=== PATIENT | female | born 1950 | race Two or more races ===

== ENCOUNTER 2019-02-05 18:09 | Inpatient (IN) | payer OTHER ==
--- NOTE | 2019-02-05 19:19 | PDOC ---
History of Present Illness - General Chief Complaint: Nausea/Vomiting Stated Complaint: ABDOMINAL PAIN Time Seen by Provider: 02/05/19 18:50 - History of Present Illness Initial Comments: 02/05/19 20:11 The patient is a 68 year old female with a history of HTN, DM, ESRD on dialysis , , Tue who presents for evaluation of abdominal pain, nausea, and vomiting. The patient reports a 1 day history of nausea with 4-5 episodes of non-bilious, non-bloody vomiting with associated sharp epigastric abdominal pain prompting her presentation to the ED for further evaluation. She notes that she has not been able to tolerate anything PO in the past day as well. She reports that she did get her schedule dialysis 2 days ago on Tue and denies any sick contacts. She otherwise denies fevers, chills, SOB, chest pain, or changes with urination or bowel movements. Past History - Past Medical History Allergies/Adverse Reactions: Allergies Allergy/AdvReac Type Severity Reaction Status Date / Time No Known Allergies Allergy Verified 02/05/19 18:27 Home Medications: Ambulatory Orders Aspirin 81 mg PO DAILY 02/05/19 Carvedilol [Coreg -] 25 mg PO BID 02/05/19 Clonidine HCl [Catapres] 0.2 mg PO BID 02/05/19 Folic Acid/Vit B Complex and C [Yue-Roberta Tablet] 0.8 mg PO DAILY 02/05/19 Gabapentin [Neurontin] 100 mg PO HS 02/05/19 Lactulose (Oral Use) [Cephulac -] 30 gm PO BID 02/05/19 Linaclotide [Linzess] 145 mcg PO DAILY 02/05/19 Nifedipine [Procardia Xl] 90 mg PO DAILY 02/05/19 Omeprazole 20 mg PO DAILY 02/05/19 Oxycodone HCl 5 mg PO DAILY PRN 02/05/19 Polyethylene Glycol 3350 [Miralax (For Daily Use) -] 17 gm PO DAILY 02/05/19 Sennosides [Senna] 8.6 mg PO BID 02/05/19 Sevelamer Carbonate [Renvela] 1,600 mg PO TID 02/05/19 Simvastatin [Zocor -] 20 mg PO HS 02/05/19 Sitagliptin Phosphate [Januvia] 25 mg PO DAILY 02/05/19 Sucralfate [Carafate -] 1 gm PO TID 02/05/19 - Suicide/Smoking/Psychosocial Hx Smoking History: Unknown if ever smoked Hx Alcohol Use: No Drug/Substance Use Hx: No Review of Systems - Review of Systems Comments:: 02/05/19 20:16 Constitutional: No fevers, chills, fatigue, malaise HEENT: No Rhinorrhea, nasal congestion, visual changes, or ear pain Cardiovascular: No chest pain, syncope, palpitations, lightheadedness Respiratory: No Cough, SOB, Hemoptysis, Gastrointestinal: Abdominal pain, Nausea, Vomiting, No Constipation, Diarrhea, Melena Genitourinary: No Dysuria, Frequency, Urgency, Hesitancy, Hematuria, Flank pain Musculoskeletal: No Myalgia, arthralgia Skin: No rashes, itching, bruising, pallor Neurologic: No Headache, Dizziness, Numbness, Weakness, or Tingling Psychiatric: Behaving normally for age. No Hallucinations. No SI or HI *Physical Exam - Vital Signs Last Vital Signs Temp Pulse Resp BP Pulse Ox 99.0 F 80 18 161/82 98 02/05/19 18:27 02/05/19 18:27 02/05/19 18:27 02/05/19 18:27 02/05/19 18:27 - Physical Exam Comments: 02/05/19 20:17 General Appearance: Nourished. No Apparent Distress HEENT: No Pharyngeal Erythema, Tonsillar Exudate, Tonsillar Erythema Neck: No Cervical Lymphadenopathy Respiratory/Chest: Lungs Clear, Normal Breath Sounds. No Crackles, Rales, Rhonchi, Wheezing Cardiovascular: Regular Rhythm, Regular Rate. No Murmur, Gallops, Rubs Gastrointestinal/Abdominal: Normal Bowel Sounds, Soft. Mild Epigastric and bilateral lower quadrant tenderness to palpation on exam. No Guarding, Rebound , Musculoskeletal: No CVA Tenderness Extremity: Normal Capillary Refill Integumentary: Normal Color, Dry, Warm Neurologic: Fully Oriented, Alert, Normal Mood/Affect, Normal Response, ED Treatment Course - LABORATORY CBC & Chemistry Diagram: 02/05/19 19:24 02/05/19 19:24 Medical Decision Making - Critical Care Time Total Critical Care Time (minutes): 45 Critical Care Statement: The care of this patient involved high complexity decision making to prevent further life threatening deterioration of the patient 's condition and/or to evaluate & treat vital organ system(s) failure or risk of failure. - Medical Decision Making 02/05/19 20:18 The patient is a 68 year old female with a history of HTN, DM, ESRD on dialysis bryson john, Jamal who presents for evaluation of abdominal pain, nausea, and vomiting. Differential includes but is not limited to: Gastroenteritis, Gastritis, Intra-abdominal pathology, Infectious, Metabolic Derangement. Given the patient's history and physical exam, we will obtain a cbc, cmp, troponin, ekg, lactate, lipase, chest plain film, ct abdomen/pelvis to evaluate further. We will treat with pepcid and zofran and continue to monitor and reassess while here in the ED. 02/05/19 22:48 CBC demonstrates an elevated wbc to 12. CMP demonstrates a potassium of 7.1 and creatinine of 11. Troponin is elevated to 0.07. Lactate is unremarkable. Chest plain film demonstrates no acute findings. CT abdomen/pelvis demonstrates Mild focal soft tissue thickening within the right mid to upper pelvis laterally adjacent to the appendix as well as noting that the proximal third of the appendix appears slightly thickening possibly representing an acute appendicitis as read by our radiologist. The patient has noted peaked T- waves on EKG. We discussed the case with Nephrology who will come to dialysis the patient urgently. We will treat in the meantime with insulin, calcium, dextrose, kayexalate, albuterol. Dr. Talamantes is recommending holding off on bicarb. We will consult with surgery for possible appendicitis and treat with unasyn. We discussed the case with ICU given her elevated potassium and ekg changes who accepted the patient to ICU. *DC/Admit/Observation/Transfer Diagnosis at time of Disposition: Hyperkalemia Acute appendicitis Qualifiers: Acute appendicitis type: unspecified acute appendicitis type Qualified Code(s) : K35.80 - Unspecified acute appendicitis - Discharge Dispostion Condition at time of disposition: Guarded Decision to Admit order: Yes - Referrals Referrals: ON STAFF,NOT [Primary Care Provider] - - Patient Instructions - Post Discharge Activity
[2019-02-05] MEDS ORDERED: FAMOTIDINE 20 MG/50 ML IVPB 20 MG/50 ML MG IVPB ONE ×2 (19:21→19:29)
[2019-02-05 19:43] LABS: EOS % 1.6 % (0-4.5); HEMATOCRIT 38.7 % (32.4-45.2); HEMOGLOBIN 12.2 GM/dL (10.7-15.3); LYMPH % 15.9 % (8-40); MCH 26.3 pg (25.7-33.7); MCHC 31.4 g/dl (32.0-36.0); MEAN CELL VOLUME 83.7 fl (80-96); MEAN PLT VOLUME 8.8 fl (7.5-11.1); MONO % 8.4 % (3.8-10.2); NEUT % 73.1 % (42.8-82.8); PLATELET COUNT 251 K/MM3 (134-434); RBC 4.62 M/mm3 (3.60-5.2); RDW 16.7 % (11.6-15.6)
[2019-02-05 20:18] LABS: ALBUMIN 3.9 g/dl (3.4-5.0); ALK PHOS 161 U/L (45-117); ANION GAP 10 MMOL/L (8-16); BILIRUBIN,TOTAL 0.4 mg/dL (0.2-1); BLOOD UREA NITROGEN 74 mg/dL (7-18); CALCIUM 9.7 mg/dL (8.5-10.1); CHLORIDE 100 mmol/L (98-107); CO2 24 mmol/L (21-32); GLUCOSE,RANDOM 93 mg/dL (74-106); LIPASE 87 U/L (73-393); SGOT/AST 12 U/L (15-37); SGPT/ALT 11 U/L (13-61); SODIUM 134 mmol/L (136-145); TOT PROT 8.7 g/dl (6.4-8.2)
[2019-02-05 20:23] LABS: POTASSIUM 7.1 mmol/L (3.5-5.1)
[2019-02-05] MEDS ORDERED: CALCIUM GLUCONATE 10% - 1,000 MG/10 ML VIAL IVPB ONE (20:30)
[2019-02-05] MEDS ORDERED: SODIUM POLYSTYRENE SULFONATE 15 GM/60 ML BOTTLE PO ONE (20:30)
[2019-02-05] MEDS ORDERED: ALBUTEROL SO4 0.042% IH SOL 1.25 MG/3 ML VIAL.NEB NEB ONE (20:30)
[2019-02-05] MEDS ORDERED: DEXTROSE 50%-WATER - 25 GM/50 ML VIAL IVPUSH ONE (20:30)
[2019-02-05] MEDS ORDERED: INSULIN REGULAR HUMAN 100 UNITS/ML *VIAL IVPUSH ONE (20:30)
[2019-02-05] MEDS ORDERED: ALBUTEROL SO4 0.083% IH SOL 2.5 MG/3 ML VIAL.NEB. NEB ONE (20:44)
[2019-02-05] MEDS ORDERED: INSULIN REGULAR HUMAN 100 UNITS/ML *VIAL ONE (21:00)
[2019-02-05] MEDS ORDERED: DEXTROSE 50%-WATER 25 GM/50 ML DISP.SYRIN ONE (21:00)
[2019-02-05] MEDS ORDERED: CALCIUM GLUCONATE 10% - 1,000 MG/10 ML VIAL ONE (21:00)
--- NOTE | 2019-02-05 21:15 | PDOC ---
Documentation entered by Joseph Mullen SCRIBE, acting as scribe for Ricarda Cheung DO. Ricarda Cheung DO: This documentation has been prepared by the Sebas vasquez Matthew, SCRIBE, under my direction and personally reviewed by me in its entirety. I confirm that the documentation accurately reflects all work, treatment, procedures, and medical decision making performed by me. Attending Attestation - Resident Resident Name: Leon Gallagher - HPI HPI: 02/05/19 20:17 Patient is a 68 year old male with a significant past medical history of HTN, DM , ESRD on dialysis , , Tue, who presents to the ED with complaints of nausea and vomiting that began yesterday evening. Patient reports experiencing chronic nausea and 5 episodes of non bloody vomiting, with associated abdominal pain that he states is a sharp non radiating pain, located primarily in the epigastric. He reports coming into the ED for further evaluation after symptoms did not subside over time. Denies chest pain, Sob. Denies nausea, vomiting. Denies fevers, chills. Denies constipation, diarrhea. Denies contact with sick individuals, out of state travellings. Denies any other symptoms. Allergies: NKDA. Social history: No smoking. No alcohol. No illicit drugs. Surgical history: None PMD: not on staff - Physicial Exam PE: 02/05/19 20:17 Agree with residents Physical Exam. - Critical Care Time Total Critical Care Time: 45 Critical Care Statement: The care of this patient involved high complexity decision making to prevent further life threatening deterioration of the patient 's condition and/or to evaluate & treat vital organ system(s) failure or risk of failure. - Medical Decision Making 02/05/19 21:13 68-year-old female with history of end-stage renal disease now complaining of diffuse abdominal pain Patient due for dialysis tomorrow Labs reveal a markedly elevated potassium level with EKG significant for peaked t waves consistent with lab values Call placed to patient's brim stiffener by emergency department resident Plan for transfer to room as soon as possible for dialysis this evening CT scan of the abdomen and pelvis to be performed prior to transferred Medical treatment for hyperkalemia and cardiac monitoring initiated in the emergency department
[2019-02-05] MEDS ORDERED: SODIUM POLYSTYRENE SULFONATE 15 GM/60 ML BOTTLE ONE (21:38)
--- NOTE | 2019-02-05 22:53 | CONSULT ---
Consultation: REQUESTING PROVIDER: Dr. Gallagher CONSULT REQUEST: We have been asked to medically evaluate this patient for emergent dialysis. HISTORY OF PRESENT ILLNESS: This is a 68 year old female with ESRD on HD )TTS), HTN , DM, who presents with nausea and NBNB vomiting x1 day, found to have hyperkalemia 7.1 with peaked t waves on ECG. Patient received insulin, albuterol, and kayexelate. Patient transferred to ICU for emergent dialysis. Of note abdominal CT revealed thickened appendix, r/o acute appendicitis. Denies fevers,chills, diarrhea, melena, sick contacts. Could not hold down any water today. Last meal was rice last night. REVIEW OF SYSTEMS: CONSTITUTIONAL: Absent: fever, chills, diaphoresis, generalized weakness, malaise, loss of appetite, weight change HEENT: Absent: rhinorrhea, nasal congestion, throat pain, throat swelling, difficulty swallowing, mouth swelling, ear pain, eye pain, visual changes CARDIOVASCULAR: Absent: chest pain, syncope, palpitations, irregular heart rate, lightheadedness , peripheral edema RESPIRATORY: Absent: cough, shortness of breath, dyspnea with exertion, orthopnea, wheezing, stridor, hemoptysis GASTROINTESTINAL: Positive: n/v Absent: abdominal pain, abdominal distension, diarrhea, constipation, melena, hematochezia GENITOURINARY: Absent: dysuria, frequency, urgency, hesitancy, hematuria, flank pain, genital pain MUSCULOSKELETAL: Absent: myalgia, arthralgia, joint swelling, back pain, neck pain SKIN: Absent: rash, itching, pallor HEMATOLOGIC/IMMUNOLOGIC: Absent: easy bleeding, easy bruising, lymphadenopathy, frequent infections ENDOCRINE: Absent: unexplained weight gain, unexplained weight loss, heat intolerance, cold intolerance NEUROLOGIC: Absent: headache, focal weakness or paresthesias, dizziness, unsteady gait, seizure, mental status changes, bladder or bowel incontinence PSYCHIATRIC: Absent: anxiety, depression, suicidal or homicidal ideation, hallucinations. PHYSICAL EXAMINATION Vital Signs - 24 hr 02/05/19 02/05/19 18:27 22:34 Temperature 99.0 F Pulse Rate 80 Pulse Rate [ 84 Apical] Respiratory 18 18 Rate Blood Pressure 161/82 Blood Pressure 162/84 [Left Arm] O2 Sat by Pulse 98 99 Oximetry (%) GENERAL: Awake, alert, and fully oriented, in no acute distress. THROAT: oropharynx clear without exudates. Moist mucous membranes. NECK: Normal range of motion, supple without lymphadenopathy, JVD, or masses. LUNGS: Breath sounds equal, clear to auscultation bilaterally. No wheezes, and no crackles. No accessory muscle use. HEART: Regular rate and rhythm, normal S1 and S2 +murmur 2/6 systolic murmur radiating to right clavicle, rub or gallop. ABDOMEN: Soft, +tenderness to deep palpation RLQ , not distended, normoactive bowel sounds MUSCULOSKELETAL: Normal range of motion at all joints. No bony deformities or tenderness. No CVA tenderness. UPPER EXTREMITIES: 2+ pulses, warm, well-perfused. No cyanosis. No clubbing. Cap refill <2 seconds. No peripheral edema. Right arm fistula LOWER EXTREMITIES: 2+ pulses, warm, well-perfused. No calf tenderness. No peripheral edema. NEUROLOGICAL: Cranial nerves II-XII intact. Normal speech. PSYCHIATRIC: Cooperative. Good eye contact. Appropriate mood and affect. SKIN: Warm, dry, normal turgor, no rashes or lesions noted. Laboratory Results - last 24 hr 02/05/19 02/05/19 02/05/19 19:24 19:24 19:24 WBC 12.0 H RBC 4.62 Hgb 12.2 Hct 38.7 MCV 83.7 MCH 26.3 MCHC 31.4 L RDW 16.7 H Plt Count 251 MPV 8.8 Absolute Neuts (auto) 8.8 H Neutrophils % 73.1 Lymphocytes % 15.9 Monocytes % 8.4 Eosinophils % 1.6 Basophils % 1.0 Nucleated RBC % 0 Sodium 134 L Potassium 7.1 H* Chloride 100 Carbon Dioxide 24 Anion Gap 10 BUN 74 H Creatinine 11.0 H* Creat Clearance w eGFR 3.45 Random Glucose 93 Lactic Acid 0.7 Calcium 9.7 Total Bilirubin 0.4 AST 12 L ALT 11 L Alkaline Phosphatase 161 H Creatine Kinase 59 Troponin I 0.07 H Total Protein 8.7 H Albumin 3.9 Lipase 87 Active Medications Generic Name Dose Route Start Last Admin Trade Name Freq PRN Reason Stop Dose Admin Chlorhexidine Gluconate 1 applic 02/06/19 22:00 Hibiclens For Decolonization - TP HS TERRA Mupirocin 1 applic 02/06/19 10:00 Bactroban Ointment (For Decolonization) - NS 02/11/19 09:59 BID [facility] ASSESSMENT/PLAN: This is a 68 year old female with ESRD on HD, who presents with one day history of nausea and vomiting, found to be hyperkalemic with peaked t waves, and CT abdomen with possible acute appendicitis. ICU overnight for emergent dialysis. Hyperkalemia with peaked t waves r/o acute appendicitis r/o multiple myeloma ESRD DM HTN -s/p cocktail for hyperkalemia -emergent dialysis -repeat labs post HD -blood cultures, Empiric antibiotics -surgery consulted -a/g ratio >1 with vertebral irregularities on CT ; w/u for mutiple myeloma; spep; K/L light chains Dispo: We will continue to follow the patient. Thank you for this consultative opportunity. Visit type - Emergency Visit Emergency Visit: Yes Care time: The patient presented to the Emergency Department on the above date and was hospitalized for further evaluation of their emergent condition. - New Patient This patient is new to me today: Yes Date on this admission: 02/05/19 - Critical Care Critical Care patient: Yes Total Critical Care Time (in minutes): 40 Critical Care Statement: The care of this patient involved high complexity decision making to prevent further life threatening deterioration of the patient 's condition and/or to evaluate & treat vital organ system(s) failure or risk of failure.
--- NOTE | 2019-02-05 23:00 | CONSULT ---
Consult Consult Specialty:: Nephrology Reason for Consultation:: ESRD and hyperkalemia - History of Present Illness Chief Complaint: abdominal pain and vomiting History of Present Illness: Pt is a 68 year old female with pmhx of ESRD, HTN, and DM who presented to the ER wtih nausea and vomiting. She also complained of epigastric pain. The symptoms began yesterday. She had about 5 episodes of vomiting. She denies fevers or chills. She denies diarrhea. She says that she feels that the nausea is improved and is hungry now. She is on HD on a TTS schedule. Her last dialysis was on Tuesday. She does not know the address of the HD center nor does she know the name of her racing car driver. She was found to be hyperkalemic as well with ecg changes. I was called as a stat consult. Pt went for ct scan of the abdomen which showed possible acute apendicitis. - History Source History Provided By: Patient, Medical Record Limitations to Obtaining History: Poor Historian - Past Medical History Cardio/Vascular: Yes: HTN Gastrointestinal: Yes: GERD Renal/: Yes: Renal Failure, Hemodialysis Endocrine: Yes: Diabetes Mellitus - Past Surgical History Past Surgical History: Yes: AV Fistula/Graft - Alcohol/Substance Use Hx Alcohol Use: No - Smoking History Smoking history: Unknown if ever smoked Home Medications - Allergies Allergies/Adverse Reactions: Allergies Allergy/AdvReac Type Severity Reaction Status Date / Time No Known Allergies Allergy Verified 02/05/19 18:27 - Home Medications Home Medications: Ambulatory Orders Aspirin 81 mg PO DAILY 02/05/19 Carvedilol [Coreg -] 25 mg PO BID 02/05/19 Clonidine HCl [Catapres] 0.2 mg PO BID 02/05/19 Folic Acid/Vit B Complex and C [Yue-Roberta Tablet] 0.8 mg PO DAILY 02/05/19 Gabapentin [Neurontin] 100 mg PO HS 02/05/19 Lactulose (Oral Use) [Cephulac -] 30 gm PO BID 02/05/19 Linaclotide [Linzess] 145 mcg PO DAILY 02/05/19 Nifedipine [Procardia Xl] 90 mg PO DAILY 02/05/19 Omeprazole 20 mg PO DAILY 02/05/19 Oxycodone HCl 5 mg PO DAILY PRN 02/05/19 Polyethylene Glycol 3350 [Miralax (For Daily Use) -] 17 gm PO DAILY 02/05/19 Sennosides [Senna] 8.6 mg PO BID 02/05/19 Sevelamer Carbonate [Renvela] 1,600 mg PO TID 02/05/19 Simvastatin [Zocor -] 20 mg PO HS 02/05/19 Sitagliptin Phosphate [Januvia] 25 mg PO DAILY 02/05/19 Sucralfate [Carafate -] 1 gm PO TID 02/05/19 Family Disease History - Family Disease History Family History: Denies Review of Systems - Review of Systems Constitutional: reports: Malaise. denies: Chills, Fever Eyes: reports: No Symptoms HENT: reports: No Symptoms Neck: reports: No Symptoms Cardiovascular: reports: No Symptoms Respiratory: reports: No Symptoms Gastrointestinal: reports: Abdominal Pain, Nausea, Vomiting. denies: Bloating, Constipation, Diarrhea Genitourinary: reports: No Symptoms Musculoskeletal: reports: No Symptoms Integumentary: reports: No Symptoms Neurological: reports: No Symptoms Endocrine: reports: No Symptoms Hematology/Lymphatic: reports: No Symptoms Psychiatric: reports: No Symptoms Physical Exam Vital Signs: Vital Signs Temperature 99.0 F 02/05/19 18:27 Pulse Rate 84 02/05/19 22:34 Respiratory Rate 18 02/05/19 22:34 Blood Pressure 162/84 02/05/19 22:34 O2 Sat by Pulse Oximetry (%) 99 02/05/19 22:34 Constitutional: Yes: Calm Eyes: Yes: Conjunctiva Clear HENT: Yes: Atraumatic Cardiovascular: Yes: S1, S2 Respiratory: Yes: CTA Bilaterally Gastrointestinal: Yes: Normal Bowel Sounds, Soft, Tenderness Renal/: Yes: WNL Musculoskeletal: Yes: WNL Edema: No Neurological: Yes: Oriented Psychiatric: Yes: Oriented Labs: CBC, BMP 02/05/19 19:24 02/05/19 19:24 Laboratory Tests 02/05/19 02/05/19 19:24 19:24 WBC 12.0 H Hgb 12.2 Sodium 134 L Potassium 7.1 H* Chloride 100 Carbon Dioxide 24 BUN 74 H Total Bilirubin 0.4 AST 12 L ALT 11 L Alkaline Phosphatase 161 H Imaging - Results Cat Scan: Report Reviewed Assessment/Plan Current Medications Generic Name Dose Route Start Last Admin Trade Name Freq PRN Reason Stop Dose Admin Chlorhexidine Gluconate 1 applic 02/06/19 22:00 Hibiclens For Decolonization - TP HS TERRA Mupirocin 1 applic 02/06/19 10:00 Bactroban Ointment (For Decolonization) - NS 02/11/19 09:59 BID TERRA Impression 1. ESRD 2. hyperkalemia 3. abd pain 4. possible acute appendicitis 5. HTN 6. DM Plan - will arrange for urgent HD at bedside - called in HD nurse - pt going to ICU on tele monitor - potassium treated medically in ER earlier tonight - surgical evaluation for ct finding is pending - will not take fluid off on HD - monitor blood sugar - discussed with ER team - discussed with ICU team
[2019-02-05] MEDS ORDERED: SODIUM CHLORIDE 250 ML IV PRN (23:05)
--- NOTE | 2019-02-05 23:10 | PN ---
Teaching Attending Note Name of Resident: Sarah Jones ATTENDING PHYSICIAN STATEMENT I saw and evaluated the patient. I reviewed the resident's note and discussed the case with the resident. I agree with the resident's findings and plan as documented. SUBJECTIVE: Seen and examined; please refer to resident note for further historical information. Briefly, this is a 68 y/o female presenting with HTN, NIDDM, ESRD on TTS HD (last HD tuesday; RUE AVF), HLD, GERD. 4-5 times NBNB vomit this AM with sharp epigastric pain radiating through the abdomen with a generalized body pain. Nothing makes it better or worse; nobody who ate the food she ate yesterday got sick. Dr. Atkinson called by ER and will assess. She was brought to the ICU for emergency HD by nephrology and will be admitted to medicine service with ICU, renal sgy consultation. She is noted to have elevated protein and vertebral endplate abnormality in L-spine and denies any acute back pain, etc. She is noted to be markedly hypertensive with a positive troponin but denies chest pain, SOB, etc. 10 sys ROS done and negative aside from HPI PMH, PSH, FH, SH reviewed Home Medications Medication Instructions Recorded Aspirin 81 mg PO DAILY 02/05/19 Carvedilol [Coreg -] 25 mg PO BID 02/05/19 Clonidine HCl [Catapres] 0.2 mg PO BID 02/05/19 Folic Acid/Vit B Complex and C 0.8 mg PO DAILY 02/05/19 [Yue-Roberta Tablet] Gabapentin [Neurontin] 100 mg PO HS 02/05/19 Lactulose (Oral Use) [Cephulac -] 30 gm PO BID 02/05/19 Linaclotide [Linzess] 145 mcg PO DAILY 02/05/19 Nifedipine [Procardia Xl] 90 mg PO DAILY 02/05/19 Omeprazole 20 mg PO DAILY 02/05/19 Oxycodone HCl 5 mg PO DAILY PRN 02/05/19 Polyethylene Glycol 3350 [Miralax 17 gm PO DAILY 02/05/19 (For Daily Use) -] Sennosides [Senna] 8.6 mg PO BID 02/05/19 Sevelamer Carbonate [Renvela] 1,600 mg PO TID 02/05/19 Simvastatin [Zocor -] 20 mg PO HS 02/05/19 Sitagliptin Phosphate [Januvia] 25 mg PO DAILY 02/05/19 Sucralfate [Carafate -] 1 gm PO TID 02/05/19 OBJECTIVE: VS, labs, imaging reviewed NAD, AAO, resting comfortably in bed NC AT EOMI PERRLA Tender abdomen, ND +BS RRR s1/2 no mgr Lungs CTAB, w/ sym exp Palpable thrill CN2-12 wnl, no fnd CT reviewed; shows mild focal soft tissue thickening in the R-mid to upper pelvis laterally adjacent to the appendix. The proximal third of the appendix appears slightly thickened. Suspicious for possible early appendicitis. Also mentions possible cardiomegaly, probable cholelithiasis without cholecystitis, and multilevel vertebral ednplate abnormality noted in the mid and lower lumbar spine that is noninflam vs. inflammatory and recommedned MRI for further evaluation. EKG reviewed ASSESSMENT AND PLAN: Patient presents for abdominal pain found to have severe hyperkalemia with possible appendicitis; Dr. Atkinson and Dr. Watkins are following 1) Severe Hyperkalemia -Emergency HD being initiated as this note is written; noted renal input. She denies missing HD, etc. -Followup repeat BMP, monitor telemetry. EKG noted. 2) Possible early appendicitis -Empiric abx with zosyn, followup surgical consult. Check ESR/CRP. Ultimate management per surgical services; appreciate expert opiniom. Check type and cross and coags. Monitor Is and Os. Not septic. -NPO, PRN dilaudid. No fluid removal with HD and given not septic with clinical risk of fluid overload will hold off on IVF overnight. 3) Elevated Alkaline Phosphatase -Checking GGT and RUQ US 4) HTN Emergency/Troponemia -HD now; recheck BP post dialysis. No plan for fluid removal per nephrology. No sx. Monitor telemetry, repeat EKG. Likely due to subendocardial ischemia 2/ 2 demand. Obtain old records. Can check echo to r/o any wmas. -Continue home BP meds; should she appear septic of course will hold. If BP elevated post HD will give home meds PM dose and consider additional PRN dosing. Of course will control pain. 5) NIDDM -Hold PO antihyperglycemics; SSI while inpatient. 6) ESRD on HD -Nephrology following; renal diet, strict is and os, monitor weights. On TTS HD via avf. 7) Hyperprotenemia with lumbar vertebrae endplate abnormality -Checking MRI, SPEP, UPEP. Consider heme/onc consult in AM. Full Code
[2019-02-05] MEDS ORDERED: AMPICILLIN NA/SULBACTAM NA 1.5 GM in SODIUM CHLORIDE 100 ML IVPB ONE (23:23)
[2019-02-05] MEDS: INSULIN SLIDING SCALE (NOVOLOG) 1 VIAL SQ SCH (23:30)
--- NOTE | 2019-02-06 | HP ---
CHIEF COMPLAINT: Abdominal pain, nausea, vomiting PCP: Not on staff HISTORY OF PRESENT ILLNESS: Patient is a 68 year old female who was BIBEMS from [facility] assisted living with a PMHx of HTN, NIDMMII w/ neuropathy, ESRD (,,S), HLD, GERD for complaints of nausea, vomiting, and abdominal pain. According to the patient, she started experiencing diffuse, constant, sharp abdominal pain that started last night associated with several episodes of nonbloody vomitous, which prompted this hospital visit. Patient reports she ate rice and meat given to her yesterday by her sister. However, she states she was the only one who had these symptoms. Patient denies missing any dialysis days this week. Patient also denies being around sick contacts but does live in a facility. Patient otherwise, denies any fever, chills, chest pain, palpitations, shortness of breath, headaches, dizziness, loss of consciousness. Patient has never been to this hospital before and will need more information from care home on who the casing blower is, reason for ESRD, and dry weight. ER course was notable for: (1)HyperKalemia (2)Insulin, dextrose, kayexalate, calcium given (3)Abdominal CT revealed possible appendicitis Recent Travel: Denies PAST MEDICAL HISTORY: HTN NIDMMII w/ neuropathy ESRD (,,S) HLD GERD PAST SURGICAL HISTORY: Breast Reduction Social History: Smoking:Denies Alcohol: Denies Drugs: Denies Lives at a care home Born in [facility] [place] Family History: Father- Alcoholism Mother- Denies Allergies: No Known Allergies Allergy (Verified 02/05/19 18:27) HOME MEDICATIONS: Home Medications Medication Instructions Recorded Aspirin 81 mg PO DAILY 02/05/19 Carvedilol [Coreg -] 25 mg PO BID 02/05/19 Clonidine HCl [Catapres] 0.2 mg PO BID 02/05/19 Folic Acid/Vit B Complex and C 0.8 mg PO DAILY 02/05/19 [Yue-Roberta Tablet] Gabapentin [Neurontin] 100 mg PO HS 02/05/19 Lactulose (Oral Use) [Cephulac -] 30 gm PO BID 02/05/19 Linaclotide [Linzess] 145 mcg PO DAILY 02/05/19 Nifedipine [Procardia Xl] 90 mg PO DAILY 02/05/19 Omeprazole 20 mg PO DAILY 02/05/19 Oxycodone HCl 5 mg PO DAILY PRN 02/05/19 Polyethylene Glycol 3350 [Miralax 17 gm PO DAILY 02/05/19 (For Daily Use) -] Sennosides [Senna] 8.6 mg PO BID 02/05/19 Sevelamer Carbonate [Renvela] 1,600 mg PO TID 02/05/19 Simvastatin [Zocor -] 20 mg PO HS 02/05/19 Sitagliptin Phosphate [Januvia] 25 mg PO DAILY 02/05/19 Sucralfate [Carafate -] 1 gm PO TID 02/05/19 REVIEW OF SYSTEMS CONSTITUTIONAL: Absent: fever, chills, diaphoresis, generalized weakness, malaise, loss of appetite, weight change HEENT: Absent: rhinorrhea, nasal congestion, throat pain, throat swelling, difficulty swallowing, mouth swelling, ear pain, eye pain, visual changes CARDIOVASCULAR: Absent: chest pain, syncope, palpitations, irregular heart rate, lightheadedness , peripheral edema RESPIRATORY: Absent: cough, shortness of breath, dyspnea with exertion, orthopnea, wheezing, stridor, hemoptysis GASTROINTESTINAL: abdominal pain, nausea, vomiting Absent: diarrhea, constipation, melena, hematochezia GENITOURINARY: Absent: dysuria, frequency, urgency, hesitancy, hematuria, flank pain, genital pain MUSCULOSKELETAL: Absent: myalgia, arthralgia, joint swelling, back pain, neck pain SKIN: Absent: rash, itching, pallor HEMATOLOGIC/IMMUNOLOGIC: Absent: easy bleeding, easy bruising, lymphadenopathy, frequent infections ENDOCRINE: Absent: unexplained weight gain, unexplained weight loss, heat intolerance, cold intolerance NEUROLOGIC: Absent: headache, focal weakness or paresthesias, dizziness, unsteady gait, seizure, mental status changes, bladder or bowel incontinence PSYCHIATRIC: Absent: anxiety, depression, suicidal or homicidal ideation, hallucinations. PHYSICAL EXAMINATION Vital Signs 02/05/19 02/05/19 18:27 22:34 Temperature 99.0 F Pulse Rate 80 Pulse Rate [ 84 Apical] Respiratory 18 18 Rate Blood Pressure 161/82 Blood Pressure 162/84 [Left Arm] O2 Sat by Pulse 98 99 Oximetry (%) GENERAL: Awake, alert, and fully oriented, in no acute distress. HEAD: Normal with no signs of trauma. EYES: Pupils equal, round and reactive to light, extraocular movements intact, sclera anicteric, conjunctiva clear. No lid lag. EARS, NOSE, THROAT: Oropharynx clear without exudates. Dry mucous membranes. NECK: (-) lymphadenopathy, JVD, or masses. LUNGS: Breath sounds equal, clear to auscultation bilaterally. No wheezes, and no crackles. No accessory muscle use. HEART: Regular rate and rhythm, normal S1 and S2 without murmur, rub or gallop. BREAST: Bilateral scar below the breast from previous breast reduction. No nippple discharge. No masses, lesions, skin changes. ABDOMEN: Soft,obese, nontender, not distended, normoactive bowel sounds, no guarding, no rebound, no masses. No hepatomegaly or splenomegaly. MUSCULOSKELETAL: No CVA tenderness. EXTREMITIES: (+) Right arm av fistula with good palpable thrill. No calf tenderness. No peripheral edema. NEUROLOGICAL: Cranial nerves II-XII intact. Normal speech. Motor strength 5/5 bilaterally with sensory intact PSYCHIATRIC: Cooperative. Good eye contact. Appropriate mood and affect. SKIN: Warm, dry, normal turgor, no rashes or lesions noted, normal capillary refill. Laboratory Results 02/05/19 19:24 02/05/19 19:24 02/05/19 02/05/19 19:24 19:24 Lactic Acid 0.7 Total Bilirubin 0.4 AST 12 L ALT 11 L Alkaline Phosphatase 161 H Troponin I 0.07 H Lipase 87 IMAGES: Abdomen CT (02/05/19): Mild focal soft tissue thickening is seen within the right mid to upper pelvis laterally adjacent to the appendix. The proximal third of the appendix appears slightly thickened. Correlate clinically in regards to possible acute appendicitis. Possible cardiomegaly. Bilateral renal atrophy which is probably moderate. Probable cholelithiasis without CT evidence of acute cholecystitis. If clinically indicated correlate with sonography. Multilevel vertebral endplate irregularity is noted within the mid and lower lumbar spine - ? due to noninflammatory versus inflammatory disease. Clinical/ laboratory correlation is suggested. MRI evaluation may be considered. ASSESSMENT/PLAN: Patient is a 68 year old female who presented here for nausea, vomiting, abdominal pain and was found to have severe hyperkalemia with EKG changes. Patient admitted to ICU for further monitoring and management. Severe HyperKalemia -With EKG showing teaked P waves -Emergent dialysis initiated by Nephrology -Kayexalate, Dextrose, Insulin and calcium given -Will need post dialysis labs and EKG -Continue to monitor labs daily -Nephrology consult appreciated Possible Acute Appendicitis -CT abdomen revealed possible appendicitis -ESR/CRP ordered -Started Flagyl 500mg IVPB Q8H and Levaquin 500mg IVPB daily -Blood cultures -NPO -Pain control with Morphine 2mg IVPB Q6H PRN -Will hold on fluids as patient is getting dialysis -Type and screen ordered -Surgery consult placed and will evaluate HTN Emergency w/ Troponemia -Patient currently getting hemodialysis and will check BP post dialysis -Repeat Labs including BMP and troponin -Likely demand ischemia -Will repeat ekg post dialysis -Home medications resumed for the morning but if patient shows any signs of sepsis, will hold -Continue to monitor BP -Trend Troponin until peaks Elevated Proteins with Lumbar Vertebrae Irregularities -SPEP, UPEP Ordered -MRI ordered -Would consider Hematology/oncology consult Elevated Alkaline Phosphatase -GGT ordered -RUQ U/S ordered NIDDMII -ISS -BGM ESRD on HD -HD days on ,,S -Will need dry weight from care home -Daily weights -Strict I&O's HLD -Continue home medication Simvastatin 20mg HS GERD -Continue home medication Carafate 1mg TID F/E/N -On no fluids -Hyperkalemia -NPO Prophylaxis -Moderate risk. Heparin 5000 units sq tid for DVT -Carafate for GI Disposition -Full code -Emergent dialysis tonight and will need to repeat labs post dialysis -PT for deconditioning Sarah Jones [id number] Visit type - Emergency Visit Emergency Visit: Yes ED Registration Date: 02/05/19 Care time: The patient presented to the Emergency Department on the above date and was hospitalized for further evaluation of their emergent condition. - New Patient This patient is new to me today: Yes Date on this admission: 02/05/19 - Critical Care Critical Care patient: Yes Total Critical Care Time (in minutes): 45 Critical Care Statement: The care of this patient involved high complexity decision making to prevent further life threatening deterioration of the patient 's condition and/or to evaluate & treat vital organ system(s) failure or risk of failure.
[2019-02-06] MEDS ORDERED: MORPHINE SULFATE 2 MG/ML VIAL IVPUSH PRN (00:20)
--- NOTE | 2019-02-06 01:04 | CONSULT ---
Consult Consult Specialty:: General Surgery Referred by:: Leon Gallagher Reason for Consultation:: appendicitis - History of Present Illness Chief Complaint: n/v, abd pain History of Present Illness: 68yo F with HTN, DM, ESRD on HD via RUE fistula, s/p hysterectomy and breast reduction, presented to ER with N/V associated with epigastric abdominal pain. Per ER record, pt had missed Tuesday HD. Per patient, she was at dialysis on Tuesday and felt ok. She indicates she had N/V and some pain about 2 weeks ago and longer ago than that, but that it got better on its own. The current symptoms she describes started only Tuesday morning. She had a headache yesterday as well. Denies dizziness, f/c, dysuria, diarrhea, constipation, last normal BM was yesterday, last made urine earlier today (she does urinate some). She has had back and knee pain, which are chronic, and takes up to one percocet a day for that. Not sure of all her meds, but med list includes asa daily. She reports having taken her am meds yesterday and this morning, though today she threw them up. She has been in a wheelchair for about a year, and can walk some with a walker and sometimes without the walker. She is in assisted living, but states she is independent with ADLs. In the ER, she was afebrile, with wbc 12, K 7 with peaked T waves, and CT showed mild inflammation/enlargement of middle third of appendix with appendicolith and some inflammatory changes around it suggestive of acute appendicitis. She was admitted to medicine, given IVF and started on Unasyn and brought to the ICU for emergent hemodialysis. Surgery was asked to assess. She is seen and examined in ICU, just starting HD. She feels cold, and describes her pain from before, but does not seem particularly uncomfortable. No further vomiting. She seems a little unclear on some of her history, and as noted above, her story varies from the ER record. - History Source History Provided By: Patient, Medical Record Limitations to Obtaining History: Poor Historian - Past Medical History Cardio/Vascular: Yes: HTN Gastrointestinal: Yes: GERD Renal/: Yes: Renal Failure, Hemodialysis Reproductive: Yes: Postmenopausal Musculoskeletal: Yes: Osteoarthritis Endocrine: Yes: Diabetes Mellitus - Past Surgical History Past Surgical History: Yes: AV Fistula/Graft (RUE), Hysterectomy Additional Surgical History: breast reduction - Alcohol/Substance Use Hx Alcohol Use: No History of Substance Use: reports: None - Smoking History Smoking history: Never smoked Have you smoked in the past 12 months: No - Social History Usual Living Arrangement: Assisted Living ADL: Independent Home Medications - Allergies Allergies/Adverse Reactions: Allergies Allergy/AdvReac Type Severity Reaction Status Date / Time No Known Allergies Allergy Verified 02/05/19 18:27 - Home Medications Home Medications: Ambulatory Orders Aspirin 81 mg PO DAILY 02/05/19 Carvedilol [Coreg -] 25 mg PO BID 02/05/19 Clonidine HCl [Catapres] 0.2 mg PO BID 02/05/19 Folic Acid/Vit B Complex and C [Yue-Roberta Tablet] 0.8 mg PO DAILY 02/05/19 Gabapentin [Neurontin] 100 mg PO HS 02/05/19 Lactulose (Oral Use) [Cephulac -] 30 gm PO BID 02/05/19 Linaclotide [Linzess] 145 mcg PO DAILY 02/05/19 Nifedipine [Procardia Xl] 90 mg PO DAILY 02/05/19 Omeprazole 20 mg PO DAILY 02/05/19 Oxycodone HCl 5 mg PO DAILY PRN 02/05/19 Polyethylene Glycol 3350 [Miralax (For Daily Use) -] 17 gm PO DAILY 02/05/19 Sennosides [Senna] 8.6 mg PO BID 02/05/19 Sevelamer Carbonate [Renvela] 1,600 mg PO TID 02/05/19 Simvastatin [Zocor -] 20 mg PO HS 02/05/19 Sitagliptin Phosphate [Januvia] 25 mg PO DAILY 02/05/19 Sucralfate [Carafate -] 1 gm PO TID 02/05/19 Ammonium Lactate Cream [Lac-Hydrin 12% Cream -] 1 unit TP BID 02/06/19 Folic Acid/Vit B Complex and C [Yue-Roberta Tablet] 1 tab PO DAILY 02/06/19 Lidocaine/Prilocaine [Lidocaine-Prilocaine Cream] 1 unit TP BID PRN 02/06/19 Saliva Substitute Combo No.9 [Biotene] 10 ml PO TID 02/06/19 Family Disease History - Family Disease History Family History: Unremarkable (noncontributory) Review of Systems - Review of Systems Constitutional: reports: Loss of Appetite. denies: Chills, Fever Eyes: reports: Blurred Vision (difficulty seeing, but does not use glasses). denies: Recent Change in Vision HENT: denies: Difficult Swallowing, Nasal Congestion, Throat Pain Neck: denies: Swollen Glands, Tenderness Cardiovascular: denies: Chest Pain, Palpitations Respiratory: denies: Cough, SOB Gastrointestinal: reports: Abdominal Pain (with hpi), Nausea (with hpi), Vomiting (with hpi). denies: Constipation, Diarrhea Genitourinary: denies: Burning, Dysuria Musculoskeletal: reports: Back Pain, Joint Pain (knees). denies: Muscle Pain Integumentary: denies: Change in Color, Rash Neurological: reports: Headache. denies: Dizziness Psychiatric: denies: Anxiety, Depression ("I am sad sometimes") Physical Exam Vital Signs: Vital Signs Temperature 99.0 F 02/05/19 18:27 Pulse Rate 84 02/05/19 22:34 Respiratory Rate 18 02/05/19 22:34 Blood Pressure 162/84 02/05/19 22:34 O2 Sat by Pulse Oximetry (%) 99 02/05/19 22:34 low grade temp, 99.2 Constitutional: Yes: Well Nourished, No Distress, Calm Eyes: Yes: Conjunctiva Clear, EOM Intact HENT: Yes: Atraumatic, Normocephalic Neck: Yes: Supple, Trachea Midline Cardiovascular: Yes: Regular Rate and Rhythm, Tachycardia (slight) Respiratory: Yes: Regular, CTA Bilaterally Gastrointestinal: Yes: Soft, Abdomen, Obese, Hypoactive Bowel Sounds, Tenderness (RLQ mostly to deep palpation, initial tenderness LLQ, but not on repeat exam of the area), Other (well-healed lower midline scar). No: Tenderness, Rebound (no geovanna/guarding) ...Rectal Exam: Yes: Deferred Renal/: No: CVA Tenderness - Left, CVA Tenderness - Right Musculoskeletal: No: Joint Stiffness, Joint Swelling Extremities: Yes: Other (fistula right upper arm with good thrill - accessed for HD). No: Cool, Cyanosis Edema: No Peripheral Pulses WNL: Yes Integumentary: No: Jaundice, Rash Neurological: Yes: Alert, Oriented Psychiatric: Yes: Alert, Oriented Labs: CBC, BMP 02/05/19 19:24 02/05/19 19:24 CMP Sodium 134 mmol/L (136-145) L 02/05/19 19:24 Potassium 7.1 mmol/L (3.5-5.1) H* 02/05/19 19:24 Chloride 100 mmol/L (98-107) 02/05/19 19:24 Carbon Dioxide 24 mmol/L (21-32) 02/05/19 19:24 Anion Gap 10 MMOL/L (8-16) 02/05/19 19:24 BUN 74 mg/dL (7-18) H 02/05/19 19:24 Creatinine 11.0 mg/dL (0.55-1.3) H* 02/05/19 19:24 Creat Clearance w eGFR 3.45 (>60) 02/05/19 19:24 Random Glucose 93 mg/dL (74-106) 02/05/19 19:24 Lactic Acid 0.7 mmol/L (0.4-2.0) 02/05/19 19:24 Calcium 9.7 mg/dL (8.5-10.1) 02/05/19 19:24 Total Bilirubin 0.4 mg/dL (0.2-1) 02/05/19 19:24 AST 12 U/L (15-37) L 02/05/19 19:24 ALT 11 U/L (13-61) L 02/05/19 19:24 Alkaline Phosphatase 161 U/L (45-117) H 02/05/19 19:24 Creatine Kinase 59 U/L (26-192) 02/05/19 19:24 Troponin I 0.07 ng/ml (0.00-0.05) H 02/05/19 19:24 Total Protein 8.7 g/dl (6.4-8.2) H 02/05/19 19:24 Albumin 3.9 g/dl (3.4-5.0) 02/05/19 19:24 Lipase 87 U/L (73-393) 02/05/19 19:24 coags pending in am Imaging - Results Cat Scan: Report Reviewed, Image Reviewed (images reviewed - appendix curled in RLQ with appendicolith noted, mild inflammatory changes present) Problem List - Problems (1) Acute appendicitis Assessment/Plan: admitted to medicine/ICU HD in process now NPO/IVF antibiotics - Unasyn started, would consider Zosyn/ID consult trend labs T&S ordered, coags in am pain meds prn - would use tylenol first line but pt may need oxycodone as well, given baseline use GI/DVT prophylaxis Discussed with patient risks, benefits and alternatives of laparoscopic possible open appendectomy, including but not limited to bleeding, infection, injury to adjacent structures, intestinal leak or injury, intraabdominal abscess , incisional hernia, need for further procedures, ; alternatives include antibiotics, delayed or no surgery - risks of this include failure of nonoperative therapy, perforation, sepsis, recurrence, . Patient desires to proceed with operation - will take to OR for above in am. Informed consent signed for same. Code(s): K35.80 - UNSPECIFIED ACUTE APPENDICITIS Qualifiers: Acute appendicitis type: other Qualified Code(s): K35.890 - Other acute appendicitis without perforation or gangrene; K35.89 - Other acute appendicitis (2) ESRD on hemodialysis Assessment/Plan: getting HD now nephrology on board trend labs Code(s): N18.6 - END STAGE RENAL DISEASE; Z99.2 - DEPENDENCE ON RENAL DIALYSIS (3) Hypertension Assessment/Plan: continue home meds Code(s): I10 - ESSENTIAL (PRIMARY) HYPERTENSION Qualifiers: Hypertension type: essential hypertension Qualified Code(s): I10 - Essential (primary) hypertension (4) Diabetes mellitus type 2, noninsulin dependent Assessment/Plan: hold meds while NPO FS with SSI coverage Code(s): E11.9 - TYPE 2 DIABETES MELLITUS WITHOUT COMPLICATIONS
[2019-02-06] MEDS ORDERED: ACETAMINOPHEN 325 MG TABLET (FP) PO PRN ×2 (01:20→14:33)
[2019-02-06] MEDS ORDERED: morphine SULFATE 4 MG/ML VIAL IVPUSH PRN (01:21)
--- NOTE | 2019-02-06 02:10 | PN ---
Progress Note (short form) - Note Progress Note: as per Dr. Atkinson suggestion: -abx have been switched to zosyn. with renal dosing -for lumbar MRI: primary team needs to be contacted on day done. not to be done on day of surgery Stacy Bansal MD PGY-2 Night team
[2019-02-06] MEDS: INSULIN SLIDING SCALE (NOVOLOG) 1 VIAL SQ SCH ×4 (03:30→22:00)
[2019-02-06 03:51] LABS: ANION GAP 9 MMOL/L (8-16); BLOOD UREA NITROGEN 24 mg/dL (7-18); CALCIUM 8.7 mg/dL (8.5-10.1); CHLORIDE 98 mmol/L (98-107); CO2 30 mmol/L (21-32); CREATININE 4.1 mg/dL (0.55-1.3); GLUCOSE,RANDOM 140 mg/dL (74-106); POTASSIUM 3.3 mmol/L (3.5-5.1); SODIUM 137 mmol/L (136-145)
[2019-02-06] MEDS ORDERED: DEXTROSE 5%-WATER - 50 ML IVPB ONE ×3 (04:13→18:07)
[2019-02-06] MEDS ORDERED: PIPERACILLIN/TAZOBACTAM 2.25 GM VIAL IVPB ONE ×3 (04:13→18:07)
[2019-02-06] MEDS: PIPERACILLIN/TAZOB 2.25 GM 2.25 GM in DEXTROSE 5%-WATER - 50 ML IVPB SCH ×2 (04:16→09:07)
[2019-02-06] MEDS ORDERED: HEPARIN NA (PORCINE) 5,000 UNITS/ML 1ML VIAL SQ SCH (06:00)
[2019-02-06 06:54] LABS: BASO % 0.8 % (0-2.0); EOS % 2.2 % (0-4.5); HEMATOCRIT 35.8 % (32.4-45.2); HEMOGLOBIN 11.4 GM/dL (10.7-15.3); LYMPH % 20.1 % (8-40); MCH 26.4 pg (25.7-33.7); MEAN CELL VOLUME 82.6 fl (80-96); MEAN PLT VOLUME 8.6 fl (7.5-11.1); MONO % 9.1 % (3.8-10.2); NEUT % 67.8 % (42.8-82.8); PLATELET COUNT 223 K/MM3 (134-434); RBC 4.33 M/mm3 (3.60-5.2); RDW 16.8 % (11.6-15.6); WHITE BLOOD COUNT 10.2 K/mm3 (4.0-10.0)
[2019-02-06] MEDS ORDERED: SUCRALFATE 1 GM TABLET (FP) PO SCH (07:00)
[2019-02-06 07:01] LABS: INR 1.06 (0.83-1.09); PROTHROMBIN TIME (PATIENT) 12.5 SEC (9.7-13.0)
[2019-02-06 07:02] LABS: ALBUMIN 3.5 g/dl (3.4-5.0); ALK PHOS 142 U/L (45-117); ANION GAP 8 MMOL/L (8-16); BILIRUBIN,TOTAL 0.4 mg/dL (0.2-1); BLOOD UREA NITROGEN 32 mg/dL (7-18); CALCIUM 9.1 mg/dL (8.5-10.1); CHLORIDE 97 mmol/L (98-107); CO2 32 mmol/L (21-32); CREATININE 6.3 mg/dL (0.55-1.3); GLUCOSE,RANDOM 107 mg/dL (74-106); MAGNESIUM 1.6 mg/dL (1.8-2.4); PHOSPHOROUS 2.6 mg/dL (2.5-4.9); POTASSIUM 3.9 mmol/L (3.5-5.1); SGOT/AST 13 U/L (15-37); SGPT/ALT 12 U/L (13-61); SODIUM 136 mmol/L (136-145); TOT PROT 8.2 g/dl (6.4-8.2)
[2019-02-06 07:04] LABS: ACTIVATED PTT 32.3 SECONDS (25.2-36.5)
[2019-02-06] MEDS ORDERED: SEVELAMER CARBONATE 800 MG TAB (FP) PO SCH (08:00)
[2019-02-06] MEDS ORDERED: LIDOCAINE 2.5%/PRILOCAINE 2.5% (5 Gram/TUBE) TP PRN ×2 (08:26→14:33)
--- NOTE | 2019-02-06 08:34 | EKG ---
Test Reason : Blood Pressure : / mmHG Vent. Rate : 093 BPM Atrial Rate : 093 BPM P-R Int : 216 ms QRS Dur : 096 ms QT Int : 358 ms P-R-T Axes : 068 045 031 degrees QTc Int : 445 ms SINUS RHYTHM WITH 1ST DEGREE A-V BLOCK ANTERIOR INFARCT (CITED ON OR BEFORE 06-FEB-2019) ABNORMAL ECG WHEN COMPARED WITH ECG OF 06-FEB-2019 03:59, NO SIGNIFICANT CHANGE WAS FOUND Confirmed by MD SHELBY, KETURAH ([id number]) on 02/06/2019 8:34:14 AM Referred By: Confirmed By:KETURAH RYAN MD
[2019-02-06] MEDS: cloNIDine HCL 0.1 MG TABLET PO SCH ×3 (08:47→22:48)
[2019-02-06] MEDS: CARVEDILOL 25 MG TABLET (FP) PO SCH ×3 (08:47→22:48)
[2019-02-06] MEDS: NIFEdipine E.R. 90 MG TABLET (FP) PO SCH ×2 (08:55→10:41)
[2019-02-06] MEDS: PANTOPRAZOLE 20 MG TABLET (FP) PO SCH ×2 (08:56→10:40)
[2019-02-06] MEDS ORDERED: MAGNESIUM SULF 50% (8.12 MEQ/2 ML-1 GM VIAL) IVPB ONE (09:00)
[2019-02-06 09:20] LABS: GAMMA GLUTAMYL TRANSPEPTIDASE 27 U/L (5-85)
[2019-02-06] MEDS ORDERED: SENNOSIDES 8.6MG TABLET (FP) PO SCH (10:00)
[2019-02-06] MEDS ORDERED: sitaGLIPtin PHOSPHATE 25 MG TABLET (FP) PO SCH (10:00)
[2019-02-06] MEDS ORDERED: MUPIROCIN 2% TOPICAL OINTMENT FOR DECOLONIZATION NS SCH (10:00)
[2019-02-06] MEDS ORDERED: ASPIRIN 81 MG CHEWABLE TABLETS PO SCH (10:00)
[2019-02-06] MEDS ORDERED: LACTULOSE 20 GM/30 ML UDC (FOR ORAL USE ONLY) PO SCH (10:00)
[2019-02-06] MEDS ORDERED: PATIENT'S OWN MEDICATION (NON-FORMULARY) (Linaclotide [Linzess] 145 MCG) PO SCH (10:00)
[2019-02-06] MEDS ORDERED: VITAMIN B COMP W-C 1 EA TABLET PO SCH ×2 (10:00)
[2019-02-06] MEDS ORDERED: POLYETHYLENE GLYCOL 3350 119 GM BTL PO SCH (10:00)
[2019-02-06] MEDS ORDERED: AMMONIUM LACTATE 12% LOTION 225 GM BOTTLE TP SCH (10:00)
--- NOTE | 2019-02-06 11:24 | ECHO ---
Version: 1 Name: ZAID MARTE Exam: Adult Echocardiogram Study Date: 02/06/2019, 7:59 AM Age: 68 Years MMode/2D Measurements & Calculations IVSd: 1.16 cm LVIDs: 2.7 cm LVIDd: 4.3 cm LVPWd: 0.96 cm LAV (MOD-bp): 62.8 ml LVOT diam: 1.97 cm Ao root diam: 2.6 cm LA dimension: 3.1 cm Doppler Measurements & Calculations MV E max rick: 143.0 cm/sec Med E/e': 21.9 MV A max rick: 148.4 cm/sec Med Peak E' Rick: 6.5 cm/sec MV E/A: 0.96 Lat E/e': 15.5 Lat Peak E' Rick: 9.2 cm/sec MR max P.4 mmHg Ao max P.0 mmHg Ao V2 max: 200.2 cm/sec TR max rick: 317.4 cm/sec TR max P.4 mmHg Left Ventricle The left ventricular size, thickness and function are normal. Right Ventricle The right ventricle is normal size. The right ventricular systolic function is normal. Atria Normal left and right atrial size and function. Mitral Valve The mitral valve is normal. There is mild mitral regurgitation. Tricuspid Valve The tricuspid valve is normal. There is mild tricuspid regurgitation. Aortic Valve Fibrocalcification of the aortic valve without aortic stenosis. Pulmonic Valve The pulmonic valve is normal in structure and function. Great Vessels The aortic root is normal size. Pericardium/Pleura There is no pericardial effusion. Summary Statements The left ventricular size, thickness and function are normal The right ventricular systolic function is normal. Normal left and right atrial size and function. The mitral valve is normal. There is mild mitral regurgitation. There is mild tricuspid regurgitation. Fibrocalcification of the aortic valve without aortic stenosis. The Ejection Fraction i 67%. MD Leon Hernandez 02/06/2019, 10:23 AM Ordering Physician: Stacy Bansal Performed By: Lucrecia Hernández
--- NOTE | 2019-02-06 11:40 | PN ---
Teaching Attending Note Name of Resident: Segundo Obando ATTENDING PHYSICIAN STATEMENT I saw and evaluated the patient. I reviewed the resident's note and discussed the case with the resident. I agree with the resident's findings and plan as documented. pt is a poor historian. SUBJECTIVE:continues to have abdominal pain and points to LLQ. states she tolerated HD on tuesday with no problem. not having any chest pain and does not recall having any. denies Cp, SOB, fever, chills, N/V/C/D OBJECTIVE: Last Vital Signs Temp Pulse Resp BP Pulse Ox 98 F 88 16 192/123 H 99 02/06/19 02:00 02/06/19 08:00 02/06/19 08:00 02/06/19 08:00 02/05/19 22:34 General NAD CV S1 S2 +murmur Lungs CTA B/L no wheezing/rales/rhonchi Abdomen +LLQ tenderness, no rebound or guarding. no RLQ pain, neg mcburney point , neg obtrutor and psoas sign Extremities RUE fistula with palpable thrill ASSESSMENT AND PLAN: 68yo F wtih HTN, DM, ESRD on TTS, dyslipidemia presented to the ER with epigastric pain assoc with nausea and found in the ER to have severe hyperkalemia requiring emergent HD, course complicated with questionable appendicitis 1. Severe hyperkalemia- emergent HD done. now resolved. nephro on board 2. HTN emergency- oral medications not given yesterday as went to HD. now elevated. will re-start home medications. titrate as needed to optimize. echo pending 3. Tropinemia- likely demand from HTN emergency. flat trend 0.07-0.08. does not report any CP to me but as per notes has stated she had yesterday. echo pending. should consult cardio in light of this if going for surgery. 4. questionable appendicitis- CT showing appendicitis however physical exam does not support at this time. will d/w with surgery. on empiric zosyn, IVF and NPO 5. DM- monitor sugars while NPO. hold oral agents. iss and BGM 6. ESRD on HD (TTS)- received HD yesterday. will resume schedule. nephro on board 7. DVT ppx- hep sq The care of this patient involved high complexity decision making to prevent further life threatening deterioration of the patient's condition and/or to evaluate & treat vital organ system(s) failure or risk of failure. 45 mins
[2019-02-06] MEDS ORDERED: PT OWN MED DRAWER 7, Y5N ONE ×3 (12:04→22:40)
--- NOTE | 2019-02-06 12:24 | PN ---
Teaching Attending Note Name of Resident: Gibran Dalton ATTENDING PHYSICIAN STATEMENT I saw and evaluated the patient. I reviewed the resident's note and discussed the case with the resident. I agree with the resident's findings and plan as documented. SUBJECTIVE: Pt seen and examined in the ICU. Still with abdominal pain and nausea. No fevers recorded. OBJECTIVE: Vital Signs Period Temp Pulse Resp BP Sys/Dietz Pulse Ox Last 24 Hr 98 F-99.2 F 80-93 14-21 137-192/71-123 98-99 Intake & Output 02/03/19 02/04/19 02/05/19 02/06/19 23:59 23:59 23:59 23:59 Intake Total 250 Balance 250 Weight 76.204 kg 78.245 kg Gen: NAD at rest Heart: RRR Lung: decreased breath sounds at the bases Abd: soft, epigastric tenderness but no rebound, guarding Ext: no edema CBC, BMP 02/06/19 05:30 02/06/19 05:30 Active Medications Acetaminophen (Tylenol -) 650 mg PO Q6H PRN PRN Reason: Pain Level 4 - 10 Atorvastatin Calcium (Lipitor -) 10 mg PO HS [facility] Carvedilol (Coreg -) 25 mg PO BID [facility] Last Admin: 02/06/19 10:40 Dose: Not Given Chlorhexidine Gluconate (Hibiclens For Decolonization -) 1 applic TP HS [facility] Clonidine (Catapres -) 0.2 mg PO BID [facility] Last Admin: 02/06/19 10:39 Dose: Not Given Gabapentin (Neurontin -) 100 mg PO HS [facility] Heparin Sodium (Porcine) (Heparin -) 5,000 unit SQ TID [facility] Last Admin: 02/06/19 06:23 Dose: 5,000 unit Sodium Chloride (Normal Saline -) 250 mls @ 3,000 mls/hr IV PRN PRN PRN Reason: Hypotension during Dialysis Stop: 02/06/19 23:05 Piperacillin Sod/Tazobactam (Sod 2.25 gm/ Dextrose) 50 mls @ 100 mls/hr IVPB Q8H-IV [facility]; Protocol Insulin Aspart (Novolog Vial Sliding Scale -) 1 vial SQ Q4H [facility]; Protocol Last Admin: 02/06/19 07:23 Dose: Not Given Lactic Acid (Lac-Hydrin 12) 1 applic TP BID [facility] Lidocaine/Prilocaine (Emla -) 1 applic TP BID PRN PRN Reason: PAIN Morphine Sulfate (Morphine Sulfate) 2 mg IVPUSH Q6H PRN PRN Reason: Pain Level 7 - 10 BREAKTHROUGH Multivit/Ca Carb/B Cmplx/FA/Prenat (Nephro-Roberta -) 1 tablet PO DAILY [facility] Last Admin: 02/06/19 10:41 Dose: Not Given Mupirocin (Bactroban Ointment (For Decolonization) -) 1 applic NS BID [facility] Stop: 02/11/19 09:59 Nifedipine (Procardia Xl -) 90 mg PO DAILY [facility] Last Admin: 02/06/19 10:41 Dose: Not Given Pantoprazole Sodium (Protonix -) 20 mg PO DAILY [facility] Last Admin: 02/06/19 10:40 Dose: Not Given Saliva Substitute (Mouthkote Solution) 2 applic MM TID [facility] Senna (Senna -) 8.6 tab PO BID [facility] Sevelamer Carbonate (Renvela -) 1,600 mg PO TIDCM [facility] Sitagliptin Phosphate (Januvia -) 25 mg PO ACBK [facility] Sucralfate (Carafate -) 1 gm PO TIDAC [facility] ASSESSMENT AND PLAN: Hyperkalemia improved ESRD on HD r/o Acute Appendicitis Hypertensive Urgency +Troponins likely Demand Ischemia DM - for OR today - continue antibiotics - f/u cultures - pain control - HD per renal - monitor lytes - BP control - DVT prophylaxis - can monitor on floor post op
[2019-02-06] MEDS ORDERED: NEOSTIGMINE METHYLSULFATE 0.5 MG/ML - 10 ML MDV ONE (12:58)
[2019-02-06] MEDS ORDERED: ONDANSETRON 4 MG/2 ML VIAL IVPUSH PRN (12:59)
[2019-02-06] MEDS ORDERED: PROMETHAZINE HCL 25 MG/1 ML VIAL IVPUSH PRN (12:59)
[2019-02-06] MEDS ORDERED: oxyCODONE HCL 5 MG TABLET PO PRN ×3 (12:59→14:33)
[2019-02-06] MEDS ORDERED: LABETALOL HCL 5 MG/1 ML (100MG/20 ML VIAL) ONE (13:04)
--- NOTE | 2019-02-06 13:20 | PN ---
Physical Exam: SUBJECTIVE: Patient seen and examined. Pt. endorses chest pain, however points to supersternal notch, that began yesterday. Pt. states that the pain doesn't move but that it feels "like a stab." Pt. endorses non-radiating, dull, and constant epigastric pain that happens all the time." Pt. endorses nausea and states she has a headache. Denies vomiting, shortness of breath, fever or chills. OBJECTIVE: Vital Signs Period Temp Pulse Resp BP Sys/Dietz Pulse Ox Last 24 Hr 98 F-99.2 F 80-93 14-21 137-192/71-123 98-99 GENERAL: The patient is awake, alert, and fully oriented, in mild distress. HEAD: Normal with no signs of trauma. EYES: Left pupil constricts faster than right, sclera anicteric, conjunctiva clear. Proptosis?. ENT: Ears normal, nares patent, oropharynx clear without exudates, moist mucous membranes. NECK: Trachea midline, full range of motion, supple. LUNGS: Breath sounds equal, clear to auscultation bilaterally, no wheezes, no crackles, no accessory muscle use. HEART: Regular rate and rhythm, S1, S2 without murmur, tender to palpation along sternum and manubrium ABDOMEN: Soft, epigastric, LLQ>RLQ tenderness, nondistended, normoactive bowel sounds, guarding, no rebound, Psoas sign Neg. Obturator sign Neg. EXTREMITIES: 2+ radial pulses, warm, no calf tenderness, well-perfused, no edema. NEUROLOGICAL: Normal speech, gait not observed. PSYCH: Normal mood, normal affect. SKIN: Warm, dry, normal turgor, no rashes or lesions noted Laboratory Results - last 24 hr 02/05/19 02/05/19 02/05/19 19:24 19:24 19:24 WBC 12.0 H RBC 4.62 Hgb 12.2 Hct 38.7 MCV 83.7 MCH 26.3 MCHC 31.4 L RDW 16.7 H Plt Count 251 MPV 8.8 Absolute Neuts (auto) 8.8 H Neutrophils % 73.1 Lymphocytes % 15.9 Monocytes % 8.4 Eosinophils % 1.6 Basophils % 1.0 Nucleated RBC % 0 PT with INR INR PTT (Actin FS) Sodium 134 L Potassium 7.1 H* Chloride 100 Carbon Dioxide 24 Anion Gap 10 BUN 74 H Creatinine 11.0 H* Creat Clearance w eGFR 3.45 POC Glucometer Random Glucose 93 Lactic Acid 0.7 Calcium 9.7 Phosphorus Magnesium Total Bilirubin 0.4 GGT AST 12 L ALT 11 L Alkaline Phosphatase 161 H Creatine Kinase 59 Troponin I 0.07 H Total Protein 8.7 H Albumin 3.9 Lipase 87 Blood Type Antibody Screen 02/06/19 02/06/19 02/06/19 02:21 02:21 02:40 WBC RBC Hgb Hct MCV MCH MCHC RDW Plt Count MPV Absolute Neuts (auto) Neutrophils % Lymphocytes % Monocytes % Eosinophils % Basophils % Nucleated RBC % PT with INR INR PTT (Actin FS) Sodium 137 Potassium 3.3 L Chloride 98 Carbon Dioxide 30 Anion Gap 9 BUN 24 H Creatinine 4.1 H Creat Clearance w eGFR 10.79 POC Glucometer Random Glucose 140 H Lactic Acid Calcium 8.7 Phosphorus Magnesium Total Bilirubin GGT AST ALT Alkaline Phosphatase Creatine Kinase Troponin I 0.08 H Total Protein Albumin Lipase Blood Type O POSITIVE Antibody Screen Negative 02/06/19 02/06/19 02/06/19 03:05 05:30 05:30 WBC 10.2 H RBC 4.33 Hgb 11.4 Hct 35.8 MCV 82.6 MCH 26.4 MCHC 32.0 RDW 16.8 H Plt Count 223 MPV 8.6 Absolute Neuts (auto) 6.9 Neutrophils % 67.8 Lymphocytes % 20.1 D Monocytes % 9.1 Eosinophils % 2.2 Basophils % 0.8 Nucleated RBC % 0 PT with INR 12.50 INR 1.06 PTT (Actin FS) 32.3 Sodium Potassium Chloride Carbon Dioxide Anion Gap BUN Creatinine Creat Clearance w eGFR POC Glucometer 130 Random Glucose Lactic Acid Calcium Phosphorus Magnesium Total Bilirubin GGT AST ALT Alkaline Phosphatase Creatine Kinase Troponin I Total Protein Albumin Lipase Blood Type Antibody Screen 02/06/19 02/06/19 02/06/19 05:30 07:21 07:35 WBC RBC Hgb Hct MCV MCH MCHC RDW Plt Count MPV Absolute Neuts (auto) Neutrophils % Lymphocytes % Monocytes % Eosinophils % Basophils % Nucleated RBC % PT with INR INR PTT (Actin FS) Sodium 136 Potassium 3.9 Chloride 97 L Carbon Dioxide 32 Anion Gap 8 BUN 32 H Creatinine 6.3 H Creat Clearance w eGFR 6.57 POC Glucometer 107 Random Glucose 107 H Lactic Acid Calcium 9.1 Phosphorus 2.6 Magnesium 1.6 L Total Bilirubin 0.4 GGT 27 AST 13 L ALT 12 L Alkaline Phosphatase 142 H Creatine Kinase Troponin I Total Protein 8.2 Albumin 3.5 Lipase Blood Type O POSITIVE Antibody Screen 02/06/19 08:44 WBC RBC Hgb Hct MCV MCH MCHC RDW Plt Count MPV Absolute Neuts (auto) Neutrophils % Lymphocytes % Monocytes % Eosinophils % Basophils % Nucleated RBC % PT with INR INR PTT (Actin FS) Sodium Potassium Chloride Carbon Dioxide Anion Gap BUN Creatinine Creat Clearance w eGFR POC Glucometer Random Glucose Lactic Acid Calcium Phosphorus Magnesium Total Bilirubin GGT AST ALT Alkaline Phosphatase Creatine Kinase Troponin I 0.08 H Total Protein Albumin Lipase Blood Type Antibody Screen Active Medications Home Medications Medication Instructions Recorded Aspirin 81 mg PO DAILY 02/05/19 Carvedilol [Coreg -] 25 mg PO BID 02/05/19 Clonidine HCl [Catapres] 0.2 mg PO BID 02/05/19 Folic Acid/Vit B Complex and C 0.8 mg PO DAILY 02/05/19 [Yue-Roberta Tablet] Gabapentin [Neurontin] 100 mg PO HS 02/05/19 Lactulose (Oral Use) [Cephulac -] 30 gm PO BID 02/05/19 Linaclotide [Linzess] 145 mcg PO DAILY 02/05/19 Nifedipine [Procardia Xl] 90 mg PO DAILY 02/05/19 Omeprazole 20 mg PO DAILY 02/05/19 Oxycodone HCl 5 mg PO DAILY PRN 02/05/19 Polyethylene Glycol 3350 [Miralax 17 gm PO DAILY 02/05/19 (For Daily Use) -] Sennosides [Senna] 8.6 mg PO BID 02/05/19 Sevelamer Carbonate [Renvela] 1,600 mg PO TID 02/05/19 Simvastatin [Zocor -] 20 mg PO HS 02/05/19 Sitagliptin Phosphate [Januvia] 25 mg PO DAILY 02/05/19 Sucralfate [Carafate -] 1 gm PO TID 02/05/19 Ammonium Lactate Cream [Lac-Hydrin 1 unit TP BID 02/06/19 12% Cream -] Folic Acid/Vit B Complex and C 1 tab PO DAILY 02/06/19 [Yue-Roberta Tablet] Lidocaine/Prilocaine 1 unit TP BID PRN 02/06/19 [Lidocaine-Prilocaine Cream] Saliva Substitute Combo No.9 10 ml PO TID 02/06/19 [Biotene] Current Medications Acetaminophen (Tylenol -) 650 mg PO Q6H PRN PRN Reason: Pain Level 4 - 10 Atorvastatin Calcium (Lipitor -) 10 mg PO [facility] Carvedilol (Coreg -) 25 mg PO BID [facility] Last Admin: 02/06/19 10:40 Dose: Not Given Chlorhexidine Gluconate (Hibiclens For Decolonization -) 1 applic TP [facility] Clonidine (Catapres -) 0.2 mg PO BID [facility] Last Admin: 02/06/19 10:39 Dose: Not Given Fentanyl (Sublimaze Injection -) 50 mcg IVPUSH [id number] PRN PRN Reason: PAIN-PACU ORDER X 4 DOSES ONLY Gabapentin (Neurontin -) 100 mg PO [facility] Heparin Sodium (Porcine) (Heparin -) 5,000 unit SQ TID [facility] Last Admin: 02/06/19 06:23 Dose: 5,000 unit Sodium Chloride (Normal Saline -) 250 mls @ 3,000 mls/hr IV PRN PRN PRN Reason: Hypotension during Dialysis Stop: 02/06/19 23:05 Piperacillin Sod/Tazobactam (Sod 2.25 gm/ Dextrose) 50 mls @ 100 mls/hr IVPB Q8H-IV [facility]; Protocol Insulin Aspart (Novolog Vial Sliding Scale -) 1 vial SQ Q4H [facility]; Protocol Last Admin: 02/06/19 07:23 Dose: Not Given Lactic Acid (Lac-Hydrin 12) 1 applic TP BID [facility] Lidocaine/Prilocaine (Emla -) 1 applic TP BID PRN PRN Reason: PAIN Morphine Sulfate (Morphine Sulfate) 2 mg IVPUSH Q6H PRN PRN Reason: Pain Level 7 - 10 BREAKTHROUGH Multivit/Ca Carb/B Cmplx/FA/Prenat (Nephro-Roberta -) 1 tablet PO DAILY [facility] Last Admin: 02/06/19 10:41 Dose: Not Given Mupirocin (Bactroban Ointment (For Decolonization) -) 1 applic NS BID [facility] Stop: 02/11/19 09:59 Nifedipine (Procardia Xl -) 90 mg PO DAILY [facility] Last Admin: 02/06/19 10:41 Dose: Not Given Ondansetron HCl (Zofran Injection) 4 mg IVPUSH Q6H PRN PRN Reason: NAUSEA AND/OR VOMITING Oxycodone HCl (Roxicodone -) 10 mg PO Q4H PRN PRN Reason: PAIN LEVEL 6-10 Stop: 02/07/19 12:58 Pantoprazole Sodium (Protonix -) 20 mg PO DAILY [facility] Last Admin: 02/06/19 10:40 Dose: Not Given Promethazine HCl (Phenergan Injection -) 12.5 mg IVPUSH Q6H PRN PRN Reason: NAUSEA-FOR RESCUE AFTER 15 MIN Saliva Substitute (Mouthkote Solution) 2 applic MM TID [facility] Senna (Senna -) 8.6 tab PO BID [facility] Sevelamer Carbonate (Renvela -) 1,600 mg PO TIDCM [facility] Sitagliptin Phosphate (Januvia -) 25 mg PO ACBK [facility] Sucralfate (Carafate -) 1 gm PO TIDAC [facility] ASSESSMENT/PLAN: Patient is a 68 year old female who presented here for nausea, vomiting, abdominal pain and was found to have severe hyperkalemia with EKG changes. Patient admitted to ICU for further monitoring and management. #Possible Acute Appendicitis CT abdomen revealed possible appendicitis Given Flagyl 500mg IVPB Q8H and Levaquin 500mg IVPB on admission c/w Zosyn perioperatively pending Surgery recomendatinos f/u Bcx. NPO Pain control with Morphine 2mg IVPB Q6H PRN Type and screen ordered Surgery consult (Dr. Atkinson) appreciated, f/u Post-op recs #HTN Emergency w/ Troponemia HD on (T,Th, Sat.) Likely demand ischemia 2/2 HTN Resume home medications (Clonidine, Coreg and Nifedipine) monitor BP Trend Troponin until peaks (currently plateaued at 0.07-->0.08-->0.08) Echo: EF: 67%, mild TR and MR, some aortic valve sclerosis w/o stenosis CHADVASC: 5 (moderate risk) #Severe Hyperkalemia- resolved With EKG showing teaked P waves Emergent dialysis initiated by Nephrology Kayexalate, Dextrose, Insulin and calcium given Continue to monitor labs daily Nephrology consult appreciated #Elevated Proteins with Lumbar Vertebrae Irregularities SPEP, UPEP Ordered MRI ordered Would consider Hematology/oncology consult #Elevated Alkaline Phosphatase GGT ordered RUQ U/S ordered #NIDDMII ISS BGM #ESRD on HD HD days on ,, Current weight 78.245 kg, f/u dry weight from [facility] Daily weights Strict I&O's #HLD c/w Simvastatin 20mg HS #GERD c/w Carafate 1mg TID #F/E/N no IVF, encourage PO intake monitor electrolytes, replete or Dialyze as needed, Pt. admitted with Hyperkalemia to 7.1 NPO #Prophylaxis Heparin 5000 units sq tid for DVT Carafate for GI Disposition Full code Med/Surg after appendectomy PT for deconditioning, f/u Visit type - Emergency Visit Emergency Visit: Yes ED Registration Date: 02/05/19 Care time: The patient presented to the Emergency Department on the above date and was hospitalized for further evaluation of their emergent condition. - New Patient This patient is new to me today: No - Critical Care Critical Care patient: No - Discharge Referral Referred to [facility] Med P.C.: No
[2019-02-06] MEDS ORDERED: GLYCOPYRROLATE 0.2 MG/1 ML VIAL ONE (13:25)
[2019-02-06] MEDS ORDERED: BUPIVACAINE HCL/PF (5 MG/ML) 30 ML VIAL IJ ONE (13:35)
[2019-02-06] MEDS ORDERED: BENZOIN TINCTURE SWABSTICK TP ONE (13:37)
--- NOTE | 2019-02-06 13:50 | OP ---
Operative Note - Note: Operative Date: 02/06/19 Pre-Operative Diagnosis: acute appendicitis Operation: laparoscopic appendectomy Findings: enlarged, inflamed, bulbous-ended appendix Post-Operative Diagnosis: Same as Pre-op Surgeon: Yousif Atkinson Anesthesiologist/GROUP SALES MANAGER: Julius Bauer (rachna/RUBÉN Larkin) Anesthesia: General, Local (15ml 0.5% marcaine) Specimens Removed: appendix to pathology Estimated Blood Loss (mls): 10 Drains & Tubes with Location: [place] out at case end Drains, Volume Out (mls): 20 (UOP) Fluid Volume Replaced (mls): 400 (NS) Operative Report Dictated: Yes
[2019-02-06] MEDS ORDERED: LYTES/YERBA SANTA 60 ML SPRAY MM SCH (14:00)
[2019-02-06] MEDS ORDERED: fentaNYL CITRATE 250 MCG/5 ML VIAL ONE (14:03)
--- NOTE | 2019-02-06 14:16 | EKG ---
Test Reason : Blood Pressure : / mmHG Vent. Rate : 098 BPM Atrial Rate : 078 BPM P-R Int : 232 ms QRS Dur : 100 ms QT Int : 376 ms P-R-T Axes : 068 005 074 degrees QTc Int : 480 ms POOR DATA QUALITY, INTERPRETATION MAY BE ADVERSELY AFFECTED SINUS RHYTHM WITH 1ST DEGREE A-V BLOCK LEFT ATRIAL ENLARGEMENT ANTERIOR INFARCT , AGE UNDETERMINED ABNORMAL ECG NO PREVIOUS ECGS AVAILABLE Confirmed by MD KAREN, ANDRES ([id number]) on 02/06/2019 2:16:37 PM Referred By: Confirmed By:ANDRES JONES MD
[2019-02-06] MEDS ORDERED: hydrALAZINE HCL 20 MG/ML VIAL IVPUSH ONE (14:19)
[2019-02-06] MEDS ORDERED: hydrALAZINE HCL 20 MG/ML VIAL ONE (14:24)
[2019-02-06] MEDS ORDERED: INSULIN SLIDING SCALE (NOVOLOG) 1 VIAL SQ ONE (14:25)
[2019-02-06] MEDS ORDERED: SODIUM CHLORIDE 250 ML IV PRN (14:33)
--- NOTE | 2019-02-06 15:03 | PN ---
Physical Exam: SUBJECTIVE: Patient seen and examined HD# 2 ICU Day 2 Overnight Events: Pt admitted to the unit overnight for emergent dialysis for hyperkalemia. This morning the pt is complaining of generalized headache, chest pain, and abdominal pain. Denies trouble breathing or further vomiting. OBJECTIVE: Vital Signs Period Temp Pulse Resp BP Sys/Dietz Pulse Ox Last 24 Hr 98 F-99.2 F 69-93 14-21 137-192/71-123 95-99 Lines: - PIV Drains: - None Supplemental Oxygen: None Physical Exams: GENERAL: The patient is awake, alert, and fully oriented, in no acute distress. LUNGS: Breath sounds equal, clear to auscultation bilaterally, no wheezes, no crackles, no accessory muscle use. HEART: Regular rate and rhythm, S1, S2 without murmur, rub or gallop. No anterior chest wall tenderness to palpation. ABDOMEN: Soft, nontender, nondistended. No RLQ rebound or guarding. EXTREMITIES: 2+ pulses, warm, well-perfused. PSYCH: Normal mood, normal affect. SKIN: Warm and dry. Anti Infectives: - Metronidazole - Levaquin - Unasyn - Zosyn Laboratory Results - last 24 hr 02/05/19 02/05/19 02/05/19 19:24 19:24 19:24 WBC 12.0 H RBC 4.62 Hgb 12.2 Hct 38.7 MCV 83.7 MCH 26.3 MCHC 31.4 L RDW 16.7 H Plt Count 251 MPV 8.8 Absolute Neuts (auto) 8.8 H Neutrophils % 73.1 Lymphocytes % 15.9 Monocytes % 8.4 Eosinophils % 1.6 Basophils % 1.0 Nucleated RBC % 0 PT with INR INR PTT (Actin FS) Sodium 134 L Potassium 7.1 H* Chloride 100 Carbon Dioxide 24 Anion Gap 10 BUN 74 H Creatinine 11.0 H* Creat Clearance w eGFR 3.45 POC Glucometer Random Glucose 93 Lactic Acid 0.7 Calcium 9.7 Phosphorus Magnesium Total Bilirubin 0.4 GGT AST 12 L ALT 11 L Alkaline Phosphatase 161 H Creatine Kinase 59 Troponin I 0.07 H Total Protein 8.7 H Albumin 3.9 Lipase 87 Blood Type Antibody Screen 02/06/19 02/06/19 02/06/19 02:21 02:21 02:40 WBC RBC Hgb Hct MCV MCH MCHC RDW Plt Count MPV Absolute Neuts (auto) Neutrophils % Lymphocytes % Monocytes % Eosinophils % Basophils % Nucleated RBC % PT with INR INR PTT (Actin FS) Sodium 137 Potassium 3.3 L Chloride 98 Carbon Dioxide 30 Anion Gap 9 BUN 24 H Creatinine 4.1 H Creat Clearance w eGFR 10.79 POC Glucometer Random Glucose 140 H Lactic Acid Calcium 8.7 Phosphorus Magnesium Total Bilirubin GGT AST ALT Alkaline Phosphatase Creatine Kinase Troponin I 0.08 H Total Protein Albumin Lipase Blood Type O POSITIVE Antibody Screen Negative 02/06/19 02/06/19 02/06/19 03:05 05:30 05:30 WBC 10.2 H RBC 4.33 Hgb 11.4 Hct 35.8 MCV 82.6 MCH 26.4 MCHC 32.0 RDW 16.8 H Plt Count 223 MPV 8.6 Absolute Neuts (auto) 6.9 Neutrophils % 67.8 Lymphocytes % 20.1 D Monocytes % 9.1 Eosinophils % 2.2 Basophils % 0.8 Nucleated RBC % 0 PT with INR 12.50 INR 1.06 PTT (Actin FS) 32.3 Sodium Potassium Chloride Carbon Dioxide Anion Gap BUN Creatinine Creat Clearance w eGFR POC Glucometer 130 Random Glucose Lactic Acid Calcium Phosphorus Magnesium Total Bilirubin GGT AST ALT Alkaline Phosphatase Creatine Kinase Troponin I Total Protein Albumin Lipase Blood Type Antibody Screen 02/06/19 02/06/19 02/06/19 05:30 07:21 07:35 WBC RBC Hgb Hct MCV MCH MCHC RDW Plt Count MPV Absolute Neuts (auto) Neutrophils % Lymphocytes % Monocytes % Eosinophils % Basophils % Nucleated RBC % PT with INR INR PTT (Actin FS) Sodium 136 Potassium 3.9 Chloride 97 L Carbon Dioxide 32 Anion Gap 8 BUN 32 H Creatinine 6.3 H Creat Clearance w eGFR 6.57 POC Glucometer 107 Random Glucose 107 H Lactic Acid Calcium 9.1 Phosphorus 2.6 Magnesium 1.6 L Total Bilirubin 0.4 GGT 27 AST 13 L ALT 12 L Alkaline Phosphatase 142 H Creatine Kinase Troponin I Total Protein 8.2 Albumin 3.5 Lipase Blood Type O POSITIVE Antibody Screen 02/06/19 02/06/19 08:44 14:25 WBC RBC Hgb Hct MCV MCH MCHC RDW Plt Count MPV Absolute Neuts (auto) Neutrophils % Lymphocytes % Monocytes % Eosinophils % Basophils % Nucleated RBC % PT with INR INR PTT (Actin FS) Sodium Potassium Chloride Carbon Dioxide Anion Gap BUN Creatinine Creat Clearance w eGFR POC Glucometer 173 Random Glucose Lactic Acid Calcium Phosphorus Magnesium Total Bilirubin GGT AST ALT Alkaline Phosphatase Creatine Kinase Troponin I 0.08 H Total Protein Albumin Lipase Blood Type Antibody Screen Active Medications Generic Name Dose Route Start Last Admin Trade Name Freq PRN Reason Stop Dose Admin Acetaminophen 650 mg 02/06/19 14:33 Tylenol - PO Q6H PRN Pain Level 4 - 10 Atorvastatin Calcium 10 mg 02/06/19 22:00 Lipitor - PO HS [facility] Carvedilol 25 mg 02/06/19 22:00 Coreg - PO BID [facility] Chlorhexidine Gluconate 1 applic 02/06/19 22:00 Hibiclens For Decolonization - TP HS [facility] Clonidine 0.2 mg 02/06/19 22:00 Catapres - PO BID [facility] Gabapentin 100 mg 02/06/19 22:00 Neurontin - PO HS [facility] Heparin Sodium (Porcine) 5,000 unit 02/06/19 22:00 Heparin - SQ TID [facility] Sodium Chloride 250 mls @ 3,000 mls/hr 02/06/19 14:33 Normal Saline - IV 02/06/19 23:05 PRN PRN Hypotension during Dialysis Piperacillin Sod/Tazobactam 50 mls @ 100 mls/hr 02/06/19 18:00 Sod 2.25 gm/ Dextrose IVPB 02/06/19 18:29 ONCE ONE Protocol Insulin Aspart 1 vial 02/06/19 18:00 Novolog Vial Sliding Scale - SQ Q4HPO [facility] Protocol Lactic Acid 1 applic 02/06/19 22:00 Lac-Hydrin 12 TP BID [facility] Lidocaine/Prilocaine 1 applic 02/06/19 14:33 Emla - TP BID PRN PAIN Multivit/Ca Carb/B Cmplx/FA/Prenat 1 tablet 02/07/19 10:00 Nephro-Roberta - PO DAILY [facility] Mupirocin 1 applic 02/06/19 22:00 Bactroban Ointment (For Decolonization) - NS 02/11/19 21:59 BID [facility] Nifedipine 90 mg 02/07/19 10:00 Procardia Xl - PO DAILY [facility] Oxycodone HCl 5 mg 02/06/19 14:33 Roxicodone - PO 02/07/19 12:58 Q4H PRN Pain Level 7-10 BREAKTHROUGH Pantoprazole Sodium 20 mg 02/07/19 10:00 Protonix - PO DAILY [facility] Polyethylene Glycol 17 gm 02/07/19 10:00 Miralax (For Daily Use) - PO DAILY [facility] Saliva Substitute 2 applic 02/06/19 22:00 Mouthkote Solution MM TID [facility] Senna 8.6 tab 02/06/19 22:00 Senna - PO BID [facility] Sevelamer Carbonate 1,600 mg 02/06/19 17:30 Renvela - PO TIDCM [facility] Sitagliptin Phosphate 25 mg 02/07/19 07:00 Januvia - PO ACBK [facility] Sucralfate 1 gm 02/06/19 16:30 Carafate - PO TIDAC [facility] ASSESSMENT/PLAN: 68 year old female with ESRD on HD, who presents with one day history of nausea and vomiting, found to be hyperkalemic with peaked t waves, and CT abdomen with possible acute appendicitis. Admitted to ICU overnight for emergent dialysis. Neuro (& Psych): - A/O x4. Not on sedating drips. Endocrine: - Consult Dr. Watkins - T2DM. Continue insulin SS. - CKD on HD. Dialysed last night. Continue to dialysis per nephrology recommendations. Cardiovascular: - HTN. C/w Carvedilol, Clonidine, and Nifedipine per home regimen. - HLD. C/w Atorvastatin. Pulm / Resp: - Stable on room air. - Encourage post-op IS. Gastrointestinal: - GERD. C/w home Pantoprazole. Infectious Disease: - Acute appendicitis. Post-op antibiotics per ID and surgery recommendations. FEN: - Renal diet. Prophylaxis: - DVT: SCDs and Heparin - GI: Pantoprazole Dispo: Pt stabe for care to be de-escalated to med/surg post-op. Gibran Dalton MD, PGY1 ICU Consult Service Visit type - Emergency Visit Emergency Visit: No - New Patient This patient is new to me today: Yes Date on this admission: 02/06/19 - Critical Care Critical Care patient: Yes Total Critical Care Time (in minutes): 40 Critical Care Statement: The care of this patient involved high complexity decision making to prevent further life threatening deterioration of the patient 's condition and/or to evaluate & treat vital organ system(s) failure or risk of failure.
--- NOTE | 2019-02-06 15:09 | PN ---
Progress Note, Physician History of Present Illness: Pt seen and examined at bedside. She had an appendectomy. She is awake but still recovering. - Current Medication List Current Medications: Active Medications Acetaminophen (Tylenol -) 650 mg PO Q6H PRN PRN Reason: Pain Level 4 - 10 Atorvastatin Calcium (Lipitor -) 10 mg PO HS [facility] Carvedilol (Coreg -) 25 mg PO BID [facility] Chlorhexidine Gluconate (Hibiclens For Decolonization -) 1 applic TP HS [facility] Clonidine (Catapres -) 0.2 mg PO BID [facility] Gabapentin (Neurontin -) 100 mg PO HS [facility] Heparin Sodium (Porcine) (Heparin -) 5,000 unit SQ TID [facility] Sodium Chloride (Normal Saline -) 250 mls @ 3,000 mls/hr IV PRN PRN PRN Reason: Hypotension during Dialysis Stop: 02/06/19 23:05 Piperacillin Sod/Tazobactam (Sod 2.25 gm/ Dextrose) 50 mls @ 100 mls/hr IVPB ONCE ONE; Protocol Stop: 02/06/19 18:29 Insulin Aspart (Novolog Vial Sliding Scale -) 1 vial SQ Q4HPO [facility]; Protocol Lactic Acid (Lac-Hydrin 12) 1 applic TP BID [facility] Lidocaine/Prilocaine (Emla -) 1 applic TP BID PRN PRN Reason: PAIN Multivit/Ca Carb/B Cmplx/FA/Prenat (Nephro-Roberta -) 1 tablet PO DAILY [facility] Mupirocin (Bactroban Ointment (For Decolonization) -) 1 applic NS BID [facility] Stop: 02/11/19 21:59 Nifedipine (Procardia Xl -) 90 mg PO DAILY [facility] Oxycodone HCl (Roxicodone -) 5 mg PO Q4H PRN PRN Reason: Pain Level 7-10 BREAKTHROUGH Stop: 02/07/19 12:58 Pantoprazole Sodium (Protonix -) 20 mg PO DAILY [facility] Polyethylene Glycol (Miralax (For Daily Use) -) 17 gm PO DAILY [facility] Saliva Substitute (Mouthkote Solution) 2 applic MM TID [facility] Senna (Senna -) 8.6 tab PO BID [facility] Sevelamer Carbonate (Renvela -) 1,600 mg PO TIDCM [facility] Sitagliptin Phosphate (Januvia -) 25 mg PO ACBK [facility] Sucralfate (Carafate -) 1 gm PO TIDAC [facility] - Objective Vital Signs: Vital Signs Temperature 99 F 02/06/19 13:55 Pulse Rate 76 02/06/19 14:40 Respiratory Rate 18 02/06/19 14:40 Blood Pressure 155/62 02/06/19 14:40 O2 Sat by Pulse Oximetry (%) 98 02/06/19 14:40 Constitutional: Yes: Calm Eyes: Yes: Conjunctiva Clear HENT: Yes: Atraumatic Neck: Yes: Supple Cardiovascular: Yes: S1, S2 Respiratory: Yes: On Venti-Mask Gastrointestinal: Yes: Normal Bowel Sounds, Soft Genitourinary: Yes: WNL Musculoskeletal: Yes: WNL Edema: No Neurological: Yes: Lethargy Labs: CBC, BMP 02/06/19 05:30 02/06/19 05:30 INR, PTT INR 1.06 (0.83-1.09) 02/06/19 05:30 Assessment/Plan Current Medications Generic Name Dose Route Start Last Admin Trade Name Freq PRN Reason Stop Dose Admin Acetaminophen 650 mg 02/06/19 14:33 Tylenol - PO Q6H PRN Pain Level 4 - 10 Atorvastatin Calcium 10 mg 02/06/19 22:00 Lipitor - PO HS [facility] Carvedilol 25 mg 02/06/19 22:00 Coreg - PO BID [facility] Chlorhexidine Gluconate 1 applic 02/06/19 22:00 Hibiclens For Decolonization - TP HS [facility] Clonidine 0.2 mg 02/06/19 22:00 Catapres - PO BID [facility] Gabapentin 100 mg 02/06/19 22:00 Neurontin - PO HS [facility] Heparin Sodium (Porcine) 5,000 unit 02/06/19 22:00 Heparin - SQ TID [facility] Sodium Chloride 250 mls @ 3,000 mls/hr 02/06/19 14:33 Normal Saline - IV 02/06/19 23:05 PRN PRN Hypotension during Dialysis Piperacillin Sod/Tazobactam 50 mls @ 100 mls/hr 02/06/19 18:00 Sod 2.25 gm/ Dextrose IVPB 02/06/19 18:29 ONCE ONE Protocol Insulin Aspart 1 vial 02/06/19 18:00 Novolog Vial Sliding Scale - SQ Q4HPO [facility] Protocol Lactic Acid 1 applic 02/06/19 22:00 Lac-Hydrin 12 TP BID [facility] Lidocaine/Prilocaine 1 applic 02/06/19 14:33 Emla - TP BID PRN PAIN Multivit/Ca Carb/B Cmplx/FA/Prenat 1 tablet 02/07/19 10:00 Nephro-Roberta - PO DAILY [facility] Mupirocin 1 applic 02/06/19 22:00 Bactroban Ointment (For Decolonization) - NS 02/11/19 21:59 BID [facility] Nifedipine 90 mg 02/07/19 10:00 Procardia Xl - PO DAILY [facility] Oxycodone HCl 5 mg 02/06/19 14:33 Roxicodone - PO 02/07/19 12:58 Q4H PRN Pain Level 7-10 BREAKTHROUGH Pantoprazole Sodium 20 mg 02/07/19 10:00 Protonix - PO DAILY [facility] Polyethylene Glycol 17 gm 02/07/19 10:00 Miralax (For Daily Use) - PO DAILY [facility] Saliva Substitute 2 applic 02/06/19 22:00 Mouthkote Solution MM TID [facility] Senna 8.6 tab 02/06/19 22:00 Senna - PO BID [facility] Sevelamer Carbonate 1,600 mg 02/06/19 17:30 Renvela - PO TIDCM [facility] Sitagliptin Phosphate 25 mg 02/07/19 07:00 Januvia - PO ACBK [facility] Sucralfate 1 gm 02/06/19 16:30 Carafate - PO TIDAC [facility] Impression 1. ESRD 2. hyperkalemia 3. abd pain 4. possible acute appendicitis 5. HTN 6. DM Plan - resume bp meds - HD tomorrow - pt off of HD schedule - potassium improved - discussed with ICU team - resume bp meds
[2019-02-06] MEDS ORDERED: PIPERACILLIN/TAZOB 2.25 GM 2.25 GM in DEXTROSE 5%-WATER - 50 ML IVPB ONE (18:00)
[2019-02-06] MEDS ORDERED: PIPERACILLIN/TAZOB 2.25 GM 2.25 GM in DEXTROSE 5%-WATER - 50 ML IVPB SCH (18:00)
[2019-02-06] MEDS: SEVELAMER CARBONATE 800 MG TAB (FP) PO SCH (18:13)
[2019-02-06] MEDS: SUCRALFATE 1 GM TABLET (FP) PO SCH (18:24)
[2019-02-06] MEDS ORDERED: ATORVASTATIN CA 10 MG TABLET (FP) PO SCH ×2 (22:00)
[2019-02-06] MEDS ORDERED: GABAPENTIN 100 MG CAPSULE (FP) PO SCH ×2 (22:00)
[2019-02-06] MEDS ORDERED: CHLORHEXIDINE GLUCONATE 4% CLEANSER FOR DECOLONIZATION TP SCH ×2 (22:00)
[2019-02-06] MEDS: MUPIROCIN 2% TOPICAL OINTMENT FOR DECOLONIZATION NS SCH (22:47)
[2019-02-06] MEDS: HEPARIN NA (PORCINE) 5,000 UNITS/ML 1ML VIAL SQ SCH (22:48)
[2019-02-06] MEDS: LYTES/YERBA SANTA 60 ML SPRAY MM SCH (22:49)
[2019-02-06] MEDS: AMMONIUM LACTATE 12% LOTION 225 GM BOTTLE TP SCH (22:49)
[2019-02-06] MEDS: SENNOSIDES 8.6MG TABLET (FP) PO SCH (22:50)
[2019-02-07] MEDS: INSULIN SLIDING SCALE (NOVOLOG) 1 VIAL SQ SCH ×5 (04:18→18:09)
[2019-02-07] MEDS: HEPARIN NA (PORCINE) 5,000 UNITS/ML 1ML VIAL SQ SCH ×3 (05:38→22:37)
[2019-02-07] MEDS: LYTES/YERBA SANTA 60 ML SPRAY MM SCH ×2 (05:39→13:56)
[2019-02-07] MEDS ORDERED: PT OWN MED DRAWER 7, Y5N ONE ×4 (06:46→11:06)
[2019-02-07] MEDS: SUCRALFATE 1 GM TABLET (FP) PO SCH ×2 (06:48→12:40)
[2019-02-07 06:50] LABS: BASO % 0.6 % (0-2.0); EOS % 0.1 % (0-4.5); HEMATOCRIT 35.1 % (32.4-45.2); HEMOGLOBIN 11.1 GM/dL (10.7-15.3); LYMPH % 14.3 % (8-40); MCH 26.2 pg (25.7-33.7); MCHC 31.5 g/dl (32.0-36.0); MEAN CELL VOLUME 83.2 fl (80-96); MEAN PLT VOLUME 8.6 fl (7.5-11.1); MONO % 9.2 % (3.8-10.2); NEUT % 75.8 % (42.8-82.8); PLATELET COUNT 216 K/MM3 (134-434); RBC 4.22 M/mm3 (3.60-5.2); RDW 16.9 % (11.6-15.6); WHITE BLOOD COUNT 11.6 K/mm3 (4.0-10.0)
[2019-02-07] MEDS ORDERED: sitaGLIPtin PHOSPHATE 25 MG TABLET (FP) PO SCH (07:00)
[2019-02-07 07:15] LABS: ANION GAP 10 MMOL/L (8-16); BLOOD UREA NITROGEN 47 mg/dL (7-18); CALCIUM 8.9 mg/dL (8.5-10.1); CHLORIDE 97 mmol/L (98-107); CO2 27 mmol/L (21-32); GLUCOSE,RANDOM 137 mg/dL (74-106); MAGNESIUM 2.4 mg/dL (1.8-2.4); PHOSPHOROUS 5.2 mg/dL (2.5-4.9); POTASSIUM 5.4 mmol/L (3.5-5.1); SODIUM 134 mmol/L (136-145)
[2019-02-07 07:20] LABS: CREATININE 8.8 mg/dL (0.55-1.3)
[2019-02-07] MEDS ORDERED: SODIUM CHLORIDE 250 ML IV PRN (08:21)
[2019-02-07] MEDS ORDERED: VITAMIN B COMP W-C 1 EA TABLET PO SCH (10:00)
[2019-02-07] MEDS ORDERED: NIFEdipine E.R. 90 MG TABLET (FP) PO SCH (10:00)
[2019-02-07] MEDS ORDERED: POLYETHYLENE GLYCOL 3350 119 GM BTL PO SCH (10:00)
[2019-02-07] MEDS ORDERED: PANTOPRAZOLE 20 MG TABLET (FP) PO SCH (10:00)
[2019-02-07] MEDS: SEVELAMER CARBONATE 800 MG TAB (FP) PO SCH ×3 (10:06→18:09)
[2019-02-07] MEDS: CARVEDILOL 25 MG TABLET (FP) PO SCH ×2 (10:06→22:35)
[2019-02-07] MEDS: cloNIDine HCL 0.1 MG TABLET PO SCH ×2 (10:07→22:35)
[2019-02-07] MEDS: MUPIROCIN 2% TOPICAL OINTMENT FOR DECOLONIZATION NS SCH (10:08)
[2019-02-07] MEDS: AMMONIUM LACTATE 12% LOTION 225 GM BOTTLE TP SCH (10:10)
--- NOTE | 2019-02-07 11:11 | PN ---
Progress Note, Physician History of Present Illness: Pt s/p lap appy for acute appendicitis. Seen and examined in ICU currently getting HD. She ate some breakfast. States she feels better, denies much pain, just "a little" down on right side. No BM yet, no nausea. - Current Medication List Current Medications: Active Medications Acetaminophen (Tylenol -) 650 mg PO Q6H PRN PRN Reason: Pain Level 4 - 10 Atorvastatin Calcium (Lipitor -) 10 mg PO [facility] Last Admin: 02/06/19 22:49 Dose: 10 mg Carvedilol (Coreg -) 25 mg PO BID [facility] Last Admin: 02/07/19 10:06 Dose: 25 mg Chlorhexidine Gluconate (Hibiclens For Decolonization -) 1 applic TP [facility] Last Admin: 02/06/19 22:48 Dose: 1 applic Clonidine (Catapres -) 0.2 mg PO BID [facility] Last Admin: 02/07/19 10:07 Dose: 0.2 mg Gabapentin (Neurontin -) 100 mg PO [facility] Last Admin: 02/06/19 22:50 Dose: 100 mg Heparin Sodium (Porcine) (Heparin -) 5,000 unit SQ TID [facility] Last Admin: 02/07/19 05:38 Dose: 5,000 unit Sodium Chloride (Normal Saline -) 250 mls @ 3,000 mls/hr IV PRN PRN PRN Reason: Hypotension during Dialysis Stop: 02/06/19 23:05 Sodium Chloride (Normal Saline -) 250 mls @ 3,000 mls/hr IV PRN PRN PRN Reason: Hypotension during Dialysis Stop: 02/08/19 08:21 Insulin Aspart (Novolog Vial Sliding Scale -) 1 vial SQ Q4HPO [facility]; Protocol Last Admin: 02/07/19 10:22 Dose: 2 units Lactic Acid (Lac-Hydrin 12) 1 applic TP BID [facility] Last Admin: 02/07/19 10:10 Dose: 1 applic Lidocaine/Prilocaine (Emla -) 1 applic TP BID PRN PRN Reason: PAIN Multivit/Ca Carb/B Cmplx/FA/Prenat (Nephro-Roberta -) 1 tablet PO DAILY [facility] Last Admin: 02/07/19 10:05 Dose: 1 tablet Mupirocin (Bactroban Ointment (For Decolonization) -) 1 applic NS BID [facility] Stop: 02/11/19 21:59 Last Admin: 02/07/19 10:08 Dose: 1 applic Nifedipine (Procardia Xl -) 90 mg PO DAILY [facility] Last Admin: 02/07/19 10:08 Dose: 90 mg Oxycodone HCl (Roxicodone -) 5 mg PO Q4H PRN PRN Reason: Pain Level 7-10 BREAKTHROUGH Stop: 02/07/19 12:58 Last Admin: 02/06/19 16:57 Dose: 5 mg Pantoprazole Sodium (Protonix -) 20 mg PO DAILY [facility] Last Admin: 02/07/19 10:08 Dose: 20 mg Polyethylene Glycol (Miralax (For Daily Use) -) 17 gm PO DAILY [facility] Last Admin: 02/07/19 10:12 Dose: 17 grams Saliva Substitute (Mouthkote Solution) 2 applic MM TID [facility] Last Admin: 02/07/19 05:39 Dose: 2 applic Senna (Senna -) 8.6 tab PO BID [facility] Last Admin: 02/06/19 22:50 Dose: 8.6 tab Sevelamer Carbonate (Renvela -) 1,600 mg PO TIDCM [facility] Last Admin: 02/07/19 10:06 Dose: 1,600 mg Sitagliptin Phosphate (Januvia -) 25 mg PO ACBK [facility] Last Admin: 02/07/19 10:05 Dose: 25 mg Sucralfate (Carafate -) 1 gm PO TIDAC [facility] Last Admin: 02/07/19 06:48 Dose: 1 gm - Objective Vital Signs: Vital Signs Temperature 98.4 F 02/07/19 10:10 Pulse Rate 88 02/07/19 10:15 Respiratory Rate 18 02/07/19 10:15 Blood Pressure 139/66 02/07/19 10:15 O2 Sat by Pulse Oximetry (%) 100 02/06/19 21:00 Constitutional: Yes: No Distress, Calm, Obese Eyes: Yes: Conjunctiva Clear, EOM Intact HENT: Yes: Atraumatic, Normocephalic Gastrointestinal: Yes: Soft, Abdomen, Obese, Tenderness (minimal RLQ, no real incisional tenderness). No: Distention Extremities: Yes: Other (RUE AVF accessed for HD). No: Cool, Cyanosis Integumentary: Yes: Incision (x3 dressed). No: Jaundice, Rash Wound/Incision: Yes: Steri Strips (under dressings), Dressing Dry and Intact (x3 ). No: Dressing Removed Neurological: Yes: Alert, Oriented Labs: CBC, BMP 02/07/19 05:30 02/07/19 05:30 Problem List - Problems (1) Acute appendicitis Assessment/Plan: POD1 s/p laparoscopic appendectomy doing well overall minimal pain/tenderness incisions dressed, c/d/i In ICU, getting HD now tolerating renal diet periop antibiotics completed yesterday pain meds prn - tylenol first line; oxycodone/percocet for breakthrough - encouraged to use at home ONLY if needed for pain home meds resumed EXCEPT ASPIRIN GI/DVT prophylaxis ok for d/c from surgical standpoint outer dressings off TOMORROW do not resume ASPIRIN until Tuesday instructions in d/c plan to f/u with surgery in 2 wks, needs to call for appt discussed with ICU team Code(s): K35.80 - UNSPECIFIED ACUTE APPENDICITIS Qualifiers: Acute appendicitis type: other Qualified Code(s): K35.890 - Other acute appendicitis without perforation or gangrene; K35.89 - Other acute appendicitis (2) ESRD on hemodialysis Assessment/Plan: getting HD now nephrology on board Code(s): N18.6 - END STAGE RENAL DISEASE; Z99.2 - DEPENDENCE ON RENAL DIALYSIS (3) Hypertension Assessment/Plan: continue home meds Code(s): I10 - ESSENTIAL (PRIMARY) HYPERTENSION Qualifiers: Hypertension type: essential hypertension Qualified Code(s): I10 - Essential (primary) hypertension (4) Diabetes mellitus type 2, noninsulin dependent Assessment/Plan: home meds ok Code(s): E11.9 - TYPE 2 DIABETES MELLITUS WITHOUT COMPLICATIONS
--- NOTE | 2019-02-07 12:23 | PN ---
Progress Note, Physician History of Present Illness: Seen and examined at bedside. pt in good spirit, no complaint and no acute event overnight. no flatus or bowel movement yet. eating breakfast. - Current Medication List Current Medications: Active Medications Acetaminophen (Tylenol -) 650 mg PO Q6H PRN PRN Reason: Pain Level 4 - 10 Atorvastatin Calcium (Lipitor -) 10 mg PO [facility] Last Admin: 02/06/19 22:49 Dose: 10 mg Carvedilol (Coreg -) 25 mg PO BID [facility] Last Admin: 02/07/19 10:06 Dose: 25 mg Chlorhexidine Gluconate (Hibiclens For Decolonization -) 1 applic TP [facility] Last Admin: 02/06/19 22:48 Dose: 1 applic Clonidine (Catapres -) 0.2 mg PO BID [facility] Last Admin: 02/07/19 10:07 Dose: 0.2 mg Gabapentin (Neurontin -) 100 mg PO [facility] Last Admin: 02/06/19 22:50 Dose: 100 mg Heparin Sodium (Porcine) (Heparin -) 5,000 unit SQ TID [facility] Last Admin: 02/07/19 05:38 Dose: 5,000 unit Sodium Chloride (Normal Saline -) 250 mls @ 3,000 mls/hr IV PRN PRN PRN Reason: Hypotension during Dialysis Stop: 02/06/19 23:05 Sodium Chloride (Normal Saline -) 250 mls @ 3,000 mls/hr IV PRN PRN PRN Reason: Hypotension during Dialysis Stop: 02/08/19 08:21 Insulin Aspart (Novolog Vial Sliding Scale -) 1 vial SQ Q4HPO [facility]; Protocol Last Admin: 02/07/19 10:22 Dose: 2 units Lactic Acid (Lac-Hydrin 12) 1 applic TP BID [facility] Last Admin: 02/07/19 10:10 Dose: 1 applic Lidocaine/Prilocaine (Emla -) 1 applic TP BID PRN PRN Reason: PAIN Multivit/Ca Carb/B Cmplx/FA/Prenat (Nephro-Roberta -) 1 tablet PO DAILY [facility] Last Admin: 02/07/19 10:05 Dose: 1 tablet Mupirocin (Bactroban Ointment (For Decolonization) -) 1 applic NS BID [facility] Stop: 02/11/19 21:59 Last Admin: 02/07/19 10:08 Dose: 1 applic Nifedipine (Procardia Xl -) 90 mg PO DAILY [facility] Last Admin: 02/07/19 10:08 Dose: 90 mg Oxycodone HCl (Roxicodone -) 5 mg PO Q4H PRN PRN Reason: Pain Level 7-10 BREAKTHROUGH Stop: 02/07/19 12:58 Last Admin: 02/06/19 16:57 Dose: 5 mg Pantoprazole Sodium (Protonix -) 20 mg PO DAILY [facility] Last Admin: 02/07/19 10:08 Dose: 20 mg Polyethylene Glycol (Miralax (For Daily Use) -) 17 gm PO DAILY [facility] Last Admin: 02/07/19 10:12 Dose: 17 grams Saliva Substitute (Mouthkote Solution) 2 applic MM TID [facility] Last Admin: 02/07/19 05:39 Dose: 2 applic Senna (Senna -) 8.6 tab PO BID [facility] Last Admin: 02/06/19 22:50 Dose: 8.6 tab Sevelamer Carbonate (Renvela -) 1,600 mg PO TIDCM [facility] Last Admin: 02/07/19 10:06 Dose: 1,600 mg Sitagliptin Phosphate (Januvia -) 25 mg PO ACBK [facility] Last Admin: 02/07/19 10:05 Dose: 25 mg Sucralfate (Carafate -) 1 gm PO TIDAC [facility] Last Admin: 02/07/19 06:48 Dose: 1 gm - Objective Vital Signs: Vital Signs Temperature 98.4 F 02/07/19 10:10 Pulse Rate 88 02/07/19 10:15 Respiratory Rate 18 02/07/19 10:15 Blood Pressure 139/66 02/07/19 10:15 O2 Sat by Pulse Oximetry (%) 100 02/06/19 21:00 Constitutional: Yes: Calm. No: Mild Distress Cardiovascular: Yes: Regular Rate and Rhythm, S1, S2. No: Murmur Respiratory: Yes: CTA Bilaterally Gastrointestinal: Yes: Normal Bowel Sounds, Soft. No: Tenderness Wound/Incision: Yes: Clean/Dry, Dressing Dry and Intact Neurological: Yes: Alert, Oriented Labs: CBC, BMP 02/07/19 05:30 02/07/19 05:30 INR, PTT INR 1.06 (0.83-1.09) 02/06/19 05:30 Impression/Plan Impression/Plan: 68 yo F ESRD on HD admitted to ICU for hyperkalemia requiring urgent dialysis and acute appendicitis. Neuro - A/O x3 Renal: hyperkalemia - s/p HD yesterday and today - regular labs daily Cardiovascular: - HTN. C/w Carvedilol, Clonidine, and Nifedipine per home regimen. - HLD. C/w Atorvastatin. Pulm / Resp: - Stable on room air. Gastrointestinal: - s/p appendectomy POD 1 Infectious Disease: - monitor off abx post-op FEN: - Renal diet. Prophylaxis: - DVT: Heparin - GI: Pantoprazole Dispo: transfer to med-surg Esa Anaya PGY3 Visit type - Emergency Visit Emergency Visit: No - New Patient This patient is new to me today: No - Critical Care Critical Care patient: Yes Total Critical Care Time (in minutes): 35 Critical Care Statement: The care of this patient involved high complexity decision making to prevent further life threatening deterioration of the patient 's condition and/or to evaluate & treat vital organ system(s) failure or risk of failure.
--- NOTE | 2019-02-07 12:54 | PN ---
Teaching Attending Note Name of Resident: Esa Anaya ATTENDING PHYSICIAN STATEMENT I saw and evaluated the patient. I reviewed the resident's note and discussed the case with the resident. I agree with the resident's findings and plan as documented. SUBJECTIVE: Pt seen and examined in the ICU. Abdominal pain improved post op. No nausea or vomiting. No fevers. Dialzyed this AM. OBJECTIVE: Vital Signs Period Temp Pulse Resp BP Sys/Dietz Pulse Ox Last 24 Hr 97.9 F-99 F 69-88 10-18 120-185/56-89 95-100 Intake & Output 02/04/19 02/05/19 02/06/19 02/07/19 23:59 23:59 23:59 23:59 Intake Total 990 Output Total 30 Balance 960 Weight 76.204 kg 78.245 kg 78.018 kg Gen: NAD at rest Heart: RRR Lung: decreased breath sounds at the bases Abd: soft, dressings dry Ext: no edema CBC, BMP 02/07/19 05:30 02/07/19 05:30 Active Medications Acetaminophen (Tylenol -) 650 mg PO Q6H PRN PRN Reason: Pain Level 4 - 10 Atorvastatin Calcium (Lipitor -) 10 mg PO HS [facility] Last Admin: 02/06/19 22:49 Dose: 10 mg Carvedilol (Coreg -) 25 mg PO BID [facility] Last Admin: 02/07/19 10:06 Dose: 25 mg Chlorhexidine Gluconate (Hibiclens For Decolonization -) 1 applic TP [facility] Last Admin: 02/06/19 22:48 Dose: 1 applic Clonidine (Catapres -) 0.2 mg PO BID [facility] Last Admin: 02/07/19 10:07 Dose: 0.2 mg Gabapentin (Neurontin -) 100 mg PO HS [facility] Last Admin: 02/06/19 22:50 Dose: 100 mg Heparin Sodium (Porcine) (Heparin -) 5,000 unit SQ TID [facility] Last Admin: 02/07/19 05:38 Dose: 5,000 unit Sodium Chloride (Normal Saline -) 250 mls @ 3,000 mls/hr IV PRN PRN PRN Reason: Hypotension during Dialysis Stop: 02/06/19 23:05 Sodium Chloride (Normal Saline -) 250 mls @ 3,000 mls/hr IV PRN PRN PRN Reason: Hypotension during Dialysis Stop: 02/08/19 08:21 Insulin Aspart (Novolog Vial Sliding Scale -) 1 vial SQ Q4HPO [facility]; Protocol Last Admin: 02/07/19 10:22 Dose: 2 units Lactic Acid (Lac-Hydrin 12) 1 applic TP BID [facility] Last Admin: 02/07/19 10:10 Dose: 1 applic Lidocaine/Prilocaine (Emla -) 1 applic TP BID PRN PRN Reason: PAIN Multivit/Ca Carb/B Cmplx/FA/Prenat (Nephro-Roberta -) 1 tablet PO DAILY [facility] Last Admin: 02/07/19 10:05 Dose: 1 tablet Mupirocin (Bactroban Ointment (For Decolonization) -) 1 applic NS BID [facility] Stop: 02/11/19 21:59 Last Admin: 02/07/19 10:08 Dose: 1 applic Nifedipine (Procardia Xl -) 90 mg PO DAILY [facility] Last Admin: 02/07/19 10:08 Dose: 90 mg Oxycodone HCl (Roxicodone -) 5 mg PO Q4H PRN PRN Reason: Pain Level 7-10 BREAKTHROUGH Stop: 02/07/19 12:58 Last Admin: 02/06/19 16:57 Dose: 5 mg Pantoprazole Sodium (Protonix -) 20 mg PO DAILY [facility] Last Admin: 02/07/19 10:08 Dose: 20 mg Polyethylene Glycol (Miralax (For Daily Use) -) 17 gm PO DAILY [facility] Last Admin: 02/07/19 10:12 Dose: 17 grams Saliva Substitute (Mouthkote Solution) 2 applic MM TID [facility] Last Admin: 02/07/19 05:39 Dose: 2 applic Senna (Senna -) 8.6 tab PO BID [facility] Last Admin: 02/06/19 22:50 Dose: 8.6 tab Sevelamer Carbonate (Renvela -) 1,600 mg PO TIDCM [facility] Last Admin: 02/07/19 12:39 Dose: 1,600 mg Sitagliptin Phosphate (Januvia -) 25 mg PO ACBK [facility] Last Admin: 02/07/19 10:05 Dose: 25 mg Sucralfate (Carafate -) 1 gm PO TIDAC [facility] Last Admin: 02/07/19 12:40 Dose: 1 gm ASSESSMENT AND PLAN: Hyperkalemia improved ESRD on HD Acute Appendicitis Hypertensive Urgency +Troponins likely Demand Ischemia DM - pain control - incentive spirometry - HD per renal - monitor lytes - BP control - DVT prophylaxis - can monitor on floor or d/c home
--- NOTE | 2019-02-07 12:56 | PN ---
Progress Note, Physician History of Present Illness: Pt seen and examined at bedside. She is awake and alert. She is tolerating HD. - Current Medication List Current Medications: Active Medications Acetaminophen (Tylenol -) 650 mg PO Q6H PRN PRN Reason: Pain Level 4 - 10 Atorvastatin Calcium (Lipitor -) 10 mg PO HS [facility] Last Admin: 02/06/19 22:49 Dose: 10 mg Carvedilol (Coreg -) 25 mg PO BID [facility] Last Admin: 02/07/19 10:06 Dose: 25 mg Chlorhexidine Gluconate (Hibiclens For Decolonization -) 1 applic TP [facility] Last Admin: 02/06/19 22:48 Dose: 1 applic Clonidine (Catapres -) 0.2 mg PO BID [facility] Last Admin: 02/07/19 10:07 Dose: 0.2 mg Gabapentin (Neurontin -) 100 mg PO [facility] Last Admin: 02/06/19 22:50 Dose: 100 mg Heparin Sodium (Porcine) (Heparin -) 5,000 unit SQ TID [facility] Last Admin: 02/07/19 05:38 Dose: 5,000 unit Sodium Chloride (Normal Saline -) 250 mls @ 3,000 mls/hr IV PRN PRN PRN Reason: Hypotension during Dialysis Stop: 02/06/19 23:05 Sodium Chloride (Normal Saline -) 250 mls @ 3,000 mls/hr IV PRN PRN PRN Reason: Hypotension during Dialysis Stop: 02/08/19 08:21 Insulin Aspart (Novolog Vial Sliding Scale -) 1 vial SQ Q4HPO [facility]; Protocol Last Admin: 02/07/19 10:22 Dose: 2 units Lactic Acid (Lac-Hydrin 12) 1 applic TP BID [facility] Last Admin: 02/07/19 10:10 Dose: 1 applic Lidocaine/Prilocaine (Emla -) 1 applic TP BID PRN PRN Reason: PAIN Multivit/Ca Carb/B Cmplx/FA/Prenat (Nephro-Roberta -) 1 tablet PO DAILY [facility] Last Admin: 02/07/19 10:05 Dose: 1 tablet Mupirocin (Bactroban Ointment (For Decolonization) -) 1 applic NS BID [facility] Stop: 02/11/19 21:59 Last Admin: 02/07/19 10:08 Dose: 1 applic Nifedipine (Procardia Xl -) 90 mg PO DAILY [facility] Last Admin: 02/07/19 10:08 Dose: 90 mg Oxycodone HCl (Roxicodone -) 5 mg PO Q4H PRN PRN Reason: Pain Level 7-10 BREAKTHROUGH Stop: 02/07/19 12:58 Last Admin: 02/06/19 16:57 Dose: 5 mg Pantoprazole Sodium (Protonix -) 20 mg PO DAILY [facility] Last Admin: 02/07/19 10:08 Dose: 20 mg Polyethylene Glycol (Miralax (For Daily Use) -) 17 gm PO DAILY [facility] Last Admin: 02/07/19 10:12 Dose: 17 grams Saliva Substitute (Mouthkote Solution) 2 applic MM TID [facility] Last Admin: 02/07/19 05:39 Dose: 2 applic Senna (Senna -) 8.6 tab PO BID [facility] Last Admin: 02/06/19 22:50 Dose: 8.6 tab Sevelamer Carbonate (Renvela -) 1,600 mg PO TIDCM [facility] Last Admin: 02/07/19 12:39 Dose: 1,600 mg Sitagliptin Phosphate (Januvia -) 25 mg PO ACBK [facility] Last Admin: 02/07/19 10:05 Dose: 25 mg Sucralfate (Carafate -) 1 gm PO TIDAC [facility] Last Admin: 02/07/19 12:40 Dose: 1 gm - Objective Vital Signs: Vital Signs Temperature 98 F 02/07/19 12:00 Pulse Rate 69 02/07/19 12:15 Respiratory Rate 18 02/07/19 12:15 Blood Pressure 120/60 02/07/19 12:15 O2 Sat by Pulse Oximetry (%) 100 02/07/19 09:00 Constitutional: Yes: Calm Eyes: Yes: Conjunctiva Clear HENT: Yes: Atraumatic Cardiovascular: Yes: S1, S2 Respiratory: Yes: CTA Bilaterally Gastrointestinal: Yes: Normal Bowel Sounds, Soft Genitourinary: Yes: WNL Musculoskeletal: Yes: WNL Edema: No Neurological: Yes: Oriented Psychiatric: Yes: Oriented Labs: CBC, BMP 02/07/19 05:30 02/07/19 05:30 INR, PTT INR 1.06 (0.83-1.09) 02/06/19 05:30 Assessment/Plan Current Medications Generic Name Dose Route Start Last Admin Trade Name Freq PRN Reason Stop Dose Admin Acetaminophen 650 mg 02/06/19 14:33 Tylenol - PO Q6H PRN Pain Level 4 - 10 Atorvastatin Calcium 10 mg 02/06/19 22:00 02/06/19 22:49 Lipitor - PO 10 mg HS [facility] Administration Carvedilol 25 mg 02/06/19 22:00 02/07/19 10:06 Coreg - PO 25 mg BID [facility] Administration Chlorhexidine Gluconate 1 applic 02/06/19 22:00 02/06/19 22:48 Hibiclens For Decolonization - TP 1 applic HS [facility] Administration Clonidine 0.2 mg 02/06/19 22:00 02/07/19 10:07 Catapres - PO 0.2 mg BID [facility] Administration Gabapentin 100 mg 02/06/19 22:00 02/06/19 22:50 Neurontin - PO 100 mg HS [facility] Administration Heparin Sodium (Porcine) 5,000 unit 02/06/19 22:00 02/07/19 05:38 Heparin - SQ 5,000 unit TID [facility] Administration Sodium Chloride 250 mls @ 3,000 mls/hr 02/06/19 14:33 Normal Saline - IV 02/06/19 23:05 PRN PRN Hypotension during Dialysis Sodium Chloride 250 mls @ 3,000 mls/hr 02/07/19 08:21 Normal Saline - IV 02/08/19 08:21 PRN PRN Hypotension during Dialysis Insulin Aspart 1 vial 02/06/19 18:00 02/07/19 10:22 Novolog Vial Sliding Scale - SQ 2 units Q4HPO [facility] Administration Protocol Lactic Acid 1 applic 02/06/19 22:00 02/07/19 10:10 Lac-Hydrin 12 TP 1 applic BID [facility] Administration Lidocaine/Prilocaine 1 applic 02/06/19 14:33 Emla - TP BID PRN PAIN Multivit/Ca Carb/B Cmplx/FA/Prenat 1 tablet 02/07/19 10:00 02/07/19 10:05 Nephro-Roberta - PO 1 tablet DAILY [facility] Administration Mupirocin 1 applic 02/06/19 22:00 02/07/19 10:08 Bactroban Ointment (For Decolonization) - NS 02/11/19 21:59 1 applic BID [facility] Administration Nifedipine 90 mg 02/07/19 10:00 02/07/19 10:08 Procardia Xl - PO 90 mg DAILY [facility] Administration Oxycodone HCl 5 mg 02/06/19 14:33 02/06/19 16:57 Roxicodone - PO 02/07/19 12:58 5 mg Q4H PRN Administration Pain Level 7-10 BREAKTHROUGH Pantoprazole Sodium 20 mg 02/07/19 10:00 02/07/19 10:08 Protonix - PO 20 mg DAILY [facility] Administration Polyethylene Glycol 17 gm 02/07/19 10:00 02/07/19 10:12 Miralax (For Daily Use) - PO 17 grams DAILY [facility] Administration Saliva Substitute 2 applic 02/06/19 22:00 02/07/19 05:39 Mouthkote Solution MM 2 applic TID [facility] Administration Senna 8.6 tab 02/06/19 22:00 02/06/19 22:50 Senna - PO 8.6 tab BID [facility] Administration Sevelamer Carbonate 1,600 mg 02/06/19 17:30 02/07/19 12:39 Renvela - PO 1,600 mg TIDCM [facility] Administration Sitagliptin Phosphate 25 mg 02/07/19 07:00 02/07/19 10:05 Januvia - PO 25 mg ACBK [facility] Administration Sucralfate 1 gm 02/06/19 16:30 02/07/19 12:40 Carafate - PO 1 gm TIDAC [facility] Administration Impression 1. ESRD 2. hyperkalemia 3. abd pain 4. possible acute appendicitis 5. HTN 6. DM Plan - HD today - bp is improved - pt follows with Dr Gutierrez - avoid carafate - renal diet - discussed with ICU team
--- NOTE | 2019-02-07 13:00 | EKG ---
Test Reason : Blood Pressure : / mmHG Vent. Rate : 075 BPM Atrial Rate : 075 BPM P-R Int : 206 ms QRS Dur : 090 ms QT Int : 396 ms P-R-T Axes : 047 009 051 degrees QTc Int : 442 ms NORMAL SINUS RHYTHM CANNOT RULE OUT ANTERIOR INFARCT (CITED ON OR BEFORE 05-FEB-2019) ABNORMAL ECG WHEN COMPARED WITH ECG OF 06-FEB-2019 04:00, NO SIGNIFICANT CHANGE WAS FOUND Confirmed by AFSANEH SALMON, LEONEL ([id number]) on 02/07/2019 1:00:42 PM Referred By: DONATO SHANNON DR Confirmed By:LEONEL SHELBY MD
[2019-02-07] MEDS: SENNOSIDES 8.6MG TABLET (FP) PO SCH ×3 (14:06→22:36)
--- NOTE | 2019-02-07 14:47 | PN ---
Teaching Attending Note Name of Resident: Segundo Obando ATTENDING PHYSICIAN STATEMENT I saw and evaluated the patient. I reviewed the resident's note and discussed the case with the resident. I agree with the resident's findings and plan as documented. SUBJECTIVE: asymptomatic. denies Cp, SOB, fever, chills, N/V/C/D OBJECTIVE: Last Vital Signs Temp Pulse Resp BP Pulse Ox 98 F 68 189 H 144/60 100 02/07/19 12:00 02/07/19 14:00 02/07/19 14:00 02/07/19 14:00 02/07/19 09:00 General NAD CV S1 S2 +murmur Lungs CTA B/L no wheezing/rales/rhonchi Abdomen tenderness surrounding surgical bandages which are c/d/i Extremities RUE fistula with palpable thrill ASSESSMENT AND PLAN: 68yo F wtih HTN, DM, ESRD on TTS, dyslipidemia presented to the ER with epigastric pain assoc with nausea and found in the ER to have severe hyperkalemia requiring emergent HD, course complicated with questionable appendicitis 1. Severe hyperkalemia- emergent HD done. now trending back up. will get HD today. nephro on board. not on medications that can cause hyperkalemia 2. HTN emergency- now controlled. cont home medications. echo reviewed 3. Tropinemia- likely demand from HTN emergency. flat trend 0.07-0.08. no WMA on echo. 4. Acute appendicitis-s/p laprascopic appendectomy 02/06. tolerated surgery. further recommendations per surgery. no asa till tuesday. off abx 5. DM- controlled. iss and BGM 6. ESRD on HD (TTS)- HD today and then to resume normal schedule. nephro on board 7. DVT ppx- hep sq 8. can d/c to med-surg. anticipate discharge in next 24 H The care of this patient involved high complexity decision making to prevent further life threatening deterioration of the patient's condition and/or to evaluate & treat vital organ system(s) failure or risk of failure. 35 mins
[2019-02-07 15:13] LABS: HBSAG SCREEN Negative (Negative); HEP A AB, IGM Negative (Negative); HEP B CORE AB, TOT Negative (Negative)
--- NOTE | 2019-02-07 15:28 | PN ---
Physical Exam: SUBJECTIVE: Patient seen and examined. No acute events overnight, Pt. states she has had a headache since yesterday (temporal b/l, sharp, 8/10 in severity). Pt. states she is hungry. Pt. denies shortness of breath changes in vision, passing gas or stool, or difficulty passing urine. OBJECTIVE: Vital Signs Period Temp Pulse Resp BP Sys/Dietz Pulse Ox Last 24 Hr 97.9 F-98.5 F 62-88 10-189 120-155/42-89 100-100 GENERAL: The patient is awake, alert, and fully oriented, in mild distress. HEAD: Normal with no signs of trauma. EYES: Left pupil constricts faster than right, sclera anicteric, conjunctiva clear. Proptosis?. ENT: Ears normal, nares patent, oropharynx clear without exudates, moist mucous membranes. NECK: Trachea midline, full range of motion, supple. LUNGS: Bibasilar crackles, no accessory muscle use. HEART: Regular rate and rhythm, S1, S2 without murmur ABDOMEN: Soft, RUQ and mild incisional tenderness, dressing c/d/i, nondistended , normoactive bowel sounds EXTREMITIES: 2+ radial pulses, warm, no calf tenderness, well-perfused, no edema. NEUROLOGICAL: Normal speech, gait not observed. PSYCH: Normal mood, normal affect. SKIN: Warm, dry, normal turgor Laboratory Results - last 24 hr 02/06/19 02/06/19 02/06/19 02:40 02:40 18:03 WBC RBC Hgb Hct MCV MCH MCHC RDW Plt Count MPV Absolute Neuts (auto) Neutrophils % Lymphocytes % Monocytes % Eosinophils % Basophils % Nucleated RBC % Sodium Potassium Chloride Carbon Dioxide Anion Gap BUN Creatinine Creat Clearance w eGFR POC Glucometer 154 Random Glucose Calcium Phosphorus Magnesium Hep A IgM Ab Confirm Negative Hepatitis A Ab Total Positive H Hep Bs Antigen Negative Hep Bs Antibody Reactive Hep B Core Total Ab Negative Hep C Ab Diagnostic 0.1 02/06/19 02/07/19 02/07/19 22:58 04:16 05:30 WBC 11.6 H RBC 4.22 Hgb 11.1 Hct 35.1 MCV 83.2 MCH 26.2 MCHC 31.5 L RDW 16.9 H Plt Count 216 MPV 8.6 Absolute Neuts (auto) 8.8 H Neutrophils % 75.8 Lymphocytes % 14.3 D Monocytes % 9.2 Eosinophils % 0.1 D Basophils % 0.6 Nucleated RBC % 0 Sodium Potassium Chloride Carbon Dioxide Anion Gap BUN Creatinine Creat Clearance w eGFR POC Glucometer 145 140 Random Glucose Calcium Phosphorus Magnesium Hep A IgM Ab Confirm Hepatitis A Ab Total Hep Bs Antigen Hep Bs Antibody Hep B Core Total Ab Hep C Ab Diagnostic 02/07/19 02/07/19 02/07/19 05:30 06:51 10:16 WBC RBC Hgb Hct MCV MCH MCHC RDW Plt Count MPV Absolute Neuts (auto) Neutrophils % Lymphocytes % Monocytes % Eosinophils % Basophils % Nucleated RBC % Sodium 134 L Potassium 5.4 H Chloride 97 L Carbon Dioxide 27 Anion Gap 10 BUN 47 H Creatinine 8.8 H* Creat Clearance w eGFR 4.47 POC Glucometer 128 160 Random Glucose 137 H Calcium 8.9 Phosphorus 5.2 H Magnesium 2.4 Hep A IgM Ab Confirm Hepatitis A Ab Total Hep Bs Antigen Hep Bs Antibody Hep B Core Total Ab Hep C Ab Diagnostic 02/07/19 14:08 WBC RBC Hgb Hct MCV MCH MCHC RDW Plt Count MPV Absolute Neuts (auto) Neutrophils % Lymphocytes % Monocytes % Eosinophils % Basophils % Nucleated RBC % Sodium Potassium Chloride Carbon Dioxide Anion Gap BUN Creatinine Creat Clearance w eGFR POC Glucometer 112 Random Glucose Calcium Phosphorus Magnesium Hep A IgM Ab Confirm Hepatitis A Ab Total Hep Bs Antigen Hep Bs Antibody Hep B Core Total Ab Hep C Ab Diagnostic Active Medications Home Medications Medication Instructions Recorded Aspirin 81 mg PO DAILY 02/05/19 Carvedilol [Coreg -] 25 mg PO BID 02/05/19 Clonidine HCl [Catapres] 0.2 mg PO BID 02/05/19 Folic Acid/Vit B Complex and C 0.8 mg PO DAILY 02/05/19 [Yue-Roberta Tablet] Gabapentin [Neurontin] 100 mg PO HS 02/05/19 Lactulose (Oral Use) [Cephulac -] 30 gm PO BID 02/05/19 Linaclotide [Linzess] 145 mcg PO DAILY 02/05/19 Nifedipine [Procardia Xl] 90 mg PO DAILY 02/05/19 Omeprazole 20 mg PO DAILY 02/05/19 Oxycodone HCl 5 mg PO DAILY PRN 02/05/19 Polyethylene Glycol 3350 [Miralax 17 gm PO DAILY 02/05/19 (For Daily Use) -] Sennosides [Senna] 8.6 mg PO BID 02/05/19 Sevelamer Carbonate [Renvela] 1,600 mg PO TID 02/05/19 Simvastatin [Zocor -] 20 mg PO HS 02/05/19 Sitagliptin Phosphate [Januvia] 25 mg PO DAILY 02/05/19 Sucralfate [Carafate -] 1 gm PO TID 02/05/19 Ammonium Lactate Cream [Lac-Hydrin 1 unit TP BID 02/06/19 12% Cream -] Folic Acid/Vit B Complex and C 1 tab PO DAILY 02/06/19 [Yue-Roberta Tablet] Lidocaine/Prilocaine 1 unit TP BID PRN 02/06/19 [Lidocaine-Prilocaine Cream] Saliva Substitute Combo No.9 10 ml PO TID 02/06/19 [Biotene] Current Medications Acetaminophen (Tylenol -) 650 mg PO Q6H PRN PRN Reason: Pain Level 4 - 10 Atorvastatin Calcium (Lipitor -) 10 mg PO [facility] Last Admin: 02/06/19 22:49 Dose: 10 mg Carvedilol (Coreg -) 25 mg PO BID [facility] Last Admin: 02/07/19 10:06 Dose: 25 mg Chlorhexidine Gluconate (Hibiclens For Decolonization -) 1 applic TP [facility] Last Admin: 02/06/19 22:48 Dose: 1 applic Clonidine (Catapres -) 0.2 mg PO BID [facility] Last Admin: 02/07/19 10:07 Dose: 0.2 mg Gabapentin (Neurontin -) 100 mg PO [facility] Last Admin: 02/06/19 22:50 Dose: 100 mg Heparin Sodium (Porcine) (Heparin -) 5,000 unit SQ TID [facility] Last Admin: 02/07/19 13:56 Dose: 5,000 unit Sodium Chloride (Normal Saline -) 250 mls @ 3,000 mls/hr IV PRN PRN PRN Reason: Hypotension during Dialysis Stop: 02/06/19 23:05 Sodium Chloride (Normal Saline -) 250 mls @ 3,000 mls/hr IV PRN PRN PRN Reason: Hypotension during Dialysis Stop: 02/08/19 08:21 Insulin Aspart (Novolog Vial Sliding Scale -) 1 vial SQ Q4HPO [facility]; Protocol Last Admin: 02/07/19 14:09 Dose: Not Given Lactic Acid (Lac-Hydrin 12) 1 applic TP BID [facility] Last Admin: 02/07/19 10:10 Dose: 1 applic Lidocaine/Prilocaine (Emla -) 1 applic TP BID PRN PRN Reason: PAIN Multivit/Ca Carb/B Cmplx/FA/Prenat (Nephro-Roberta -) 1 tablet PO DAILY [facility] Last Admin: 02/07/19 10:05 Dose: 1 tablet Mupirocin (Bactroban Ointment (For Decolonization) -) 1 applic NS BID [facility] Stop: 02/11/19 21:59 Last Admin: 02/07/19 10:08 Dose: 1 applic Nifedipine (Procardia Xl -) 90 mg PO DAILY [facility] Last Admin: 02/07/19 10:08 Dose: 90 mg Pantoprazole Sodium (Protonix -) 20 mg PO DAILY [facility] Last Admin: 02/07/19 10:08 Dose: 20 mg Polyethylene Glycol (Miralax (For Daily Use) -) 17 gm PO DAILY [facility] Last Admin: 02/07/19 10:12 Dose: 17 grams Saliva Substitute (Mouthkote Solution) 2 applic MM TID [facility] Last Admin: 02/07/19 13:56 Dose: 2 applic Senna (Senna -) 1 tab PO BID [facility] Last Admin: 02/07/19 14:16 Dose: 1 tab Sevelamer Carbonate (Renvela -) 1,600 mg PO TIDCM [facility] Last Admin: 02/07/19 12:39 Dose: 1,600 mg Sitagliptin Phosphate (Januvia -) 25 mg PO ACBK [facility] Last Admin: 02/07/19 10:05 Dose: 25 mg ASSESSMENT/PLAN: Patient is a 68 year old female who presented here for nausea, vomiting, abdominal pain and was found to have severe hyperkalemia with EKG changes. Patient admitted to ICU for further monitoring and management. #Acute Appendicitis-resolved POD#1 CT abdomen revealed possible appendicitis Given Flagyl 500mg IVPB Q8H and Levaquin 500mg IVPB on admission D/c Zosyn Bcx. NPO Pain control with Morphine 2mg IVPB Q6H PRN Type and screen ordered Surgery consult (Dr. Atkinson) appreciated, f/u Post-op recs--> stable for d/c, will resume ASA on February 12, 2019 #HTN Emergency w/ Troponemia- resolved HD on (T,, Sat.) Likely demand ischemia 2/2 HTN Resume home medications (Clonidine, Coreg and Nifedipine) monitor BP Trend Troponin until peaks (currently plateaued at 0.07-->0.08-->0.08) Echo: EF: 67%, mild TR and MR, some aortic valve sclerosis w/o stenosis CHADVASC: 5 (moderate risk) #Severe Hyperkalemia- resolved With EKG showing teaked P waves Emergent dialysis initiated by Nephrology Kayexalate, Dextrose, Insulin and calcium given Continue to monitor labs daily Nephrology consult appreciated #Elevated Alkaline Phosphatase GGT wnl likely 2/2 appendicitis, documented in literature ([facility]) as an acute phase reactant #NIDDMII c/w ISS c/w BGM #ESRD on HD HD days on ,,S f/u Daily weights, lost 2 kg after HD today Strict I&O's #HLD c/w Simvastatin 20mg HS #GERD c/w Carafate 1mg TID #F/E/N no IVF, encourage PO intake monitor electrolytes, replete or Dialyze as needed, Pt. admitted with Hyperkalemia to 7.1 NPO #Prophylaxis Heparin 5000 units sq tid for DVT Carafate for GI Disposition Full code Med/Surg, likely d/c home Visit type - Emergency Visit Emergency Visit: Yes ED Registration Date: 02/05/19 Care time: The patient presented to the Emergency Department on the above date and was hospitalized for further evaluation of their emergent condition. - New Patient This patient is new to me today: No - Critical Care Critical Care patient: No - Discharge Referral Referred to [facility] No
--- NOTE | 2019-02-07 15:54 | PN ---
Progress Note (short form) - Note Progress Note: Anesthesia post op note POD#1, S/p Lap appendectomy under GA. Pat seen and examined. VSS. No apparent post anesthesia complications. Continued care as per primary team.
[2019-02-07] MEDS ORDERED: ACETAMINOPHEN 325 MG TABLET (FP) PO PRN (17:23)
[2019-02-07] MEDS ORDERED: LIDOCAINE 2.5%/PRILOCAINE 2.5% (5 Gram/TUBE) TP PRN (17:23)
[2019-02-07] MEDS ORDERED: GABAPENTIN 100 MG CAPSULE (FP) PO SCH (22:00)
[2019-02-07] MEDS ORDERED: LYTES/YERBA SANTA 60 ML SPRAY MM SCH (22:00)
[2019-02-07] MEDS ORDERED: ATORVASTATIN CA 10 MG TABLET (FP) PO SCH (22:00)
[2019-02-07 22:45] VITALS: BMI 27.7
[2019-02-08] MEDS: AMMONIUM LACTATE 12% LOTION 225 GM BOTTLE TP SCH ×2 (00:32→12:27)
[2019-02-08] MEDS: INSULIN SLIDING SCALE (NOVOLOG) 1 VIAL SQ SCH ×4 (00:38→11:51)
[2019-02-08] MEDS: HEPARIN NA (PORCINE) 5,000 UNITS/ML 1ML VIAL SQ SCH (06:29)
[2019-02-08] MEDS ORDERED: sitaGLIPtin PHOSPHATE 25 MG TABLET (FP) PO SCH (07:00)
[2019-02-08 07:19] LABS: HEMATOCRIT 36.2 % (32.4-45.2); HEMOGLOBIN 11.2 GM/dL (10.7-15.3); MCHC 31.1 g/dl (32.0-36.0); MEAN CELL VOLUME 83.6 fl (80-96); MEAN PLT VOLUME 8.8 fl (7.5-11.1); PLATELET COUNT 229 K/MM3 (134-434); RBC 4.33 M/mm3 (3.60-5.2); WHITE BLOOD COUNT 7.1 K/mm3 (4.0-10.0)
[2019-02-08 07:47] LABS: ANION GAP 7 MMOL/L (8-16); BLOOD UREA NITROGEN 28 mg/dL (7-18); CALCIUM 8.8 mg/dL (8.5-10.1); CHLORIDE 98 mmol/L (98-107); CO2 30 mmol/L (21-32); CREATININE 6.6 mg/dL (0.55-1.3); GLUCOSE,RANDOM 150 mg/dL (74-106); MAGNESIUM 2.1 mg/dL (1.8-2.4); PHOSPHOROUS 4.1 mg/dL (2.5-4.9); POTASSIUM 4.1 mmol/L (3.5-5.1); SODIUM 136 mmol/L (136-145)
[2019-02-08] MEDS: SEVELAMER CARBONATE 800 MG TAB (FP) PO SCH ×2 (08:11→11:51)
[2019-02-08] MEDS ORDERED: PT OWN MED DRAWER 7, Y5N ONE (09:42)
[2019-02-08] MEDS: CARVEDILOL 25 MG TABLET (FP) PO SCH (09:51)
[2019-02-08] MEDS: cloNIDine HCL 0.1 MG TABLET PO SCH (09:52)
[2019-02-08] MEDS: SENNOSIDES 8.6MG TABLET (FP) PO SCH (09:52)
[2019-02-08] MEDS ORDERED: NIFEdipine E.R. 90 MG TABLET (FP) PO SCH (10:00)
[2019-02-08] MEDS ORDERED: POLYETHYLENE GLYCOL 3350 119 GM BTL PO SCH (10:00)
[2019-02-08] MEDS ORDERED: VITAMIN B COMP W-C 1 EA TABLET PO SCH (10:00)
[2019-02-08] MEDS ORDERED: PANTOPRAZOLE 20 MG TABLET (FP) PO SCH (10:00)
--- NOTE | 2019-02-08 10:43 | DS ---
Physical Exam: SUBJECTIVE: Patient seen and examined OBJECTIVE: Vital Signs Period Temp Pulse Resp BP Sys/Dietz Pulse Ox Last 24 Hr 97.9 F-98.0 F 62-85 15-189 120-161/42-73 99 PHYSICAL EXAM GENERAL: The patient is awake, alert, and fully oriented, in no acute distress. HEAD: Normal with no signs of trauma. EYES: PERRL, extraocular movements intact, sclera anicteric, conjunctiva clear. ENT: Ears normal, nares patent, oropharynx clear without exudates, moist mucous membranes. NECK: Trachea midline, full range of motion, supple. LUNGS: Breath sounds equal, clear to auscultation bilaterally, no wheezes, no crackles, no accessory muscle use. HEART: Regular rate and rhythm, S1, S2 without murmur, rub or gallop. ABDOMEN: Soft, nontender, nondistended, normoactive bowel sounds, no guarding, no rebound, no hepatosplenomegaly, no masses. EXTREMITIES: 2+ pulses, warm, well-perfused, no edema. NEUROLOGICAL: Cranial nerves II through XII grossly intact. Normal speech, gait not observed. PSYCH: Normal mood, normal affect. SKIN: Warm, dry, normal turgor, no rashes or lesions noted. LABS Laboratory Results - last 24 hr 02/06/19 02/06/19 02/07/19 02:40 02:40 14:08 WBC RBC Hgb Hct MCV MCH MCHC RDW Plt Count MPV Sodium Potassium Chloride Carbon Dioxide Anion Gap BUN Creatinine Creat Clearance w eGFR POC Glucometer 112 Random Glucose Calcium Phosphorus Magnesium Total Protein (PEP) 7.3 Albumin (PEP) 3.6 Globulin 3.7 Albumin/Globulin Ratio 1.0 Beta Globulins 0.8 CHANTE M-José Miguel Not observed Hep A IgM Ab Confirm Negative Hepatitis A Ab Total Positive H Hep Bs Antigen Negative Hep Bs Antibody Reactive Hep B Core Total Ab Negative 02/08/19 02/08/19 02/08/19 06:34 06:35 06:35 WBC 7.1 RBC 4.33 Hgb 11.2 Hct 36.2 MCV 83.6 MCH 26.0 MCHC 31.1 L RDW 17.0 H Plt Count 229 MPV 8.8 Sodium 136 Potassium 4.1 Chloride 98 Carbon Dioxide 30 Anion Gap 7 L BUN 28 H Creatinine 6.6 H Creat Clearance w eGFR 6.23 POC Glucometer 141 Random Glucose 150 H Calcium 8.8 Phosphorus 4.1 Magnesium 2.1 Total Protein (PEP) Albumin (PEP) Globulin Albumin/Globulin Ratio Beta Globulins CHANTE M-José Miguel Hep A IgM Ab Confirm Hepatitis A Ab Total Hep Bs Antigen Hep Bs Antibody Hep B Core Total Ab HOSPITAL COURSE: Date of Admission:02/05/19 Date of Discharge: 02/08/19 Discharge Summary Reason For Visit: ACUTE ELECTROCARDIOGRAPHY CHANGES,ACUTE Current Active Problems Acute appendicitis (Acute) Diabetes mellitus type 2, noninsulin dependent (Acute) ESRD on hemodialysis (Acute) Hyperkalemia (Acute) Hypertension (Acute) Condition: Improved - Instructions Diet, Activity, Other Instructions: You came in for abdominal pain associated with nausea, vomiting, high blood pressure, and high potassium. Postoperative instructions: You had a laparoscopic appendectomy on 02/06/[address] Yousif Atkinson of [facility]. Activity: Resume your usual activities gradually, but no heavy exertion or lifting more than 10-15 pounds for 1 month. Remove dressings 48 hours after surgery; sticky tapes underneath will fall off by themselves. You may shower daily starting then, just pat the incision areas dry. No bath or swimming until skin incisions have healed. Eat lightly at first, but advance to your usual renal diet as tolerated. Pain: For pain, you may use Tylenol (acetaminophen) 1-2 pills every 6 hours as needed. If you are prescribed a Tylenol/narcotic combination for severe pain, use it instead of plain Tylenol as needed and switch back when your pain starts decreasing. Do not take more than 4000mg of acetaminophen in a day. Take medications as prescribed or indicated on the labeling. Do NOT resume taking your daily aspirin until TuesdayFebruary 12. Follow-up: Call Dr. Atkinson's office at [phone] to make your postop appointment (Tuesday in approximately 2 weeks after surgery). Clinic is held in the [facility] on the first floor of [facility]. Call the office if you have: * increasing pain not responsive to pain medication * fever of 101F or higher * vomiting * unusual or increasing bleeding or drainage from wounds * increasing redness or swelling at wound sites Also, see your primary medical doctor within 1-2 weeks. Referrals: Yousif Atkinson MD [Staff Physician] - 2 Weeks (CALL the office for an appointment) Disposition: HOME - Home Medications Comprehensive Discharge Medication List: Ambulatory Orders Aspirin 81 mg PO DAILY 02/05/19 Carvedilol [Coreg -] 25 mg PO BID 02/05/19 Clonidine HCl [Catapres] 0.2 mg PO BID 02/05/19 Folic Acid/Vit B Complex and C [Yue-Roberta Tablet] 0.8 mg PO DAILY 02/05/19 Gabapentin [Neurontin] 100 mg PO HS 02/05/19 Lactulose (Oral Use) [Cephulac -] 30 gm PO BID 02/05/19 Linaclotide [Linzess] 145 mcg PO DAILY 02/05/19 Nifedipine [Procardia Xl] 90 mg PO DAILY 02/05/19 Omeprazole 20 mg PO DAILY 02/05/19 Oxycodone HCl 5 mg PO DAILY PRN 02/05/19 Polyethylene Glycol 3350 [Miralax (For Daily Use) -] 17 gm PO DAILY 02/05/19 Sennosides [Senna] 8.6 mg PO BID 02/05/19 Sevelamer Carbonate [Renvela] 1,600 mg PO TID 02/05/19 Simvastatin [Zocor -] 20 mg PO HS 02/05/19 Sitagliptin Phosphate [Januvia] 25 mg PO DAILY 02/05/19 Sucralfate [Carafate -] 1 gm PO TID 02/05/19 Ammonium Lactate Cream [Lac-Hydrin 12% Cream -] 1 unit TP BID 02/06/19 Folic Acid/Vit B Complex and C [Yue-Roberta Tablet] 1 tab PO DAILY 02/06/19 Lidocaine/Prilocaine [Lidocaine-Prilocaine Cream] 1 unit TP BID PRN 02/06/19 Saliva Substitute Combo No.9 [Biotene] 10 ml PO TID 02/06/19
[2019-02-08] MEDS ORDERED: FLUCONAZOLE 150 MG TABLET PO ONE (11:00)
[2019-02-08 13:50] VITALS: BP 131/67; PULSE 70; TEMP 97.5
--- NOTE | 2019-02-08 14:01 | PN ---
Progress Note, Physician History of Present Illness: Pt seen and examined at bedside. She is awake and alert. She denies shortness of breath. She is eager to go home. - Current Medication List Current Medications: Active Medications Acetaminophen (Tylenol -) 650 mg PO Q6H PRN PRN Reason: Pain Level 4 - 10 Last Admin: 02/08/19 06:26 Dose: 650 mg Atorvastatin Calcium (Lipitor -) 10 mg PO [facility] Last Admin: 02/07/19 22:36 Dose: 10 mg Carvedilol (Coreg -) 25 mg PO BID [facility] Last Admin: 02/08/19 09:51 Dose: 25 mg Clonidine (Catapres -) 0.2 mg PO BID [facility] Last Admin: 02/08/19 09:52 Dose: 0.2 mg Gabapentin (Neurontin -) 100 mg PO [facility] Last Admin: 02/07/19 22:35 Dose: 100 mg Heparin Sodium (Porcine) (Heparin -) 5,000 unit SQ TID [facility] Last Admin: 02/08/19 06:29 Dose: 5,000 unit Sodium Chloride (Normal Saline -) 250 mls @ 3,000 mls/hr IV PRN PRN PRN Reason: Hypotension during Dialysis Stop: 02/08/19 08:21 Insulin Aspart (Novolog Vial Sliding Scale -) 1 vial SQ Q4HPO [facility]; Protocol Last Admin: 02/08/19 11:51 Dose: Not Given Lactic Acid (Lac-Hydrin 12) 1 applic TP BID [facility] Last Admin: 02/08/19 12:27 Dose: 1 applic Lidocaine/Prilocaine (Emla -) 1 applic TP BID PRN PRN Reason: PAIN Multivit/Ca Carb/B Cmplx/FA/Prenat (Nephro-Roberta -) 1 tablet PO DAILY [facility] Last Admin: 02/08/19 09:53 Dose: 1 tablet Nifedipine (Procardia Xl -) 90 mg PO DAILY [facility] Last Admin: 02/08/19 09:51 Dose: 90 mg Pantoprazole Sodium (Protonix -) 20 mg PO DAILY [facility] Last Admin: 02/08/19 09:52 Dose: 20 mg Polyethylene Glycol (Miralax (For Daily Use) -) 17 gm PO DAILY [facility] Last Admin: 02/08/19 09:54 Dose: 17 grams Saliva Substitute (Mouthkote Solution) 2 applic MM TID [facility] Last Admin: 02/08/19 00:36 Dose: 2 applic Senna (Senna -) 1 tab PO BID [facility] Last Admin: 02/08/19 09:52 Dose: 1 tab Sevelamer Carbonate (Renvela -) 1,600 mg PO TIDCM [facility] Last Admin: 02/08/19 11:51 Dose: 1,600 mg Sitagliptin Phosphate (Januvia -) 25 mg PO ACBK [facility] Last Admin: 02/08/19 06:29 Dose: 25 mg - Objective Vital Signs: Vital Signs Temperature 97.5 F L 02/08/19 13:49 Pulse Rate 70 02/08/19 13:49 Respiratory Rate 18 02/08/19 13:49 Blood Pressure 131/67 02/08/19 13:49 O2 Sat by Pulse Oximetry (%) 99 02/07/19 18:00 Constitutional: Yes: Calm Eyes: Yes: Conjunctiva Clear HENT: Yes: Atraumatic Neck: Yes: Supple Cardiovascular: Yes: S1, S2 Respiratory: Yes: CTA Bilaterally Gastrointestinal: Yes: Soft Genitourinary: Yes: WNL Musculoskeletal: Yes: WNL Edema: No Neurological: Yes: Oriented Psychiatric: Yes: Oriented Labs: CBC, BMP 02/08/19 06:35 02/08/19 06:35 INR, PTT INR 1.06 (0.83-1.09) 02/06/19 05:30 Assessment/Plan Current Medications Generic Name Dose Route Start Last Admin Trade Name Freq PRN Reason Stop Dose Admin Acetaminophen 650 mg 02/07/19 17:23 02/08/19 06:26 Tylenol - PO 650 mg Q6H PRN Administration Pain Level 4 - 10 Atorvastatin Calcium 10 mg 02/07/19 22:00 02/07/19 22:36 Lipitor - PO 10 mg HS [facility] Administration Carvedilol 25 mg 02/07/19 22:00 02/08/19 09:51 Coreg - PO 25 mg BID [facility] Administration Clonidine 0.2 mg 02/07/19 22:00 02/08/19 09:52 Catapres - PO 0.2 mg BID [facility] Administration Gabapentin 100 mg 02/07/19 22:00 02/07/19 22:35 Neurontin - PO 100 mg HS [facility] Administration Heparin Sodium (Porcine) 5,000 unit 02/07/19 22:00 02/08/19 06:29 Heparin - SQ 5,000 unit TID [facility] Administration Sodium Chloride 250 mls @ 3,000 mls/hr 02/07/19 08:21 Normal Saline - IV 02/08/19 08:21 PRN PRN Hypotension during Dialysis Insulin Aspart 1 vial 02/07/19 18:00 02/08/19 11:51 Novolog Vial Sliding Scale - SQ Not Given Q4HPO [facility] Protocol Lactic Acid 1 applic 02/07/19 22:00 02/08/19 12:27 Lac-Hydrin 12 TP 1 applic BID [facility] Administration Lidocaine/Prilocaine 1 applic 02/07/19 17:23 Emla - TP BID PRN PAIN Multivit/Ca Carb/B Cmplx/FA/Prenat 1 tablet 02/08/19 10:00 02/08/19 09:53 Nephro-Roberta - PO 1 tablet DAILY [facility] Administration Nifedipine 90 mg 02/08/19 10:00 02/08/19 09:51 Procardia Xl - PO 90 mg DAILY [facility] Administration Pantoprazole Sodium 20 mg 02/08/19 10:00 02/08/19 09:52 Protonix - PO 20 mg DAILY [facility] Administration Polyethylene Glycol 17 gm 02/08/19 10:00 02/08/19 09:54 Miralax (For Daily Use) - PO 17 grams DAILY [facility] Administration Saliva Substitute 2 applic 02/07/19 22:00 02/08/19 00:36 Mouthkote Solution MM 2 applic TID [facility] Administration Senna 1 tab 02/07/19 22:00 02/08/19 09:52 Senna - PO 1 tab BID [facility] Administration Sevelamer Carbonate 1,600 mg 02/07/19 17:30 02/08/19 11:51 Renvela - PO 1,600 mg TIDCM [facility] Administration Sitagliptin Phosphate 25 mg 02/08/19 07:00 02/08/19 06:29 Januvia - PO 25 mg ACBK [facility] Administration Impression 1. ESRD 2. hyperkalemia 3. abd pain 4. possible acute appendicitis 5. HTN 6. DM Plan - pt has HD set up as outpt - next HD on Tuesday - pt follows with Dr Gutierrez - renal diet - bp stable
--- NOTE | 2019-02-08 14:33 | PN ---
Teaching Attending Note Name of Resident: Segundo Obando ATTENDING PHYSICIAN STATEMENT I saw and evaluated the patient. I reviewed the resident's note and discussed the case with the resident. I agree with the resident's findings and plan as documented. SUBJECTIVE:c/o vaginal pruritis. started this AM. denies CP, SOB, fever, chills , N/V/C/D + BM OBJECTIVE: Last Vital Signs Temp Pulse Resp BP Pulse Ox 97.5 F L 70 18 131/67 99 02/08/19 13:49 02/08/19 13:49 02/08/19 13:49 02/08/19 13:49 02/07/19 18:00 General NAD CV S1 S2 +murmur Lungs CTA B/L no wheezing/rales/rhonchi Abdomen tenderness surrounding surgical bandages which are c/d/i genital +white cottage discharge from vagina. no rashes or excoriations noted on the labia majora or inner thighs ASSESSMENT AND PLAN: 68yo F wtih HTN, DM, ESRD on TTS, dyslipidemia presented to the ER with epigastric pain assoc with nausea and found in the ER to have severe hyperkalemia requiring emergent HD, course complicated with questionable appendicitis 1. Severe hyperkalemia-now resolved. 2. Vaginal discharge- looks like yeast infection. will give difulcan x1 dose 3. HTN emergency- now controlled. cont home medications. echo reviewed 4. Tropinemia- likely demand from HTN emergency. flat trend 0.07-0.08. no WMA on echo. 5. Acute appendicitis-s/p laprascopic appendectomy 02/06. tolerated surgery. further recommendations per surgery. no asa till tuesday. off abx 6. DM- controlled. iss and BGM 7. ESRD on HD (TTS)- HD today and then to resume normal schedule. nephro on board 8. DVT ppx- hep sq 9. d/c home
--- NOTE | 2019-02-08 15:58 | PATH ---
Surgical Pathology Report Patient Name: ZAID GUIDRY [facility]. Rec. #: [id number] /Age/Gender: 1950 (Age: 68) / F Account: [id number] Location: ICU [facility] REPAIRER Taken: 02/06/2019 Received: 02/07/2019 Reported: 02/08/2019 Physicians: Reyes Ellis M.D. Specimen(s) Received APPENDIX Clinical History Acute appendicitis Final Diagnosis APPENDIX , APPENDECTOMY: ACUTE APPENDICITIS AND PERIAPPENDICITIS. Electronically Signed Malena Alfonso M.D. Gross Description Received in formalin, labeled "appendix," is a 6 cm. in length vermiform appendix with a stapled margin of resection and abundant attached fat. The serosa is marti-floyd with adhesions. Sectioning reveals fecal material within the lumen. The wall of the appendix averages 0.1 cm. in thickness. Typesetter Perforator Operator sections are submitted in one cassette. /02/07/2019 saudi02/07/2019
[2019-02-08 19:14] LABS: FREE KAPPA,SERUM 341.8 mg/L (3.3-19.4)
== END 2019-02-08 15:15 | disposition home or self-care (01) | DRG 341 ==
LOC: JER 18:09 → JICU 22:26 → J5S 02-07 17:42
PROVIDERS: ADMIT Internal Medicine; ATTEND Internal Medicine
PROC: 5A1D70Z Performance of Urinary Filtration, Intermittent, Less than 6 Hours Per Day (ICD-10-PCS; 2019-02-06)
PROC: 0DTJ4ZZ Resection of Appendix, Percutaneous Endoscopic Approach (ICD-10-PCS; principal; 2019-02-06 11:30)
PROC: 5A1D70Z Performance of Urinary Filtration, Intermittent, Less than 6 Hours Per Day (ICD-10-PCS; 2019-02-07)
DX: K35.80 Unspecified acute appendicitis (principal); N18.6 End stage renal disease; I12.0 Hypertensive chronic kidney disease with stage 5 chronic kidney disease or end stage renal disease; I16.1 Hypertensive emergency; I24.8 Other forms of acute ischemic heart disease; B37.89 Other sites of candidiasis; E11.22 Type 2 diabetes mellitus with diabetic chronic kidney disease; Z99.2 Dependence on renal dialysis; E87.5 Hyperkalemia; K21.9 Gastro-esophageal reflux disease without esophagitis; E88.09 Other disorders of plasma-protein metabolism, not elsewhere classified; E78.5 Hyperlipidemia, unspecified
CPT/HCPCS: 36415; 71045-TC-FY; 74176-TC; 80048; 80053; 82550; 82962; 82977; 83605; 83690; 83735; 83883; 84100; 84155; 84165; 84484; 85025; 85027; 85610; 85730; 86704; 86706; 86708; 86803; 86850; 86900; 86901; 87040; 87340; 88304-TC; 93005; 93010; 93306-TC; 94760; 97116-GP; 97161-GP; 99283-25; J0735; J1644

== ENCOUNTER 2019-04-17 08:25 | Inpatient (IN) | payer OTHER ==
--- NOTE | 2019-04-17 09:16 | PDOC ---
History of Present Illness - General Chief Complaint: Back Pain Stated Complaint: LBP - History of Present Illness Initial Comments: The pt is a 68F wtih HTN, DM, ESRD on iHD (TTS), HLD who presents for evaluation of acute on chronic lower back pain. The pain started Tuesday (3 days), paraspinous (R>L), constant, radiates down posterior RLE, exacerbated by movement and touch, and minimally alleviated by Percocet pt has at home. She denies trauma, fevers/chills, chest pain, trouble breathing, urinary changes , dysuria, hematuria, N/V/C/D, blood in stool. 04/17/19 09:15 Past History - Past Medical History Allergies/Adverse Reactions: Allergies Allergy/AdvReac Type Severity Reaction Status Date / Time No Known Allergies Allergy Verified 02/05/19 18:27 Home Medications: Ambulatory Orders Aspirin 81 mg PO DAILY 02/05/19 Carvedilol [Coreg -] 25 mg PO BID 02/05/19 Clonidine HCl [Catapres] 0.2 mg PO Q12H 02/05/19 Folic Acid/Vit B Complex and C [Yue-Roberta Tablet] 0.8 mg PO DAILY 02/05/19 Gabapentin [Neurontin] 100 mg PO HS 02/05/19 Lactulose (Oral Use) [Cephulac -] 30 ml PO BID 02/05/19 Linaclotide [Linzess] 145 mcg PO DAILY 02/05/19 Nifedipine [Procardia Xl] 90 mg PO DAILY 02/05/19 Omeprazole 20 mg PO DAILY 02/05/19 Oxycodone HCl 5 mg PO DAILY PRN 02/05/19 Polyethylene Glycol 3350 [Miralax (For Daily Use) -] 17 gm PO DAILY 02/05/19 Sennosides [Senna] 8.6 mg PO BID 02/05/19 Sevelamer Carbonate [Renvela] 1,600 mg PO TID 02/05/19 Simvastatin [Zocor -] 20 mg PO HS 02/05/19 Sitagliptin Phosphate [Januvia] 25 mg PO DAILY 02/05/19 Sucralfate [Carafate -] 1 gm PO TID 02/05/19 Lidocaine/Prilocaine [Lidocaine-Prilocaine Cream] 1 unit TP BID PRN 02/06/19 Saliva Substitute Combo No.9 [Biotene] 10 ml PO TID 02/06/19 Gabapentin [Neurontin -] 200 mg PO BID 04/17/19 Petrolatum,White/Lanolin [Vitamin A & D Ointment] 0 gm TP BID 04/17/19 COPD: No Diabetes: Yes Dialysis: Yes (//) HTN: Yes - Immunization History Immunization Up to Date: Yes - Suicide/Smoking/Psychosocial Hx Smoking History: Unknown if ever smoked Have you smoked in the past 12 months: No Hx Alcohol Use: No Drug/Substance Use Hx: No Review of Systems - Review of Systems Able to Perform ROS?: Yes Comments:: GENERAL/CONSTITUTIONAL: No fever or chills. No weakness._ HEAD, EYES, EARS, NOSE AND THROAT: No change in vision. No ear pain or discharge. No sore throat._ CARDIOVASCULAR: No chest pain or shortness of breath_ RESPIRATORY: Denies cough, hemoptysis_ GASTROINTESTINAL: No nausea, vomiting, diarrhea or constipation._ GENITOURINARY: No dysuria, frequency, or change in urination._ MUSCULOSKELETAL: No joint or muscle swelling or pain. No neck or back pain._ SKIN: No rash_ NEUROLOGIC: No headache, vertigo, loss of consciousness, or change in strength/ sensation._ ENDOCRINE: No increased thirst. No abnormal weight change_ HEMATOLOGIC/LYMPHATIC: No anemia, easy bleeding, or history of blood clots._ ALLERGIC/IMMUNOLOGIC: No hives or skin allergy._ 04/17/19 09:16 Is the patient limited Kinyarwanda proficient: No *Physical Exam - Vital Signs Last Vital Signs Temp Pulse Resp BP Pulse Ox 97.9 F 74 18 172/64 H 95 04/17/19 08:40 04/17/19 08:40 04/17/19 08:40 04/17/19 08:40 04/17/19 08:40 - Physical Exam Comments: GENERAL: Awake, alert, and oriented to person/place/time, in no acute distress_ HEAD: No signs of trauma, normocephalic, atraumatic _ EYES: PERRLA, EOMI, sclera anicteric, conjunctiva clear_ ENT: Hearing grossly normal, nares patent, oropharynx clear without exudates. No uvular deviation. Moist mucosa_ NECK: Normal ROM, supple, no lymphadenopathy, JVD, or masses_ LUNGS: No distress, speaks in full sentences, clear to auscultation bilaterally _ HEART: Regular rate and rhythm, normal S1 and S2, no murmurs appreciated, peripheral pulses normal and equal bilaterally._ ABDOMEN: Soft, nontender, normoactive bowel sounds. No guarding, no rebound. No masses_ EXTREMITIES: Normal inspection, Normal range of motion, no edema. No clubbing or cyanosis_ NEUROLOGICAL: Cranial nerves II through XII grossly intact. Normal speech, normal gait, no focal sensorimotor deficits _ SKIN: Warm, Dry, normal turgor, no rashes or lesions noted_ 04/17/19 09:16 ED Treatment Course - LABORATORY CBC & Chemistry Diagram: 04/17/19 11:00 04/17/19 11:00 Medical Decision Making - Medical Decision Making The pt is a 68F w/ a history of ESRD on iHD (TTS), HTN, chronic back pain who presents for 3 days of acute on chronic back pain (R>L). The pain is achy/tight , radiates down the back of her right leg, is exacerbated by movement, and not alleviated by anything she can identify. She denies recent trauma, dysuria, hematuria, diarrhea, or blood in her stool. She has tried taking Percocet x1 yesterday with minimal relief. 04/17/19 11:47 Dr Gutierrez 04/17/19 12:48 *DC/Admit/Observation/Transfer - Referrals Referrals: Dannie Rossi MD [Primary Care Provider] - - Patient Instructions - Post Discharge Activity
[2019-04-17] MEDS ORDERED: LIDOCAINE 5% TOPICAL PATCH TP ONE (09:38)
[2019-04-17] MEDS ORDERED: ACETAMINOPHEN 325 MG TABLET (FP) PO ONE (09:38)
[2019-04-17] MEDS ORDERED: METHOCARBAMOL 500 MG TABLET PO ONE (09:40)
[2019-04-17] MEDS ORDERED: ACETAMINOPHEN 325 MG TABLET (FP) ONE (09:51)
[2019-04-17] MEDS ORDERED: METHOCARBAMOL 500 MG TABLET ONE (09:51)
[2019-04-17] MEDS ORDERED: LIDOCAINE 5% TOPICAL PATCH ONE (09:51)
[2019-04-17] MEDS ORDERED: ONDANSETRON *ODT* 4 MG TABLET SL ONE (10:47)
[2019-04-17] MEDS ORDERED: ONDANSETRON *ODT* 4 MG TABLET ONE (10:48)
--- NOTE | 2019-04-17 11:04 | PDOC ---
Attending Attestation - Resident Resident Name: Bryan Root - ED Attending Attestation I have performed the following: I have examined & evaluated the patient, The case was reviewed & discussed with the resident, I agree w/resident's findings & plan - HPI HPI: 04/17/19 10:58 68-year-old female with history of multiple medical problems including end- stage renal disease on dialysis Tuesday//Tuesday status post dialysis 3 days ago and scheduled for routine dialysis today presents now complaining of acute on chronic low back pain. No new injury, reports sharp pain in her coccyx to her Right leg without motor or sensory deficit. Tried home Percocet without relief, presents for evaluation. Had no other complaints, but on my history of nausea with subsequent nonbloody nonbilious emesis. No abdominal pain, no chest pain. Make small amounts of urine without complaints of dysuria. - Physicial Exam PE: 04/17/19 10:59 Blood pressure slightly elevated, vitals are otherwise normal. afebrile no jaundice/pallor. dry mucosa heart regular, lungs clear abd soft/nt/nd bs nl RUE fistula no midline spine ttp, 5/5 flex/extend b/l hips/knees/ankles/toes - Medical Decision Making 04/17/19 11:03 68-year-old female end-stage renal disease on dialysis acute on chronic atraumatic low back pain, neurovascularly intact. ? atraumatic exacerbation of sciatica. In ED, developed nausea and vomiting without abdominal pain or peritoneal findings. r/o metabolic disarray. check labs, ekg pain control reassess 04/17/19 12:31 symptomatically improved but chem shows uremia and hyperkalemia. will treat and admit for urgent dialysis. Heart Score/ECG Review #1 ECG reviewed & interpreted by me at: 09:53 General ECG Interpretation: Sinus Rhythm, Normal Rate (73), Normal Intervals ( qtc 456, slight peaked T waves V3-V6, QRS 106), No acute ischemic changes Compared to previous ECG there are: No significant change
[2019-04-17 11:35] LABS: BASO % 0.8 % (0-2.0); HEMATOCRIT 35.4 % (32.4-45.2); HEMOGLOBIN 11.2 GM/dL (10.7-15.3); LYMPH % 18.4 % (8-40); MCH 27.4 pg (25.7-33.7); MCHC 31.6 g/dl (32.0-36.0); MEAN CELL VOLUME 86.7 fl (80-96); MEAN PLT VOLUME 8.5 fl (7.5-11.1); MONO % 5.8 % (3.8-10.2); PLATELET COUNT 234 K/MM3 (134-434); RBC 4.08 M/mm3 (3.60-5.2); RDW 17.6 % (11.6-15.6); WHITE BLOOD COUNT 10.3 K/mm3 (4.0-10.0)
[2019-04-17 11:42] LABS: INR 1.02 (0.83-1.09)
[2019-04-17 11:45] LABS: ACTIVATED PTT 35.1 SECONDS (25.2-36.5)
[2019-04-17 12:20] LABS: ALBUMIN 4.1 g/dl (3.4-5.0); BILIRUBIN,TOTAL 0.4 mg/dL (0.2-1); BLOOD UREA NITROGEN 81.4 mg/dL (7-18); CALCIUM 9.1 mg/dL (8.5-10.1); TOT PROT 8.8 g/dl (6.4-8.2)
[2019-04-17 12:29] LABS: CREATININE 11.1 mg/dL (0.55-1.3); POTASSIUM 6.6 mmol/L (3.5-5.1)
[2019-04-17] MEDS ORDERED: CALCIUM GLUCONATE 10% - 1,000 MG/10 ML VIAL IVPB ONE (12:35)
[2019-04-17] MEDS ORDERED: FUROSEMIDE 40 MG/4 ML INJECTABLE VIAL IVPUSH ONE (12:36)
--- NOTE | 2019-04-17 13:36 | HP ---
Admitting History and Physical - Admission Chief Complaint: came in for back pain and found to have elevated creatinine and K 6.6 with EKG changes. History of Present Illness: Patient is a 68 year old female with a significant past medical history of HTN, DM, ESRD on HD via RUE fistula (on TTHSat schedule) s/p hysterectomy and breast reduction. She presented to the ED with lower back pain that has been going on for the last 3 days. She states the pain is around her kidneys and she also feels short of breath with physical exertion. She denies any fever or chills. She reports compliance with her dialysis and received full dialysis on Tuesday without any issues. She follows with Dr. Gutierrez. She denies dizziness, f/c, dysuria, diarrhea, constipation and she is still able to urinate small amounts. She has some back and knee pain which are chronic and takes percocet for that. She was given Percocet at the [facility], where she resides, but they did not help her back pain as they usually do. She has been in a wheelchair for about a year, and can walk some with a walker and sometimes without the walker. She is in assisted living, but states she is independent with ADLs. On last admission 02/05/2019, patient was found to have an acute appendicitis and is s/p lap appendectomy (with Dr. Atkinson) on 02/06/2019 for enlarged, inflamed , bulbous-ended appendix. In the ER she was afebrile with a stable WBC, K of 6.6 and creatinine 11.1 with peaked T waves on leads V3-V6. She denies any chest pain, only has some shortness of breath with any physical exertion. She describes her back pain around her coccyx region, but does not appears uncomfortable. She is speaking on the cell phone without conversational dyspnea. She denies any vomiting. She denies trauma, fevers/chills, chest pain, urinary changes, dysuria, hematuria, N/V/C/D or blood in her stool. She reports pain improved with lidocaine patch placement in the ED. Abdomen pelvis CT 02/05/19 showed acute appendicitis and multilevel vertebral endplate irregularity noted on mid and lower spine due to inflammatory vs. non inflammatory cause. History Source: Patient, Medical Record Limitations to Obtaining History: Poor Historian - Past Medical History Cardiovascular: Yes: HTN Gastrointestinal: Yes: GERD, Other (s/p appendectomy on 02/06/2019 - laparoscopic appendectomy for enlarged, inflamed, bulbous-ended appendix) Renal/: Yes: Renal Failure, Hemodialysis Musculoskeletal: Yes: Osteoarthritis Endocrine: Yes: Diabetes Mellitus - Past Surgical History Past Surgical History: Yes: AV Fistula/Graft (RUE), Hysterectomy - Smoking History Smoking history: Unknown if ever smoked Have you smoked in the past 12 months: No - Alcohol/Substance Use Hx Alcohol Use: No History of Substance Use: reports: None - Social History ADL: Independent Home Medications - Allergies Allergies/Adverse Reactions: Allergies Allergy/AdvReac Type Severity Reaction Status Date / Time No Known Allergies Allergy Verified 02/05/19 18:27 - Home Medications Home Medications: Ambulatory Orders Aspirin 81 mg PO DAILY 02/05/19 Carvedilol [Coreg -] 25 mg PO BID 02/05/19 Clonidine HCl [Catapres] 0.2 mg PO Q12H 02/05/19 Folic Acid/Vit B Complex and C [Yue-Roberta Tablet] 0.8 mg PO DAILY 02/05/19 Gabapentin [Neurontin] 100 mg PO HS 02/05/19 Lactulose (Oral Use) [Cephulac -] 30 ml PO BID 02/05/19 Linaclotide [Linzess] 145 mcg PO DAILY 02/05/19 Nifedipine [Procardia Xl] 90 mg PO DAILY 02/05/19 Omeprazole 20 mg PO DAILY 02/05/19 Oxycodone HCl 5 mg PO DAILY PRN 02/05/19 Polyethylene Glycol 3350 [Miralax (For Daily Use) -] 17 gm PO DAILY 02/05/19 Sennosides [Senna] 8.6 mg PO BID 02/05/19 Sevelamer Carbonate [Renvela] 1,600 mg PO TID 02/05/19 Simvastatin [Zocor -] 20 mg PO HS 02/05/19 Sitagliptin Phosphate [Januvia] 25 mg PO DAILY 02/05/19 Sucralfate [Carafate -] 1 gm PO TID 02/05/19 Lidocaine/Prilocaine [Lidocaine-Prilocaine Cream] 1 unit TP BID PRN 02/06/19 Saliva Substitute Combo No.9 [Biotene] 10 ml PO TID 02/06/19 Gabapentin [Neurontin -] 200 mg PO BID 04/17/19 Petrolatum,White/Lanolin [Vitamin A & D Ointment] 0 gm TP BID 04/17/19 Review of Systems - Review of Systems Constitutional: reports: No Symptoms Eyes: reports: No Symptoms HENT: reports: No Symptoms Neck: reports: No Symptoms Cardiovascular: reports: Shortness of Breath Respiratory: reports: SOB Gastrointestinal: reports: No Symptoms Genitourinary: reports: No Symptoms Breasts: reports: No Symptoms Reported Musculoskeletal: reports: Back Pain Integumentary: reports: Other Neurological: reports: No Symptoms Endocrine: reports: No Symptoms Hematology/Lymphatic: reports: No Symptoms Psychiatric: reports: No Symptoms Physical Examination Vital Signs: Vital Signs Temperature 97.9 F 04/17/19 08:40 Pulse Rate 74 04/17/19 08:40 Respiratory Rate 18 04/17/19 08:40 Blood Pressure 172/64 H 04/17/19 08:40 O2 Sat by Pulse Oximetry (%) 95 04/17/19 08:40 Constitutional: Yes: No Distress, Calm Eyes: Yes: WNL HENT: Yes: WNL Neck: Yes: WNL Cardiovascular: Yes: Regular Rate and Rhythm Respiratory: Yes: Diminished Gastrointestinal: Yes: Normal Bowel Sounds, Soft ...Rectal Exam: Yes: Deferred Renal/: Yes: WNL Musculoskeletal: Yes: Back Pain Edema: Yes Edema: LLE: 2+ (+2 of foot), RLE: 2+ (+2 of foot) Integumentary: Yes: WNL Wound/Incision: Yes: Clean/Dry Neurological: Yes: WNL, Alert, Oriented ...Motor Strength: WNL Psychiatric: Yes: WNL, Alert, Oriented Labs: CBC, BMP 04/17/19 11:00 04/17/19 11:00 Imaging - Results Chest X-ray: Image Reviewed Problem List - Problems (1) Hyperkalemia Assessment/Plan: K of 6.6 and creatinine 11.1 with peaked T waves on leads V3-V6. She denies any chest pain, only has some shortness of breath with any physical exertion. repeat EKG daily. monitor on tele. Code(s): E87.5 - HYPERKALEMIA (2) ESRD on hemodialysis Assessment/Plan: for emergent dialysis today for elevated K and creatinine repeat labs in a.m. Code(s): N18.6 - END STAGE RENAL DISEASE; Z99.2 - DEPENDENCE ON RENAL DIALYSIS (3) Diabetes mellitus type 2, noninsulin dependent Assessment/Plan: start on novolog SS, januvia monitor BGMs Code(s): E11.9 - TYPE 2 DIABETES MELLITUS WITHOUT COMPLICATIONS (4) Hypertension Assessment/Plan: continue home medications and monitor BP Code(s): I10 - ESSENTIAL (PRIMARY) HYPERTENSION Qualifiers: Hypertension type: essential hypertension Qualified Code(s): I10 - Essential (primary) hypertension (5) Acute appendicitis Assessment/Plan: s/p appendectomy on 02/06/2019. Code(s): K35.80 - UNSPECIFIED ACUTE APPENDICITIS Qualifiers: Acute appendicitis type: other Qualified Code(s): K35.890 - Other acute appendicitis without perforation or gangrene; K35.89 - Other acute appendicitis (6) Prophylactic measure Assessment/Plan: fen renal diet monitor electrolytes no ivf prophy: initiate heparin if LOS > 48 hrs Code(s): Z29.9 - ENCOUNTER FOR PROPHYLACTIC MEASURES, UNSPECIFIED (7) Back pain Assessment/Plan: multilevel degenerative vertebral endplate irregularity noted on mid to lower spine on imaging done 02.05.19. initiate lidocaine patches and pain management may need neuro/pain mgmt evaluation if pain persists (inpatient vs. outpatient) Code(s): M54.9 - DORSALGIA, UNSPECIFIED Qualifiers: Back pain location: low back pain Visit type - Emergency Visit Emergency Visit: Yes ED Registration Date: 04/17/19 Care time: The patient presented to the Emergency Department on the above date and was hospitalized for further evaluation of their emergent condition. - New Patient This patient is new to me today: Yes Date on this admission: 04/17/19 - Critical Care Critical Care patient: No
[2019-04-17] MEDS ORDERED: PATIENT'S OWN MEDICATION (NON-FORMULARY) (Clonidine Hcl [Catapres] 0.2 MG) PO SCH (14:30)
--- NOTE | 2019-04-17 14:33 | EKG ---
Test Reason : Blood Pressure : / mmHG Vent. Rate : 073 BPM Atrial Rate : 073 BPM P-R Int : 248 ms QRS Dur : 106 ms QT Int : 414 ms P-R-T Axes : 057 039 065 degrees QTc Int : 456 ms SINUS RHYTHM WITH 1ST DEGREE A-V BLOCK ANTERIOR INFARCT (CITED ON OR BEFORE 05-FEB-2019) ABNORMAL ECG WHEN COMPARED WITH ECG OF 07-FEB-2019 09:04, DC INTERVAL HAS INCREASED Confirmed by Tariq Scott ([id number]) on 04/17/2019 2:32:47 PM Referred By: Confirmed By:Tariq Scott
[2019-04-17] MEDS ORDERED: cloNIDine HCL 0.1 MG TABLET PO SCH (15:18)
[2019-04-17] MEDS ORDERED: oxyCODONE HCL 5 MG TABLET PO PRN (16:06)
--- NOTE | 2019-04-17 16:44 | CON.NEP ---
Consult Consult Specialty:: Nephrology Referred by:: Medicine Reason for Consultation:: End stage renal disease with hyperkalemia - History of Present Illness Chief Complaint: Low back pain and shortness of breath - History Source History Provided By: Patient Limitations to Obtaining History: No Limitations - Past Medical History Cardio/Vascular: Yes: HTN Gastrointestinal: Yes: GERD, Other (s/p appendectomy on 02/06/2019 - laparoscopic appendectomy for enlarged, inflamed, bulbous-ended appendix) Renal/: Yes: Renal Failure, Hemodialysis Musculoskeletal: Yes: Osteoarthritis Endocrine: Yes: Diabetes Mellitus - Past Surgical History Past Surgical History: Yes: Appendectomy, AV Fistula/Graft (RUE), Hysterectomy - Alcohol/Substance Use History of Substance Use: reports: None - Smoking History Smoking history: Unknown if ever smoked Have you smoked in the past 12 months: No - Social History Usual Living Arrangement: Assisted Living ADL: Independent Home Medications - Allergies Allergies/Adverse Reactions: Allergies Allergy/AdvReac Type Severity Reaction Status Date / Time No Known Allergies Allergy Verified 02/05/19 18:27 - Home Medications Home Medications: Ambulatory Orders Aspirin 81 mg PO DAILY 02/05/19 Carvedilol [Coreg -] 25 mg PO BID 02/05/19 Clonidine HCl [Catapres] 0.2 mg PO Q12H 02/05/19 Folic Acid/Vit B Complex and C [Yue-Roberta Tablet] 0.8 mg PO DAILY 02/05/19 Gabapentin [Neurontin] 100 mg PO HS 02/05/19 Lactulose (Oral Use) [Cephulac -] 30 ml PO BID 02/05/19 Linaclotide [Linzess] 145 mcg PO DAILY 02/05/19 Nifedipine [Procardia Xl] 90 mg PO DAILY 02/05/19 Omeprazole 20 mg PO DAILY 02/05/19 Oxycodone HCl 5 mg PO DAILY PRN 02/05/19 Polyethylene Glycol 3350 [Miralax (For Daily Use) -] 17 gm PO DAILY 02/05/19 Sennosides [Senna] 8.6 mg PO BID 02/05/19 Sevelamer Carbonate [Renvela] 1,600 mg PO TID 02/05/19 Simvastatin [Zocor -] 20 mg PO HS 02/05/19 Sitagliptin Phosphate [Januvia] 25 mg PO DAILY 02/05/19 Sucralfate [Carafate -] 1 gm PO TID 02/05/19 Lidocaine/Prilocaine [Lidocaine-Prilocaine Cream] 1 unit TP BID PRN 02/06/19 Saliva Substitute Combo No.9 [Biotene] 10 ml PO TID 02/06/19 Gabapentin [Neurontin -] 200 mg PO BID 04/17/19 Petrolatum,White/Lanolin [Vitamin A & D Ointment] 0 gm TP BID 04/17/19 Review of Systems - Review of Systems Constitutional: reports: No Symptoms Musculoskeletal: reports: Back Pain Nephrology Consult - Height Height: 5 ft 5 in - Weight Weight: 166 lb - BMI Body Mass Index (BMI): 27.6 - Lab Results CBC,BMP: CBC, BMP 04/17/19 11:00 04/17/19 11:00 Anion Gap: Anion Gap Anion Gap 11 MMOL/L (8-16) 04/17/19 11:00 - Physical Examination Vital Signs: Vital Signs Temperature 97.8 F 04/17/19 15:40 Pulse Rate 79 04/17/19 16:15 Respiratory Rate 18 04/17/19 16:15 Blood Pressure 174/81 H 04/17/19 16:15 O2 Sat by Pulse Oximetry (%) 95 04/17/19 08:40 Constitutional: Yes: Well Nourished, No Distress, Calm Eyes: Yes: Conjunctiva Clear HENT: Yes: WNL Neck: Yes: WNL Cardiovascular: Yes: Regular Rate and Rhythm Respiratory: Yes: CTA Bilaterally Gastrointestinal: Yes: Normal Bowel Sounds Musculoskeletal: Yes: Back Pain Extremities: Yes: Other (positive right arm AVF) Edema: LUE: Trace, RUE: Trace Problem List - Problems (1) Back pain Assessment/Plan: This is [id number] due to multi level degenerative joint disease involving the lumbo-sacral region. Consider discontinuing omeprazole unless absolutely needed. Pain management as per the admitting team. Code(s): M54.9 - DORSALGIA, UNSPECIFIED Qualifiers: Back pain location: low back pain (2) ESRD on hemodialysis Assessment/Plan: The patient is on maintenance hemodialysis three times a week at [facility] and she is quite compliant with her regimen. Seen today on the prescribed hemodialysis . Will follow. Code(s): N18.6 - END STAGE RENAL DISEASE; Z99.2 - DEPENDENCE ON RENAL DIALYSIS (3) Hyperkalemia Assessment/Plan: urgent hemodialysis as above. Will follow. Code(s): E87.5 - HYPERKALEMIA Assessment/Plan 68 year old female with end stage renal disease secondary to diabetic renal disease. Patient is for urgent hemodialysis today for the associated hyperkalemia. Will follow.
[2019-04-17 21:11] VITALS: BMI 29.1
[2019-04-17] MEDS: SEVELAMER CARBONATE 800 MG TAB (FP) PO SCH (21:28)
[2019-04-17] MEDS: SENNOSIDES 8.6MG TABLET (FP) PO SCH (21:28)
[2019-04-17] MEDS: CARVEDILOL 25 MG TABLET (FP) PO SCH (21:28)
[2019-04-17] MEDS: LACTULOSE 20 GM/30 ML UDC (FOR ORAL USE ONLY) PO SCH (21:28)
[2019-04-17] MEDS: INSULIN SLIDING SCALE (NOVOLOG) 1 VIAL SQ SCH (21:34)
[2019-04-17] MEDS ORDERED: LIDOCAINE PATCH REMOVAL MC SCH (22:00)
[2019-04-17] MEDS ORDERED: GABAPENTIN 100 MG CAPSULE (FP) PO SCH ×2 (22:00)
[2019-04-17] MEDS ORDERED: ATORVASTATIN CA 10 MG TABLET (FP) PO SCH (22:00)
[2019-04-17] MEDS: cloNIDine HCL 0.1 MG TABLET PO SCH (22:19)
[2019-04-17] MEDS: SUCRALFATE 1 GM TABLET (FP) PO SCH (22:55)
[2019-04-18] MEDS: SUCRALFATE 1 GM TABLET (FP) PO SCH ×2 (06:34→14:02)
[2019-04-18] MEDS ORDERED: sitaGLIPtin PHOSPHATE 25 MG TABLET (FP) PO SCH (07:00)
--- NOTE | 2019-04-18 08:33 | EKG ---
Test Reason : Blood Pressure : / mmHG Vent. Rate : 071 BPM Atrial Rate : 071 BPM P-R Int : 248 ms QRS Dur : 108 ms QT Int : 420 ms P-R-T Axes : 055 035 058 degrees QTc Int : 456 ms SINUS RHYTHM WITH 1ST DEGREE A-V BLOCK INCOMPLETE LEFT BUNDLE BRANCH BLOCK BORDERLINE ECG WHEN COMPARED WITH ECG OF 17-APR-2019 09:53, NO SIGNIFICANT CHANGE WAS FOUND Confirmed by AFSANEH SALMON, LEONEL ([id number]) on 04/18/2019 8:33:20 AM Referred By: Confirmed By:LEONEL SHELBY MD
[2019-04-18] MEDS: SEVELAMER CARBONATE 800 MG TAB (FP) PO SCH ×2 (08:35→11:43)
--- NOTE | 2019-04-18 09:17 | PN ---
Progress Note (short form) - Note Progress Note: RENAL 68 WITH ESRD DM IN WITH BACK PAIN K 6.6 DIALYZED CHRONIC BACK PAIN WANTS TO GO HOME TODAY HAVE PT SEE HER IF AT BASELINE AND NO ACUTE ISSUES CAN GO HOME
[2019-04-18] MEDS: LACTULOSE 20 GM/30 ML UDC (FOR ORAL USE ONLY) PO SCH (09:37)
[2019-04-18] MEDS: SENNOSIDES 8.6MG TABLET (FP) PO SCH (09:37)
[2019-04-18] MEDS: CARVEDILOL 25 MG TABLET (FP) PO SCH (09:37)
[2019-04-18] MEDS: cloNIDine HCL 0.1 MG TABLET PO SCH (09:37)
[2019-04-18 09:55] VITALS: TEMP 98.3
[2019-04-18] MEDS ORDERED: LIDOCAINE 5% TOPICAL PATCH TP SCH (10:00)
[2019-04-18] MEDS ORDERED: VITAMIN B COMP W-C 1 EA TABLET PO SCH (10:00)
[2019-04-18] MEDS ORDERED: POLYETHYLENE GLYCOL 3350 119 GM BTL PO SCH (10:00)
[2019-04-18] MEDS ORDERED: NIFEdipine E.R. 90 MG TABLET (FP) PO SCH (10:00)
[2019-04-18] MEDS ORDERED: ASPIRIN 81 MG CHEWABLE TABLETS PO SCH (10:00)
[2019-04-18 10:12] LABS: HEMATOCRIT 34.5 % (32.4-45.2); HEMOGLOBIN 11.1 GM/dL (10.7-15.3); MCH 27.7 pg (25.7-33.7); MCHC 32.1 g/dl (32.0-36.0); MEAN CELL VOLUME 86.3 fl (80-96); RDW 17.1 % (11.6-15.6)
[2019-04-18 10:23] LABS: INR 1.1 (0.83-1.09)
[2019-04-18 10:41] LABS: ALBUMIN 3.6 g/dl (3.4-5.0); BILIRUBIN,TOTAL 0.4 mg/dL (0.2-1); BLOOD UREA NITROGEN 43.4 mg/dL (7-18); CALCIUM 8.8 mg/dL (8.5-10.1); MAGNESIUM 2.2 mg/dL (1.8-2.4); POTASSIUM 4.9 mmol/L (3.5-5.1)
[2019-04-18] MEDS: INSULIN SLIDING SCALE (NOVOLOG) 1 VIAL SQ SCH (12:13)
--- NOTE | 2019-04-18 13:37 | DS ---
Physical Exam: SUBJECTIVE: Patient seen and examined at the bedside. feels better. wants to go home. back pain has improved and was able to participate with physical therapy. Lidocaine patches applied with good effect. Patient received emergent dialysis on 04/17/2019. OBJECTIVE: Patient to be discharged back to [facility] Vital Signs Period Temp Pulse Resp BP Sys/Dietz Pulse Ox Last 24 Hr 97.3 F-99 F 71-88 17-20 150-185/69-88 PHYSICAL EXAM GENERAL: The patient is awake, alert, and fully oriented, in no acute distress. HEAD: Normal with no signs of trauma. EYES: PERRL, extraocular movements intact, sclera anicteric, conjunctiva clear. ENT: Ears normal, nares patent, oropharynx clear without exudates, moist mucous membranes. NECK: Trachea midline, full range of motion, supple. LUNGS: Breath sounds equal, clear to auscultation bilaterally, no wheezes, no crackles, no accessory muscle use. HEART: Regular rate and rhythm ABDOMEN: Soft, nontender, nondistended, normoactive bowel sounds EXTREMITIES: 2+ pulses, warm, well-perfused, no edema. NEUROLOGICAL: Normal speech, gait not observed. PSYCH: Normal mood, normal affect. SKIN: Warm, dry, normal turgor, no rashes or lesions noted. LABS Laboratory Results - last 24 hr 04/17/19 04/17/19 04/18/19 21:32 Unknown 05:59 WBC RBC Hgb Hct MCV MCH MCHC RDW Neutrophils % Lymphocytes % Nucleated RBC % PT with INR INR Sodium Potassium Chloride Carbon Dioxide Anion Gap BUN Creatinine Est GFR (CKD-EPI)AfAm Est GFR (CKD-EPI)NonAf POC Glucometer 160 121 Random Glucose Hemoglobin A1c % Calcium Magnesium Total Bilirubin AST ALT Alkaline Phosphatase Total Protein Albumin Triglycerides Cholesterol Total LDL Cholesterol HDL Cholesterol Hep C Ab Diagnostic Cancelled Hepatitis C RNA Cancelled HCV RNA PCR log helicopter specialist/ml Cancelled HCV RNA (PCR) IUs/ml Cancelled HCV RNA PCR w/Genot Rflx Cancelled Liver Fibrosis Interp Cancelled 04/18/19 04/18/19 04/18/19 09:20 09:20 09:20 WBC 7.4 RBC 4.00 Hgb 11.1 Hct 34.5 MCV 86.3 MCH 27.7 MCHC 32.1 RDW 17.1 H Neutrophils % No Result Required. Lymphocytes % No Result Required. Nucleated RBC % 0 PT with INR 13.00 INR 1.10 H Sodium 137 Potassium 4.9 Chloride 98 Carbon Dioxide 32 Anion Gap 6 L BUN 43.4 H Creatinine 8.0 H* Est GFR (CKD-EPI)AfAm 5.39 Est GFR (CKD-EPI)NonAf 4.65 POC Glucometer Random Glucose 164 H Hemoglobin A1c % Calcium 8.8 Magnesium 2.2 Total Bilirubin 0.4 AST 15 ALT 13 Alkaline Phosphatase 176 H Total Protein 8.0 Albumin 3.6 Triglycerides 65 Cholesterol 134 Total LDL Cholesterol 43 HDL Cholesterol 79 H Hep C Ab Diagnostic Hepatitis C RNA HCV RNA PCR log helicopter specialist/ml HCV RNA (PCR) IUs/ml HCV RNA PCR w/Genot Rflx Liver Fibrosis Interp 04/18/19 04/18/19 09:20 11:45 WBC RBC Hgb Hct MCV MCH MCHC RDW Neutrophils % Lymphocytes % Nucleated RBC % PT with INR INR Sodium Potassium Chloride Carbon Dioxide Anion Gap BUN Creatinine Est GFR (CKD-EPI)AfAm Est GFR (CKD-EPI)NonAf POC Glucometer 163 Random Glucose Hemoglobin A1c % 6.1 Calcium Magnesium Total Bilirubin AST ALT Alkaline Phosphatase Total Protein Albumin Triglycerides Cholesterol Total LDL Cholesterol HDL Cholesterol Hep C Ab Diagnostic Hepatitis C RNA HCV RNA PCR log helicopter specialist/ml HCV RNA (PCR) IUs/ml HCV RNA PCR w/Genot Rflx Liver Fibrosis Inter HOSPITAL COURSE: Date of Admission:04/17/19 Date of Discharge: 04/18/19 ADMISSION: Patient is a 68 year old female with a significant past medical history of HTN, DM, ESRD on HD via RUE fistula (on TTHSat schedule) s/p hysterectomy and breast reduction. She presented to the ED with lower back pain that has been going on for the last 3 days. She states the pain is around her kidneys and she also feels short of breath with physical exertion. She denies any fever or chills. She reports compliance with her dialysis and received full dialysis on Tuesday without any issues. She follows with Dr. Gutierrez. She denies dizziness, f/c, dysuria, diarrhea, constipation and she is still able to urinate small amounts. She has some back and knee pain which are chronic and takes percocet for that. She was given Percocet at the [facility], where she resides, but they did not help her back pain as they usually do. She has been in a wheelchair for about a year, and can walk some with a walker and sometimes without the walker. She is in assisted living, but states she is independent with ADLs. On last admission 02/05/2019, patient was found to have an acute appendicitis and is s/p lap appendectomy (with Dr. Atkinson) on 02/06/2019 for enlarged, inflamed , bulbous-ended appendix. In the ER she was afebrile with a stable WBC, K of 6.6 and creatinine 11.1 with peaked T waves on leads V3-V6. She denies any chest pain, only has some shortness of breath with any physical exertion. She describes her back pain around her coccyx region, but does not appears uncomfortable. She is speaking on the cell phone without conversational dyspnea. She denies any vomiting. She denies trauma, fevers/chills, chest pain, urinary changes, dysuria, hematuria, N/V/C/D or blood in her stool. She reports pain improved with lidocaine patch placement in the ED. Abdomen pelvis CT 02/05/19 showed acute appendicitis and multilevel vertebral endplate irregularity noted on mid and lower spine due to inflammatory vs. non inflammatory cause. HOSPITAL COURSE BY PROBLEM LIST: Hyperkalemia/ESRD on hemodialysis K of 6.6 and creatinine 11.1 with peaked T waves on leads V3-V6. She denies any chest pain, only has some shortness of breath with any physical exertion. Potassium improved post dialysis. She had 3 kg removed. She is to resume her dialysis at her center. Diabetes mellitus type 2, noninsulin dependent Assessment/Plan: continue her home medications. Hypertension, elevated On coreq, catapres, Procardia xl, added hydralazine 10mg for elevated BP. continue home medications and monitor BP Acute appendicitis s/p appendectomy on 02/06/2019. Back pain multilevel degenerative vertebral endplate irregularity noted on mid to lower spine on imaging done 02.05.19. initiate lidocaine patches and pain management may need neuro/pain mgmt evaluation if pain persists; referral given to neurologist. Patient reports pain has improved and was able to ambulate with PT. discharge back to [facility]. Minutes to complete discharge: 60 Discharge Summary Reason For Visit: END STAGE RENAL DISEASE Current Active Problems Back pain (Acute) Prophylactic measure (Acute) Condition: Improved - Instructions Diet, Activity, Other Instructions: Mrs Chelo Ferreira: You were admitted for worsening of your back pain and you were found to need emergent dialysis. We will be sending you home with the following recommendations: Hemodialysis: You had dialysis yesterday and had 3 kg removed. Please resume your regular scheduled dialysis at your facility. Back pain: Your back pain improved with pain management and Lidocaine patches. We will be sending you home with a RW for better ambulatory support. You had imaging done on January 2019 which showed that you have multilevel vertebral disease. We will be sending you home with a prescription for Lidocaine Patches. Also, you will be sent home with a referral to a neurologist if your pain worsens or does not improve. His name is attached to the discharge packet. Please call him with an appointment. Thank you for allowing us to care for you. Referrals: Alonzo Márquez MD [Staff Physician] - (for chronic spine pain, please call and make an appointment) Disposition: [facility] FACILITY - Home Medications Comprehensive Discharge Medication List: Ambulatory Orders Aspirin 81 mg PO DAILY 02/05/19 Carvedilol [Coreg -] 25 mg PO BID 02/05/19 Clonidine HCl [Catapres] 0.2 mg PO Q12H 02/05/19 Folic Acid/Vit B Complex and C [Yue-Roberta Tablet] 0.8 mg PO DAILY 02/05/19 Gabapentin [Neurontin] 100 mg PO HS 02/05/19 Lactulose (Oral Use) [Cephulac -] 30 ml PO BID 02/05/19 Linaclotide [Linzess] 145 mcg PO DAILY 02/05/19 Nifedipine [Procardia Xl] 90 mg PO DAILY 02/05/19 Omeprazole 20 mg PO DAILY 02/05/19 Oxycodone HCl 5 mg PO DAILY PRN 02/05/19 Polyethylene Glycol 3350 [Miralax 119 gm Btl -] 17 gm PO DAILY 02/05/19 Sennosides [Senna] 8.6 mg PO BID 02/05/19 Sevelamer Carbonate [Renvela -] 1,600 mg PO TID 02/05/19 Simvastatin [Zocor -] 20 mg PO HS 02/05/19 Sitagliptin Phosphate [Januvia] 25 mg PO DAILY 02/05/19 Sucralfate [Carafate -] 1 gm PO TID 02/05/19 Lidocaine/Prilocaine [Lidocaine-Prilocaine Cream] 1 unit TP BID PRN 02/06/19 Saliva Substitute Combo No.9 [Biotene] 10 ml PO TID 02/06/19 Gabapentin [Neurontin -] 200 mg PO BID 04/17/19 Petrolatum,White/Lanolin [Vitamin A and D Ointment] 0 gm TP BID 04/17/19 Lidocaine 5% Patch [Lidoderm -] 1 patch TP DAILY #20 patch 04/18/19 Lidocaine 5% Patch [Lidoderm -] 1 patch TP DAILY #30 patch 04/18/19 Problem List - Problems (1) Hyperkalemia Code(s): E87.5 - HYPERKALEMIA (2) ESRD on hemodialysis Code(s): N18.6 - END STAGE RENAL DISEASE; Z99.2 - DEPENDENCE ON RENAL DIALYSIS (3) Diabetes mellitus type 2, noninsulin dependent Code(s): E11.9 - TYPE 2 DIABETES MELLITUS WITHOUT COMPLICATIONS (4) Hypertension Code(s): I10 - ESSENTIAL (PRIMARY) HYPERTENSION Qualifiers: Hypertension type: essential hypertension Qualified Code(s): I10 - Essential (primary) hypertension (5) Acute appendicitis Code(s): K35.80 - UNSPECIFIED ACUTE APPENDICITIS Qualifiers: Acute appendicitis type: other Qualified Code(s): K35.890 - Other acute appendicitis without perforation or gangrene; K35.89 - Other acute appendicitis (6) Prophylactic measure Code(s): Z29.9 - ENCOUNTER FOR PROPHYLACTIC MEASURES, UNSPECIFIED (7) Back pain Code(s): M54.9 - DORSALGIA, UNSPECIFIED Qualifiers: Back pain location: low back pain This patient is new to me today: No Emergency Visit: Yes ED Registration Date: 04/17/19 Care time: The patient presented to the Emergency Department on the above date and was hospitalized for further evaluation of their emergent condition. Critical Care patient: No - Discharge Referral Referred to [facility] No
[2019-04-18] MEDS ORDERED: hydrALAZINE HCL 10 MG TABLET PO ONE (13:43)
[2019-04-18] MEDS ORDERED: PT OWN MED DRAWER 7, Y5N ONE (13:47)
[2019-04-18 14:23] LABS: ANISOCYTOSIS 2+; MACROCYTOSIS 0; OVALOCYTE 1+; PLATELET ESTIMATE NORMAL
--- NOTE | 2019-04-18 14:50 | EKG ---
Test Reason : Blood Pressure : / mmHG Vent. Rate : 078 BPM Atrial Rate : 078 BPM P-R Int : 244 ms QRS Dur : 090 ms QT Int : 398 ms P-R-T Axes : 056 021 047 degrees QTc Int : 453 ms SINUS RHYTHM WITH 1ST DEGREE A-V BLOCK POSSIBLE LEFT ATRIAL ENLARGEMENT BORDERLINE ECG WHEN COMPARED WITH ECG OF 17-APR-2019 14:53, NO SIGNIFICANT CHANGE WAS FOUND Confirmed by AFSANEH SALMON, LEONEL ([id number]) on 04/18/2019 2:50:28 PM Referred By: Everton GONZALES Confirmed By:LEONEL SHELBY MD
[2019-04-18 15:22] LABS: PLATELET COUNT 177 K/MM3 (134-434)
[2019-04-18 15:23] LABS: MEAN PLT VOLUME 8.2 fl (7.5-11.1)
[2019-04-18 15:50] VITALS: BP 134/64; PULSE 70
[2019-04-18] MEDS ORDERED: LIDOCAINE PATCH REMOVAL MC SCH (22:00)
== END 2019-04-18 15:31 | disposition home or self-care (01) | DRG 640 ==
LOC: JER 08:25 → JERBED 12:30 → J4W 18:31
PROVIDERS: ADMIT Internal Medicine; ATTEND Nurse Practitioner Family
PROC: 5A1D70Z Performance of Urinary Filtration, Intermittent, Less than 6 Hours Per Day (ICD-10-PCS; principal; 2019-04-17)
DX: E87.5 Hyperkalemia (principal); N18.6 End stage renal disease; I12.0 Hypertensive chronic kidney disease with stage 5 chronic kidney disease or end stage renal disease; E11.22 Type 2 diabetes mellitus with diabetic chronic kidney disease; Z99.2 Dependence on renal dialysis; M54.9 Dorsalgia, unspecified; M47.9 Spondylosis, unspecified
CPT/HCPCS: 36415; 71045-TC-FY; 80053; 80061; 82962; 83036; 83721; 83735; 84484; 85025; 85610; 85730; 86803; 87340; 93005; 93010; 97116-GP; 97161-GP; 99285-25; J0735; Q0162

== ENCOUNTER 2019-07-14 10:18 | Emergency (ER) | payer OTHER ==
[2019-07-14 11:22] VITALS: TEMP 97.9; BMI 27.9
[2019-07-14] MEDS ORDERED: morphine CARPU-JECT 4 MG/1 ML DISP.SYRIN IVPUSH ONE (11:45)
--- NOTE | 2019-07-14 12:08 | PDOC ---
Attending Attestation - Resident Resident Name: Ruben Wasserman - ED Attending Attestation I have performed the following: I have examined & evaluated the patient, The case was reviewed & discussed with the resident, I agree w/resident's findings & plan, Exceptions are as noted - HPI HPI: 07/14/19 12:08 ESRD on TRS Acute on chronic low back pain Low sacral radiating to the left gluteus Ms Whitney is a 69 y/o F hx of HTN, DM, ESRD on T,R,S, chronic pain managed by pain management, who presents to the ED with 3 days of lower back pain. She describes pain as 9/10 sharp pain in her lower back and left buttock, no radiation to the legs. Pt takes percocet daily for pain in her knees as well as her back. She denies traumatic injury She denies incontinence Pt did not go to dialysis today No fevers or chills - Physicial Exam PE: 07/14/19 13:31 GENERAL: The patient is in no acute distress, pt talking on her phone with ease. ENT: Ears normal, nares patent, oropharynx clear without exudates. Moist mucous membranes. NECK: Normal range of motion, supple LUNGS: Breath sounds equal, clear to auscultation bilaterally. No wheezes, and no crackles. HEART:Regular rate and rhythm, normal S1 and S2 ABDOMEN: Soft, nontender, normoactive bowel sounds. EXTREMITIES: Normal range of motion, no edema. Straight leg raise negative, Right upper extremity fistula (+) thrill and bruit. lower lumbar tenderness to palpation NEUROLOGICAL: Cranial nerves II through XII grossly intact. Normal speech. No focal neurological deficits. Lifts legs with no difficulty Straight leg raise negative flexes at knees with no difficulty Dorsi and plantar flexes with no difficulty Sensation in tact SKIN: Warm, Dry, normal turgor, no rashes or lesions noted. - Medical Decision Making 07/14/19 13:32 69 yo F presenting with an exacerbation of her chronic back pain Pt has not taken her pain medications today No fevers or chills No radicular pain Pt had CT in january which revealed no aortic aneurysm, no compression fractures, Will do: Basic labs (pt in the past has has elevated potassium when she missed dialysis session) Po pain medication EKG NSR rate of 86 bpm, axis nml, intervals abnormal (pr:210ms, prolonged; QRS:92ms , QTc:447ms), no st elevation or depression, prominent anterior t waves 07/14/19 14:32 Laboratory Tests 07/14/19 07/14/19 12:51 12:51 WBC 11.8 H Hgb 12.2 Hct 38.3 Plt Count 190 Sodium 134 L Potassium 5.4 H Chloride 97 L BUN 71.3 H Creatinine 10.0 H* Pt given pain medications with improvement in her pain She will be able to get to dialysis Pt encouraged to follow up with her pain commodity management specialist for better analgesia AND to only miss dialysis in the case of an emergency Return to the ER for any other concern or complaints CLinical impression: chronic back pain, initial presentation
--- NOTE | 2019-07-14 12:14 | PDOC ---
History of Present Illness <Tabby Han - Last Filed: 07/14/19 14:32> - History of Present Illness Initial Comments: 07/14/19 12:11 69 y/o F hx of HTN, DM, ESRD on dialysis 3x a week, chronic pain on pain management, presents to the ED with 3 days of lower back pain.She describes as 9 /10 sharp pain in her lower back and left buttock. The pain does not radiate down her legs. At baseline she takes percocet daily for pain in her knees as well as her back. However, this partcular episode has not been relieved by taking percocet. Was last seen in the ED for similiar presentation on 2018 and she was admitted for hyperkalemia of 6.6. She denies any fever,chills, nausea, vomiting, bowel /bladder symptoms (still produces some urine). Last received dialysis on . 07/14/19 12:16 <Ruben Wasserman - Last Filed: 07/14/19 14:47> - General Chief Complaint: Back Pain Stated Complaint: PAIN IN BUTT Time Seen by Provider: 07/14/19 11:01 Past History <Tabby Han - Last Filed: 07/14/19 14:32> - Past Medical History COPD: No Diabetes: Yes Dialysis: Yes (/) HTN: Yes - Immunization History Immunization Up to Date: Yes - Psycho Social/Smoking Cessation Hx Smoking History: Unknown if ever smoked Have you smoked in the past 12 months: No Information on smoking cessation initiated: No Hx Alcohol Use: No Drug/Substance Use Hx: No Substance Use Type: None Hx Substance Use Treatment: No <Ruben Wasserman - Last Filed: 07/14/19 14:47> - Past Medical History Allergies/Adverse Reactions: Allergies Allergy/AdvReac Type Severity Reaction Status Date / Time No Known Allergies Allergy Verified 07/14/19 11:14 Home Medications: Ambulatory Orders Aspirin 81 mg PO DAILY 02/05/19 Carvedilol [Coreg -] 25 mg PO BID 02/05/19 Clonidine HCl [Catapres] 0.2 mg PO Q12H 02/05/19 Folic Acid/Vit B Complex and C [Yue-Roberta Tablet] 0.8 mg PO DAILY 02/05/19 Gabapentin [Neurontin] 100 mg PO HS 02/05/19 Lactulose (Oral Use) [Cephulac -] 30 ml PO BID 02/05/19 Linaclotide [Linzess] 145 mcg PO DAILY 02/05/19 Nifedipine [Procardia Xl] 90 mg PO DAILY 02/05/19 Omeprazole 20 mg PO DAILY 02/05/19 Oxycodone HCl 5 mg PO DAILY PRN 02/05/19 Polyethylene Glycol 3350 [Miralax 119 gm Btl -] 17 gm PO DAILY 02/05/19 Sennosides [Senna] 8.6 mg PO BID 02/05/19 Sevelamer Carbonate [Renvela -] 1,600 mg PO TID 02/05/19 Simvastatin [Zocor -] 20 mg PO HS 02/05/19 Sitagliptin Phosphate [Januvia] 25 mg PO DAILY 02/05/19 Sucralfate [Carafate -] 1 gm PO TID 02/05/19 Lidocaine/Prilocaine [Lidocaine-Prilocaine Cream] 1 unit TP BID PRN 02/06/19 Saliva Substitute Combo No.9 [Biotene] 10 ml PO TID 02/06/19 Gabapentin [Neurontin -] 200 mg PO BID 04/17/19 Petrolatum,White/Lanolin [Vitamin A and D Ointment] 0 gm TP BID 04/17/19 Hydralazine HCl 10 mg PO DAILY #30 tablet 04/18/19 Lidocaine 5% Patch [Lidoderm -] 1 patch TP DAILY #20 patch 04/18/19 Lidocaine 5% Patch [Lidoderm -] 1 patch TP DAILY #30 patch 04/18/19 Review of Systems - Review of Systems Constitutional: No: Chills, Fever HEENTM: No: Eye Pain, Blurred Vision Respiratory: No: Cough, Shortness of Breath Cardiac (ROS): No: Chest Pain ABD/GI: Yes: Constipated. No: Abdominal Distended : No: Burning, Dysuria Musculoskeletal: Yes: Symptoms Reported Integumentary: No: Bruising, Change in Color Neurological: Yes: Headache <Ruben Wasserman - Last Filed: 07/14/19 14:47> *Physical Exam - Vital Signs Last Vital Signs Temp Pulse Resp BP Pulse Ox 97.9 F 82 16 178/108 H 100 07/14/19 10:20 07/14/19 10:20 07/14/19 10:20 07/14/19 10:20 07/14/19 10:20 <Tabby Han - Last Filed: 07/14/19 14:32> - Vital Signs Last Vital Signs Temp Pulse Resp BP Pulse Ox 97.9 F 82 16 178/108 H 100 07/14/19 10:20 07/14/19 10:20 07/14/19 10:20 07/14/19 10:20 07/14/19 10:20 - Physical Exam Comments: 07/14/19 12:19 GENERAL: Awake, alert, and fully oriented, in no acute distress HEAD: No signs of trauma, normocephalic, atraumatic EYES: EOMI, sclera anicteric, conjunctiva clear ENT: Auricles normal inspection, hearing grossly normal, nares patent, oropharynx clear without exudates. Moist mucosa NECK: Normal ROM, supple, no lymphadenopathy, JVD, or masses LUNGS: No distress, speaks full sentences, clear to auscultation bilaterally HEART: Regular rate and rhythm, normal S1 and S2, no murmurs, rubs or gallops, peripheral pulses normal and equal bilaterally. ABDOMEN: Soft, nontender, normoactive bowel sounds. No guarding, no rebound. No masses BACK: midline tenderness in lumbar and sacral spine. tenderness to palpation at ASIS bilaterally and down the left buttock. EXTREMITIES : Normal inspection, Normal range of motion, no edema. No clubbing or cyanosis. 5/5 strength bilaterally NEUROLOGICAL: Cranial nerves II through XII grossly intact. Normal speech no focal sensorimotor deficits SKIN: Warm, Dry, normal turgor, no rashes or lesions noted <Ruben Wasserman - Last Filed: 07/14/19 14:47> ED Treatment Course - LABORATORY CBC & Chemistry Diagram: 07/14/19 12:51 07/14/19 12:51 - ADDITIONAL ORDERS Additional order review: Laboratory Results 07/14/19 12:51 Sodium 134 L Potassium 5.4 H Chloride 97 L Carbon Dioxide 25 Anion Gap 12 BUN 71.3 H Creatinine 10.0 H* Est GFR (CKD-EPI)AfAm 4.08 Est GFR (CKD-EPI)NonAf 3.52 Random Glucose 97 Calcium 9.6 Total Bilirubin 0.5 AST 8 L ALT 12 L Alkaline Phosphatase 153 H Total Protein 9.0 H Albumin 4.3 07/14/19 12:51 RBC 4.55 MCV 84.2 MCHC 31.9 L RDW 15.9 H MPV 8.8 Neutrophils % 66.1 Lymphocytes % 24.3 D Monocytes % 7.8 Eosinophils % 1.1 Basophils % 0.7 - Medications Given in the ED: ED Medications Discontinued Medications Generic Name Dose Route Start Last Admin Trade Name Jairo PRN Reason Stop Dose Admin Morphine Sulfate 4 mg 07/14/19 11:45 07/14/19 12:56 Morphine Injection - IVPUSH 07/14/19 11:46 4 mg ONCE ONE Administration <Tabby Han - Last Filed: 07/14/19 14:32> - LABORATORY CBC & Chemistry Diagram: 07/14/19 12:51 07/14/19 12:51 <Ruben Wasserman - Last Filed: 07/14/19 14:47> Medical Decision Making - Medical Decision Making 07/14/19 12:22 69 y/o F hx of HTN, DM, ESRD on dialysis 3x a week, chronic pain on pain management, presents to the ED with 3 days of lower back pain. cbc,cmp, ekg, Meds: 4mg morphine for pain. 07/14/19 14:27 EKG: sinus rhythm with first degree AV block anterior infarct, age undetermined Labs remarkable for Creatinine of 10, K+ of 5.4 Pt. doing much better pain jordan. counselled on importance of maintaining dialysis appointments and having her pain management done by her pain doctor and not in the ER. Transport arranged for her to be able to make her dialysis appointment this afternoon at [facility]. 07/14/19 14:45 07/14/19 14:47 <Ruben Wasserman - Last Filed: 07/14/19 14:47> Discharge - Discharge Information Problems reviewed: Yes - Admission No <Tabby Han - Last Filed: 07/14/19 14:32> <Ruben Wasserman - Last Filed: 07/14/19 14:47> - Discharge Information Clinical Impression/Diagnosis: Acute exacerbation of chronic low back pain - Patient Discharge Instructions Patient Printed Discharge Instructions: DI for Low Back Pain Additional Instructions: You were seen in the ER for an acute flare-up of your chronic back pain. We gave you medication and a lidocaine patch which helped with your pain. Please follow up with your primary care provider in 1-3 days so that you can get on top of your chronic back pain before getting to the point where you need to come to the ER. Call their clinic as soon as possible, tell them you were seen in the ER for back pain, and tell them you need an appointment. If you have any new or worsening symptoms please come back to the ER at any time (24 hours a day ), especially for fever, new numbness, new tingling new weakness, new urinary or bowel incontinence or retention, or other new symptoms. If you are having severe or life threatening symptoms, or symptoms that make it unsafe to drive or have someone drive you, please call 911. You need to be sure and make it to dialysis every time. Please take your pain medication every day as scheduled or immediately when you notice that you have pain. We think this will help you avoid extra trips to the ER.
[2019-07-14] MEDS ORDERED: morphine SULFATE 4 MG/ML VIAL ONE (12:37)
[2019-07-14 13:47] LABS: ALBUMIN 4.3 g/dl (3.4-5.0); BILIRUBIN,TOTAL 0.5 mg/dL (0.2-1); BLOOD UREA NITROGEN 71.3 mg/dL (7-18); CALCIUM 9.6 mg/dL (8.5-10.1); POTASSIUM 5.4 mmol/L (3.5-5.1)
[2019-07-14 13:48] LABS: BASO % 0.7 % (0-2.0); EOS % 1.1 % (0-4.5); HEMATOCRIT 38.3 % (32.4-45.2); HEMOGLOBIN 12.2 GM/dL (10.7-15.3); LYMPH % 24.3 % (8-40); MCH 26.8 pg (25.7-33.7); MCHC 31.9 g/dl (32.0-36.0); MEAN CELL VOLUME 84.2 fl (80-96); MEAN PLT VOLUME 8.8 fl (7.5-11.1); MONO % 7.8 % (3.8-10.2); NEUT % 66.1 % (42.8-82.8); PLATELET COUNT 190 K/MM3 (134-434); RBC 4.55 M/mm3 (3.60-5.2); RDW 15.9 % (11.6-15.6); WHITE BLOOD COUNT 11.8 K/mm3 (4.0-10.0)
[2019-07-14 15:07] VITALS: BP 179/75; PULSE 88
--- NOTE | 2019-07-15 11:41 | EKG ---
Test Reason : Blood Pressure : / mmHG Vent. Rate : 086 BPM Atrial Rate : 086 BPM P-R Int : 210 ms QRS Dur : 092 ms QT Int : 374 ms P-R-T Axes : 056 032 055 degrees QTc Int : 447 ms SINUS RHYTHM WITH 1ST DEGREE A-V BLOCK ANTERIOR INFARCT , AGE UNDETERMINED ABNORMAL ECG WHEN COMPARED WITH ECG OF 18-APR-2019 09:27, NO SIGNIFICANT CHANGE WAS FOUND Confirmed by PRASHANT BRYSON MD ([id number]) on 07/15/2019 11:41:07 AM Referred By: Confirmed By:PRASHANT BRYSON MD
== END 2019-07-14 15:07 | disposition home or self-care (01) ==
LOC: JER 10:18
PROC: 3E033NZ Introduction of Analgesics, Hypnotics, Sedatives into Peripheral Vein, Percutaneous Approach (ICD-10-PCS; principal; 2019-07-14)
DX: M54.5 Low back pain (principal); I12.0 Hypertensive chronic kidney disease with stage 5 chronic kidney disease or end stage renal disease; E11.22 Type 2 diabetes mellitus with diabetic chronic kidney disease; N18.6 End stage renal disease; N17.8 Other acute kidney failure; Z99.2 Dependence on renal dialysis; Z79.84 Long term (current) use of oral hypoglycemic drugs
CPT/HCPCS: 36415; 80053; 85025; 93005; 93010; 96372; 99282-25

== ENCOUNTER 2020-03-29 17:29 | Inpatient (IN) | payer OTHER ==
--- NOTE | 2020-03-29 17:47 | PDOC ---
History of Present Illness - General Chief Complaint: Shortness of Breath Stated Complaint: SHORTNESS OF BREATH - History of Present Illness Initial Comments: 03/29/20 17:47 HPI: 69 y/o F with hx of ESRD (HD //), CAD, HTN, HLD, DM BIBEMS following her dialysis tx for SOB. Her SOB has been present for 10days but today she feels it is worse. It does not follow a pattern and is always present. However, her most distressing symptom today is her JUNIOR. It is BL frontal without radiation and 8/10 pain. She reports headaches in the past. She also reports nausea and generalized weakness. She denies fever, chills, LH, dizziness, sycnope, chest pain, palp itations, abd pain, emesis, dysuria, heamturia, diarrhea. Reports chronic constipation which is unchanged. Of note, she ambulates with a walker for short distances but uses a wheelchair for long distance since being DCd from her last admission PMHx: as noted above ROS: as noted SHx: Denies tobacco use; no alcohol use; no rec drugs Allergies: NKDA ROS: GENERAL/CONSTITUTIONAL: No fever or chills. +gen weakness. HEAD, EYES, EARS, NOSE AND THROAT: No change in vision. No ear pain or discharge. No sore throat. CARDIOVASCULAR: No chest pain; +shortness of breath RESPIRATORY: No cough, wheezing, or hemoptysis. GASTROINTESTINAL: +nausea, constipattion; no vomiting, diarrhea GENITOURINARY: No dysuria, frequency, or change in urination. MUSCULOSKELETAL: No joint or muscle swelling or pain. No neck or back pain. SKIN: No rash NEUROLOGIC: +headache; no vertigo, loss of consciousness, or change in strength/sensation. ENDOCRINE: No increased thirst. No abnormal weight change HEMATOLOGIC/LYMPHATIC: No anemia, easy bleeding, or history of blood clots. ALLERGIC/IMMUNOLOGIC: No hives or skin allergy. PE: GENERAL: Awake, alert, and fully oriented, no acute distress HEAD: No signs of trauma, normocephalic, atraumatic EYES: EOMI, sclera anicteric, conjunctiva clear ENT: Auricles normal inspection, hearing grossly normal, nares patent, oropharynx clear without exudates. Moist mucosa NECK: Normal ROM, no lymphadenopathy LUNGS: No increased work of breathing, symmetrical chest rise, clear to auscultation bilaterally, no wheezes, crackles or rhonchi HEART: Regular rate, regular rhythm, normal S1 and S2, no murmur, peripheral pulses 2+ and equal bilaterally. No LE edema ABDOMEN: Soft, nondistended, nontender. No guarding, no rebound. No masses. No CVAT MUSCULOSKELETAL: FROM NEUROLOGICAL: Cranial nerves II through XII grossly intact. Normal speech, no focal sensorimotor deficits SKIN: Warm, Dry, normal turgor, no rashes or lesions noted Past History - Medical History Allergies/Adverse Reactions: Allergies Allergy/AdvReac Type Severity Reaction Status Date / Time No Known Allergies Allergy Verified 03/01/20 12:15 Home Medications: Ambulatory Orders Carvedilol [Coreg -] 25 mg PO BID 02/05/19 Clonidine HCl [Catapres] 0.2 mg PO Q12H 02/05/19 Folic Acid/Vit B Complex and C [Yue-Roberta Tablet] 0.8 mg PO DAILY 02/05/19 Gabapentin [Neurontin] 100 mg PO HS 02/05/19 Linaclotide [Linzess] 145 mcg PO DAILY 02/05/19 Nifedipine [Procardia Xl] 90 mg PO DAILY 02/05/19 Omeprazole 20 mg PO DAILY 02/05/19 Oxycodone HCl 5 mg PO DAILY PRN 02/05/19 Sevelamer Carbonate [Renvela -] 1,600 mg PO TID 02/05/19 Simvastatin [Zocor -] 20 mg PO HS 02/05/19 Sitagliptin Phosphate [Januvia] 25 mg PO DAILY 02/05/19 Gabapentin [Neurontin -] 200 mg PO BID 04/17/19 Hydralazine HCl 10 mg PO DAILY #30 tablet 04/18/19 hydrALAZINE HCL [Apresoline -] 10 mg PO DAILY #0 tablet 03/10/20 COPD: No Diabetes: Yes Dialysis: Yes (//) HTN: Yes - Immunization History Immunization Up to Date: Yes - Psycho-Social/Smoking History Smoking History: Unknown if ever smoked Have you smoked in the past 12 months: No ED Treatment Course - LABORATORY CBC & Chemistry Diagram: 03/29/20 18:20 03/29/20 18:20 Medical Decision Making - Medical Decision Making 03/29/20 18:37 69 y/o F with hx of ESRD (HD T//), CAD, HTN, HLD, DM BIBEMS following her dialysis tx for SOB. However, her most distressing symptom today is her JUNIOR; also associated with nausea and gen weakness. VSS, AF. PE unremarkable. DDx includes occult infection, viral syndrome, anemiea, lyte abdnormality, acs, fluid overload -cbc, cmp, card prof, bnp, coags, t&s, ekg, cxr, ua -ofyazan padillalan 03/29/20 19:22 JUNIOR improved but not resolved BNP >35,000 trop 0.10 will admit to tele obs 03/29/20 21:00 SBP 200s-210s; gave evening coreg and hydralazine pending admit Discharge - Discharge Information Problems reviewed: Yes Clinical Impression/Diagnosis: Headache, SOB (shortness of breath), Elevated troponin, Elevated brain natriuretic peptide (BNP) level Condition: Stable - Admission Yes - Follow up/Referral - Patient Discharge Instructions - Post Discharge Activity Vital Signs - Vital Signs Blood Pressure: 192/71 BP Location: Left Arm Blood Pressure position: Sitting
[2020-03-29 17:53] VITALS: BMI 28.3
[2020-03-29] MEDS ORDERED: ACETAMINOPHEN 1000 MG/100 ML VIAL (NON FORMULARY) IVPB ONE ×2 (18:03→18:30)
[2020-03-29] MEDS ORDERED: ACETAMINOPHEN INJECTION 100 ML IVPB ONE (18:21)
[2020-03-29] MEDS ORDERED: METOCLOPRAMIDE HCL INJECTION 10 MG/2 ML VIAL IVPUSH ONE (18:23)
[2020-03-29] MEDS ORDERED: ACETAMINOPHEN 500 MG TABLET (FP) PO ONE (18:23)
[2020-03-29 18:29] LABS: BASO % 1.1 % (0-2.0); EOS % 4.7 % (0-4.5); HEMATOCRIT 29.8 % (32.4-45.2); HEMOGLOBIN 9.7 GM/dL (10.7-15.3); LYMPH % 35.6 % (8-40); MCH 29.4 pg (25.7-33.7); MCHC 32.4 g/dl (32.0-36.0); MEAN CELL VOLUME 90.7 fl (80-96); MEAN PLT VOLUME 9.1 fl (7.5-11.1); MONO % 9.3 % (3.8-10.2); NEUT % 49.3 % (42.8-82.8); PLATELET COUNT 194 K/MM3 (134-434); RBC 3.28 M/mm3 (3.60-5.2); RDW 15.6 % (11.6-15.6); WHITE BLOOD COUNT 6.8 K/mm3 (4.0-10.0)
[2020-03-29] MEDS ORDERED: METOCLOPRAMIDE HCL INJECTION 10 MG/2 ML VIAL ONE (18:33)
[2020-03-29 18:37] LABS: INR 1.03 (0.83-1.09); PROTHROMBIN TIME (PATIENT) 12.1 SEC (9.7-13.0)
--- NOTE | 2020-03-29 18:38 | PDOC ---
Attending Attestation - Resident Resident Name: Adi Cooley - ED Attending Attestation I have performed the following: I have examined & evaluated the patient, The case was reviewed & discussed with the resident, I agree w/resident's findings & plan, Exceptions are as noted - HPI HPI: 03/29/20 18:31 69 yo F h/o ESRD on HD TThSa, last dialysis today, full session p/w frontal headache x1 week and SOB x10 days. SOB unchanged with exertion. Denies cough. States headache was gradual in onset and has had headaches in rubens past. Took tylenol at home with partial relief. Denies any preceding trauma or changes in vision. Denies CP. Denies sick contacts. Endorses mild nausea but denies vomiting. Denies abd pain and chest pain. - Physicial Exam PE: 03/29/20 18:33 General: well appearing HEENT: EOMI, NCAT, MMM Chest: CTAB, good air entry, no wheezes rales or rhonchi CVS: + s1 s2, RRR Neuro: Aox3, speech fluent, face symmetric, moving all extremities, no focal deficits - Medical Decision Making 03/29/20 18:34 69 yo F here with SOB and headache, no resp distress on exam, neurologically intact, good O2 sat and not tachycardic, possible viral syndrome vs. PNA vs. migraine headache. Unlikely fluid overload as patient has been dialyzed and no crackles on exam and no LE edema. Also doubt PE as patient nesbitt snot appear to be in resp distress, no signs concerning for DVT, not tachycardic and patient with good O2 sat. Possible ACS although low suspicion as patient without CP and EKG sinus without any ischemic changes. Low suspicion for ICH as patient neurologically intact, headache gradual on onset, not worst headache of life and has been ongoing for 1 week. Plan: -labs -cxr -tylenol -reglan -reassess This clinical encounter is taking place during a federal and state health care emergency attributable to the novel [place] Virus pandemic. The [place] of the Department of Health and Human Services has declared, pursuant to the Public Health Service Act 319F-3 (42 U.S.C. 247d-6d), that a covered persons activities related to medical countermeasures against COVID-19 will be immune from liability under Federal and State law. Patient signed out to incoming night team. Discharge - Discharge Information Problems reviewed: Yes Clinical Impression/Diagnosis: Headache, SOB (shortness of breath), Elevated troponin, Elevated brain natriuretic peptide (BNP) level Condition: Stable - Follow up/Referral - Patient Discharge Instructions - Post Discharge Activity
[2020-03-29 18:40] LABS: ACTIVATED PTT 31.1 SECONDS (25.2-36.5)
[2020-03-29 19:09] LABS: ALBUMIN 3.8 g/dl (3.4-5.0); ALK PHOS 124 U/L (45-117); ANION GAP 8 MMOL/L (8-16); BILIRUBIN,TOTAL 0.5 mg/dL (0.2-1); BLOOD UREA NITROGEN 17.1 mg/dL (7-18); CHLORIDE 97 mmol/L (98-107); CO2 30 mmol/L (21-32); CREATININE 4.9 mg/dL (0.55-1.3); GLUCOSE,RANDOM 128 mg/dL (74-106); SGOT/AST 18 U/L (15-37); SGPT/ALT 11 U/L (13-61); SODIUM 136 mmol/L (136-145); TOT PROT 8.2 g/dl (6.4-8.2)
[2020-03-29 19:11] LABS: N-TERMINAL BNP > 35000.0 pg/ml (5-125)
[2020-03-29] MEDS ORDERED: CARVEDILOL 25 MG TABLET (FP) PO ONE (20:03)
[2020-03-29] MEDS ORDERED: hydrALAZINE HCL 10 MG TABLET PO ONE (20:03)
[2020-03-29] MEDS ORDERED: CARVEDILOL 12.5 MG TABLET (FP) ONE (20:10)
--- NOTE | 2020-03-29 20:59 | PN ---
Teaching Attending Note Name of Resident: Segundo Obando ATTENDING PHYSICIAN STATEMENT I saw and evaluated the patient. I reviewed the resident's note and discussed the case with the resident. I agree with the resident's findings and plan as documented. SUBJECTIVE: Patient is a 69 year woman with a PMH of ESRD on hemodialysis (//), CAD, HT N, HLD and NIDDM brought by EMS for SOB following her dialysis treatment. Her SOB has been present for 10 days but today she feels it is worse. It does not follow a pattern and is always present. However, her most distressing symptom today is her headache. It is bilateral, frontal without radiation and is 8/10 in severity. She reports headaches in the past. She also reports nausea and generalized weakness. Denies fever, chills, light headedness, dizziness, syncope, chest pain, palpitations, abdominal pain, vomiting, dysuria, hematuria or diarrhea. Reports chronic constipation which is unchanged. Of note, she ambulates with a walker for short distances but uses a wheelchair for long distance since being discharged from her last admission. Denies alcohol, tobacco or illicit drug use. No sick contacts or recent travels. Family history is unremarkable. OBJECTIVE: Alert Vital Signs Period Temp Pulse Resp BP Sys/Dietz Pulse Ox Last 24 Hr 98.4 F 66-70 19-22 154-218/35-80 97-100 HEENT: No Jaundice, eye redness or discharge, PERRLA, EOMI. Normocephalic, atraumatic. External ears are normal and hearing is grossly intact. No nasal discharge. Neck: Supple, nontender. No palpable adenopathy or thyromegaly. No JVD Chest: Good effort. Clear to auscultation and percussion. Heart: Regular. No S3 or rub; 2/6 KADY Abdomen: Not distended, soft, nontender and no HSM. No rebound or guarding. Normal bowel sounds. Ext: Peripheral pulses intact. No leg edema. RUE AV graft with good thrill and bruit. Skin: Warm and dry. No petechiae, rash or ecchymosis. Neuro: Alert. Oriented x3. CN 2-12 grossly intact. Sensation grossly intact in all four extremities and DTR are symmetric. Psych: Appropriate mood and affect. Good insight. Home Medications Medication Instructions Recorded Carvedilol [Coreg -] 25 mg PO BID 04/29/19 Clonidine HCl [Catapres] 0.2 mg PO Q12H 02/05/19 Folic Acid/Vit B Complex and C 0.8 mg PO DAILY 02/05/19 [Yue-Roberta Tablet] Gabapentin [Neurontin] 100 mg PO HS 02/05/19 Linaclotide [Linzess] 145 mcg PO DAILY 02/05/19 Nifedipine [Procardia Xl] 90 mg PO DAILY 02/05/19 Omeprazole 20 mg PO DAILY 02/05/19 Oxycodone HCl 5 mg PO DAILY PRN 02/05/19 Sevelamer Carbonate [Renvela -] 1,600 mg PO TID 02/05/19 Simvastatin [Zocor -] 20 mg PO HS 02/05/19 Sitagliptin Phosphate [Januvia] 25 mg PO DAILY 02/05/19 Gabapentin [Neurontin -] 200 mg PO BID 04/17/19 Hydralazine HCl 10 mg PO DAILY #30 tablet 04/18/19 hydrALAZINE HCL [Apresoline -] 10 mg PO DAILY #0 tablet 03/10/20 Abnormal Lab Results 03/29/20 03/29/20 03/29/20 18:20 18:20 18:20 RBC 3.28 L Hgb 9.7 L Hct 29.8 L Eosinophils % 4.7 H D-Dimer 1100 H Chloride 97 L Creatinine 4.9 H Random Glucose 128 H ALT 11 L Alkaline Phosphatase 124 H Troponin I 0.10 H B-Natriuretic Peptide > 44702.0 H ASSESSMENT AND PLAN: 1. Hypertensive urgency/headache - Her SOB may signal suboptimal dialytic fluid removal or acute effect of very high BP on LV function. She has chronic troponin elevation and D-Dimer was 1934 on 03/03/2020. CXR shows cardiomegaly without sarah dence of acute lung disease. ECHO from 03/05/2020 showed mild concentric LV hypertrophy and LV ejection fraction of 70%. If SOB persists, then a VQ scan will be done to rule out pulmonary embolism. Hypertensive encephalopathy may explain her headaches. She has had two recent head CT scans (03/01/2020; 03/05/2020) with no acute intracranial abnormality to explain headache. Consult Neurology. ER staff prescribed Tylenol, Carvedilol, Hydralazine and Reglan. Will benefit from gradually increasing dialytic fluid removal to improve BP. May benefit from outpatient workup for secondary hypertension. Tested negative for COVID-19 on 03/01/2020. Viral testing for COVID-19 ordered and patient placed on airborne, droplet and contact isolation. EKG shows NSR at 69/minute, 1o AV block and QTc [address]-T wave changes. Initial troponin is negative. Will admit to telemetry, trend troponin, get ECHO, and consult Cardiology. Will restart outpatient antihypertensive drugs. Subsequently, will revise regimen to ensure [id number] excellent BP control. Patient counseled on the injurious effects of uncontrolled hypertension. Nonpharmacologic measures to control hypertension like weight loss, salt restriction and exercise stressed. Importance of adherence to treatment regimen and attainment of normotension emphasized. Will continue comprehensive care for all of patients comorbid conditions. Consult Nephrology for ESRD care. 2. DM For now, we will hold the home diabetes drugs and implement sliding scale insulin regimen. Provide comprehensive diabetes care with patient teaching and counseling about the importance of adherence to prescribed diabetes regimen, euglycemia, eye care and foot care. 3. DVT prophylaxis - Heparin 5000u sq tid. 4. Advance directives - Full code
--- NOTE | 2020-03-29 22:22 | HP ---
CHIEF COMPLAINT: Headache, shortness of breath, chest pressure PCP: Dr. Rossi Business Teacher: Dr. Bassam Rebollar HISTORY OF PRESENT ILLNESS: Pt. is a 69 y.o. Setswana-speaking F w/ PMHx. of HTn, HLD, ESRD (T,TH, Sat.), DM2 and constipation presents after hemodialysis today for hypertension associated with headache, shortness of breath, blurry vision, and chest pressure. Pt. states that at her dialysis center her systolic BP was in the 200s. Pt. states that her headache has been going on for 4 days now. She also states that her shortness of breath has been going on for 1 day and that it is not associated with activity, nor does activity make her shortness of breath worse. Pt. endorses chest pressure not pain that started after dialysis. Pt. endorses that her blurry vision started today as well. Pt. states jerome she takes all her medications as prescribed and took all her medications at the correct times today. Pt. does not have a BP cuff at home and is unable to monitor her BP at home. Pt. states that her BGMs usually range from 180-190 but that today it was 205. Pt. endorses chronic constipation but states that she last had a BM yesterday that was non-bloody. Pt. endorses burning sensation with urination. Pt. denies taking any iron supplemntation but states she has received IV iron during dialysis in the past. She is unsure when she last had it. Pt. is unsure of receiving any RBC stimulating medications including epogen. Pt. endorses cough with white sputum production but denies any fever, chills or sick contacts. [employer] #[id number] assisted in translation ER course was notable for: (1)CBC, CMP, CXR, (2)Hydralazine, Coreg, Metoproclamide, Tylenol (3) Recent Travel: No PAST MEDICAL HISTORY: As above, (DM2 and HTN diagnosed ~10 years ago) PAST SURGICAL HISTORY: RUE Fistula, hysterectomy, appendectomy, breast reduction Social History: Smoking: Denies Alcohol: Denies Drugs: Denies Pt. 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 Allergies No Known Allergies Allergy (Verified 03/01/20 12:15) HOME MEDICATIONS: Home Medications Medication Instructions Recorded Carvedilol [Coreg -] 25 mg PO BID 02/05/19 Clonidine HCl [Catapres] 0.2 mg PO Q12H 02/05/19 Folic Acid/Vit B Complex and C 0.8 mg PO DAILY 02/05/19 [Yue-Roberta Tablet] Gabapentin [Neurontin] 100 mg PO HS 02/05/19 Linaclotide [Linzess] 145 mcg PO DAILY 02/05/19 Nifedipine [Procardia Xl] 90 mg PO DAILY 02/05/19 Omeprazole 20 mg PO DAILY 02/05/19 Oxycodone HCl 5 mg PO DAILY PRN 02/05/19 Sevelamer Carbonate [Renvela -] 1,600 mg PO TID 02/05/19 Simvastatin [Zocor -] 20 mg PO HS 02/05/19 Sitagliptin Phosphate [Januvia] 25 mg PO DAILY 02/05/19 Gabapentin [Neurontin -] 200 mg PO BID 04/17/19 Hydralazine HCl 10 mg PO DAILY #30 tablet 04/18/19 hydrALAZINE HCL [Apresoline -] 10 mg PO DAILY #0 tablet 03/10/20 REVIEW OF SYSTEMS As above PHYSICAL EXAMINATION Vital Signs - 24 hr 03/29/20 03/29/20 03/29/20 17:50 18:45 19:51 Temperature 98.4 F 97.8 F Pulse Rate 70 66 Pulse Rate [ 67 66 Left Radial] Respiratory 22 H 22 H 19 Rate Blood Pressure 154/35 L Blood Pressure 180/51 H 218/80 H [Left Arm] O2 Sat by Pulse 98 100 97 Oximetry (%) 03/29/20 03/29/20 03/29/20 21:00 21:01 21:30 Temperature Pulse Rate Pulse Rate [ 71 71 Left Radial] Respiratory 23 H 20 Rate Blood Pressure 192/71 H Blood Pressure 197/71 H 172/67 H [Left Arm] O2 Sat by Pulse 100 100 Oximetry (%) GENERAL: Awake, alert, and fully oriented, in no acute distress. HEAD: Normal with no signs of trauma. EYES: extraocular movements intact, sclera anicteric EARS, NOSE, THROAT: Ears normal, nares patent, oropharynx clear without exudates. Moist mucous membranes. NECK: Normal range of motion, supple without lymphadenopathy, JVD, or masses. LUNGS: Breath sounds equal, clear to auscultation bilaterally. No wheezes, and no crackles. No accessory muscle use. HEART: Regular rate and rhythm, S1 and S2 with 3/6 systolic murmur ABDOMEN: Soft, obese, nontender, not distended, normoactive bowel sounds, no guarding MUSCULOSKELETAL: No CVA tenderness. UPPER EXTREMITIES: 2+ radial pulses, warm, well-perfused. RUE fistula, No peripheral edema. LOWER EXTREMITIES: 2+ dorsal pedal pulses, warm, well-perfused. No calf tenderness. No peripheral edema. NEUROLOGICAL: Normal speech. Gait not assessed. PSYCHIATRIC: Cooperative. Good eye contact. Appropriate mood and affect. SKIN: Warm, dry, normal turgor, no rashes or lesions noted Laboratory Results - last 24 hr 03/29/20 03/29/20 03/29/20 18:20 18:20 18:20 WBC 6.8 RBC 3.28 L Hgb 9.7 L Hct 29.8 L MCV 90.7 MCH 29.4 MCHC 32.4 RDW 15.6 Plt Count 194 MPV 9.1 Absolute Neuts (auto) 3.4 Neutrophils % 49.3 Lymphocytes % 35.6 Monocytes % 9.3 Eosinophils % 4.7 H Basophils % 1.1 Nucleated RBC % 0 PT with INR 12.10 INR 1.03 PTT (Actin FS) 31.1 D-Dimer Sodium 136 Potassium 4.0 Chloride 97 L Carbon Dioxide 30 Anion Gap 8 BUN 17.1 Creatinine 4.9 H Est GFR (CKD-EPI)AfAm 9.68 Est GFR (CKD-EPI)NonAf 8.35 Random Glucose 128 H Calcium 9.0 Magnesium 2.0 Total Bilirubin 0.5 AST 18 ALT 11 L Alkaline Phosphatase 124 H Creatine Kinase 72 Troponin I 0.10 H B-Natriuretic Peptide > 00610.0 H Total Protein 8.2 Albumin 3.8 Blood Type Antibody Screen Direct Antiglob Test 03/29/20 03/29/20 18:20 18:20 WBC RBC Hgb Hct MCV MCH MCHC RDW Plt Count MPV Absolute Neuts (auto) Neutrophils % Lymphocytes % Monocytes % Eosinophils % Basophils % Nucleated RBC % PT with INR INR PTT (Actin FS) D-Dimer 1100 H Sodium Potassium Chloride Carbon Dioxide Anion Gap BUN Creatinine Est GFR (CKD-EPI)AfAm Est GFR (CKD-EPI)NonAf Random Glucose Calcium Magnesium Total Bilirubin AST ALT Alkaline Phosphatase Creatine Kinase Troponin I B-Natriuretic Peptide Total Protein Albumin Blood Type O POSITIVE Antibody Screen Positive Direct Antiglob Test Positive ASSESSMENT/PLAN: Pt. is a 69 y.o. Setswana-speaking F w/ PMHx. of HTN, HLD, ESRD (T,TH, Sat.), DM2, HFpEF and constipation presents after hemodialysis today for hypertension associated with headache, shortness of breath, blurry vision, and chest pressure. Pt. admitted for Hypertensive emergency/urgency #Shortness of breath, Chest pain, Headache, Troponinemia All likely secondary to Hypertensive emergency Trop 0.10, f/u Rpt. 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 Watkins appreciated- may need slower HD vs. low sodium diasylate for paradoxical hypertension during HD #HLD #DM2 #Constipation #HFpEF c/w home medications except PO anti-hyperglycemics; BGM and ISS ACHS BNP: 35,000; CXR as above Echo 03/05/20: EF 70%, mild concentric LVH, LA mod. dilated, RA mildly dilated Pt. would benefit from CATHIE/ARB for prevent further cardiac remodeling #FEN no IVF monitor electrolytes and replete as needed Renal Diet #DVT Ppx. Hep SQ TID Visit type - Emergency Visit Emergency Visit: Yes ED Registration Date: 03/29/20 Care time: The patient presented to the Emergency Department on the above date and was hospitalized for further evaluation of their emergent condition. - New Patient This patient is new to me today: Yes Date on this admission: 03/29/20 - Critical Care Critical Care patient: No ATTENDING PHYSICIAN STATEMENT I saw and evaluated the patient. I reviewed the resident's note and discussed the case with the resident. I agree with the resident's findings and plan as documented. SUBJECTIVE: OBJECTIVE: ASSESSMENT AND PLAN:
[2020-03-29] MEDS ORDERED: cloNIDine HCL 0.1 MG TABLET ONE (23:34)
[2020-03-29] MEDS: cloNIDine HCL 0.1 MG TABLET PO SCH (23:37)
[2020-03-30] MEDS ORDERED: hydrALAZINE HCL 20 MG/ML VIAL IVPUSH ONE (02:35)
[2020-03-30] MEDS: HEPARIN NA (PORCINE) 5,000 UNITS/ML 1ML VIAL SQ SCH ×3 (06:05→22:11)
[2020-03-30] MEDS: INSULIN SLIDING SCALE (NOVOLOG) 1 VIAL SQ SCH ×4 (06:09→22:11)
[2020-03-30] MEDS ORDERED: INSULIN SLIDING SCALE (NOVOLOG) 1 VIAL SQ SCH (07:00)
--- NOTE | 2020-03-30 07:43 | PN ---
Teaching Attending Note Name of Resident: Yolanda Joe ATTENDING PHYSICIAN STATEMENT I saw and evaluated the patient. I reviewed the resident's note and discussed the case with the resident. I agree with the resident's findings and plan as documented. SUBJECTIVE: This patient is a 69yo Portuguese-speaking Female with PMHx. of HTn, HLD, ESRD (T ThSa),T2DM and constipation presents after hemodialysis for having elevated SBP to 200's associated with headache, shortness of breath, blurry vision, and chest pressure. OBJECTIVE: Vital Signs Temperature 97.9 F 03/30/20 07:00 Pulse Rate 67 03/30/20 07:00 Respiratory Rate 20 03/30/20 07:00 Blood Pressure 168/68 03/30/20 07:00 O2 Sat by Pulse Oximetry (%) 100 03/30/20 06:19 PE: per resident's note CBCD WBC 6.8 K/mm3 (4.0-10.0) 03/29/20 18:20 RBC 3.28 M/mm3 (3.60-5.2) L 03/29/20 18:20 Hgb 9.7 GM/dL (10.7-15.3) L 03/29/20 18:20 Hct 29.8 % (32.4-45.2) L 03/29/20 18:20 MCV 90.7 fl (80-96) 03/29/20 18:20 MCHC 32.4 g/dl (32.0-36.0) 03/29/20 18:20 RDW 15.6 % (11.6-15.6) 03/29/20 18:20 Plt Count 194 K/MM3 (134-434) 03/29/20 18:20 MPV 9.1 fl (7.5-11.1) 03/29/20 18:20 CMP Sodium 136 mmol/L (136-145) 03/29/20 18:20 Potassium 4.0 mmol/L (3.5-5.1) 03/29/20 18:20 Chloride 97 mmol/L (98-107) L 03/29/20 18:20 Carbon Dioxide 30 mmol/L (21-32) 03/29/20 18:20 Anion Gap 8 MMOL/L (8-16) 03/29/20 18:20 BUN 17.1 mg/dL (7-18) 03/29/20 18:20 Creatinine 4.9 mg/dL (0.55-1.3) H 03/29/20 18:20 Random Glucose 128 mg/dL (74-106) H 03/29/20 18:20 Calcium 9.0 mg/dL (8.5-10.1) 03/29/20 18:20 Total Bilirubin 0.5 mg/dL (0.2-1) 03/29/20 18:20 AST 18 U/L (15-37) 03/29/20 18:20 ALT 11 U/L (13-61) L 03/29/20 18:20 Alkaline Phosphatase 124 U/L (45-117) H 03/29/20 18:20 Total Protein 8.2 g/dl (6.4-8.2) 03/29/20 18:20 Albumin 3.8 g/dl (3.4-5.0) 03/29/20 18:20 CARDIAC ENZYMES Creatine Kinase 72 U/L (26-192) 03/29/20 18:20 Troponin I 0.10 ng/ml (0.00-0.05) H 03/29/20 18:20 Current Medications Generic Name Dose Route Start Last Admin Trade Name Freq PRN Reason Stop Dose Admin Acetaminophen 650 mg 03/29/20 23:27 Tylenol - PO Q6H PRN PAIN LEVEL 4 - 6 Atorvastatin Calcium 10 mg 03/30/20 22:00 Lipitor - PO HS [facility] Carvedilol 25 mg 03/30/20 10:00 Coreg - PO BID [facility] Clonidine 0.2 mg 03/29/20 23:30 03/29/20 23:37 Catapres - PO 0.2 mg BID [facility] Administration Gabapentin 200 mg 03/30/20 10:00 Neurontin - PO BID TERRA Gabapentin 100 mg 03/30/20 22:00 Neurontin - PO HS [facility] Heparin Sodium (Porcine) 5,000 unit 03/30/20 06:00 03/30/20 06:05 Heparin - SQ 5,000 unit TID [facility] Administration Hydralazine HCl 10 mg 03/30/20 10:00 Apresoline - PO BID [facility] Insulin Aspart 1 vial 03/30/20 07:00 03/30/20 06:09 Novolog Vial Sliding Scale - SQ Not Given ACHS [facility] Protocol Multivit/Ca Carb/B Cmplx/FA/Prenat 1 tablet 03/30/20 10:00 Nephro-Roberta - PO DAILY TER[facility] Nifedipine 90 mg 03/30/20 10:00 Procardia Xl - PO DAILY TER[facility] Non-Formulary Medication 145 mcg 03/30/20 10:00 Linaclotide [Linzess] PO DAILY [facility] Pantoprazole Sodium 20 mg 03/30/20 10:00 Protonix - PO DAILY TER[facility] Sevelamer Carbonate 1,600 mg 03/30/20 08:00 Renvela - PO TIDCM [facility] Home Medications Medication Instructions Recorded Carvedilol [Coreg -] 25 mg PO BID 02/05/19 Clonidine HCl [Catapres] 0.2 mg PO Q12H 02/05/19 Folic Acid/Vit B Complex and C 0.8 mg PO DAILY 02/05/19 [Yue-Roberta Tablet] Gabapentin [Neurontin] 100 mg PO HS 02/05/19 Linaclotide [Linzess] 145 mcg PO DAILY 02/05/19 Nifedipine [Procardia Xl] 90 mg PO DAILY 02/05/19 Omeprazole 20 mg PO DAILY 02/05/19 Oxycodone HCl 5 mg PO DAILY PRN 02/05/19 Sevelamer Carbonate [Renvela -] 1,600 mg PO TID 02/05/19 Simvastatin [Zocor -] 20 mg PO HS 02/05/19 Sitagliptin Phosphate [Januvia] 25 mg PO DAILY 02/05/19 Gabapentin [Neurontin -] 200 mg PO BID 04/17/19 hydrALAZINE HCL [Apresoline -] 10 mg PO DAILY #0 tablet 03/10/20 Laboratory Tests 03/29/20 03/29/20 03/30/20 18:20 18:20 11:00 D-Dimer 1100 H Hemoglobin A1c % Troponin I 0.10 H 0.10 H 03/30/20 11:00 D-Dimer Hemoglobin A1c % 5.3 Troponin I CXR: mild Cardiomegaly without any evidence of acute lung dz. Prior Head CT 03/05/20: R. thalamic and L. internal capsule chronic infarcts Echo 03/05/20: EF 70%, mild concentric LVH, LA mod. dilated, RA mildly dilated EKG: sinus rhythm with 1st degree block, rate 69, no ST elevation or depression. ASSESSMENT AND PLAN: This patient is a 69yof Portuguese-speaking with PMHx. of HTN, HLD, ESRD (T,TH, Sat), T2DM, HFpEF and constipation presents after HD for having elevated SBP over 200's associated with headache, shortness of breath, blurry vision, and chest pressure. Patient is admitted for Hypertensive emergency. #Hypertensive emergency: Increased Hydralazine 10mg daily to BID, continue to monitor , will check with care nurse rn regarding her BP meds. #Acute SOB with chest pain and sob, Headache: improved today post having better bp control #Troponinemia:slight elevation of Trops. most likely due to demand ischemia #Prolonged Qtc:488 monitor #ESRD on HD (TThSa): BNP: 35K, continue HD #HLD:continue statin #T2DM: BGM and ISS ACHS #Constipation: will give colace hs #HFpEF: echo, mild concentric left concentric left ventricular hypertrophy, left atrium is moderately dilated. DVT Ppx.: Hep SQ TID
--- NOTE | 2020-03-30 07:57 | PN ---
Physical Exam: SUBJECTIVE: Patient seen and examined at the bedside, there were no acute events overnight. Pt still complaining of cough, shortness of breath and chest tightness this morning. OBJECTIVE: Vital Signs Period Temp Pulse Resp BP Sys/Dietz Pulse Ox Last 24 Hr 97.3 F-98.4 F 66-128 19-23 154-218/35-91 97-100 GENERAL: Awake, alert, and fully oriented, in no acute distress. HEAD: Normal with no signs of trauma. EYES: extraocular movements intact, sclera anicteric EARS, NOSE, THROAT: Ears normal, nares patent, oropharynx clear without exudates. Moist mucous membranes. NECK: Normal range of motion, supple without lymphadenopathy, JVD, or masses. LUNGS: Breath sounds equal, clear to auscultation bilaterally. No wheezes, and no crackles. No accessory muscle use. HEART: Regular rate and rhythm, S1 and S2 with 3/6 systolic murmur ABDOMEN: Soft, obese, nontender, not distended, normoactive bowel sounds, no guarding MUSCULOSKELETAL: No CVA tenderness. UPPER EXTREMITIES: 2+ radial pulses, warm, well-perfused. RUE fistula, No peripheral edema. LOWER EXTREMITIES: 2+ dorsal pedal pulses, warm, well-perfused. No calf tenderness. No peripheral edema. NEUROLOGICAL: Normal speech. Gait not assessed. PSYCHIATRIC: Cooperative. Good eye contact. Appropriate mood and affect. SKIN: Warm, dry, normal turgor, no rashes or lesions noted Laboratory Results - last 24 hr 03/29/20 03/29/20 03/29/20 18:20 18:20 18:20 WBC 6.8 RBC 3.28 L Hgb 9.7 L Hct 29.8 L MCV 90.7 MCH 29.4 MCHC 32.4 RDW 15.6 Plt Count 194 MPV 9.1 Absolute Neuts (auto) 3.4 Neutrophils % 49.3 Lymphocytes % 35.6 Monocytes % 9.3 Eosinophils % 4.7 H Basophils % 1.1 Nucleated RBC % 0 PT with INR 12.10 INR 1.03 PTT (Actin FS) 31.1 D-Dimer Sodium 136 Potassium 4.0 Chloride 97 L Carbon Dioxide 30 Anion Gap 8 BUN 17.1 Creatinine 4.9 H Est GFR (CKD-EPI)AfAm 9.68 Est GFR (CKD-EPI)NonAf 8.35 POC Glucometer Random Glucose 128 H Calcium 9.0 Magnesium 2.0 Total Bilirubin 0.5 AST 18 ALT 11 L Alkaline Phosphatase 124 H Creatine Kinase 72 Troponin I 0.10 H B-Natriuretic Peptide > 35381.0 H Total Protein 8.2 Albumin 3.8 Blood Type Antibody Screen Direct Antiglob Test 03/29/20 03/29/20 03/29/20 18:20 18:20 22:50 WBC RBC Hgb Hct MCV MCH MCHC RDW Plt Count MPV Absolute Neuts (auto) Neutrophils % Lymphocytes % Monocytes % Eosinophils % Basophils % Nucleated RBC % PT with INR INR PTT (Actin FS) D-Dimer 1100 H Sodium Potassium Chloride Carbon Dioxide Anion Gap BUN Creatinine Est GFR (CKD-EPI)AfAm Est GFR (CKD-EPI)NonAf POC Glucometer Random Glucose Calcium Magnesium Total Bilirubin AST ALT Alkaline Phosphatase Creatine Kinase Troponin I B-Natriuretic Peptide Total Protein Albumin Blood Type O POSITIVE Cancelled Antibody Screen Positive Cancelled Direct Antiglob Test Positive 03/30/20 05:54 WBC RBC Hgb Hct MCV MCH MCHC RDW Plt Count MPV Absolute Neuts (auto) Neutrophils % Lymphocytes % Monocytes % Eosinophils % Basophils % Nucleated RBC % PT with INR INR PTT (Actin FS) D-Dimer Sodium Potassium Chloride Carbon Dioxide Anion Gap BUN Creatinine Est GFR (CKD-EPI)AfAm Est GFR (CKD-EPI)NonAf POC Glucometer 135 Random Glucose Calcium Magnesium Total Bilirubin AST ALT Alkaline Phosphatase Creatine Kinase Troponin I B-Natriuretic Peptide Total Protein Albumin Blood Type Antibody Screen Direct Antiglob Test Active Medications Generic Name Dose Route Start Last Admin Trade Name Freq PRN Reason Stop Dose Admin Acetaminophen 650 mg 03/29/20 23:27 Tylenol - PO Q6H PRN PAIN LEVEL 4 - 6 Atorvastatin Calcium 10 mg 03/30/20 22:00 Lipitor - PO HS [facility] Carvedilol 25 mg 03/30/20 10:00 Coreg - PO BID [facility] Clonidine 0.2 mg 03/29/20 23:30 03/29/20 23:37 Catapres - PO 0.2 mg BID [facility] Administration Gabapentin 200 mg 03/30/20 10:00 Neurontin - PO BID [facility] Gabapentin 100 mg 03/30/20 22:00 Neurontin - PO HS [facility] Heparin Sodium (Porcine) 5,000 unit 03/30/20 06:00 03/30/20 06:05 Heparin - SQ 5,000 unit TID [facility] Administration Hydralazine HCl 10 mg 03/30/20 10:00 Apresoline - PO BID [facility] OF [facility] Insulin Aspart 1 vial 03/30/20 07:00 03/30/20 06:09 Novolog Vial Sliding Scale - SQ Not Given ACHS [facility] OF [facility] Protocol Multivit/Ca Carb/B Cmplx/FA/Prenat 1 tablet 03/30/20 10:00 Nephro-Roberta - PO DAILY [facility] Nifedipine 90 mg 03/30/20 10:00 Procardia Xl - PO DAILY [facility] OF [facility] Non-Formulary Medication 145 mcg 03/30/20 10:00 Linaclotide [Linzess] PO DAILY [facility] Pantoprazole Sodium 20 mg 03/30/20 10:00 Protonix - PO DAILY [facility] OF [facility] Sevelamer Carbonate 1,600 mg 03/30/20 08:00 Renvela - PO TIDCM ON LICENSE OF [facility] ASSESSMENT/PLAN: Pt. is a 69 y.o. Japanese-speaking F w/ PMHx. of HTN, HLD, ESRD (T,TH, Sat.), DM2, HFpEF and constipation presents after hemodialysis today for hypertension associated with headache, shortness of breath, blurry vision, and chest pressure. Pt. admitted for Hypertensive emergency/urgency #Shortness of breath, Chest pain, Headache, Troponinemia - All likely secondary to Hypertensive emergency, pt still hypertensive this morning - Trop 0.10, repeat also 0.10 - CXR: cardiomegaly, no acute pathology - Prior Head CT 03/05/20: R. thalamic and L. internal capsule chronic infarcts; low threshold for repeat - resume home medications, this is the second hospital admission for uncontrolled BP, consider starting CATHIE/ARB if there are no contraindications; will need to be prescribed BP cuff on discharge - Continue Hydralazine to 10mg BID - Neurochecks - Vital Signs Q4H - cardio following appreciate reccs #ESRD T,TH, Sat.- had HD yesterday Nephrology consult to Dr. Watkins appreciated- may need slower HD vs. low sodium diasylate for paradoxical hypertension during HD #HLD #DM2 #Constipation #HFpEF - c/w home medications except PO anti-hyperglycemics; BGM and ISS ACHS - BNP: 35,000; CXR as above - Echo 03/05/20: EF 70%, mild concentric LVH, LA mod. dilated, RA mildly dilated - Pt. would benefit from CATHIE/ARB for prevent further cardiac remodeling #FEN no IVF monitor electrolytes and replete as needed Renal Diet #DVT Ppx. Hep SQ TID Pt takes Linzess at home, non-formulary, please reach out to family to see if they can bring it to hospital. Otherwise hold while inpatient. Visit type - Emergency Visit Emergency Visit: Yes ED Registration Date: 03/29/20 Care time: The patient presented to the Emergency Department on the above date and was hospitalized for further evaluation of their emergent condition. - New Patient This patient is new to me today: Yes Date on this admission: 03/30/20 - Critical Care Critical Care patient: No - Discharge Referral Referred to [facility] No ATTENDING PHYSICIAN STATEMENT I saw and evaluated the patient. I reviewed the resident's note and discussed the case with the resident. I agree with the resident's findings and plan as documented. SUBJECTIVE: OBJECTIVE: ASSESSMENT AND PLAN:
[2020-03-30] MEDS: SEVELAMER CARBONATE 800 MG TAB (FP) PO SCH ×3 (08:44→16:56)
[2020-03-30] MEDS: PANTOPRAZOLE 20 MG TABLET PO SCH (09:09)
[2020-03-30] MEDS: NIFEdipine E.R. 90 MG TABLET PO SCH (09:10)
[2020-03-30] MEDS: hydrALAZINE HCL 10 MG TABLET PO SCH ×2 (09:10→22:11)
[2020-03-30] MEDS: GABAPENTIN 100 MG CAPSULE PO SCH ×3 (09:10→22:11)
[2020-03-30] MEDS: CARVEDILOL 25 MG TABLET (FP) PO SCH ×2 (09:10→22:11)
[2020-03-30] MEDS: cloNIDine HCL 0.1 MG TABLET PO SCH ×2 (09:10→22:11)
[2020-03-30] MEDS: VITAMIN B COMP W-C 1 EA TABLET (NEPHRO-VITE) PO SCH (09:11)
--- NOTE | 2020-03-30 09:47 | EKG ---
Test Reason : Blood Pressure : / mmHG Vent. Rate : 069 BPM Atrial Rate : 069 BPM P-R Int : 230 ms QRS Dur : 092 ms QT Int : 456 ms P-R-T Axes : 054 059 052 degrees QTc Int : 488 ms SINUS RHYTHM WITH 1ST DEGREE A-V BLOCK OTHERWISE NORMAL ECG WHEN COMPARED WITH ECG OF 01-MAR-2020 12:04, NO SIGNIFICANT CHANGE WAS FOUND Confirmed by MD David, Leon ([id number]) on 03/30/2020 9:46:55 AM Referred By: Confirmed By:Leon Hernandez MD
[2020-03-30] MEDS ORDERED: PATIENT'S OWN MEDICATION (NON-FORMULARY) (Linaclotide [Linzess] 145 MCG) PO SCH (10:00)
[2020-03-30] MEDS ORDERED: hydrALAZINE HCL 10 MG TABLET PO SCH ×2 (10:00)
[2020-03-30] MEDS ORDERED: cloNIDine HCL 0.1 MG TABLET PO SCH (10:00)
[2020-03-30] MEDS: ACETAMINOPHEN 325 MG TABLET (FP) PO PRN (11:43)
[2020-03-30 13:07] LABS: BASO % 0.9 % (0-2.0); EOS % 5.3 % (0-4.5); HEMOGLOBIN 9.8 GM/dL (10.7-15.3); LYMPH % 36.7 % (8-40); MCH 29.7 pg (25.7-33.7); MCHC 32.8 g/dl (32.0-36.0); MEAN CELL VOLUME 90.8 fl (80-96); MEAN PLT VOLUME 9.1 fl (7.5-11.1); MONO % 8.2 % (3.8-10.2); NEUT % 48.9 % (42.8-82.8); PLATELET COUNT 186 K/MM3 (134-434); RBC 3.31 M/mm3 (3.60-5.2); RDW 15.3 % (11.6-15.6); WHITE BLOOD COUNT 6.2 K/mm3 (4.0-10.0)
[2020-03-30 13:42] LABS: ALBUMIN 3.6 g/dl (3.4-5.0); BILIRUBIN,TOTAL 0.5 mg/dL (0.2-1); BLOOD UREA NITROGEN 27.2 mg/dL (7-18); CREATININE 6.5 mg/dL (0.55-1.3); POTASSIUM 4.1 mmol/L (3.5-5.1); TOT PROT 7.8 g/dl (6.4-8.2)
--- NOTE | 2020-03-30 13:49 | CON.NEP ---
Consult Consult Specialty:: Nephrology Referred by:: julian Reason for Consultation:: esrd htn - History of Present Illness Chief Complaint: htn - Past Medical History Cardio/Vascular: Yes: HTN Gastrointestinal: Yes: GERD, Other (s/p appendectomy on 02/06/2019 - laparoscopic appendectomy for enlarged, inflamed, bulbous-ended appendix) Renal/: Yes: Renal Failure, Hemodialysis ...: No Musculoskeletal: Yes: Osteoarthritis Endocrine: Yes: Diabetes Mellitus - Past Surgical History Past Surgical History: Yes: Appendectomy, AV Fistula/Graft (RUE), Hysterectomy - Alcohol/Substance Use Hx Alcohol Use: No History of Substance Use: reports: None - Smoking History Smoking history: Never smoked Have you smoked in the past 12 months: No - Social History Usual Living Arrangement: Assisted Living ADL: Independent Home Medications - Allergies Allergies/Adverse Reactions: Allergies Allergy/AdvReac Type Severity Reaction Status Date / Time No Known Allergies Allergy Verified 03/01/20 12:15 - Home Medications Home Medications: Ambulatory Orders Carvedilol [Coreg -] 25 mg PO BID 02/05/19 Clonidine HCl [Catapres] 0.2 mg PO Q12H 02/05/19 Folic Acid/Vit B Complex and C [Yue-Roberta Tablet] 0.8 mg PO DAILY 02/05/19 Gabapentin [Neurontin] 100 mg PO HS 02/05/19 Linaclotide [Linzess] 145 mcg PO DAILY 02/05/19 Nifedipine [Procardia Xl] 90 mg PO DAILY 02/05/19 Omeprazole 20 mg PO DAILY 02/05/19 Oxycodone HCl 5 mg PO DAILY PRN 02/05/19 Sevelamer Carbonate [Renvela -] 1,600 mg PO TID 02/05/19 Simvastatin [Zocor -] 20 mg PO HS 02/05/19 Sitagliptin Phosphate [Januvia] 25 mg PO DAILY 02/05/19 Gabapentin [Neurontin -] 200 mg PO BID 04/17/19 hydrALAZINE HCL [Apresoline -] 10 mg PO DAILY #0 tablet 03/10/20 Nephrology Consult - Height Height: 5 ft 4 in - Weight Weight: 165 lb - BMI Body Mass Index (BMI): 28.3 - Lab Results CBC,BMP: CBC, BMP 03/30/20 11:00 Anion Gap: Anion Gap Anion Gap 8 MMOL/L (8-16) 03/29/20 18:20 - Physical Examination Vital Signs: Vital Signs Temperature 97.9 F 03/30/20 07:00 Pulse Rate 67 03/30/20 07:00 Respiratory Rate 20 03/30/20 07:00 Blood Pressure 168/68 03/30/20 07:00 O2 Sat by Pulse Oximetry (%) 99 03/30/20 09:00 Assessment/Plan s/p HTN episodes during HD ESRD no complaints of edema or fluid overload IMP- HTN during HD no signs or sx of fluid overload HTN controlled Plan-next HD tuesday
--- NOTE | 2020-03-30 14:14 | CON.CARD ---
Consult Consult Specialty:: Cardiology - History of Present Illness History of Present Illness: This patient is a 69yof Maltese-speaking with PMHx. of HTN, HLD, ESRD (,, Tue), T2DM, HFpEF and constipation presents after HD for having elevated SBP over 200's associated with headache, shortness of breath, blurry vision, and chest pressure. Patient is admitted for Hypertensive emergency. PMH of ESRD on hemodialysis (//), CAD, HTN, HLD and NIDDM brought by EMS for SOB following her dialysis treatment. Her SOB has been present for 10 days but today she feels it is worse. It does not follow a pattern and is always present. However, her most distressing symptom today is her headache. It is bilateral, frontal without radiation and is 8/10 in severity. She reports headaches in the past. She also reports nausea and generalized weakness. Denies fever, chills, light headedness, dizziness, syncope, chest pain, palpitations, abdominal pain, vomiting, dysuria, hematuria or diarrhea. Reports chronic constipation which is unchanged. Of note, she ambulates with a walker for short distances but uses a wheelchair for long distance since being discharged from her last admission. Denies alcohol, tobacco or illicit drug use. No sick contacts or recent travels. Family history is unremarkable. - History Source History Provided By: Medical Record - Past Medical History Cardio/Vascular: Yes: CAD, CHF, HTN Gastrointestinal: Yes: GERD, Other (s/p appendectomy on 02/06/2019 - laparoscopic appendectomy for enlarged, inflamed, bulbous-ended appendix) Renal/: Yes: Renal Failure, Hemodialysis ...: No Musculoskeletal: Yes: Osteoarthritis Endocrine: Yes: Diabetes Mellitus - Past Surgical History Past Surgical History: Yes: Appendectomy, AV Fistula/Graft (RUE), Hysterectomy - Alcohol/Substance Use Hx Alcohol Use: No History of Substance Use: reports: None - Smoking History Smoking history: Never smoked Have you smoked in the past 12 months: No - Social History Usual Living Arrangement: Assisted Living ADL: Independent Home Medications - Allergies Allergies/Adverse Reactions: Allergies Allergy/AdvReac Type Severity Reaction Status Date / Time No Known Allergies Allergy Verified 03/01/20 12:15 - Home Medications Home Medications: Ambulatory Orders Carvedilol [Coreg -] 25 mg PO BID 02/05/19 Clonidine HCl [Catapres] 0.2 mg PO Q12H 02/05/19 Folic Acid/Vit B Complex and C [Yue-Roberta Tablet] 0.8 mg PO DAILY 02/05/19 Gabapentin [Neurontin] 100 mg PO HS 02/05/19 Linaclotide [Linzess] 145 mcg PO DAILY 02/05/19 Nifedipine [Procardia Xl] 90 mg PO DAILY 02/05/19 Omeprazole 20 mg PO DAILY 02/05/19 Oxycodone HCl 5 mg PO DAILY PRN 02/05/19 Sevelamer Carbonate [Renvela -] 1,600 mg PO TID 02/05/19 Simvastatin [Zocor -] 20 mg PO HS 02/05/19 Sitagliptin Phosphate [Januvia] 25 mg PO DAILY 02/05/19 Gabapentin [Neurontin -] 200 mg PO BID 04/17/19 hydrALAZINE HCL [Apresoline -] 10 mg PO DAILY #0 tablet 03/10/20 Review of Systems - Review of Systems Constitutional: reports: No Symptoms Eyes: reports: No Symptoms HENT: reports: No Symptoms Neck: reports: No Symptoms Cardiovascular: reports: Chest Pain, Shortness of Breath Respiratory: reports: SOB Gastrointestinal: reports: No Symptoms Genitourinary: reports: No Symptoms Breasts: reports: No Symptoms Reported Musculoskeletal: reports: No Symptoms Integumentary: reports: No Symptoms Neurological: reports: No Symptoms Endocrine: reports: No Symptoms Hematology/Lymphatic: reports: No Symptoms Psychiatric: reports: No Symptoms Vital Signs: Vital Signs Temperature 97.9 F 03/30/20 13:00 Pulse Rate 65 03/30/20 13:00 Respiratory Rate 20 03/30/20 13:00 Blood Pressure 110/59 L 03/30/20 13:00 O2 Sat by Pulse Oximetry (%) 99 03/30/20 09:00 Constitutional: Yes: Well Nourished, No Distress, Calm Eyes: Yes: WNL, Conjunctiva Clear, EOM Intact HENT: Yes: WNL, Atraumatic, Normocephalic Neck: Yes: WNL, Supple, Trachea Midline Respiratory: Yes: WNL, Regular, CTA Bilaterally Gastrointestinal: Yes: WNL, Normal Bowel Sounds Renal/: Yes: WNL Cardiovascular: Yes: WNL, Regular Rate and Rhythm Musculoskeletal: Yes: WNL Extremities: Yes: WNL Integumentary: Yes: WNL Neurological: Yes: WNL, Alert, Oriented ...Motor Strength: WNL Psychiatric: Yes: WNL, Alert, Oriented - Other Data Labs, Other Data: CBC, BMP 03/30/20 11:00 03/30/20 11:00 INR, PTT INR 1.03 (0.83-1.09) 03/29/20 18:20 Troponin, BNP 03/29/20 03/30/20 18:20 11:00 Troponin I 0.10 H 0.10 H B-Natriuretic Peptide > 63372.0 H Troponin, BNP 03/29/20 03/30/20 18:20 11:00 Troponin I 0.10 H 0.10 H B-Natriuretic Peptide > 22391.0 H Imaging - Results Chest X-ray: Image Reviewed (cm irasema/e) EKG: Image Reviewed (sr 1 st degree avb) Problem List - Problems (1) Elevated brain natriuretic peptide (BNP) level Code(s): R79.89 - OTHER SPECIFIED ABNORMAL FINDINGS OF BLOOD CHEMISTRY (2) Elevated troponin Code(s): R79.89 - OTHER SPECIFIED ABNORMAL FINDINGS OF BLOOD CHEMISTRY (3) Headache Code(s): R51 - HEADACHE (4) SOB (shortness of breath) Code(s): R06.02 - SHORTNESS OF BREATH (5) Abnormal head CT Code(s): R93.0 - ABNORMAL FINDINGS ON DX IMAGING OF SKULL AND HEAD, NEC (6) Acute appendicitis Code(s): K35.80 - UNSPECIFIED ACUTE APPENDICITIS Qualifiers: Acute appendicitis type: other Qualified Code(s): K35.890 - Other acute appendicitis without perforation or gangrene; K35.89 - Other acute appendicitis (7) Acute exacerbation of chronic low back pain Code(s): M54.5 - LOW BACK PAIN; G89.29 - OTHER CHRONIC PAIN (8) Anemia Code(s): D64.9 - ANEMIA, UNSPECIFIED (9) Anemia in chronic kidney disease Code(s): N18.9 - CHRONIC KIDNEY DISEASE, UNSPECIFIED; D63.1 - ANEMIA IN CHRONIC KIDNEY DISEASE (10) Back pain Code(s): M54.9 - DORSALGIA, UNSPECIFIED Qualifiers: Back pain location: low back pain (11) Diabetes mellitus type 2, noninsulin dependent Code(s): E11.9 - TYPE 2 DIABETES MELLITUS WITHOUT COMPLICATIONS (12) ESRD on hemodialysis Code(s): N18.6 - END STAGE RENAL DISEASE; Z99.2 - DEPENDENCE ON RENAL DIALYSIS (13) Fever Code(s): R50.9 - FEVER, UNSPECIFIED (14) Fever Code(s): R50.9 - FEVER, UNSPECIFIED (15) Hyperkalemia Code(s): E87.5 - HYPERKALEMIA (16) Hypertension Code(s): I10 - ESSENTIAL (PRIMARY) HYPERTENSION Qualifiers: Hypertension type: essential hypertension Qualified Code(s): I10 - Essential (primary) hypertension (17) Missed dialysis Code(s): [id number] - (18) Numbness Code(s): R20.0 - ANESTHESIA OF SKIN (19) Prophylactic measure Code(s): Z29.9 - ENCOUNTER FOR PROPHYLACTIC MEASURES, UNSPECIFIED (20) Pulmonary congestion Code(s): R09.89 - OTH SYMPTOMS AND SIGNS INVOLVING THE CIRC AND RESP SYSTEMS (21) Suspected COVID-19 virus infection Code(s): Z20.828 - CONTACT W AND EXPOSURE TO OTH VIRAL COMMUNICABLE DISEASES Assessment/Plan This patient is a 69yof Maltese-speaking with PMHx. of HTN, HLD, ESRD (T,TH, Sat), T2DM, HFpEF and constipation presents after HD for having elevated SBP over 200's associated with headache, shortness of breath, blurry vision, and chest pressure. Patient is admitted for Hypertensive emergency. Decompensated diastolic CHF Elevated D-dimer Plan; HD l BP control keep LDL below 70 DVT PLX r/o PE R/o COVID ECHO to evaluate RV MIBI ST when stable ASA 81 QD
[2020-03-30] MEDS: ASPIRIN COATED 81 MG TABLET.EC PO SCH (14:55)
[2020-03-30 21:04] LABS: EPI CELLS >36 /uL (0-25.1); HYALINE CASTS 1 /uL (0-3.1); PH,URINE >= 9.0 (5.0-8.0); URINE APPEARANCE CLOUDY; URINE BACTERIA 4501 /uL (0-1359); URINE BILIRUBIN NEGATIVE (NEGATIVE); URINE COLOR YELLOW; URINE GLUCOSE (UA) TRACE (NEGATIVE); URINE KETONE NEGATIVE (NEGATIVE); URINE LEUK ESTERASE NEGATIVE (NEGATIVE); URINE NITRITE NEGATIVE (NEGATIVE); URINE PROTEIN 3+ (NEGATIVE); URINE RBC 8 /uL (0-23.9); URINE UROBILINOGEN 0.2 mg/dL (0.2-1.0); URINE WBC 14 /uL (0-25.8)
[2020-03-30] MEDS: ATORVASTATIN CA 10 MG TABLET (FP) PO SCH (22:11)
[2020-03-31] MEDS: INSULIN SLIDING SCALE (NOVOLOG) 1 VIAL SQ SCH ×4 (06:32→22:19)
[2020-03-31] MEDS: HEPARIN NA (PORCINE) 5,000 UNITS/ML 1ML VIAL SQ SCH ×3 (06:32→22:18)
[2020-03-31] MEDS: SEVELAMER CARBONATE 800 MG TAB (FP) PO SCH ×3 (09:05→17:18)
[2020-03-31] MEDS: CARVEDILOL 25 MG TABLET (FP) PO SCH ×2 (09:06→22:18)
[2020-03-31] MEDS: VITAMIN B COMP W-C 1 EA TABLET (NEPHRO-VITE) PO SCH (09:06)
[2020-03-31] MEDS: GABAPENTIN 100 MG CAPSULE PO SCH ×3 (09:06→22:18)
[2020-03-31] MEDS: PANTOPRAZOLE 20 MG TABLET PO SCH (09:06)
[2020-03-31] MEDS: ASPIRIN COATED 81 MG TABLET.EC PO SCH (09:06)
[2020-03-31] MEDS: hydrALAZINE HCL 10 MG TABLET PO SCH ×2 (09:06→22:18)
[2020-03-31] MEDS: NIFEdipine E.R. 90 MG TABLET PO SCH (09:07)
[2020-03-31] MEDS: cloNIDine HCL 0.1 MG TABLET PO SCH ×2 (09:07→22:19)
[2020-03-31 09:11] LABS: HEMATOCRIT 27.6 % (32.4-45.2); HEMOGLOBIN 9.1 GM/dL (10.7-15.3); MCH 29.9 pg (25.7-33.7); MEAN CELL VOLUME 90.7 fl (80-96); MEAN PLT VOLUME 8.9 fl (7.5-11.1); PLATELET COUNT 186 K/MM3 (134-434); RBC 3.04 M/mm3 (3.60-5.2); WHITE BLOOD COUNT 8.6 K/mm3 (4.0-10.0)
[2020-03-31 09:36] LABS: BLOOD UREA NITROGEN 43.2 mg/dL (7-18); POTASSIUM 4.9 mmol/L (3.5-5.1)
[2020-03-31 09:42] LABS: CREATININE 8.7 mg/dL (0.55-1.3)
--- NOTE | 2020-03-31 11:58 | PN ---
Progress Note, Physician History of Present Illness: Pt seen and examined at bedside. SHe is awake and alert. She denies shortness of breath. She says that she does not take all of her bp meds at home. - Current Medication List Current Medications: Active Medications Acetaminophen (Tylenol -) 650 mg PO Q6H PRN PRN Reason: PAIN LEVEL 4 - 6 Last Admin: 03/30/20 11:43 Dose: 650 mg Documented by: Aspirin (Ecotrin -) 81 mg PO DAILY [facility] Last Admin: 03/31/20 09:06 Dose: 81 mg Documented by: Atorvastatin Calcium (Lipitor -) 10 mg PO HS [facility] Last Admin: 03/30/20 22:11 Dose: 10 mg Documented by: Carvedilol (Coreg -) 25 mg PO BID [facility] Last Admin: 03/31/20 09:06 Dose: 25 mg Documented by: Clonidine (Catapres -) 0.2 mg PO BID [facility] Last Admin: 03/31/20 09:07 Dose: 0.2 mg Documented by: Gabapentin (Neurontin -) 200 mg PO BID [facility] Last Admin: 03/31/20 09:06 Dose: 200 mg Documented by: Gabapentin (Neurontin -) 100 mg PO HS [facility] Last Admin: 03/30/20 22:11 Dose: 100 mg Documented by: Heparin Sodium (Porcine) (Heparin -) 5,000 unit SQ TID [facility] Last Admin: 03/31/20 06:32 Dose: 5,000 unit Documented by: Hydralazine HCl (Apresoline -) 10 mg PO BID [facility] Last Admin: 03/31/20 09:06 Dose: 10 mg Documented by: Insulin Aspart (Novolog Vial Sliding Scale -) 1 vial SQ [facility]; Protocol Last Admin: 03/31/20 11:31 Dose: 2 units Documented by: Multivit/Ca Carb/B Cmplx/FA/Prenat (Nephro-Roberta -) 1 tablet PO DAILY [facility] Last Admin: 03/31/20 09:06 Dose: 1 tablet Documented by: Nifedipine (Procardia Xl -) 90 mg PO DAILY [facility] Last Admin: 03/31/20 09:07 Dose: 90 mg Documented by: Non-Formulary Medication (Linaclotide [Linzess]) 145 mcg PO DAILY [facility] Pantoprazole Sodium (Protonix -) 20 mg PO DAILY [facility] Last Admin: 03/31/20 09:06 Dose: 20 mg Documented by: Sevelamer Carbonate (Renvela -) 1,600 mg PO TIDCM [facility] Last Admin: 03/31/20 09:05 Dose: 1,600 mg Documented by: - Objective Vital Signs: Vital Signs Temperature 97.7 F 03/31/20 06:00 Pulse Rate 72 03/31/20 06:00 Respiratory Rate 20 03/31/20 06:00 Blood Pressure 154/73 03/31/20 06:00 O2 Sat by Pulse Oximetry (%) 97 03/30/20 21:00 Constitutional: Yes: Calm Eyes: Yes: Conjunctiva Clear HENT: Yes: Atraumatic Neck: Yes: Supple Cardiovascular: Yes: S1, S2 Respiratory: Yes: CTA Bilaterally Gastrointestinal: Yes: Soft Genitourinary: Yes: WNL Musculoskeletal: Yes: WNL Edema: LLE: Trace, RLE: Trace Neurological: Yes: Oriented Psychiatric: Yes: Oriented Labs: CBC, BMP 03/31/20 08:39 03/31/20 08:39 INR, PTT INR 1.03 (0.83-1.09) 03/29/20 18:20 Assessment/Plan Current Medications Generic Name Dose Route Start Last Admin Trade Name Freq PRN Reason Stop Dose Admin Acetaminophen 650 mg 03/29/20 23:27 03/30/20 11:43 Tylenol - PO 650 mg Q6H PRN Administration PAIN LEVEL 4 - 6 Aspirin 81 mg 03/30/20 14:45 03/31/20 09:06 Ecotrin - PO 81 mg DAILY [facility] Administration Atorvastatin Calcium 10 mg 03/30/20 22:00 03/30/20 22:11 Lipitor - PO 10 mg HS [facility] Administration Carvedilol 25 mg 03/30/20 10:00 03/31/20 09:06 Coreg - PO 25 mg BID [facility] Administration Clonidine 0.2 mg 03/29/20 23:30 03/31/20 09:07 Catapres - PO 0.2 mg BID [facility] Administration Gabapentin 200 mg 03/30/20 10:00 03/31/20 09:06 Neurontin - PO 200 mg BID [facility] Administration Gabapentin 100 mg 03/30/20 22:00 03/30/20 22:11 Neurontin - PO 100 mg HS [facility] Administration Heparin Sodium (Porcine) 5,000 unit 03/30/20 06:00 03/31/20 06:32 Heparin - SQ 5,000 unit TID [facility] Administration Hydralazine HCl 10 mg 03/30/20 10:00 03/31/20 09:06 Apresoline - PO 10 mg BID [facility] Administration Insulin Aspart 1 vial 03/30/20 07:00 03/31/20 11:31 Novolog Vial Sliding Scale - SQ 2 units ACHS [facility] Administration Protocol Multivit/Ca Carb/B Cmplx/FA/Prenat 1 tablet 03/30/20 10:00 03/31/20 09:06 Nephro-Roberta - PO 1 tablet DAILY [facility] Administration Nifedipine 90 mg 03/30/20 10:00 03/31/20 09:07 Procardia Xl - PO 90 mg DAILY [facility] Administration Non-Formulary Medication 145 mcg 03/30/20 10:00 Linaclotide [Linzess] PO DAILY [facility] Pantoprazole Sodium 20 mg 03/30/20 10:00 03/31/20 09:06 Protonix - PO 20 mg DAILY [facility] Administration Sevelamer Carbonate 1,600 mg 03/30/20 08:00 03/31/20 09:05 Renvela - PO 1,600 mg TIDCM [facility] Administration Impression 1. ESRD 2. non compliance with bp meds 3. dyspnea 4. DM 5. HTN Plan - HD tomorrow (pt on TTS schedule) - cont bp meds - discussed importance of compliance with meds - renal diet
--- NOTE | 2020-03-31 12:13 | PN ---
Progress Note, Physician History of Present Illness: This patient is a 69yof Algerian-speaking with PMHx. of HTN, HLD, ESRD (,, Tue), T2DM, HFpEF and constipation presents after HD for having elevated SBP over 200's associated with headache, shortness of breath, blurry vision, and chest pressure. Patient is admitted for Hypertensive emergency. PMH of ESRD on hemodialysis (//), CAD, HTN, HLD and NIDDM brought by EMS for SOB following her dialysis treatment. Her SOB has been present for 10 days but today she feels it is worse. It does not follow a pattern and is always present. However, her most distressing symptom today is her headache. It is bilateral, frontal without radiation and is 8/10 in severity. She reports headaches in the past. She also reports nausea and generalized weakness. Denies fever, chills, light headedness, dizziness, syncope, chest pain, palpitations, abdominal pain, vomiting, dysuria, hematuria or diarrhea. Reports chronic constipation which is unchanged. Of note, she ambulates with a walker for short distances but uses a wheelchair for long distance since being discharged from her last admission. D enies alcohol, tobacco or illicit drug use. No sick contacts or recent travels. Family history is unremarkable. - Current Medication List Current Medications: Active Medications Acetaminophen (Tylenol -) 650 mg PO Q6H PRN PRN Reason: PAIN LEVEL 4 - 6 Last Admin: 03/30/20 11:43 Dose: 650 mg Documented by: Aspirin (Ecotrin -) 81 mg PO DAILY [facility] Last Admin: 03/31/20 09:06 Dose: 81 mg Documented by: Atorvastatin Calcium (Lipitor -) 10 mg PO HS [facility] Last Admin: 03/30/20 22:11 Dose: 10 mg Documented by: Carvedilol (Coreg -) 25 mg PO BID [facility] Last Admin: 03/31/20 09:06 Dose: 25 mg Documented by: Clonidine (Catapres -) 0.2 mg PO BID [facility] Last Admin: 03/31/20 09:07 Dose: 0.2 mg Documented by: Epoetin [place]-epbx (Retacrit) 4,000 unit IVPUSH ONCE ONE Stop: 04/01/20 12:00 Gabapentin (Neurontin -) 200 mg PO BID [facility] Last Admin: 06/22/20 09:06 Dose: 200 mg Documented by: Gabapentin (Neurontin -) 100 mg PO HS [facility] Last Admin: 03/30/20 22:11 Dose: 100 mg Documented by: Heparin Sodium (Porcine) (Heparin -) 5,000 unit SQ TID [facility] Last Admin: 03/31/20 06:32 Dose: 5,000 unit Documented by: Hydralazine HCl (Apresoline -) 10 mg PO BID [facility] Last Admin: 03/31/20 09:06 Dose: 10 mg Documented by: Sodium Chloride (Normal Saline -) 250 mls @ 3,000 mls/hr IV PRN PRN PRN Reason: Hypotension during Dialysis Stop: 04/01/20 11:59 Insulin Aspart (Novolog Vial Sliding Scale -) 1 vial SQ ACHS [facility]; Protocol Last Admin: 03/31/20 11:31 Dose: 2 units Documented by: Multivit/Ca Carb/B Cmplx/FA/Prenat (Nephro-Roberta -) 1 tablet PO DAILY [facility] Last Admin: 03/31/20 09:06 Dose: 1 tablet Documented by: Nifedipine (Procardia Xl -) 90 mg PO DAILY [facility] Last Admin: 03/31/20 09:07 Dose: 90 mg Documented by: Non-Formulary Medication (Linaclotide [Linzess]) 145 mcg PO DAILY [facility] Pantoprazole Sodium (Protonix -) 20 mg PO DAILY [facility] Last Admin: 03/31/20 09:06 Dose: 20 mg Documented by: Sevelamer Carbonate (Renvela -) 1,600 mg PO TIDCM [facility] Last Admin: 03/31/20 12:02 Dose: 1,600 mg Documented by: - Objective Vital Signs: Vital Signs Temperature 97.7 F 03/31/20 06:00 Pulse Rate 72 03/31/20 06:00 Respiratory Rate 20 03/31/20 06:00 Blood Pressure 154/73 03/31/20 06:00 O2 Sat by Pulse Oximetry (%) 97 03/30/20 21:00 Eyes: Yes: WNL, Conjunctiva Clear, EOM Intact HENT: Yes: WNL, Atraumatic, Normocephalic Neck: Yes: WNL, Supple, Trachea Midline Cardiovascular: Yes: WNL, Regular Rate and Rhythm Respiratory: Yes: WNL, Regular, CTA Bilaterally Gastrointestinal: Yes: WNL, Normal Bowel Sounds Genitourinary: Yes: WNL Musculoskeletal: Yes: WNL Extremities: Yes: WNL Edema: No Integumentary: Yes: WNL Neurological: Yes: WNL, Alert, Oriented ...Motor Strength: WNL Psychiatric: Yes: WNL Labs: CBC, BMP 03/31/20 08:39 03/31/20 08:39 INR, PTT INR 1.03 (0.83-1.09) 03/29/20 18:20 Problem List - Problems (1) Elevated brain natriuretic peptide (BNP) level Code(s): R79.89 - OTHER SPECIFIED ABNORMAL FINDINGS OF BLOOD CHEMISTRY (2) Elevated troponin Code(s): R79.89 - OTHER SPECIFIED ABNORMAL FINDINGS OF BLOOD CHEMISTRY (3) Headache Code(s): R51 - HEADACHE (4) SOB (shortness of breath) Code(s): R06.02 - SHORTNESS OF BREATH (5) Abnormal head CT Code(s): R93.0 - ABNORMAL FINDINGS ON DX IMAGING OF SKULL AND HEAD, NEC (6) Acute appendicitis Code(s): K35.80 - UNSPECIFIED ACUTE APPENDICITIS Qualifiers: Acute appendicitis type: other Qualified Code(s): K35.890 - Other acute appendicitis without perforation or gangrene; K35.89 - Other acute appendicitis (7) Acute exacerbation of chronic low back pain Code(s): M54.5 - LOW BACK PAIN; G89.29 - OTHER CHRONIC PAIN (8) Anemia Code(s): D64.9 - ANEMIA, UNSPECIFIED (9) Anemia in chronic kidney disease Code(s): N18.9 - CHRONIC KIDNEY DISEASE, UNSPECIFIED; D63.1 - ANEMIA IN CHRONIC KIDNEY DISEASE (10) Back pain Code(s): M54.9 - DORSALGIA, UNSPECIFIED Qualifiers: Back pain location: low back pain (11) Diabetes mellitus type 2, noninsulin dependent Code(s): E11.9 - TYPE 2 DIABETES MELLITUS WITHOUT COMPLICATIONS (12) ESRD on hemodialysis Code(s): N18.6 - END STAGE RENAL DISEASE; Z99.2 - DEPENDENCE ON RENAL DIALYSIS (13) Fever Code(s): R50.9 - FEVER, UNSPECIFIED (14) Fever Code(s): R50.9 - FEVER, UNSPECIFIED (15) Hyperkalemia Code(s): E87.5 - HYPERKALEMIA (16) Hypertension Code(s): I10 - ESSENTIAL (PRIMARY) HYPERTENSION Qualifiers: Hypertension type: essential hypertension Qualified Code(s): I10 - Essential (primary) hypertension (17) Missed dialysis Code(s): [id number] - (18) Numbness Code(s): R20.0 - ANESTHESIA OF SKIN (19) Prophylactic measure Code(s): Z29.9 - ENCOUNTER FOR PROPHYLACTIC MEASURES, UNSPECIFIED (20) Pulmonary congestion Code(s): R09.89 - OTH SYMPTOMS AND SIGNS INVOLVING THE CIRC AND RESP SYSTEMS (21) Suspected COVID-19 virus infection Code(s): Z20.828 - CONTACT W AND EXPOSURE TO OTH VIRAL COMMUNICABLE DISEASES Assessment/Plan This patient is a 69yof Algerian-speaking with PMHx. of HTN, HLD, ESRD (T,TH, Sat), T2DM, HFpEF and constipation presents after HD for having elevated SBP over 200's associated with headache, shortness of breath, blurry vision, and chest pressure. Patient is admitted for Hypertensive emergency. Decompensated diastolic CHF Elevated D-dimer Plan; HD l BP control keep LDL below 70 DVT PLX r/o PE R/o COVID ECHO to evaluate RV MIBI ST when stable ASA 81 QD
--- NOTE | 2020-03-31 12:58 | PN ---
Physical Exam: SUBJECTIVE: Patient seen and examined. No acute overnight events. Refused CTA chest last night. OBJECTIVE: Vital Signs Period Temp Pulse Resp BP Sys/Dietz Pulse Ox Last 24 Hr 97.4 F-98.2 F 65-72 18-20 110-154/59-73 97 GENERAL: The patient is awake, alert, and fully oriented, in no acute distress. HEENT: NCAT. MMM. Neck supple/ LUNGS: Ctabl, no wheezes, no crackles, no accessory muscle use. HEART: Regular rate and rhythm, S1, S2, 3/6 systolic murmur noted ABDOMEN: Soft, nontender, nondistended, normoactive bowel sounds, no guarding EXTREMITIES: 2+ pulses, warm, well-perfused, no edema. NEUROLOGICAL: Cranial nerves II through XII grossly intact. PSYCH: Normal mood, normal affect. SKIN: Warm, dry, normal turgor, no rashes or lesions noted Laboratory Results - last 24 hr 03/30/20 03/30/20 03/30/20 11:00 11:00 11:00 WBC 6.2 RBC 3.31 L Hgb 9.8 L Hct 30.0 L MCV 90.8 MCH 29.7 MCHC 32.8 RDW 15.3 Plt Count 186 MPV 9.1 Absolute Neuts (auto) 3.0 Neutrophils % 48.9 Lymphocytes % 36.7 Monocytes % 8.2 Eosinophils % 5.3 H Basophils % 0.9 Nucleated RBC % 0 Sodium 135 L Potassium 4.1 Chloride 97 L Carbon Dioxide 28 Anion Gap 10 BUN 27.2 H Creatinine 6.5 H Est GFR (CKD-EPI)AfAm 6.88 Est GFR (CKD-EPI)NonAf 5.93 POC Glucometer Random Glucose 136 H Hemoglobin A1c % Calcium 9.0 Phosphorus 4.0 Magnesium 2.0 Total Bilirubin 0.5 AST 10 L ALT 11 L Alkaline Phosphatase 118 H Troponin I 0.10 H Total Protein 7.8 Albumin 3.6 TSH 1.87 Urine Color Urine Appearance Urine pH Ur Specific Lyndon Urine Protein Urine Glucose (UA) Urine Ketones Urine Blood Urine Nitrite Urine Bilirubin Urine Urobilinogen Ur Leukocyte Esterase Urine WBC (Auto) Urine RBC (Auto) Urine Casts (Auto) U Epithel Cells (Auto) Urine Bacteria (Auto) 03/30/20 03/30/20 03/31/20 11:00 19:40 06:26 WBC RBC Hgb Hct MCV MCH MCHC RDW Plt Count MPV Absolute Neuts (auto) Neutrophils % Lymphocytes % Monocytes % Eosinophils % Basophils % Nucleated RBC % Sodium Potassium Chloride Carbon Dioxide Anion Gap BUN Creatinine Est GFR (CKD-EPI)AfAm Est GFR (CKD-EPI)NonAf POC Glucometer 154 Random Glucose Hemoglobin A1c % 5.3 Calcium Phosphorus Magnesium Total Bilirubin AST ALT Alkaline Phosphatase Troponin I Total Protein Albumin TSH Urine Color Yellow Urine Appearance Cloudy Urine pH >= 9.0 H Ur Specific Lyndon 1.008 L Urine Protein 3+ H Urine Glucose (UA) Trace Urine Ketones Negative Urine Blood Negative Urine Nitrite Negative Urine Bilirubin Negative Urine Urobilinogen 0.2 Ur Leukocyte Esterase Negative Urine WBC (Auto) 14 Urine RBC (Auto) 8 Urine Casts (Auto) 1 U Epithel Cells (Auto) >36 Urine Bacteria (Auto) 4501 03/31/20 03/31/20 08:39 08:39 WBC 8.6 RBC 3.04 L Hgb 9.1 L Hct 27.6 L MCV 90.7 MCH 29.9 MCHC 33.0 RDW 15.0 Plt Count 186 MPV 8.9 Absolute Neuts (auto) Neutrophils % Lymphocytes % Monocytes % Eosinophils % Basophils % Nucleated RBC % Sodium 134 L Potassium 4.9 Chloride 97 L Carbon Dioxide 28 Anion Gap 10 BUN 43.2 H Creatinine 8.7 H* Est GFR (CKD-EPI)AfAm 4.83 Est GFR (CKD-EPI)NonAf 4.17 POC Glucometer Random Glucose 142 H Hemoglobin A1c % Calcium 9.0 Phosphorus Magnesium Total Bilirubin AST ALT Alkaline Phosphatase Troponin I Total Protein Albumin TSH Urine Color Urine Appearance Urine pH Ur Specific Lyndon Urine Protein Urine Glucose (UA) Urine Ketones Urine Blood Urine Nitrite Urine Bilirubin Urine Urobilinogen Ur Leukocyte Esterase Urine WBC (Auto) Urine RBC (Auto) Urine Casts (Auto) U Epithel Cells (Auto) Urine Bacteria (Auto) Active Medications Generic Name Dose Route Start Last Admin Trade Name Freq PRN Reason Stop Dose Admin Acetaminophen 650 mg 03/29/20 23:27 03/30/20 11:43 Tylenol - PO 650 mg Q6H PRN Administration PAIN LEVEL 4 - 6 Aspirin 81 mg 03/30/20 14:45 03/31/20 09:06 Ecotrin - PO 81 mg DAILY TERRA Administration Atorvastatin Calcium 10 mg 03/30/20 22:00 03/30/20 22:11 Lipitor - PO 10 mg HS TERRA Administration Carvedilol 25 mg 03/30/20 10:00 03/31/20 09:06 Coreg - PO 25 mg BID TERRA Administration Clonidine 0.2 mg 03/29/20 23:30 03/31/20 09:07 Catapres - PO 0.2 mg BID TERRA Administration Epoetin [place]on-epbx 4,000 unit 04/01/20 11:59 Retacrit IVPUSH 04/01/20 12:00 ONCE ONE Gabapentin 200 mg 03/30/20 10:00 03/31/20 09:06 Neurontin - PO 200 mg BID TERRA Administration Gabapentin 100 mg 03/30/20 22:00 03/30/20 22:11 Neurontin - PO 100 mg HS TERRA Administration Heparin Sodium (Porcine) 5,000 unit 03/30/20 06:00 03/31/20 06:32 Heparin - SQ 5,000 unit TID TERRA Administration Hydralazine HCl 10 mg 03/30/20 10:00 03/31/20 09:06 Apresoline - PO 10 mg BID TERRA Administration Sodium Chloride 250 mls @ 3,000 mls/hr 03/31/20 11:59 Normal Saline - IV 04/01/20 11:59 PRN PRN Hypotension during Dialysis Insulin Aspart 1 vial 03/30/20 07:00 03/31/20 11:31 Novolog Vial Sliding Scale - SQ 2 units ACHS TERRA Administration Protocol Multivit/Ca Carb/B Cmplx/FA/Prenat 1 tablet 03/30/20 10:00 03/31/20 09:06 Nephro-Roberta - PO 1 tablet DAILY TERRA Administration Nifedipine 90 mg 03/30/20 10:00 03/31/20 09:07 Procardia Xl - PO 90 mg DAILY TERRA Administration Non-Formulary Medication 145 mcg 03/30/20 10:00 Linaclotide [Linzess] PO DAILY TERRA Pantoprazole Sodium 20 mg 03/30/20 10:00 03/31/20 09:06 Protonix - PO 20 mg DAILY TERRA Administration Sevelamer Carbonate 1,600 mg 03/30/20 08:00 03/31/20 12:02 Renvela - PO 1,600 mg TIDCM TERRA Administration ASSESSMENT/PLAN: 69 y.o. Latvian-speaking F PMH HTN, HLD, ESRD (T,, Sat.), DM2, HFpEF and constipation who presented post-hemodialysis session on 03/29 for hypertension associated with headache, shortness of breath, blurry vision, and chest pressure. Admitted for hypertensive emergency. #Hypertensive emergency -BP 24hrs 110-189/59-85 -continue bp meds: hydralazine 10mg BID, clonidine 0.2mg BID, coreg 25mg BID, procardia 20mg daily -daily aspirin 81mg -trop 0.10 x 2 -EKG 03/29: NSR rate 69, 1st deg AV block -echo done 03/05/20: EF 70%. Mild LVH. Mild mitral annular calcification. Mild MR, TR, aortic sclerosis. -consider ACEi/ARB if no contraindications -Cardiology following- Dr. Marroquin: maintain LDL<30. MIBI ST when stable. 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 Watkins following -patient tends to become hypertensive w/ HD- may need slower HD vs. low sodium diasylate for paradoxical hypertension during HD #HLD -continue lipitor 10mg HS #DM2 -ISS, BGMs ACHS -HbA1c 5.3% -continue gabapentin -holding home januvia #HFpEF -BNP: 35,000; CXR shows mild cardiomegaly -echo done 03/05/20: EF 70%. Mild LVH. Mild mitral annular calcification. Mild MR, TR, aortic sclerosis. -consider ACEi/ARB if no contraindications #Constipation -having active BMs, cont to monitor -On home Linzess; non formulary in hospital, pt trying to get from family at home #FEN -no standing IVF -monitor electrolytes and replete as needed -renal Diet #DVT Ppx. -Hep SQ TID #Dispo ctm on telemetry Visit type - Emergency Visit Emergency Visit: No - New Patient This patient is new to me today: Yes Date on this admission: 03/31/20 - Critical Care Critical Care patient: No ATTENDING PHYSICIAN STATEMENT I saw and evaluated the patient. I reviewed the resident's note and discussed the case with the resident. I agree with the resident's findings and plan as documented. SUBJECTIVE: OBJECTIVE: ASSESSMENT AND PLAN:
--- NOTE | 2020-03-31 13:34 | PN ---
Teaching Attending Note Name of Resident: Norma Block ATTENDING PHYSICIAN STATEMENT I saw and evaluated the patient. I reviewed the resident's note and discussed the case with the resident. I agree with the resident's findings and plan as documented. SUBJECTIVE: Patient is comfortable with no acute distress. OBJECTIVE: Vital Signs Temperature 97.7 F 03/31/20 06:00 Pulse Rate 72 03/31/20 06:00 Respiratory Rate 20 03/31/20 06:00 Blood Pressure 154/73 03/31/20 06:00 O2 Sat by Pulse Oximetry (%) 97 03/30/20 21:00 PE; per resident's note CBCD WBC 8.6 K/mm3 (4.0-10.0) 03/31/20 08:39 RBC 3.04 M/mm3 (3.60-5.2) L 03/31/20 08:39 Hgb 9.1 GM/dL (10.7-15.3) L 03/31/20 08:39 Hct 27.6 % (32.4-45.2) L 03/31/20 08:39 MCV 90.7 fl (80-96) 03/31/20 08:39 MCHC 33.0 g/dl (32.0-36.0) 03/31/20 08:39 RDW 15.0 % (11.6-15.6) 03/31/20 08:39 Plt Count 186 K/MM3 (134-434) 03/31/20 08:39 MPV 8.9 fl (7.5-11.1) 03/31/20 08:39 CMP Sodium 134 mmol/L (136-145) L 03/31/20 08:39 Potassium 4.9 mmol/L (3.5-5.1) 03/31/20 08:39 Chloride 97 mmol/L (98-107) L 03/31/20 08:39 Carbon Dioxide 28 mmol/L (21-32) 03/31/20 08:39 Anion Gap 10 MMOL/L (8-16) 03/31/20 08:39 BUN 43.2 mg/dL (7-18) H 03/31/20 08:39 Creatinine 8.7 mg/dL (0.55-1.3) H* 03/31/20 08:39 Random Glucose 142 mg/dL (74-106) H 03/31/20 08:39 Calcium 9.0 mg/dL (8.5-10.1) 03/31/20 08:39 Total Bilirubin 0.5 mg/dL (0.2-1) 03/30/20 11:00 AST 10 U/L (15-37) L 03/30/20 11:00 ALT 11 U/L (13-61) L 03/30/20 11:00 Alkaline Phosphatase 118 U/L (45-117) H 03/30/20 11:00 Total Protein 7.8 g/dl (6.4-8.2) 03/30/20 11:00 Albumin 3.6 g/dl (3.4-5.0) 03/30/20 11:00 CARDIAC ENZYMES Creatine Kinase 72 U/L (26-192) 03/29/20 18:20 Troponin I 0.10 ng/ml (0.00-0.05) H 03/30/20 11:00 Current Medications Generic Name Dose Route Start Last Admin Trade Name Jairo PRN Reason Stop Dose Admin Acetaminophen 650 mg 03/29/20 23:27 03/30/20 11:43 Tylenol - PO 650 mg Q6H PRN Administration PAIN LEVEL 4 - 6 Aspirin 81 mg 03/30/20 14:45 03/31/20 09:06 Ecotrin - PO 81 mg DAILY TERRA Administration Atorvastatin Calcium 10 mg 03/30/20 22:00 03/30/20 22:11 Lipitor - PO 10 mg HS TERRA Administration Carvedilol 25 mg 03/30/20 10:00 03/31/20 09:06 Coreg - PO 25 mg BID TERRA Administration Clonidine 0.2 mg 03/29/20 23:30 03/31/20 09:07 Catapres - PO 0.2 mg BID TERRA Administration Epoetin [place]on-epbx 4,000 unit 04/01/20 11:59 Retacrit IVPUSH 04/01/20 12:00 ONCE ONE Gabapentin 200 mg 03/30/20 10:00 03/31/20 09:06 Neurontin - PO 200 mg BID TERRA Administration Gabapentin 100 mg 03/30/20 22:00 03/30/20 22:11 Neurontin - PO 100 mg HS TERRA Administration Heparin Sodium (Porcine) 5,000 unit 03/30/20 06:00 03/31/20 06:32 Heparin - SQ 5,000 unit TID TERRA Administration Hydralazine HCl 10 mg 03/30/20 10:00 03/31/20 09:06 Apresoline - PO 10 mg BID TERRA Administration Sodium Chloride 250 mls @ 3,000 mls/hr 03/31/20 11:59 Normal Saline - IV 04/01/20 11:59 PRN PRN Hypotension during Dialysis Insulin Aspart 1 vial 03/30/20 07:00 03/31/20 11:31 Novolog Vial Sliding Scale - SQ 2 units ACHS TERRA Administration Protocol Multivit/Ca Carb/B Cmplx/FA/Prenat 1 tablet 03/30/20 10:00 03/31/20 09:06 Nephro-Roberta - PO 1 tablet DAILY TERRA Administration Nifedipine 90 mg 03/30/20 10:00 03/31/20 09:07 Procardia Xl - PO 90 mg DAILY TERRA Administration Non-Formulary Medication 145 mcg 03/30/20 10:00 Linaclotide [Linzess] PO DAILY TERRA Pantoprazole Sodium 20 mg 03/30/20 10:00 03/31/20 09:06 Protonix - PO 20 mg DAILY TERRA Administration Sevelamer Carbonate 1,600 mg 03/30/20 08:00 03/31/20 12:02 Renvela - PO 1,600 mg TIDCM TERRA Administration Home Medications Medication Instructions Recorded Carvedilol [Coreg -] 25 mg PO BID 02/05/19 Clonidine HCl [Catapres] 0.2 mg PO Q12H 02/05/19 Folic Acid/Vit B Complex and C 0.8 mg PO DAILY 02/05/19 [Yue-Roberta Tablet] Gabapentin [Neurontin] 100 mg PO HS 02/05/19 Linaclotide [Linzess] 145 mcg PO DAILY 02/05/19 Nifedipine [Procardia Xl] 90 mg PO DAILY 02/05/19 Omeprazole 20 mg PO DAILY 02/05/19 Oxycodone HCl 5 mg PO DAILY PRN 02/05/19 Sevelamer Carbonate [Renvela -] 1,600 mg PO TID 02/05/19 Simvastatin [Zocor -] 20 mg PO HS 02/05/19 Sitagliptin Phosphate [Januvia] 25 mg PO DAILY 02/05/19 Gabapentin [Neurontin -] 200 mg PO BID 04/17/19 hydrALAZINE HCL [Apresoline -] 10 mg PO DAILY #0 tablet 03/10/20 CXR: mild Cardiomegaly without any evidence of acute lung dz. Prior Head CT 03/05/20: R. thalamic and L. internal capsule chronic infarcts Echo 03/05/20: EF 70%, mild concentric LVH, LA mod. dilated, RA mildly dilated EKG: sinus rhythm with 1st degree block, rate 69, no ST elevation or depression. ASSESSMENT AND PLAN: This patient is a 69yof Bolivian-speaking with PMHx. of HTN, HLD, ESRD (T,TH, Tue), T2DM, HFpEF and constipation presents after HD for having elevated SBP over 200's associated with headache, shortness of breath, blurry vision, and chest pressure. Patient is admitted for Hypertensive emergency. #Hypertensive emergency: Increased Hydralazine 10mg daily to BID, continue to monitor. #Acute SOB with chest pain and sob, Headache: improved today post having better bp control #Troponinemia:slight elevation of Trops. most likely due to demand ischemia, patient is going for stress test once stable, MIBI ST when stable CONTINUE asa #Prolonged Qtc:488 monitor #ESRD on HD (TThSa): BNP: 35K, continue HD #HLD:continue statin keep LDL below 70 #T2DM: BGM and ISS ACHS #Constipation: will give colace hs #HFpEF: echo, mild concentric left concentric left ventricular hypertrophy, left atrium is moderately dilated, most likely due uncontrolled HTN # Elevated Ddimer: cardio wants to do cta DVT Ppx.: Hep SQ TIDDecompensated diastolic CHF Elevated D-dimer
--- NOTE | 2020-03-31 13:39 | ECHO ---
Name: KANE GUIDRY ZAID Exam:Adult Echocardiogram Study Date: 03/31/2020 12:50 PM Age: 69 yrs Reason For Study: LV EF, RV EF Height: 64 in Weight: 165 lb BSA: 1.8 m2 MMode/2D Measurements & Calculations IVSd: 1.5 cm Ao root diam: 2.4 cm LVIDd: 4.0 cm LA dimension: 4.1 cm LVIDs: 2.4 cm LVPWd: 1.5 cm EDV(Teich): 70.5 ml LVOT diam: 2.0 cm ESV(Teich): 19.9 ml LAV (MOD-bp): 97.5 ml Doppler Measurements & Calculations MV E max rick: 167.0 cm/sec Ao V2 max: 177.2 cm/sec MV A max rick: 102.8 cm/sec Ao max P.6 mmHg MV E/A: 1.6 MV dec time: 0.17 sec BRIANNA(V,D): 1.6 cm2 LV V1 max P.2 mmHg MR max rick: 409.6 cm/sec LV V1 max: 89.6 cm/sec MR max P.4 mmHg TR max rick: 347.7 cm/sec PA V2 max: 110.5 cm/sec TR max P.5 mmHg PA max P.9 mmHg Med Peak E' Rick: 5.2 cm/sec PI Vmax: 184.8 cm/sec Med E/e': 32.0 Lat Peak E' Rick: 4.9 cm/sec Lat E/e': 34.1 Procedure Study Quality: Fair. Left Ventricle The left ventricle is normal in size. There is moderate concentric left ventricular hypertrophy. The left ventricular ejection fraction is normal. Ejection Fraction = 55-60%. Diastolic dysfunction, Grade II (pseudonormalization pattern). Right Ventricle The right ventricle is normal size. There is mild right ventricular hypertrophy. The right ventricula r systolic function is normal. Atria The left atrium is severely dilated. Mitral Valve There is mild mitral annular calcification. There is mild mitral regurgitation. Tricuspid Valve The tricuspid valve is normal. There is moderate tricuspid regurgitation. Right ventricular systolic pressure is elevated at 50-60mmHg. There is moderate pulmonary hypertension. Aortic Valve The aortic valve is normal in structure and function. Pulmonic Valve The pulmonic valve is not well seen, but is grossly normal. Trace pulmonic valvular regurgitation. Great Vessels The aortic root is normal size. Pericardium/Pleura Trivial pericardial effusion not hemodynamically significant. Interpretation Summary LV: Normal size, moderate LVH, normal systolic function,EF 55-60%, Grade II disatolic dysfunction RV: Normal size,mild RVH,normal function LA: Severely dilated RA: normal size Mildly calcified maitral valve annulus,mild MR Moderate TR, moderate pulmonary hypertension 50-60 mmHg Pericardial fat pad, likely trace effusion. Cortes Sandoval 03/31/2020 01:39 PM
[2020-03-31] MEDS: ATORVASTATIN CA 10 MG TABLET (FP) PO SCH (22:18)
[2020-03-31] MEDS: ACETAMINOPHEN 325 MG TABLET (FP) PO PRN (22:44)
[2020-04-01] MEDS: HEPARIN NA (PORCINE) 5,000 UNITS/ML 1ML VIAL SQ SCH ×3 (07:00→21:28)
[2020-04-01] MEDS: INSULIN SLIDING SCALE (NOVOLOG) 1 VIAL SQ SCH ×4 (07:01→21:28)
--- NOTE | 2020-04-01 07:17 | PN ---
Progress Note, Physician Chief Complaint: Pt A&Ox3; headache is now mild; denies dyspnea or chest pain. Feels tired. History of Present Illness: 69 yr old woman with PMHx. of HTN, HLD, ESRD (T,TH, Sat), DM, HFpEF, DM, s/p CVA (chronic cerebral infarcts on head CT), and constipation, who presents after HD with elevated SBP over 200's associated with headache, shortness of breath, blurry vision, and chest pressure. Patient is admitted for hypertensive emergency. Her SOB has been present for 10 days but worsened-->ER. It does not follow a pattern and is always present. However, her most distressing symptom was her headache. It was bilateral, frontal without radiation and is 8/10 in severity. She reports headaches in the past. She also reports nausea and generalized weakness. Reports chronic constipation which is unchanged. Ambulates with a walker for short distances but uses a wheelchair for long distance since being discharged from her last admission. Denies alcohol, tobacco or illicit drug use. No sick contacts or recent travels. Family history is unremarkable. - Current Medication List Current Medications: Active Medications Acetaminophen (Tylenol -) 650 mg PO Q6H PRN PRN Reason: PAIN LEVEL 4 - 6 Last Admin: 03/31/20 22:44 Dose: 650 mg Documented by: Aspirin (Ecotrin -) 81 mg PO DAILY [facility] Last Admin: 03/31/20 09:06 Dose: 81 mg Documented by: Atorvastatin Calcium (Lipitor -) 10 mg PO [facility] Last Admin: 03/31/20 22:18 Dose: 10 mg Documented by: Carvedilol (Coreg -) 25 mg PO BID [facility] Last Admin: 03/31/20 22:18 Dose: 25 mg Documented by: Clonidine (Catapres -) 0.2 mg PO BID [facility] Last Admin: 03/31/20 22:19 Dose: 0.2 mg Documented by: Epoetin [place]on-epbx (Retacrit) 4,000 unit IVPUSH ONCE ONE Stop: 04/01/20 12:00 Gabapentin (Neurontin -) 200 mg PO BID [facility] Last Admin: 03/31/20 22:18 Dose: 200 mg Documented by: Gabapentin (Neurontin -) 100 mg PO [facility] Last Admin: 03/31/20 22:18 Dose: 100 mg Documented by: Heparin Sodium (Porcine) (Heparin -) 5,000 unit SQ TID [facility] Last Admin: 04/01/20 07:00 Dose: Not Given Documented by: Hydralazine HCl (Apresoline -) 10 mg PO BID [facility] Last Admin: 03/31/20 22:18 Dose: 10 mg Documented by: Sodium Chloride (Normal Saline -) 250 mls @ 3,000 mls/hr IV PRN PRN PRN Reason: Hypotension during Dialysis Stop: 04/01/20 11:59 Insulin Aspart (Novolog Vial Sliding Scale -) 1 vial SQ ACHS [facility]; Protocol Last Admin: 04/01/20 07:01 Dose: Not Given Documented by: Multivit/Ca Carb/B Cmplx/FA/Prenat (Nephro-Roberta -) 1 tablet PO DAILY [facility] Last Admin: 03/31/20 09:06 Dose: 1 tablet Documented by: Nifedipine (Procardia Xl -) 90 mg PO DAILY [facility] Last Admin: 03/31/20 09:07 Dose: 90 mg Documented by: Non-Formulary Medication (Linaclotide [Linzess]) 145 mcg PO DAILY [facility] Pantoprazole Sodium (Protonix -) 20 mg PO DAILY [facility] Last Admin: 03/31/20 09:06 Dose: 20 mg Documented by: Sevelamer Carbonate (Renvela -) 1,600 mg PO TIDCM [facility] Last Admin: 03/31/20 17:18 Dose: 1,600 mg Documented by: - Objective Vital Signs: Vital Signs Temperature 98.4 F 04/01/20 02:00 Pulse Rate 69 04/01/20 02:00 Respiratory Rate 18 04/01/20 02:00 Blood Pressure 125/62 04/01/20 02:00 O2 Sat by Pulse Oximetry (%) 94 L 03/31/20 21:00 Constitutional: Yes: Anxious Eyes: Yes: WNL HENT: Yes: WNL Neck: Yes: WNL Cardiovascular: Yes: S1, S2, S4 Respiratory: Yes: Diminished, SOB on Exertion Gastrointestinal: Yes: Soft ...Rectal Exam: Yes: Deferred Genitourinary: No: Anuria Breast(s): Yes: WNL Musculoskeletal: Yes: WNL Extremities: Yes: WNL Edema: No Peripheral Pulses WNL: Yes Integumentary: Yes: WNL Neurological: Yes: WNL ...Motor Strength: WNL Psychiatric: Yes: WNL Labs: CBC, BMP 03/31/20 08:39 03/31/20 08:39 INR, PTT INR 1.03 (0.83-1.09) 03/29/20 18:20 Abnormal Lab Results 04/01/20 04/01/20 10:50 10:50 RBC 2.86 L Hgb 8.5 L Hct 26.0 L RDW 15.9 H Sodium 131 L Chloride 94 L BUN 56.8 H Creatinine 10.9 H* Random Glucose 180 H Calcium 8.4 L - ....Imaging Chest X-ray: Image Reviewed EKG: Image Reviewed Assessment/Plan Decompensated diastolic CHF uncontrolled HTN DM HLD chronic cerebral infarcts chronic anermia overweight Elevated D-dimer; (ECHO notes normal LVEF; moderate LVH; severe LAE; moderate pulmonary HTN; normal RVEF and RV size;mild RVH; normal RA size); O2 sat >90s on RA Elevated TNI Plan; COVID pending For CTA to r/o PE Hemodialysis per core microarchitect BP control: on clonidine, nifedipine, carvedilol, hydralazine. keep LDL below 70 mg/dL with statin, diet, exercise EKG: NSR, 1st degree AV block. TNI elevated; various contributors to demand ischemia. Multiple CAD risks, with mildly elevated TNI: MIBI Stress when stable ASA 81 QD
[2020-04-01] MEDS ORDERED: SODIUM CHLORIDE 250 ML IV PRN (07:21)
[2020-04-01] MEDS ORDERED: EPOETIN ALFA-EPBX 4,000 UNIT/ML VIAL IVPUSH ONE (07:30)
[2020-04-01 11:16] LABS: HEMOGLOBIN 8.5 GM/dL (10.7-15.3); MCH 29.7 pg (25.7-33.7); MCHC 32.7 g/dl (32.0-36.0); MEAN PLT VOLUME 9.3 fl (7.5-11.1); PLATELET COUNT 174 K/MM3 (134-434); RBC 2.86 M/mm3 (3.60-5.2); RDW 15.9 % (11.6-15.6); WHITE BLOOD COUNT 8.2 K/mm3 (4.0-10.0)
[2020-04-01 11:48] LABS: BLOOD UREA NITROGEN 56.8 mg/dL (7-18); CALCIUM 8.4 mg/dL (8.5-10.1); POTASSIUM 4.9 mmol/L (3.5-5.1)
[2020-04-01 11:51] LABS: CREATININE 10.9 mg/dL (0.55-1.3)
[2020-04-01] MEDS: SEVELAMER CARBONATE 800 MG TAB (FP) PO SCH ×3 (11:52→17:12)
[2020-04-01] MEDS: ACETAMINOPHEN 325 MG TABLET (FP) PO PRN (11:54)
--- NOTE | 2020-04-01 12:02 | PN ---
Progress Note, Physician History of Present Illness: Pt seen and examined at bedside. She is awake and alert. She is tolerating HD. - Current Medication List Current Medications: Active Medications Acetaminophen (Tylenol -) 650 mg PO Q6H PRN PRN Reason: PAIN LEVEL 4 - 6 Last Admin: 03/31/20 22:44 Dose: 650 mg Documented by: Aspirin (Asa -) 81 mg PO DAILY [facility] Atorvastatin Calcium (Lipitor -) 10 mg PO HS [facility] Last Admin: 03/31/20 22:18 Dose: 10 mg Documented by: Carvedilol (Coreg -) 25 mg PO BID [facility] Last Admin: 03/31/20 22:18 Dose: 25 mg Documented by: Clonidine (Catapres -) 0.2 mg PO BID [facility] Last Admin: 03/31/20 22:19 Dose: 0.2 mg Documented by: Gabapentin (Neurontin -) 200 mg PO BID [facility] Last Admin: 03/31/20 22:18 Dose: 200 mg Documented by: Gabapentin (Neurontin -) 100 mg PO HS [facility] Last Admin: 03/31/20 22:18 Dose: 100 mg Documented by: Heparin Sodium (Porcine) (Heparin -) 5,000 unit SQ TID [facility] Last Admin: 04/01/20 07:00 Dose: Not Given Documented by: Hydralazine HCl (Apresoline -) 10 mg PO BID [facility] Last Admin: 03/31/20 22:18 Dose: 10 mg Documented by: Sodium Chloride (Normal Saline -) 250 mls @ 3,000 mls/hr IV PRN PRN PRN Reason: Hypotension during Dialysis Stop: 04/01/20 13:00 Insulin Aspart (Novolog Vial Sliding Scale -) 1 vial SQ [facility]; Protocol Last Admin: 04/01/20 07:01 Dose: Not Given Documented by: Multivit/Ca Carb/B Cmplx/FA/Prenat (Nephro-Roberta -) 1 tablet PO DAILY [facility] Last Admin: 03/31/20 09:06 Dose: 1 tablet Documented by: Nifedipine (Procardia Xl -) 90 mg PO DAILY [facility] Last Admin: 03/31/20 09:07 Dose: 90 mg Documented by: Non-Formulary Medication (Linaclotide [Linzess]) 145 mcg PO DAILY [facility] Pantoprazole Sodium (Protonix -) 20 mg PO DAILY [facility] Last Admin: 03/31/20 09:06 Dose: 20 mg Documented by: Sevelamer Carbonate (Renvela -) 1,600 mg PO TIDCM [facility] Last Admin: 03/31/20 17:18 Dose: 1,600 mg Documented by: - Objective Vital Signs: Vital Signs Temperature 98.9 F 04/01/20 10:25 Pulse Rate 66 04/01/20 11:30 Respiratory Rate 18 04/01/20 11:30 Blood Pressure 139/63 04/01/20 11:30 O2 Sat by Pulse Oximetry (%) 95 04/01/20 09:00 Constitutional: Yes: Calm Eyes: Yes: Conjunctiva Clear HENT: Yes: Atraumatic Neck: Yes: Supple Cardiovascular: Yes: S1, S2 Respiratory: Yes: CTA Bilaterally Gastrointestinal: Yes: Soft Genitourinary: Yes: WNL Musculoskeletal: Yes: WNL Edema: No Neurological: Yes: Oriented Psychiatric: Yes: Oriented Labs: CBC, BMP 04/01/20 10:50 04/01/20 10:50 INR, PTT INR 1.03 (0.83-1.09) 03/29/20 18:20 Assessment/Plan Current Medications Generic Name Dose Route Start Last Admin Trade Name Freq PRN Reason Stop Dose Admin Acetaminophen 650 mg 03/29/20 23:27 03/31/20 22:44 Tylenol - PO 650 mg Q6H PRN Administration PAIN LEVEL 4 - 6 Aspirin 81 mg 04/01/20 10:00 Asa - PO DAILY [facility] Atorvastatin Calcium 10 mg 03/30/20 22:00 03/31/20 22:18 Lipitor - PO 10 mg HS [facility] Administration Carvedilol 25 mg 03/30/20 10:00 03/31/20 22:18 Coreg - PO 25 mg BID [facility] Administration Clonidine 0.2 mg 03/29/20 23:30 03/31/20 22:19 Catapres - PO 0.2 mg BID [facility] Administration Gabapentin 200 mg 03/30/20 10:00 03/31/20 22:18 Neurontin - PO 200 mg BID [facility] Administration Gabapentin 100 mg 03/30/20 22:00 03/31/20 22:18 Neurontin - PO 100 mg HS [facility] Administration Heparin Sodium (Porcine) 5,000 unit 03/30/20 06:00 04/01/20 07:00 Heparin - SQ Not Given TID [facility] Hydralazine HCl 10 mg 03/30/20 10:00 03/31/20 22:18 Apresoline - PO 10 mg BID [facility] Administration Sodium Chloride 250 mls @ 3,000 mls/hr 04/01/20 07:21 Normal Saline - IV 04/01/20 13:00 PRN PRN Hypotension during Dialysis Insulin Aspart 1 vial 03/30/20 07:00 04/01/20 07:01 Novolog Vial Sliding Scale - SQ Not Given ACHS [facility] Protocol Multivit/Ca Carb/B Cmplx/FA/Prenat 1 tablet 03/30/20 10:00 03/31/20 09:06 Nephro-Roberta - PO 1 tablet DAILY [facility] Administration Nifedipine 90 mg 03/30/20 10:00 03/31/20 09:07 Procardia Xl - PO 90 mg DAILY [facility] Administration Non-Formulary Medication 145 mcg 03/30/20 10:00 Linaclotide [Linzess] PO DAILY [facility] Pantoprazole Sodium 20 mg 03/30/20 10:00 03/31/20 09:06 Protonix - PO 20 mg DAILY [facility] Administration Sevelamer Carbonate 1,600 mg 03/30/20 08:00 03/31/20 17:18 Renvela - PO 1,600 mg TIDCM [facility] Administration Laboratory Tests 02/05/19 03/31/20 19:24 16:11 Total Protein 8.7 H COVID-19 (ERNESTINA) Pending Impression 1. ESRD 2. non compliance with bp meds 3. dyspnea 4. DM 5. HTN Plan - HD today - cont bp meds - discussed compliance with meds - renal diet - ct neg for PE - follow covid results
[2020-04-01] MEDS ORDERED: PT OWN MED DRAWER 7, Y5N ONE (15:09)
[2020-04-01] MEDS: VITAMIN B COMP W-C 1 EA TABLET (NEPHRO-VITE) PO SCH (15:17)
[2020-04-01] MEDS: PANTOPRAZOLE 20 MG TABLET PO SCH (15:17)
[2020-04-01] MEDS: ASPIRIN 81 MG CHEWABLE TABLETS PO SCH (15:17)
[2020-04-01] MEDS: NIFEdipine E.R. 90 MG TABLET PO SCH (15:18)
[2020-04-01] MEDS: GABAPENTIN 100 MG CAPSULE PO SCH ×3 (15:24→21:28)
[2020-04-01] MEDS: CARVEDILOL 25 MG TABLET (FP) PO SCH ×2 (15:25→21:28)
[2020-04-01] MEDS: cloNIDine HCL 0.1 MG TABLET PO SCH ×2 (15:25→21:28)
[2020-04-01] MEDS: hydrALAZINE HCL 10 MG TABLET PO SCH ×2 (15:25→21:28)
--- NOTE | 2020-04-01 15:37 | PN ---
Physical Exam: SUBJECTIVE: Patient seen and examined. Overnight at 6:15PM 03/31 has 60 second episode of aphasia with LUE parasthesias. Stroke w/u initiated. CT head was negative for acute infarct or bleed. MRI brain ordered to r/o ischemia. Today patient has persistent LUE weakness and generalized headache. Hemodialysis today. History and physical exam obtained using [employer] chemical pumper # [id number] OBJECTIVE: Vital Signs Period Temp Pulse Resp BP Sys/Dietz Pulse Ox Last 24 Hr 97.1 F-99.0 F 64-77 18-20 104-157/40-79 94-95 GENERAL: The patient is awake, alert, and fully oriented, in no acute distress. HEENT: NCAT. MMM. Neck supple. LUNGS: CTABL, no wheezes, no crackles, no accessory muscle use. HEART: Regular rate and rhythm, S1, S2, 3/6 systolic murmur noted. ABDOMEN: Soft, nontender, nondistended, normoactive bowel sounds, no guarding. EXTREMITIES: 2+ pulses, warm, well-perfused, no edema. NEUROLOGICAL: Cranial nerves II through XII grossly intact. Sensation intact throughout. LUE and LLE 4/5 motor strength; RUE/RLE 5/5. Good handgrip strength. Reflexes 2+. PSYCH: Normal mood, normal affect. SKIN: Warm, dry, normal turgor, no rashes or lesions noted Laboratory Results - last 24 hr 03/29/20 04/01/20 04/01/20 18:20 10:50 10:50 WBC 8.2 RBC 2.86 L Hgb 8.5 L Hct 26.0 L MCV 91.0 MCH 29.7 MCHC 32.7 RDW 15.9 H Plt Count 174 MPV 9.3 Sodium 131 L Potassium 4.9 Chloride 94 L Carbon Dioxide 25 Anion Gap 12 BUN 56.8 H Creatinine 10.9 H* Est GFR (CKD-EPI)AfAm 3.68 Est GFR (CKD-EPI)NonAf 3.18 Random Glucose 180 H Calcium 8.4 L Antibody Identification K Active Medications Generic Name Dose Route Start Last Admin Trade Name Freq PRN Reason Stop Dose Admin Acetaminophen 650 mg 03/29/20 23:27 04/01/20 11:54 Tylenol - PO 650 mg Q6H PRN Administration PAIN LEVEL 4 - 6 Aspirin 81 mg 04/01/20 10:00 Asa - PO DAILY [facility] Atorvastatin Calcium 10 mg 03/30/20 22:00 03/31/20 22:18 Lipitor - PO 10 mg HS [facility] Administration Carvedilol 25 mg 03/30/20 10:00 03/31/20 22:18 Coreg - PO 25 mg BID [facility] Administration Clonidine 0.2 mg 03/29/20 23:30 03/31/20 22:19 Catapres - PO 0.2 mg BID [facility] Administration Gabapentin 200 mg 03/30/20 10:00 03/31/20 22:18 Neurontin - PO 200 mg BID [facility] Administration Gabapentin 100 mg 03/30/20 22:00 03/31/20 22:18 Neurontin - PO 100 mg HS [facility] Administration Heparin Sodium (Porcine) 5,000 unit 03/30/20 06:00 04/01/20 07:00 Heparin - SQ Not Given TID [facility] Hydralazine HCl 10 mg 03/30/20 10:00 03/31/20 22:18 Apresoline - PO 10 mg BID [facility] Administration Insulin Aspart 1 vial 03/30/20 07:00 04/01/20 07:01 Novolog Vial Sliding Scale - SQ Not Given ACHS [facility] Protocol Multivit/Ca Carb/B Cmplx/FA/Prenat 1 tablet 03/30/20 10:00 03/31/20 09:06 Nephro-Roberta - PO 1 tablet DAILY [facility] Administration Nifedipine 90 mg 03/30/20 10:00 03/31/20 09:07 Procardia Xl - PO 90 mg DAILY [facility] Administration Non-Formulary Medication 145 mcg 03/30/20 10:00 Linaclotide [Linzess] PO DAILY [facility] Pantoprazole Sodium 20 mg 03/30/20 10:00 03/31/20 09:06 Protonix - PO 20 mg DAILY [facility] Administration Sevelamer Carbonate 1,600 mg 03/30/20 08:00 04/01/20 11:52 Renvela - PO Not Given TIDCM [facility] IMAGING: * CTA Chest 04/01: 1. No evidence of pulmonary embolism. 2. Groundglass opacification throughout the lung villegas. Diagnostic possibilities would include mild congestion or viral pneumonitis. 3. Cardiomegaly and mild mediastinal and right hilar lymphadenopathy. 4. Suspected cholelithiasis. Please see above discussion. * CT head w/o con 03/31: No CT evidence of acute intracranial pathology. Chronic supratentorial and infratentorial infarcts are noted as discussed above. Moderate to marked periventricular and subcortical chronic microvascular ischemic changes are seen. No definite change is identified in comparison to prior CT exams of 03/05/2020 and 03/01/2020. * CXR 03/29: Mild cardiomegaly without evidence of acute lung disease ASSESSMENT/PLAN: 69 y.o. Polish-speaking F PMH HTN, HLD, ESRD (T,TH, Sat.), DM2, HFpEF and constipation who presented post-hemodialysis session on 03/29 for hypertension associated with headache, shortness of breath, blurry vision, and chest pressure. Admitted for hypertensive emergency. #Hypertensive emergency -BPs better controlled -continue bp meds: hydralazine 10mg BID, clonidine 0.2mg BID, coreg 25mg BID, procardia 20mg daily -daily aspirin 81mg -trop 0.10 x 2 -EKG 03/29: NSR rate 69, 1st deg AV block -echo 03/31: EF 55-60%. Grade II diastolic dysfunction. LA severely dilated. Mod TR, mod pulm HTN, Trace pericardial effusion. -consider ACEi/ARB if no contraindications- f/u renal recs -Cardiology following- Dr. Blackwell: maintain LDL<30. MIBI ST when stable. -needs home BP cuff rx -daily neurochecks -q4h VS -Prior Head CT 03/05/20: R. thalamic and L. internal capsule chronic infarcts; lo w threshold for repeat -d-dimer elevated; CTA chest negaative for PE #Rule out CVA -NIHSS on my exam this morning is 4- left leg and left arm motor drift -CT head negative for acute infarct or bleed -f/u MRI brain w/o con -f/u lipid panel -Neurology Dr. Valentine consulted -continue asa, statin #ESRD -Hemodialysis T/THSat schedule- s/p HS today tolerated well -Nephrology Dr. Watkins following -patient tends to become hypertensive w/ HD- may need slower HD vs. low sodium diasylate for paradoxical hypertension during HD #HLD -continue lipitor 10mg HS #DM2 -ISS, BGMs ACHS -HbA1c 5.3% -continue gabapentin -holding home januvia #HFpEF -BNP: 35,000; CXR shows mild cardiomegaly -echo 03/31: EF 55-60%. Grade II diastolic dysfunction. LA severely dilated. Mod TR, mod pulm HTN, Trace pericardial effusion. -consider ACEi/ARB if no contraindications #Constipation -having active BMs, cont to monitor -On home Linzess; non formulary in hospital, pt trying to get from family at home #FEN -no standing IVF -monitor electrolytes and replete as needed -renal Diet #DVT Ppx. -Hep SQ TID #Dispo ctm on telemetry covid-19 pcr pending Visit type - Emergency Visit Emergency Visit: No - New Patient This patient is new to me today: No - Critical Care Critical Care patient: No ATTENDING PHYSICIAN STATEMENT I saw and evaluated the patient. I reviewed the resident's note and discussed the case with the resident. I agree with the resident's findings and plan as documented. SUBJECTIVE: OBJECTIVE: ASSESSMENT AND PLAN:
--- NOTE | 2020-04-01 18:45 | CONSULT ---
Consult - text type - Consultation Consultation Note: NEUROLOGY CONSULTATION is greatly appreciated: This 69 yo RH woman with h/o HTN, DM, Chol, and ESRD has been on HD x 6 years. On: Carvedilol 25 mg PO BID; Clonidine 0.2 mg PO Q12H; Gabapentin 200 mg BID and 100 mg PO HS; Linzess; Nifedipine 90 mg; Omeprazole; Oxycodone 5 mg; Renvela; Simvastatin; Sitagliptin; and Hydralazine HCl 10 mg PO. Multiple admissions for SOB, elevated BP, and recurrent episodes of left sided (> R) numbness and tingling. Now admitted after HD with SOB elevated BP and chest pain. Last night developed transient left sided paresthesiae and depressed LOc (discussed with Dr. Darion Gordon, ) with resolved. CT of head (reviewed): Scattered subcortical and confluent periventricular microvascular changes and scattered small infarcts (unchanged from prior studies). Now, Pt feels "fine." C/O Throbbing occipital headache with mild nausea which is "different" from Headaches present 2-3/wk x many years which are right hemicranial or holocranial throbbing headaches with eye pain and photophobia. CODY: No evidence of head trauma. Npo carotid bruits. Cor reg. HD AV fistual right arm NEURO: Awake, alert. Ox3. MS and speech are normal. CN II-XII: Normal Motor: LEFT HEMIATROPHY (arm and leg). Mild left hemiparesis. Sl reduced left MIGUEL ÁNGEL's. Normal reflexes. Toes downgoing Coord: No FTN Dystaxia Sensory: Normal gait: Mild left circumduction onto foreshortened left leg. IMP: 1. 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 Migraine Headaches. 3. Recurrent, transient left hemiparesthesia- may represent a migraine aura or a partial sensory seizure associated with hemiplegic CP SUGGEST: Control Systolic hypertension. Increase Beta-hung, if possible, for migraine prophylactic benefit Begin Depakote ER 250 mg qhs x 2 days then D/C on 500 mg/day (vs migraines and possible sensory seizures) Neuro f/u and EEG as out patient. Thank you very much, Segundo Valentine MD
--- NOTE | 2020-04-01 19:40 | PN ---
Teaching Attending Note Name of Resident: Norma Block ATTENDING PHYSICIAN STATEMENT I saw and evaluated the patient. I reviewed the resident's note and discussed the case with the resident. I agree with the resident's findings and plan as documented. SUBJECTIVE:cyracome was used with residents seen in am . complained of JUNIOR , vision is impared but she has cataract. last night with L sided weakness and numbnees and tingling. improved but still there at time of eval OBJECTIVE: NAD CV: RRR 3/6 Sm at LUSB , Ext: No edema Neuro : RUE not evaluated as she was getting HD LUE: shoulder flexion 4/5, biceps /triceps 4/5, weak hand heater helper RLE: hip flexion 4/5 . Knee flexion /extension 5/5 , ankle dorsiflexion/plantar flexion 5/5 LLE: hip felxion 4/5 , Knee flexion 4/5 , ankle dorsiflexion /plantar flexion 5/5 reflexes : L biceps 2+ , Knee jerk 1+ b/l . sensation to light touch is decreased inL hand and LUE ASSESSMENT AND PLAN: 69yof [place] Islander-speaking with PMHx. of HTN, HLD, ESRD (T,TH, Sat), T2DM, HFpEF and constipation presents after HD for having elevated SBP over 200's associated with headache, shortness of breath, blurry vision, and chest pressure. 1- Uncontrolled HTN 2- chest pain : resolved 3- slightly elevationin trop, in settingof renal fialure , and possible demand 4- Episode of L sided weakness and parasthesia 5- DM 6- D dimer elevation 7- R hilar LAP 8- ground glass opacities :likley pulm edema 9- ESRD plan : - episode last night could 've been due to transient drop in Blood pressure with hypoperfusion , or due to complicated migraine, or a stroke - order MRI of the brain - cont divalproex - cont HTN regiem: cloniding, HZN, procardia and coreg - will ask nephrology why ACEI/ARB are ot used . ? hyperkalemia - cont SSI . A1c 5.3 - cont statin - CTA neg for PE . - repeat imaging for R hilar LAP as out pt - follow COVID - ischemic w/u per card after covid - HD today
[2020-04-01] MEDS: ATORVASTATIN CA 10 MG TABLET (FP) PO SCH (21:28)
[2020-04-01] MEDS: DIVALPROEX NA *ER* EXTEND REL 500 MG TABLET.SA (FP) PO SCH (21:28)
[2020-04-02] MEDS: HEPARIN NA (PORCINE) 5,000 UNITS/ML 1ML VIAL SQ SCH ×3 (05:49→21:39)
[2020-04-02] MEDS: INSULIN SLIDING SCALE (NOVOLOG) 1 VIAL SQ SCH ×4 (06:00→21:40)
[2020-04-02] MEDS ORDERED: MECLIZINE HCL 12.5 MG TABLET PO PRN (06:18)
[2020-04-02] MEDS ORDERED: PT OWN MED DRAWER 7, Y5N ONE (09:26)
[2020-04-02] MEDS: SEVELAMER CARBONATE 800 MG TAB (FP) PO SCH ×3 (09:29→17:39)
[2020-04-02] MEDS: CARVEDILOL 25 MG TABLET (FP) PO SCH ×2 (09:30→21:39)
[2020-04-02] MEDS: PANTOPRAZOLE 20 MG TABLET PO SCH (09:30)
[2020-04-02] MEDS: ASPIRIN 81 MG CHEWABLE TABLETS PO SCH (09:30)
[2020-04-02] MEDS: NIFEdipine E.R. 90 MG TABLET PO SCH (09:30)
[2020-04-02] MEDS: GABAPENTIN 100 MG CAPSULE PO SCH ×3 (09:30→21:40)
[2020-04-02] MEDS: VITAMIN B COMP W-C 1 EA TABLET (NEPHRO-VITE) PO SCH (09:30)
[2020-04-02] MEDS: hydrALAZINE HCL 10 MG TABLET PO SCH ×2 (09:30→21:39)
[2020-04-02] MEDS: cloNIDine HCL 0.1 MG TABLET PO SCH ×2 (09:31→21:40)
[2020-04-02] MEDS: DIVALPROEX NA *ER* EXTEND REL 500 MG TABLET.SA (FP) PO SCH (09:32)
--- NOTE | 2020-04-02 10:26 | PN ---
Progress Note, Physician History of Present Illness: This patient is a 69yof Belarusian-speaking with PMHx. of HTN, HLD, ESRD (,, Tue), T2DM, HFpEF and constipation presents after HD for having elevated SBP over 200's associated with headache, shortness of breath, blurry vision, and chest pressure. Patient is admitted for Hypertensive emergency. PMH of ESRD on hemodialysis (//), CAD, HTN, HLD and NIDDM brought by EMS for SOB following her dialysis treatment. Her SOB has been present for 10 days but today she feels it is worse. It does not follow a pattern and is always present. However, her most distressing symptom today is her headache. It is bilateral, frontal without radiation and is 8/10 in severity. She reports headaches in the past. She also reports nausea and generalized weakness. Denies fever, chills, light headedness, dizziness, syncope, chest pain, palpitations, abdominal pain, vomiting, dysuria, hematuria or diarrhea. Reports chronic constipation which is unchanged. Of note, she ambulates with a walker for short distances but uses a wheelchair for long distance since being discharged from her last admission. D enies alcohol, tobacco or illicit drug use. No sick contacts or recent travels. Family history is unremarkable. - Current Medication List Current Medications: Active Medications Acetaminophen (Tylenol -) 650 mg PO Q6H PRN PRN Reason: PAIN LEVEL 4 - 6 Last Admin: 04/01/20 11:54 Dose: 650 mg Documented by: Aspirin (Asa -) 81 mg PO DAILY [facility] Last Admin: 04/02/20 09:30 Dose: 81 mg Documented by: Atorvastatin Calcium (Lipitor -) 10 mg PO HS [facility] Last Admin: 04/01/20 21:28 Dose: 10 mg Documented by: Carvedilol (Coreg -) 25 mg PO BID [facility] Last Admin: 04/02/20 09:30 Dose: 25 mg Documented by: Clonidine (Catapres -) 0.2 mg PO BID [facility] Last Admin: 04/02/20 09:31 Dose: 0.2 mg Documented by: Divalproex Sodium (Depakote *Er* -) 500 mg PO DAILY [facility] Last Admin: 04/02/20 09:32 Dose: 500 mg Documented by: Gabapentin (Neurontin -) 200 mg PO BID [facility] Last Admin: 04/02/20 09:30 Dose: 200 mg Documented by: Gabapentin (Neurontin -) 100 mg PO HS [facility] Last Admin: 04/01/20 21:28 Dose: 100 mg Documented by: Heparin Sodium (Porcine) (Heparin -) 5,000 unit SQ TID [facility] Last Admin: 04/02/20 05:49 Dose: 5,000 unit Documented by: Hydralazine HCl (Apresoline -) 10 mg PO BID [facility] Last Admin: 04/02/20 09:30 Dose: 10 mg Documented by: Insulin Aspart (Novolog Vial Sliding Scale -) 1 vial SQ ACHS [facility]; Protocol Last Admin: 04/02/20 06:00 Dose: Not Given Documented by: Multivit/Ca Carb/B Cmplx/FA/Prenat (Nephro-Roberta -) 1 tablet PO DAILY [facility] Last Admin: 04/02/20 09:30 Dose: 1 tablet Documented by: Nifedipine (Procardia Xl -) 90 mg PO DAILY [facility] Last Admin: 04/02/20 09:30 Dose: 90 mg Documented by: Non-Formulary Medication (Linaclotide [Linzess]) 145 mcg PO DAILY [facility] Pantoprazole Sodium (Protonix -) 20 mg PO DAILY [facility] Last Admin: 04/02/20 09:30 Dose: 20 mg Documented by: Sevelamer Carbonate (Renvela -) 1,600 mg PO TIDCM [facility] Last Admin: 04/02/20 09:29 Dose: 1,600 mg Documented by: - Objective Vital Signs: Vital Signs Temperature 99.1 F 04/02/20 08:04 Pulse Rate 72 04/02/20 08:04 Respiratory Rate 18 04/02/20 08:04 Blood Pressure 133/59 L 04/02/20 08:04 O2 Sat by Pulse Oximetry (%) 95 04/01/20 20:45 Eyes: Yes: WNL, Conjunctiva Clear, EOM Intact HENT: Yes: WNL, Atraumatic, Normocephalic Neck: Yes: WNL, Supple, Trachea Midline Cardiovascular: Yes: WNL, Regular Rate and Rhythm Respiratory: Yes: WNL, Regular, CTA Bilaterally Gastrointestinal: Yes: WNL, Normal Bowel Sounds Genitourinary: Yes: WNL Musculoskeletal: Yes: WNL Extremities: Yes: WNL Edema: No Integumentary: Yes: WNL Neurological: Yes: WNL, Alert, Oriented ...Motor Strength: WNL Psychiatric: Yes: WNL Labs: CBC, BMP 04/01/20 10:50 04/01/20 10:50 INR, PTT INR 1.03 (0.83-1.09) 03/29/20 18:20 Problem List - Problems (1) Elevated brain natriuretic peptide (BNP) level Code(s): R79.89 - OTHER SPECIFIED ABNORMAL FINDINGS OF BLOOD CHEMISTRY (2) Elevated troponin Code(s): R79.89 - OTHER SPECIFIED ABNORMAL FINDINGS OF BLOOD CHEMISTRY (3) Headache Code(s): R51 - HEADACHE (4) SOB (shortness of breath) Code(s): R06.02 - SHORTNESS OF BREATH (5) Abnormal head CT Code(s): R93.0 - ABNORMAL FINDINGS ON DX IMAGING OF SKULL AND HEAD, NEC (6) Acute appendicitis Code(s): K35.80 - UNSPECIFIED ACUTE APPENDICITIS Qualifiers: Acute appendicitis type: other Qualified Code(s): K35.890 - Other acute appendicitis without perforation or gangrene; K35.89 - Other acute appendicitis (7) Acute exacerbation of chronic low back pain Code(s): M54.5 - LOW BACK PAIN; G89.29 - OTHER CHRONIC PAIN (8) Anemia Code(s): D64.9 - ANEMIA, UNSPECIFIED (9) Anemia in chronic kidney disease Code(s): N18.9 - CHRONIC KIDNEY DISEASE, UNSPECIFIED; D63.1 - ANEMIA IN CHRONIC KIDNEY DISEASE (10) Back pain Code(s): M54.9 - DORSALGIA, UNSPECIFIED Qualifiers: Back pain location: low back pain (11) Diabetes mellitus type 2, noninsulin dependent Code(s): E11.9 - TYPE 2 DIABETES MELLITUS WITHOUT COMPLICATIONS (12) ESRD on hemodialysis Code(s): N18.6 - END STAGE RENAL DISEASE; Z99.2 - DEPENDENCE ON RENAL DIALYSIS (13) Fever Code(s): R50.9 - FEVER, UNSPECIFIED (14) Fever Code(s): R50.9 - FEVER, UNSPECIFIED (15) Hyperkalemia Code(s): E87.5 - HYPERKALEMIA (16) Hypertension Code(s): I10 - ESSENTIAL (PRIMARY) HYPERTENSION Qualifiers: Hypertension type: essential hypertension Qualified Code(s): I10 - Essential (primary) hypertension (17) Missed dialysis Code(s): [id number] - (18) Numbness Code(s): R20.0 - ANESTHESIA OF SKIN (19) Prophylactic measure Code(s): Z29.9 - ENCOUNTER FOR PROPHYLACTIC MEASURES, UNSPECIFIED (20) Pulmonary congestion Code(s): R09.89 - OTH SYMPTOMS AND SIGNS INVOLVING THE CIRC AND RESP SYSTEMS (21) Suspected COVID-19 virus infection Code(s): Z20.828 - CONTACT W AND EXPOSURE TO OTH VIRAL COMMUNICABLE DISEASES Assessment/Plan Decompensated diastolic CHF uncontrolled HTN DM HLD chronic cerebral infarcts chronic anermia overweight Elevated D-dimer; (ECHO notes normal LVEF; moderate LVH; severe LAE; moderate pulmonary HTN; normal RVEF and RV size;mild RVH; normal RA size); O2 sat >90s on RA Elevated TNI Plan; COVID pending CTA neg for PE but changes suggesting viral pnemonitis Hemodialysis per [employer] BP control: on clonidine, nifedipine, carvedilol, hydralazine. keep LDL below 70 mg/dL with statin, diet, exercise EKG: NSR, 1st degree AV block. TNI elevated; various contributors to demand ischemia. Multiple CAD risks, with mildly elevated TNI: MIBI Stress when stable ASA 81 QD
--- NOTE | 2020-04-02 11:54 | PN ---
Progress Note, Physician History of Present Illness: Pt seen and examined at beside. She is awake and alert. She denies shortness of breath. She is asking to go home. - Current Medication List Current Medications: Active Medications Acetaminophen (Tylenol -) 650 mg PO Q6H PRN PRN Reason: PAIN LEVEL 4 - 6 Last Admin: 04/01/20 11:54 Dose: 650 mg Documented by: Aspirin (Asa -) 81 mg PO DAILY [facility] Last Admin: 04/02/20 09:30 Dose: 81 mg Documented by: Atorvastatin Calcium (Lipitor -) 10 mg PO HS [facility] Last Admin: 04/01/20 21:28 Dose: 10 mg Documented by: Carvedilol (Coreg -) 25 mg PO BID [facility] Last Admin: 04/02/20 09:30 Dose: 25 mg Documented by: Clonidine (Catapres -) 0.2 mg PO BID [facility] Last Admin: 04/02/20 09:31 Dose: 0.2 mg Documented by: Divalproex Sodium (Depakote *Er* -) 500 mg PO DAILY [facility] Last Admin: 04/02/20 09:32 Dose: 500 mg Documented by: Gabapentin (Neurontin -) 200 mg PO BID [facility] Last Admin: 04/02/20 09:30 Dose: 200 mg Documented by: Gabapentin (Neurontin -) 100 mg PO [facility] Last Admin: 04/01/20 21:28 Dose: 100 mg Documented by: Heparin Sodium (Porcine) (Heparin -) 5,000 unit SQ TID [facility] Last Admin: 04/02/20 05:49 Dose: 5,000 unit Documented by: Hydralazine HCl (Apresoline -) 10 mg PO BID [facility] Last Admin: 04/02/20 09:30 Dose: 10 mg Documented by: Insulin Aspart (Novolog Vial Sliding Scale -) 1 vial SQ ACHS [facility]; Protocol Last Admin: 04/02/20 11:48 Dose: Not Given Documented by: Multivit/Ca Carb/B Cmplx/FA/Prenat (Nephro-Roberta -) 1 tablet PO DAILY [facility] Last Admin: 04/02/20 09:30 Dose: 1 tablet Documented by: Nifedipine (Procardia Xl -) 90 mg PO DAILY [facility] Last Admin: 04/02/20 09:30 Dose: 90 mg Documented by: Non-Formulary Medication (Linaclotide [Linzess]) 145 mcg PO DAILY [facility] Pantoprazole Sodium (Protonix -) 20 mg PO DAILY [facility] Last Admin: 04/02/20 09:30 Dose: 20 mg Documented by: Sevelamer Carbonate (Renvela -) 1,600 mg PO TIDCM [facility] Last Admin: 04/02/20 09:29 Dose: 1,600 mg Documented by: - Objective Vital Signs: Vital Signs Temperature 99.1 F 04/02/20 08:04 Pulse Rate 72 04/02/20 08:04 Respiratory Rate 18 04/02/20 08:04 Blood Pressure 133/59 L 04/02/20 08:04 O2 Sat by Pulse Oximetry (%) 95 04/01/20 20:45 Constitutional: Yes: Calm Eyes: Yes: Conjunctiva Clear HENT: Yes: Atraumatic Neck: Yes: Supple Cardiovascular: Yes: S1, S2 Respiratory: Yes: CTA Bilaterally Gastrointestinal: Yes: Soft Genitourinary: Yes: WNL Musculoskeletal: Yes: WNL Edema: No Neurological: Yes: Oriented Psychiatric: Yes: Oriented Labs: CBC, BMP 04/01/20 10:50 04/01/20 10:50 INR, PTT INR 1.03 (0.83-1.09) 03/29/20 18:20 Assessment/Plan Current Medications Generic Name Dose Route Start Last Admin Trade Name Freq PRN Reason Stop Dose Admin Acetaminophen 650 mg 03/29/20 23:27 04/01/20 11:54 Tylenol - PO 650 mg Q6H PRN Administration PAIN LEVEL 4 - 6 Aspirin 81 mg 04/01/20 10:00 04/02/20 09:30 Asa - PO 81 mg DAILY [facility] Administration Atorvastatin Calcium 10 mg 03/30/20 22:00 04/01/20 21:28 Lipitor - PO 10 mg HS [facility] Administration Carvedilol 25 mg 03/30/20 10:00 04/02/20 09:30 Coreg - PO 25 mg BID [facility] Administration Clonidine 0.2 mg 03/29/20 23:30 04/02/20 09:31 Catapres - PO 0.2 mg BID [facility] Administration Divalproex Sodium 500 mg 04/01/20 19:30 04/02/20 09:32 Depakote *Er* - PO 500 mg DAILY [facility] Administration Gabapentin 200 mg 03/30/20 10:00 04/02/20 09:30 Neurontin - PO 200 mg BID [facility] Administration Gabapentin 100 mg 03/30/20 22:00 04/01/20 21:28 Neurontin - PO 100 mg HS [facility] Administration Heparin Sodium (Porcine) 5,000 unit 03/30/20 06:00 04/02/20 05:49 Heparin - SQ 5,000 unit TID [facility] Administration Hydralazine HCl 10 mg 03/30/20 10:00 04/02/20 09:30 Apresoline - PO 10 mg BID [facility] Administration Insulin Aspart 1 vial 03/30/20 07:00 04/02/20 11:48 Novolog Vial Sliding Scale - SQ Not Given ACHS [facility] Protocol Multivit/Ca Carb/B Cmplx/FA/Prenat 1 tablet 03/30/20 10:00 04/02/20 09:30 Nephro-Roberta - PO 1 tablet DAILY [facility] Administration Nifedipine 90 mg 03/30/20 10:00 04/02/20 09:30 Procardia Xl - PO 90 mg DAILY [facility] Administration Non-Formulary Medication 145 mcg 03/30/20 10:00 Linaclotide [Linzess] PO DAILY [facility] Pantoprazole Sodium 20 mg 03/30/20 10:00 04/02/20 09:30 Protonix - PO 20 mg DAILY [facility] Administration Sevelamer Carbonate 1,600 mg 03/30/20 08:00 04/02/20 09:29 Renvela - PO 1,600 mg TIDCM [facility] Administration Laboratory Tests 03/31/20 16:11 COVID-19 ([facility]) Pending Impression 1. ESRD 2. non compliance with bp meds 3. dyspnea 4. DM 5. HTN Plan - HD tomorrow - bp improved - non compliance likely playing a role in htn, she does not take all of her meds at home - follow covid results - renal diet
--- NOTE | 2020-04-02 16:02 | PN ---
Physical Exam: SUBJECTIVE: Patient seen and examined. HTN improving. C/o mild lightheadedness, no vertigo. MRI brain negative for acute pathology. OBJECTIVE: Vital Signs Period Temp Pulse Resp BP Sys/Dietz Pulse Ox Last 24 Hr 98.4 F-99.5 F 72-81 18-20 124-172/58-68 95 GENERAL: Aox3, in no acute distress. HEENT: NCAT. MMM. No JVD. LUNGS: CTABL, no wheezes, no crackles, no accessory muscle use. HEART: RRR, S1, S2, 3/6 systolic murmur noted. ABDOMEN: Soft, ntnd, + bowel sounds, no guarding. EXTREMITIES: 2+ pulses, warm, well-perfused, no edema. NEUROLOGICAL: Cranial nerves II through XII grossly intact. Sensation intact throughout. LUE and LLE 4/5 motor strength; RUE/RLE 5/5. Good handgrip strength. Reflexes 2+ L4L5, S1 SKIN: Warm, dry Laboratory Results - last 24 hr 04/01/20 10:30 Hep C Ab Diagnostic 0.2 Active Medications Generic Name Dose Route Start Last Admin Trade Name Freq PRN Reason Stop Dose Admin Acetaminophen 650 mg 03/29/20 23:27 04/01/20 11:54 Tylenol - PO 650 mg Q6H PRN Administration PAIN LEVEL 4 - 6 Aspirin 81 mg 04/01/20 10:00 04/02/20 09:30 Asa - PO 81 mg DAILY [facility] Administration Atorvastatin Calcium 10 mg 03/30/20 22:00 04/01/20 21:28 Lipitor - PO 10 mg HS [facility] Administration Carvedilol 25 mg 03/30/20 10:00 04/02/20 09:30 Coreg - PO 25 mg BID [facility] Administration Clonidine 0.2 mg 03/29/20 23:30 04/02/20 09:31 Catapres - PO 0.2 mg BID [facility] Administration Divalproex Sodium 500 mg 04/01/20 19:30 04/02/20 09:32 Depakote *Er* - PO 500 mg DAILY [facility] Administration Epoetin [place]-epbx 6,000 unit 04/03/20 11:55 Retacrit IVPUSH 04/03/20 11:56 ONCE ONE Gabapentin 200 mg 03/30/20 10:00 04/02/20 09:30 Neurontin - PO 200 mg BID [facility] Administration Gabapentin 100 mg 03/30/20 22:00 04/01/20 21:28 Neurontin - PO 100 mg HS [facility] Administration Heparin Sodium (Porcine) 5,000 unit 03/30/20 06:00 04/02/20 13:05 Heparin - SQ 5,000 unit TID [facility] Administration Hydralazine HCl 10 mg 03/30/20 10:00 04/02/20 09:30 Apresoline - PO 10 mg BID [facility] Administration Sodium Chloride 250 mls @ 3,000 mls/hr 04/02/20 11:54 Normal Saline - IV 04/03/20 11:54 PRN PRN Hypotension during Dialysis Insulin Aspart 1 vial 03/30/20 07:00 04/02/20 11:48 Novolog Vial Sliding Scale - SQ Not Given ACHS [facility] Protocol Multivit/Ca Carb/B Cmplx/FA/Prenat 1 tablet 03/30/20 10:00 04/02/20 09:30 Nephro-Roberta - PO 1 tablet DAILY [facility] Administration Nifedipine 90 mg 03/30/20 10:00 04/02/20 09:30 Procardia Xl - PO 90 mg DAILY [facility] Administration Non-Formulary Medication 145 mcg 03/30/20 10:00 Linaclotide [Linzess] PO DAILY [facility] Pantoprazole Sodium 20 mg 03/30/20 10:00 04/02/20 09:30 Protonix - PO 20 mg DAILY [facility] Administration Sevelamer Carbonate 1,600 mg 03/30/20 08:00 04/02/20 13:01 Renvela - PO 1,600 mg TIDCM [facility] Administration IMAGING: * CTA Chest 04/01: 1. No evidence of pulmonary embolism. 2. Groundglass opacification throughout the lung villegas. Diagnostic possibilities would include mild congestion or viral pneumonitis. 3. Cardiomegaly and mild mediastinal and right hilar lymphadenopathy. 4. Suspected cholelithiasis. Please see above discussion. * CT head w/o con 03/31: No CT evidence of acute intracranial pathology. Chronic supratentorial and infratentorial infarcts are noted as discussed above. Moderate to marked periventricular and subcortical chronic microvascular ischemic changes are seen. No definite change is identified in comparison to prior CT exams of 03/05/2020 and 03/01/2020. * CXR 03/29: Mild cardiomegaly without evidence of acute lung disease ASSESSMENT/PLAN: 69 y.o. [place] and greenlandic -speaking F PMH HTN, HLD, ESRD (T,TH, Sat.), DM2, HFpEF and constipation who presented post-hemodialysis session on 03/29 for hypertension associated with headache, shortness of breath, blurry vision, and chest pressure. Admitted for hypertensive emergency. #Hypertensive emergency -continue bp meds: hydralazine 10mg BID, clonidine 0.2mg BID, coreg 25mg BID, procardia 20mg daily -daily aspirin 81mg -trop 0.10 x 2 -EKG 03/29: NSR rate 69, 1st deg AV block -echo 03/31: EF 55-60%. Grade II diastolic dysfunction. LA severely dilated. Mod TR, mod pulm HTN, Trace pericardial effusion. -consider ACEi/ARB if no contraindications- f/u renal recs -Cardiology following- Dr. Marroquin: maintain LDL<30. MIBI ST when stable. -d-dimer elevated; CTA chest negative for PE #Rule out CVA -LLE & LUE parasthesias -CT head negative for acute infarct or bleed -MRI brain w/o con: no acute pathology -lipid panel: chol 189, TG 119, LDL 92, HDL 72 -Neurology Dr. Valentine consulted -continue asa, statin -neurochecks #ESRD -Hemodialysis T/Sat schedule- for hd tomorrow -Nephrology Dr. Watkins following #HLD -continue lipitor 10mg HS #DM2 -ISS, BGMs ACHS -HbA1c 5.3% -continue gabapentin -holding home januvia #HFpEF -BNP: 35,000; CXR shows mild cardiomegaly -echo 03/31: EF 55-60%. Grade II diastolic dysfunction. LA severely dilated. Mod TR, mod pulm HTN, Trace pericardial effusion. -consider ACEi/ARB if no contraindications #Constipation -having active BMs, cont to monitor -On home Linzess; non formulary in hospital, pt trying to get from family at home #FEN -no standing IVF -monitor electrolytes and replete as needed -renal Diet #DVT Ppx. -Hep SQ TID #Dispo ctm on telemetry covid-19 pcr pending pending social work, home health aid approval Visit type - Emergency Visit Emergency Visit: No - New Patient This patient is new to me today: No - Critical Care Critical Care patient: No ATTENDING PHYSICIAN STATEMENT I saw and evaluated the patient. I reviewed the resident's note and discussed the case with the resident. I agree with the resident's findings and plan as documented. SUBJECTIVE: OBJECTIVE: ASSESSMENT AND PLAN:
--- NOTE | 2020-04-02 18:40 | PN ---
Teaching Attending Note Name of Resident: Norma Block ATTENDING PHYSICIAN STATEMENT I saw and evaluated the patient. I reviewed the resident's note and discussed the case with the resident. I agree with the resident's findings and plan as documented. SUBJECTIVE: No fever or chills. has improved JUNIOR . contt ohave different feelingin L hand but better than yesterday OBJECTIVE: NAD CV: RRR 3/6 Sm at LUSB. Ext: No edema Neuro: no facial droop. EOMI LUE: shoulder flexion 4/5, biceps /triceps 4/5, weak hand film sorter RLE: hip flexion 4/5 . Knee flexion /extension 5/5 , ankle dorsiflexion/plantar flexion 5/5 LLE: hip felxion 4/5 , Knee flexion 4/5 , ankle dorsiflexion /plantar flexion 5/5 RUE: 5/5 shoulder shrug, Biceps, triceps and Reflexes: Knee jerk 1+ b/l . sensation to light touch is decreased/different in L hand. ASSESSMENT AND PLAN: 69yof [place]ic-speaking with PMHx. of HTN, HLD, ESRD (T,TH, Sat), T2DM, HFpEF and constipation presents after HD for having elevated SBP over 200's associated with headache, shortness of breath, blurry vision, and chest pressure. 1- Uncontrolled HTN 2- chest pain : resolved 3- slightly elevationin trop, in settingof renal fialure , and possible demand 4- Episode of L sided weakness and parasthesia 5- DM 6- D dimer elevation 7- R hilar LAP 8- ground glass opacities :likley pulm edema 9- ESRD 10 -complicated migraine Plan: - MRI of the brain with no acute stroke . still with L sided weakness - cont divalproex - cont HTN regimen: clonidine, HZN, procardia and coreg - cont SSI . A1c 5.3 - cont statin - repeat imaging for R hilar LAP as out pt - follow COVID - ischemic w/u per card after covid. Likely out pt - HD per schedule dr. block spoke to son. Mom has been wheelchair bound prior to the admission and that's her base line. at dc he would like her to go home with services pending covid
[2020-04-02] MEDS: ATORVASTATIN CA 10 MG TABLET (FP) PO SCH (21:39)
[2020-04-03] MEDS: INSULIN SLIDING SCALE (NOVOLOG) 1 VIAL SQ SCH ×4 (06:14→21:46)
[2020-04-03] MEDS: HEPARIN NA (PORCINE) 5,000 UNITS/ML 1ML VIAL SQ SCH ×3 (06:14→21:46)
--- NOTE | 2020-04-03 07:31 | PN ---
Progress Note, Physician Chief Complaint: Pt A&Ox3; headache is now mild; denies dyspnea or chest pain. Feels tired. History of Present Illness: 69 yr old woman with PMHx. of HTN, HLD, ESRD (T,TH, Sat), DM, HFpEF, DM, s/p CVA (chronic cerebral infarcts on head CT), and constipation, who presents after HD with elevated SBP over 200's associated with headache, shortness of breath, blurry vision, and chest pressure. Patient is admitted for hypertensive emergency. Her SOB has been present for 10 days but worsened-->ER. It does not follow a pattern and is always present. However, her most distressing symptom was her headache. It was bilateral, frontal without radiation and is 8/10 in severity. She reports headaches in the past. She also reports nausea and generalized weakness. Reports chronic constipation which is unchanged. Ambulates with a walker for short distances but uses a wheelchair for long distance since being discharged from her last admission. Denies alcohol, tobacco or illicit drug use. No sick contacts or recent travels. Family history is unremarkable. - Current Medication List Current Medications: Active Medications Acetaminophen (Tylenol -) 650 mg PO Q6H PRN PRN Reason: PAIN LEVEL 4 - 6 Last Admin: 04/01/20 11:54 Dose: 650 mg Documented by: Aspirin (Asa -) 81 mg PO DAILY [facility] Last Admin: 04/02/20 09:30 Dose: 81 mg Documented by: Atorvastatin Calcium (Lipitor -) 10 mg PO HS [facility] Last Admin: 04/02/20 21:39 Dose: 10 mg Documented by: Carvedilol (Coreg -) 25 mg PO BID [facility] Last Admin: 04/02/20 21:39 Dose: 25 mg Documented by: Clonidine (Catapres -) 0.2 mg PO BID [facility] Last Admin: 04/02/20 21:40 Dose: 0.2 mg Documented by: Divalproex Sodium (Depakote *Er* -) 500 mg PO DAILY [facility] Last Admin: 04/02/20 09:32 Dose: 500 mg Documented by: Epoetin [place]on-epbx (Retacrit) 6,000 unit IVPUSH ONCE ONE Stop: 04/03/20 11:56 Gabapentin (Neurontin -) 200 mg PO BID [facility] Last Admin: 04/02/20 21:40 Dose: 200 mg Documented by: Gabapentin (Neurontin -) 100 mg PO HS [facility] Last Admin: 04/02/20 21:40 Dose: 100 mg Documented by: Heparin Sodium (Porcine) (Heparin -) 5,000 unit SQ TID [facility] Last Admin: 04/03/20 06:14 Dose: 5,000 unit Documented by: Hydralazine HCl (Apresoline -) 10 mg PO BID [facility] Last Admin: 04/02/20 21:39 Dose: 10 mg Documented by: Sodium Chloride (Normal Saline -) 250 mls @ 3,000 mls/hr IV PRN PRN PRN Reason: Hypotension during Dialysis Stop: 04/03/20 11:54 Insulin Aspart (Novolog Vial Sliding Scale -) 1 vial SQ ACHS [facility]; Protocol Last Admin: 04/03/20 06:14 Dose: Not Given Documented by: Multivit/Ca Carb/B Cmplx/FA/Prenat (Nephro-Roberta -) 1 tablet PO DAILY [facility] Last Admin: 04/02/20 09:30 Dose: 1 tablet Documented by: Nifedipine (Procardia Xl -) 90 mg PO DAILY [facility] Last Admin: 04/02/20 09:30 Dose: 90 mg Documented by: Non-Formulary Medication (Linaclotide [Linzess]) 145 mcg PO DAILY [facility] Pantoprazole Sodium (Protonix -) 20 mg PO DAILY [facility] Last Admin: 04/02/20 09:30 Dose: 20 mg Documented by: Sevelamer Carbonate (Renvela -) 1,600 mg PO TIDCM [facility] Last Admin: 04/02/20 17:39 Dose: 1,600 mg Documented by: - Objective Vital Signs: Vital Signs Temperature 98.1 F 04/03/20 06:00 Pulse Rate 72 04/03/20 06:00 Respiratory Rate 20 04/03/20 06:00 Blood Pressure 140/55 L 04/03/20 06:00 O2 Sat by Pulse Oximetry (%) 97 04/02/20 21:00 Labs: INR, PTT INR 1.03 (0.83-1.09) 03/29/20 18:20 Assessment/Plan Decompensated diastolic CHF uncontrolled HTN DM HLD chronic cerebral infarcts chronic anermia overweight Elevated D-dimer; (ECHO notes normal LVEF; moderate LVH; severe LAE; moderate pulmonary HTN; normal RVEF and RV size;mild RVH; normal RA size); O2 sat >90s on RA Elevated TNI COVID not detected. 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 keep LDL below 70 mg/dL with statin, diet, exercise EKG: NSR, 1st degree AV block. TNI elevated; various contributors to demand ischemia. Multiple CAD risks, with mildly elevated TNI: MIBI Stress when stable ASA 81 QD
[2020-04-03] MEDS ORDERED: SODIUM CHLORIDE 250 ML IV PRN (07:32)
[2020-04-03 07:37] LABS: HEMATOCRIT 26.4 % (32.4-45.2); HEMOGLOBIN 8.7 GM/dL (10.7-15.3); MCH 30.1 pg (25.7-33.7); MCHC 33.1 g/dl (32.0-36.0); MEAN CELL VOLUME 90.9 fl (80-96); MEAN PLT VOLUME 9.2 fl (7.5-11.1); PLATELET COUNT 168 K/MM3 (134-434); RDW 15.7 % (11.6-15.6); WHITE BLOOD COUNT 7.1 K/mm3 (4.0-10.0)
[2020-04-03 08:03] LABS: ALBUMIN 3.2 g/dl (3.4-5.0); BILIRUBIN,TOTAL 0.4 mg/dL (0.2-1); BLOOD UREA NITROGEN 41.7 mg/dL (7-18); CALCIUM 8.9 mg/dL (8.5-10.1); POTASSIUM 4.4 mmol/L (3.5-5.1); TOT PROT 7.3 g/dl (6.4-8.2)
[2020-04-03 08:31] LABS: CREATININE 9.2 mg/dL (0.55-1.3)
[2020-04-03] MEDS ORDERED: EPOETIN ALFA-EPBX 3,000 UNIT/ML VIAL IVPUSH ONE (09:00)
[2020-04-03] MEDS: ACETAMINOPHEN 325 MG TABLET (FP) PO PRN ×2 (10:18→18:04)
[2020-04-03] MEDS ORDERED: PT OWN MED DRAWER 7, Y5N ONE ×2 (10:45→11:06)
[2020-04-03] MEDS: ASPIRIN 81 MG CHEWABLE TABLETS PO SCH (11:03)
[2020-04-03] MEDS: CARVEDILOL 25 MG TABLET (FP) PO SCH ×2 (11:03→21:45)
[2020-04-03] MEDS: hydrALAZINE HCL 10 MG TABLET PO SCH ×2 (11:03→21:45)
[2020-04-03] MEDS: cloNIDine HCL 0.1 MG TABLET PO SCH ×2 (11:04→21:46)
[2020-04-03] MEDS: PANTOPRAZOLE 20 MG TABLET PO SCH (11:04)
[2020-04-03] MEDS: VITAMIN B COMP W-C 1 EA TABLET (NEPHRO-VITE) PO SCH (11:04)
[2020-04-03] MEDS: NIFEdipine E.R. 90 MG TABLET PO SCH (11:04)
[2020-04-03] MEDS: SEVELAMER CARBONATE 800 MG TAB (FP) PO SCH ×3 (11:04→17:12)
[2020-04-03] MEDS: GABAPENTIN 100 MG CAPSULE PO SCH ×3 (11:07→21:45)
[2020-04-03] MEDS: DIVALPROEX NA *ER* EXTEND REL 500 MG TABLET.SA (FP) PO SCH (12:19)
--- NOTE | 2020-04-03 13:32 | PN ---
Physical Exam: SUBJECTIVE: Patient seen and examined at bedside. No acute events overnight. Pt still complaints of L sided weakness however it is improving. Denies chest pain, sob, palpitations, n/v, f/c, abd pain, urinary/bowel symptoms. Pt seen during HD session. OBJECTIVE: Vital Signs Period Temp Pulse Resp BP Sys/Dietz Pulse Ox Last 24 Hr 97.9 F-98.5 F 66-74 16-20 125-150/52-82 97-97 GENERAL: Aox3, in no acute distress. HEENT: NCAT. MMM. No JVD. LUNGS: CTABL, no wheezes, no crackles, no accessory muscle use. HEART: RRR, S1, S2, 3/6 systolic murmur noted. ABDOMEN: Soft, ntnd, + bowel sounds, no guarding. EXTREMITIES: 2+ pulses, warm, well-perfused, no edema. NEUROLOGICAL: Cranial nerves II through XII grossly intact. Sensation intact throughout. 3/5 b/l hip flexion, 4/5 knee flexion/extension; 4/5 b/l elbow flexion/extension. Good handgrip strength. Reflexes 2+ SKIN: Warm, dry CBCD WBC 7.1 K/mm3 (4.0-10.0) 04/03/20 06:25 RBC 2.90 M/mm3 (3.60-5.2) L 04/03/20 06:25 Hgb 8.7 GM/dL (10.7-15.3) L 04/03/20 06:25 Hct 26.4 % (32.4-45.2) L 04/03/20 06:25 MCV 90.9 fl (80-96) 04/03/20 06:25 MCHC 33.1 g/dl (32.0-36.0) 04/03/20 06:25 RDW 15.7 % (11.6-15.6) H 04/03/20 06:25 Plt Count 168 K/MM3 (134-434) 04/03/20 06:25 MPV 9.2 fl (7.5-11.1) 04/03/20 06:25 CMP Sodium 136 mmol/L (136-145) 04/03/20 06:25 Potassium 4.4 mmol/L (3.5-5.1) 06/25/20 06:25 Chloride 96 mmol/L (98-107) L 04/03/20 06:25 Carbon Dioxide 31 mmol/L (21-32) 04/03/20 06:25 Anion Gap 9 MMOL/L (8-16) 04/03/20 06:25 BUN 41.7 mg/dL (7-18) H 04/03/20 06:25 Creatinine 9.2 mg/dL (0.55-1.3) H* 04/03/20 06:25 Calcium 8.9 mg/dL (8.5-10.1) 04/03/20 06:25 Total Bilirubin 0.4 mg/dL (0.2-1) 04/03/20 06:25 AST 10 U/L (15-37) L 04/03/20 06:25 ALT 10 U/L (13-61) L 04/03/20 06:25 Alkaline Phosphatase 122 U/L (45-117) H 04/03/20 06:25 Total Protein 7.3 g/dl (6.4-8.2) 04/03/20 06:25 Albumin 3.2 g/dl (3.4-5.0) L 04/03/20 06:25 Active Medications Generic Name Dose Route Start Last Admin Trade Name Freq PRN Reason Stop Dose Admin Acetaminophen 650 mg 03/29/20 23:27 04/03/20 10:18 Tylenol - PO 650 mg Q6H PRN Administration PAIN LEVEL 4 - 6 Aspirin 81 mg 04/01/20 10:00 04/03/20 11:03 Asa - PO 81 mg DAILY [facility] Administration Atorvastatin Calcium 10 mg 03/30/20 22:00 04/02/20 21:39 Lipitor - PO 10 mg HS [facility] Administration Carvedilol 25 mg 03/30/20 10:00 04/03/20 11:03 Coreg - PO 25 mg BID [facility] Administration Clonidine 0.2 mg 03/29/20 23:30 04/03/20 11:04 Catapres - PO 0.2 mg BID [facility] Administration Divalproex Sodium 500 mg 04/01/20 19:30 04/03/20 12:19 Depakote *Er* - PO 500 mg DAILY [facility] Administration Gabapentin 200 mg 03/30/20 10:00 04/03/20 11:07 Neurontin - PO 200 mg BID [facility] Administration Gabapentin 100 mg 03/30/20 22:00 04/02/20 21:40 Neurontin - PO 100 mg HS [facility] Administration Heparin Sodium (Porcine) 5,000 unit 03/30/20 06:00 04/03/20 06:14 Heparin - SQ 5,000 unit TID [facility] Administration Hydralazine HCl 10 mg 03/30/20 10:00 04/03/20 11:03 Apresoline - PO 10 mg BID [facility] Administration Sodium Chloride 250 mls @ 3,000 mls/hr 04/03/20 07:32 Normal Saline - IV 04/04/20 07:31 PRN PRN Hypotension during Dialysis Insulin Aspart 1 vial 03/30/20 07:00 04/03/20 12:07 Novolog Vial Sliding Scale - SQ Not Given ACHS [facility] Protocol Multivit/Ca Carb/B Cmplx/FA/Prenat 1 tablet 03/30/20 10:00 04/03/20 11:04 Nephro-Roberta - PO 1 tablet DAILY [facility] Administration Nifedipine 90 mg 03/30/20 10:00 04/03/20 11:04 Procardia Xl - PO 90 mg DAILY [facility] Administration Non-Formulary Medication 145 mcg 03/30/20 10:00 Linaclotide [Linzess] PO DAILY [facility] Pantoprazole Sodium 20 mg 03/30/20 10:00 04/03/20 11:04 Protonix - PO 20 mg DAILY [facility] Administration Sevelamer Carbonate 1,600 mg 03/30/20 08:00 04/03/20 11:04 Renvela - PO 1,600 mg TIDCM [facility] Administration IMAGING: * CTA Chest 04/01: 1. No evidence of pulmonary embolism. 2. Groundglass opacification throughout the lung villegas. Diagnostic possibilities would incl ude mild congestion or viral pneumonitis. 3. Cardiomegaly and mild mediastinal and right hilar lymphadenopathy. 4. Suspected cholelithiasis. Please see above discussion. * CT head w/o con 03/31: No CT evidence of acute intracranial pathology. Chronic supratentorial and infratentorial infarcts are noted as discussed above. Moderate to marked periventricular and subcortical chronic microvascular isch emic changes are seen. No definite change is identified in comparison to prior CT exams of 03/05/2020 and 03/01/2020. * CXR 03/29: Mild cardiomegaly without evidence of acute lung disease * Echo: EF 55-60%. Grade II diastolic dysfunction. LA severely dilated. Mod TR, mod pulm HTN, Trace pericardial effusion. ASSESSMENT/PLAN: 69 y.o. [place] and german -speaking F PMH HTN, HLD, ESRD (,, Sat.), DM2, HFpEF and constipation who presented post-hemodialysis session on 03/29 for hypertension associated with headache, shortness of breath, blurry vision, and chest pressure. Admitted for hypertensive emergency. #Uncontrolled HTN; Now stable. -Trop neg x2 -EKG 03/29: NSR rate 69, 1st deg AV block -Per cardio, will do lexican stress test in AM -CTA chest negative for PE Cont home meds: Hydralazine 10mg BID, Clonidine 0.2mg BID, Coreg 25mg BID, Procardia 90mg daily, ASA 81 #Recurrent transient L hemiparesthesia; likely 2/2 migraine, possible sensory seizures -LLE & LUE parasthesias -CT head and MRI brain negative for acute infarct or bleed -lipid panel: chol 189, TG 119, LDL 92, HDL 72 -Per neuro, recurrent transient L hemiparesthesia may represent a migraine aura or partial sensory seizure; cont Depakote 500 QD -ASA 81, Atorvastatin 10 -Neurochecks #Elevated Troponins; 0.10 --> 0.10. May be demand in setting of uncontrolled HTN and ESRD. -D/w cardio, will need to do ischemia workup prior to d/c. Lin stress in AM. -NPO after midnight #ESRD; HD //Tue -Nephrology Dr. Watkins following -HD done today, 2500cc removed #HLD; Cont home med: Lipitor 10 #DM2; Cont home med: Gabapentin 100 HS, 200 BID. Hold home Januvia. -ISS, BGMs ACHS -HbA1c 5.3% #HFpEF -BNP: 35,000; CXR shows mild cardiomegaly -Echo 03/31: EF 55-60%. Grade II diastolic dysfunction. LA severely dilated. Mod TR, mod pulm HTN, Trace pericardial effusion. -consider ACEi/ARB if no contraindications #Constipation -having active BMs, cont to monitor -On home Linzess; non formulary in hospital, pt trying to get from family at home #FEN -no IVf needed -monitor electrolytes and replete as needed -renal Diet; NPO after midnight for lin stress test #DVT Ppx -Hep SQ TID Dispo -cont to monitor on tele -COVID neg -pending social work, home health aid approval Visit type - Emergency Visit Emergency Visit: Yes ED Registration Date: 04/01/20 Care time: The patient presented to the Emergency Department on the above date and was hospitalized for further evaluation of their emergent condition. - New Patient This patient is new to me today: No - Critical Care Critical Care patient: No ATTENDING PHYSICIAN STATEMENT I saw and evaluated the patient. I reviewed the resident's note and discussed the case with the resident. I agree with the resident's findings and plan as documented. SUBJECTIVE: OBJECTIVE: ASSESSMENT AND PLAN:
--- NOTE | 2020-04-03 13:43 | PN ---
Progress Note, Physician History of Present Illness: Pt seen and examined at bedside. She is awake and alert. She denies shortness of breath. - Current Medication List Current Medications: Active Medications Acetaminophen (Tylenol -) 650 mg PO Q6H PRN PRN Reason: PAIN LEVEL 4 - 6 Last Admin: 04/03/20 10:18 Dose: 650 mg Documented by: Aspirin (Asa -) 81 mg PO DAILY [facility] Last Admin: 04/03/20 11:03 Dose: 81 mg Documented by: Atorvastatin Calcium (Lipitor -) 10 mg PO HS [facility] Last Admin: 04/02/20 21:39 Dose: 10 mg Documented by: Carvedilol (Coreg -) 25 mg PO BID [facility] Last Admin: 04/03/20 11:03 Dose: 25 mg Documented by: Clonidine (Catapres -) 0.2 mg PO BID [facility] Last Admin: 04/03/20 11:04 Dose: 0.2 mg Documented by: Divalproex Sodium (Depakote *Er* -) 500 mg PO DAILY [facility] Last Admin: 04/03/20 12:19 Dose: 500 mg Documented by: Gabapentin (Neurontin -) 200 mg PO BID [facility] Last Admin: 04/03/20 11:07 Dose: 200 mg Documented by: Gabapentin (Neurontin -) 100 mg PO HS [facility] Last Admin: 04/02/20 21:40 Dose: 100 mg Documented by: Heparin Sodium (Porcine) (Heparin -) 5,000 unit SQ TID [facility] Last Admin: 04/03/20 06:14 Dose: 5,000 unit Documented by: Hydralazine HCl (Apresoline -) 10 mg PO BID [facility] Last Admin: 04/03/20 11:03 Dose: 10 mg Documented by: Sodium Chloride (Normal Saline -) 250 mls @ 3,000 mls/hr IV PRN PRN PRN Reason: Hypotension during Dialysis Stop: 04/04/20 07:31 Insulin Aspart (Novolog Vial Sliding Scale -) 1 vial SQ ACHS [facility]; Protocol Last Admin: 04/03/20 12:07 Dose: Not Given Documented by: Multivit/Ca Carb/B Cmplx/FA/Prenat (Nephro-Roberta -) 1 tablet PO DAILY [facility] Last Admin: 04/03/20 11:04 Dose: 1 tablet Documented by: Nifedipine (Procardia Xl -) 90 mg PO DAILY [facility] Last Admin: 04/03/20 11:04 Dose: 90 mg Documented by: Non-Formulary Medication (Linaclotide [Linzess]) 145 mcg PO DAILY [facility] Pantoprazole Sodium (Protonix -) 20 mg PO DAILY [facility] Last Admin: 04/03/20 11:04 Dose: 20 mg Documented by: Sevelamer Carbonate (Renvela -) 1,600 mg PO TIDCM [facility] Last Admin: 04/03/20 11:04 Dose: 1,600 mg Documented by: - Objective Vital Signs: Vital Signs Temperature 98.1 F 04/03/20 10:00 Pulse Rate 67 04/03/20 10:45 Respiratory Rate 16 04/03/20 10:45 Blood Pressure 150/71 04/03/20 10:45 O2 Sat by Pulse Oximetry (%) 97 04/03/20 09:00 Constitutional: Yes: Calm Eyes: Yes: Conjunctiva Clear HENT: Yes: Atraumatic Neck: Yes: Supple Cardiovascular: Yes: S1, S2 Respiratory: Yes: On Nasal O2 Gastrointestinal: Yes: Soft Genitourinary: Yes: WNL Musculoskeletal: Yes: WNL Edema: No Neurological: Yes: Oriented Psychiatric: Yes: Oriented Labs: CBC, BMP 04/03/20 06:25 04/03/20 06:25 INR, PTT INR 1.03 (0.83-1.09) 03/29/20 18:20 Assessment/Plan Current Medications Generic Name Dose Route Start Last Admin Trade Name Freq PRN Reason Stop Dose Admin Acetaminophen 650 mg 03/29/20 23:27 04/03/20 10:18 Tylenol - PO 650 mg Q6H PRN Administration PAIN LEVEL 4 - 6 Aspirin 81 mg 04/01/20 10:00 04/03/20 11:03 Asa - PO 81 mg DAILY [facility] Administration Atorvastatin Calcium 10 mg 03/30/20 22:00 04/02/20 21:39 Lipitor - PO 10 mg HS [facility] Administration Carvedilol 25 mg 03/30/20 10:00 04/03/20 11:03 Coreg - PO 25 mg BID [facility] Administration Clonidine 0.2 mg 03/29/20 23:30 04/03/20 11:04 Catapres - PO 0.2 mg BID [facility] Administration Divalproex Sodium 500 mg 04/01/20 19:30 04/03/20 12:19 Depakote *Er* - PO 500 mg DAILY [facility] Administration Gabapentin 200 mg 03/30/20 10:00 04/03/20 11:07 Neurontin - PO 200 mg BID [facility] Administration Gabapentin 100 mg 03/30/20 22:00 04/02/20 21:40 Neurontin - PO 100 mg HS [facility] Administration Heparin Sodium (Porcine) 5,000 unit 03/30/20 06:00 04/03/20 06:14 Heparin - SQ 5,000 unit TID [facility] Administration Hydralazine HCl 10 mg 03/30/20 10:00 04/03/20 11:03 Apresoline - PO 10 mg BID [facility] Administration Sodium Chloride 250 mls @ 3,000 mls/hr 04/03/20 07:32 Normal Saline - IV 04/04/20 07:31 PRN PRN Hypotension during Dialysis Insulin Aspart 1 vial 03/30/20 07:00 04/03/20 12:07 Novolog Vial Sliding Scale - SQ Not Given ACHS [facility] Protocol Multivit/Ca Carb/B Cmplx/FA/Prenat 1 tablet 03/30/20 10:00 04/03/20 11:04 Nephro-Roberta - PO 1 tablet DAILY [facility] Administration Nifedipine 90 mg 03/30/20 10:00 04/03/20 11:04 Procardia Xl - PO 90 mg DAILY [facility] Administration Non-Formulary Medication 145 mcg 03/30/20 10:00 Linaclotide [Linzess] PO DAILY [facility] Pantoprazole Sodium 20 mg 03/30/20 10:00 04/03/20 11:04 Protonix - PO 20 mg DAILY [facility] Administration Sevelamer Carbonate 1,600 mg 03/30/20 08:00 04/03/20 11:04 Renvela - PO 1,600 mg TIDCM [facility] Administration Laboratory Tests 03/31/20 16:11 COVID-19 (ERNESTINA) Not detected Impression 1. ESRD 2. non compliance with bp meds 3. dyspnea 4. DM 5. HTN Plan - cont bp meds - bp stabilizing - HD today - covid negative - discussed compliance - renal diet
--- NOTE | 2020-04-03 18:20 | PN ---
Teaching Attending Note Name of Resident: Tasha Georges ATTENDING PHYSICIAN STATEMENT I saw and evaluated the patient. I reviewed the resident's note and discussed the case with the resident. I agree with the resident's findings and plan as documented. SUBJECTIVE: no pain , JUNIOR resolved . still weak in L side OBJECTIVE: NAD CV: RRR 3/6 SM at SB. Ext: No edema Neuro: no facial droop. EOMI LUE: shoulder flexion 4/5, biceps /triceps 4/5, weak hand baseball player RLE: hip flexion 3/5 . Knee flexion /extension 4/5 , ankle dorsiflexion/plantar flexion 5/5 LLE: hip felxion 3/5 , Knee flexion/extention 4/5 , ankle dorsiflexion /plantar flexion 5/5 RUE: 4/5 shoulder shrug, Biceps, triceps . weak hand baseball player Reflexes: Knee jerk 1+ b/l . sensation to light touch is decreased/different in L hand. ASSESSMENT AND PLAN: 69yof Estonian-speaking with PMHx. of HTN, HLD, ESRD (T,TH, Sat), T2DM, HFpEF and constipation presents after HD for having elevated SBP over 200's associated with headache, shortness of breath, blurry vision, and chest pressure. 1- Uncontrolled HTN 2- chest pain : resolved 3- slightly elevationin trop, in settingof renal fialure , and possible demand 4- Episode of L sided weakness and parasthesia 5- DM 6- D dimer elevation 7- R hilar LAP 8- ground glass opacities :likley pulm edema 9- ESRD 10 -complicated migraine Plan: - neuro exam changes ad fluctuates every day. ? decreased effort - cont divalproex - cont HTN regimen: clonidine, HZN, procardia and coreg - cont SSI . A1c 5.3 - cont statin - repeat imaging for R hilar LAP as out pt - COVID neg - stress tomorrow. d/w xcard by team - HD per schedule possible dc to home with VNS tomorrow if stress neg
--- NOTE | 2020-04-03 19:29 | CONSULT ---
Consult - text type - Consultation Consultation Note: NEUROLOGY FOLLOW-UP: Events reviewed. Patient confirms she ambulates independently with walker at home. MRI of brain (reviewed): Shows moderate, diffuse atrophy and severe, nearly confluent periventicular microvasular changes. Pt describes only a few "months" of progressive headaches, now daily and more severe. Pressing holocranial headache today. CODY: No bruits. Neck supple. Cor reg NEURO: Awake, alert, cooperative. CN II-XII: Normal Motor: Mild left hemiatrophy but no weakness. Left leg rests everted. Areflexic in legs. Plantars silent. IMP: Mild left hemiplegic CP Possible sensory seizures R/O Temporal arteritis SUGGEST: Check ESR, CRP Mobilize patient OO Bed to chair and ambulate with PT and walker. Neuro f/u as outpatient. Thank you very much, Segundo Valentine MD
[2020-04-03] MEDS: ATORVASTATIN CA 10 MG TABLET (FP) PO SCH (21:46)
[2020-04-04] MEDS: HEPARIN NA (PORCINE) 5,000 UNITS/ML 1ML VIAL SQ SCH ×2 (05:47→13:00)
[2020-04-04] MEDS: INSULIN SLIDING SCALE (NOVOLOG) 1 VIAL SQ SCH ×2 (07:36→12:19)
[2020-04-04 08:11] LABS: EOS % 6.5 % (0-4.5); HEMATOCRIT 29.1 % (32.4-45.2); HEMOGLOBIN 9.5 GM/dL (10.7-15.3); LYMPH % 35.1 % (8-40); MCH 29.7 pg (25.7-33.7); MCHC 32.6 g/dl (32.0-36.0); MEAN CELL VOLUME 91.1 fl (80-96); MONO % 9.2 % (3.8-10.2); NEUT % 48.2 % (42.8-82.8); PLATELET COUNT 185 K/MM3 (134-434); RDW 15.6 % (11.6-15.6); WHITE BLOOD COUNT 6.7 K/mm3 (4.0-10.0)
[2020-04-04 08:35] LABS: ALBUMIN 3.3 g/dl (3.4-5.0); BILIRUBIN,TOTAL 0.6 mg/dL (0.2-1); BLOOD UREA NITROGEN 27.7 mg/dL (7-18); CREATININE 6.1 mg/dL (0.55-1.3); PHOSPHOROUS 3.3 mg/dL (2.5-4.9); POTASSIUM 4.3 mmol/L (3.5-5.1); TOT PROT 7.4 g/dl (6.4-8.2)
[2020-04-04] MEDS: SEVELAMER CARBONATE 800 MG TAB (FP) PO SCH ×2 (09:20→12:21)
[2020-04-04] MEDS ORDERED: REGADENOSON 0.4 MG/5 ML PRE-FILLED SYRINGE IVPUSH ONE ×2 (10:00→10:09)
[2020-04-04] MEDS ORDERED: PT OWN MED DRAWER 7, Y5N ONE (11:04)
[2020-04-04] MEDS ORDERED: AMINOPHYLLINE 250 MG/10 ML VIAL IVPUSH ONE (11:14)
[2020-04-04] MEDS ORDERED: AMINOPHYLLINE 250 MG/10 ML VIAL ONE (11:26)
[2020-04-04] MEDS ORDERED: SODIUM CHLORIDE 250 ML IV PRN (12:05)
--- NOTE | 2020-04-04 12:05 | PN ---
Progress Note, Physician History of Present Illness: Pt seen and examined at bedside. She is going for stress test today. - Current Medication List Current Medications: Active Medications Acetaminophen (Tylenol -) 650 mg PO Q6H PRN PRN Reason: PAIN LEVEL 4 - 6 Last Admin: 04/03/20 18:04 Dose: 650 mg Documented by: Aspirin (Asa -) 81 mg PO DAILY [facility] Last Admin: 04/03/20 11:03 Dose: 81 mg Documented by: Atorvastatin Calcium (Lipitor -) 10 mg PO [facility] Last Admin: 04/03/20 21:46 Dose: Not Given Documented by: Carvedilol (Coreg -) 25 mg PO BID [facility] Last Admin: 04/03/20 21:45 Dose: 25 mg Documented by: Clonidine (Catapres -) 0.2 mg PO BID [facility] Last Admin: 04/03/20 21:46 Dose: 0.2 mg Documented by: Divalproex Sodium (Depakote *Er* -) 500 mg PO DAILY [facility] Last Admin: 04/03/20 12:19 Dose: 500 mg Documented by: Gabapentin (Neurontin -) 200 mg PO BID [facility] Last Admin: 04/03/20 21:45 Dose: 200 mg Documented by: Gabapentin (Neurontin -) 100 mg PO [facility] Last Admin: 04/03/20 21:45 Dose: 100 mg Documented by: Heparin Sodium (Porcine) (Heparin -) 5,000 unit SQ TID [facility] Last Admin: 04/04/20 05:47 Dose: 5,000 unit Documented by: Hydralazine HCl (Apresoline -) 10 mg PO BID [facility] Last Admin: 04/03/20 21:45 Dose: 10 mg Documented by: Insulin Aspart (Novolog Vial Sliding Scale -) [address] [facility]; Protocol Last Admin: 04/04/20 07:36 Dose: Not Given Documented by: Multivit/Ca Carb/B Cmplx/FA/Prenat (Nephro-Roberta -) 1 tablet PO DAILY [facility] Last Admin: 04/03/20 11:04 Dose: 1 tablet Documented by: Nifedipine (Procardia Xl -) 90 mg PO DAILY [facility] Last Admin: 04/03/20 11:04 Dose: 90 mg Documented by: Non-Formulary Medication (Linaclotide [Linzess]) 145 mcg PO DAILY [facility] Pantoprazole Sodium (Protonix -) 20 mg PO DAILY [facility] Last Admin: 04/03/20 11:04 Dose: 20 mg Documented by: Sevelamer Carbonate (Renvela -) 1,600 mg PO TIDCM [facility] Last Admin: 04/04/20 09:20 Dose: Not Given Documented by: - Objective Vital Signs: Vital Signs Temperature 98.1 F 04/04/20 10:00 Pulse Rate 68 04/04/20 10:00 Respiratory Rate 18 04/04/20 10:00 Blood Pressure 177/70 H 04/04/20 10:00 O2 Sat by Pulse Oximetry (%) 96 04/04/20 09:00 Constitutional: Yes: Calm Eyes: Yes: Conjunctiva Clear HENT: Yes: Atraumatic Neck: Yes: Supple Cardiovascular: Yes: S1, S2 Respiratory: Yes: CTA Bilaterally Gastrointestinal: Yes: Normal Bowel Sounds, Soft Genitourinary: Yes: WNL Musculoskeletal: Yes: WNL Edema: No Neurological: Yes: Oriented Labs: CBC, BMP 04/04/20 07:00 04/04/20 07:00 INR, PTT INR 1.03 (0.83-1.09) 03/29/20 18:20 Assessment/Plan Current Medications Generic Name Dose Route Start Last Admin Trade Name Freq PRN Reason Stop Dose Admin Acetaminophen 650 mg 03/29/20 23:27 04/03/20 18:04 Tylenol - PO 650 mg Q6H PRN Administration PAIN LEVEL 4 - 6 Aspirin 81 mg 04/01/20 10:00 04/03/20 11:03 Asa - PO 81 mg DAILY [facility] Administration Atorvastatin Calcium 10 mg 03/30/20 22:00 04/03/20 21:46 Lipitor - PO Not Given [facility] Carvedilol 25 mg 03/30/20 10:00 04/03/20 21:45 Coreg - PO 25 mg BID [facility] Administration Clonidine 0.2 mg 03/29/20 23:30 04/03/20 21:46 Catapres - PO 0.2 mg BID [facility] Administration Divalproex Sodium 500 mg 04/01/20 19:30 04/03/20 12:19 Depakote *Er* - PO 500 mg DAILY [facility] Administration Gabapentin 200 mg 03/30/20 10:00 04/03/20 21:45 Neurontin - PO 200 mg BID [facility] Administration Gabapentin 100 mg 03/30/20 22:00 04/03/20 21:45 Neurontin - PO 100 mg HS [facility] Administration Heparin Sodium (Porcine) 5,000 unit 03/30/20 06:00 04/04/20 05:47 Heparin - SQ 5,000 unit TID [facility] Administration Hydralazine HCl 10 mg 03/30/20 10:00 04/03/20 21:45 Apresoline - PO 10 mg BID [facility] Administration Insulin Aspart 1 vial 03/30/20 07:00 04/04/20 07:36 Novolog Vial Sliding Scale - SQ Not Given ACHS [facility] Protocol Multivit/Ca Carb/B Cmplx/FA/Prenat 1 tablet 03/30/20 10:00 04/03/20 11:04 Nephro-Roberta - PO 1 tablet DAILY [facility] Administration Nifedipine 90 mg 03/30/20 10:00 04/03/20 11:04 Procardia Xl - PO 90 mg DAILY [facility] Administration Non-Formulary Medication 145 mcg 03/30/20 10:00 Linaclotide [Linzess] PO DAILY [facility] Pantoprazole Sodium 20 mg 03/30/20 10:00 04/03/20 11:04 Protonix - PO 20 mg DAILY [facility] Administration Sevelamer Carbonate 1,600 mg 03/30/20 08:00 04/04/20 09:20 Renvela - PO Not Given TIDCM [facility] Impression 1. ESRD 2. non compliance with bp meds 3. dyspnea 4. DM 5. HTN Plan - next HD tomorrow - monitor bp after am meds - follow up stress test - covid negative - renal diet
[2020-04-04] MEDS: VITAMIN B COMP W-C 1 EA TABLET (NEPHRO-VITE) PO SCH (12:20)
[2020-04-04] MEDS: hydrALAZINE HCL 10 MG TABLET PO SCH (12:20)
[2020-04-04] MEDS: cloNIDine HCL 0.1 MG TABLET PO SCH (12:20)
[2020-04-04] MEDS: NIFEdipine E.R. 90 MG TABLET PO SCH (12:20)
[2020-04-04] MEDS: CARVEDILOL 25 MG TABLET (FP) PO SCH (12:20)
[2020-04-04] MEDS: ASPIRIN 81 MG CHEWABLE TABLETS PO SCH (12:21)
[2020-04-04] MEDS: PANTOPRAZOLE 20 MG TABLET PO SCH (12:21)
[2020-04-04] MEDS: GABAPENTIN 100 MG CAPSULE PO SCH (12:22)
[2020-04-04] MEDS: DIVALPROEX NA *ER* EXTEND REL 500 MG TABLET.SA (FP) PO SCH (12:22)
--- NOTE | 2020-04-04 12:29 | PN ---
Progress Note, Physician History of Present Illness: This patient is a 69yof Citizen Of [place]-speaking with PMHx. of HTN, HLD, ESRD (,, Tue), T2DM, HFpEF and constipation presents after HD for having elevated SBP over 200's associated with headache, shortness of breath, blurry vision, and chest pressure. Patient is admitted for Hypertensive emergency. PMH of ESRD on hemodialysis (//), CAD, HTN, HLD and NIDDM brought by EMS for SOB following her dialysis treatment. Her SOB has been present for 10 days but today she feels it is worse. It does not follow a pattern and is always present. However, her most distressing symptom today is her headache. It is bilateral, frontal without radiation and is 8/10 in severity. She reports headaches in the past. She also reports nausea and generalized weakness. Denies fever, chills, light headedness, dizziness, syncope, chest pain, palpitations, abdominal pain, vomiting, dysuria, hematuria or diarrhea. Reports chronic constipation which is unchanged. Of note, she ambulates with a walker for short distances but uses a wheelchair for long distance since being discharged from her last admission. D enies alcohol, tobacco or illicit drug use. No sick contacts or recent travels. Family history is unremarkable. - Current Medication List Current Medications: Active Medications Acetaminophen (Tylenol -) 650 mg PO Q6H PRN PRN Reason: PAIN LEVEL 4 - 6 Last Admin: 04/03/20 18:04 Dose: 650 mg Documented by: Aspirin (Asa -) 81 mg PO DAILY [facility] Last Admin: 04/04/20 12:21 Dose: 81 mg Documented by: Atorvastatin Calcium (Lipitor -) 10 mg PO [facility] Last Admin: 04/03/20 21:46 Dose: Not Given Documented by: Carvedilol (Coreg -) 25 mg PO BID [facility] Last Admin: 04/04/20 12:20 Dose: 25 mg Documented by: Clonidine (Catapres -) 0.2 mg PO BID [facility] Last Admin: 04/04/20 12:20 Dose: 0.2 mg Documented by: Divalproex Sodium (Depakote *Er* -) 500 mg PO DAILY [facility] Last Admin: 04/04/20 12:22 Dose: 500 mg Documented by: Gabapentin (Neurontin -) 200 mg PO BID [facility] Last Admin: 04/04/20 12:22 Dose: 200 mg Documented by: Gabapentin (Neurontin -) 100 mg PO HS [facility] Last Admin: 04/03/20 21:45 Dose: 100 mg Documented by: Heparin Sodium (Porcine) (Heparin -) 5,000 unit SQ TID [facility] Last Admin: 04/04/20 05:47 Dose: 5,000 unit Documented by: Hydralazine HCl (Apresoline -) 10 mg PO BID [facility] Last Admin: 04/04/20 12:20 Dose: 10 mg Documented by: Sodium Chloride (Normal Saline -) 250 mls @ 3,000 mls/hr IV PRN PRN PRN Reason: Hypotension during Dialysis Stop: 04/05/20 12:05 Insulin Aspart (Novolog Vial Sliding Scale -) 1 vial SQ [facility]; Protocol Last Admin: 04/04/20 12:19 Dose: Not Given Documented by: Multivit/Ca Carb/B Cmplx/FA/Prenat (Nephro-Roberta -) 1 tablet PO DAILY [facility] Last Admin: 04/04/20 12:20 Dose: 1 tablet Documented by: Nifedipine (Procardia Xl -) 90 mg PO DAILY [facility] Last Admin: 04/04/20 12:20 Dose: 90 mg Documented by: Non-Formulary Medication (Linaclotide [Linzess]) 145 mcg PO DAILY [facility] Pantoprazole Sodium (Protonix -) 20 mg PO DAILY [facility] Last Admin: 04/04/20 12:21 Dose: 20 mg Documented by: Sevelamer Carbonate (Renvela -) 1,600 mg PO TIDCM [facility] Last Admin: 04/04/20 12:21 Dose: 1,600 mg Documented by: - Objective Vital Signs: Vital Signs Temperature 98.1 F 04/04/20 10:00 Pulse Rate 68 04/04/20 10:00 Respiratory Rate 18 04/04/20 10:00 Blood Pressure 177/70 H 04/04/20 10:00 O2 Sat by Pulse Oximetry (%) 96 04/04/20 09:00 Eyes: Yes: WNL, Conjunctiva Clear, EOM Intact HENT: Yes: WNL, Atraumatic, Normocephalic Neck: Yes: WNL, Supple, Trachea Midline Cardiovascular: Yes: WNL, Regular Rate and Rhythm Respiratory: Yes: WNL, Regular, CTA Bilaterally Gastrointestinal: Yes: WNL, Normal Bowel Sounds Genitourinary: Yes: WNL Musculoskeletal: Yes: WNL Extremities: Yes: WNL Edema: No Integumentary: Yes: WNL Neurological: Yes: WNL, Alert, Oriented ...Motor Strength: WNL Psychiatric: Yes: WNL Labs: CBC, BMP 04/04/20 07:00 04/04/20 07:00 INR, PTT INR 1.03 (0.83-1.09) 03/29/20 18:20 Problem List - Problems (1) Elevated brain natriuretic peptide (BNP) level Code(s): R79.89 - OTHER SPECIFIED ABNORMAL FINDINGS OF BLOOD CHEMISTRY (2) Elevated troponin Code(s): R79.89 - OTHER SPECIFIED ABNORMAL FINDINGS OF BLOOD CHEMISTRY (3) Headache Code(s): R51 - HEADACHE (4) SOB (shortness of breath) Code(s): R06.02 - SHORTNESS OF BREATH (5) Abnormal head CT Code(s): R93.0 - ABNORMAL FINDINGS ON DX IMAGING OF SKULL AND HEAD, NEC (6) Acute appendicitis Code(s): K35.80 - UNSPECIFIED ACUTE APPENDICITIS Qualifiers: Acute appendicitis type: other Qualified Code(s): K35.890 - Other acute appendicitis without perforation or gangrene; K35.89 - Other acute appendicitis (7) Acute exacerbation of chronic low back pain Code(s): M54.5 - LOW BACK PAIN; G89.29 - OTHER CHRONIC PAIN (8) Anemia Code(s): D64.9 - ANEMIA, UNSPECIFIED (9) Anemia in chronic kidney disease Code(s): N18.9 - CHRONIC KIDNEY DISEASE, UNSPECIFIED; D63.1 - ANEMIA IN CHRONIC KIDNEY DISEASE (10) Back pain Code(s): M54.9 - DORSALGIA, UNSPECIFIED Qualifiers: Back pain location: low back pain (11) Diabetes mellitus type 2, noninsulin dependent Code(s): E11.9 - TYPE 2 DIABETES MELLITUS WITHOUT COMPLICATIONS (12) ESRD on hemodialysis Code(s): N18.6 - END STAGE RENAL DISEASE; Z99.2 - DEPENDENCE ON RENAL DIALYSIS (13) Fever Code(s): R50.9 - FEVER, UNSPECIFIED (14) Fever Code(s): R50.9 - FEVER, UNSPECIFIED (15) Hyperkalemia Code(s): E87.5 - HYPERKALEMIA (16) Hypertension Code(s): I10 - ESSENTIAL (PRIMARY) HYPERTENSION Qualifiers: Hypertension type: essential hypertension Qualified Code(s): I10 - Essential (primary) hypertension (17) Missed dialysis Code(s): PTO9084 - (18) Numbness Code(s): R20.0 - ANESTHESIA OF SKIN (19) Prophylactic measure Code(s): Z29.9 - ENCOUNTER FOR PROPHYLACTIC MEASURES, UNSPECIFIED (20) Pulmonary congestion Code(s): R09.89 - OTH SYMPTOMS AND SIGNS INVOLVING THE CIRC AND RESP SYSTEMS (21) Suspected COVID-19 virus infection Code(s): Z20.828 - CONTACT W AND EXPOSURE TO OTH VIRAL COMMUNICABLE DISEASES Assessment/Plan Decompensated diastolic CHF uncontrolled HTN DM HLD chronic cerebral infarcts chronic anermia overweight Elevated D-dimer; (ECHO notes normal LVEF; moderate LVH; severe LAE; moderate pulmonary HTN; normal RVEF and RV size;mild RVH; normal RA size); O2 sat >90s on RA Elevated TNI COVID not detected. 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 keep LDL below 70 mg/dL with statin, diet, exercise EKG: NSR, 1st degree AV block. TNI elevated; various contributors to demand ischemia. Multiple CAD risks, with mildly elevated TNI: MIBI Stress when stable ASA 81 QD
[2020-04-04 14:25] VITALS: BP 145/69; PULSE 71; TEMP 98.2
--- NOTE | 2020-04-04 16:11 | PN ---
Teaching Attending Note Name of Resident: Tasha Georges ATTENDING PHYSICIAN STATEMENT I saw and evaluated the patient. I reviewed the resident's note and discussed the case with the resident. I agree with the resident's findings and plan as documented. SUBJECTIVE: OBJECTIVE: Vital Signs Period Temp Pulse Resp BP Sys/Dietz Pulse Ox Last 24 Hr 98.0 F-98.9 F 67-77 16-20 137-177/54-70 96-97 Laboratory Results - last 24 hr 04/04/20 04/04/20 04/04/20 07:00 07:00 07:00 WBC 6.7 RBC 3.20 L Hgb 9.5 L Hct 29.1 L MCV 91.1 MCH 29.7 MCHC 32.6 RDW 15.6 Plt Count 185 MPV 9.0 Absolute Neuts (auto) 3.3 Neutrophils % 48.2 Lymphocytes % 35.1 Monocytes % 9.2 Eosinophils % 6.5 H Basophils % 1.0 Nucleated RBC % 0 ESR 87 H Sodium 137 Potassium 4.3 Chloride 96 L Carbon Dioxide 34 H Anion Gap 7 L BUN 27.7 H Creatinine 6.1 H Est GFR (CKD-EPI)AfAm 7.43 Est GFR (CKD-EPI)NonAf 6.41 POC Glucometer Random Glucose 117 H Calcium 9.0 Phosphorus 3.3 Magnesium 2.0 Total Bilirubin 0.6 AST 9 L ALT 11 L Alkaline Phosphatase 112 C-Reactive Protein 1.3 H Total Protein 7.4 Albumin 3.3 L 04/04/20 12:17 WBC RBC Hgb Hct MCV MCH MCHC RDW Plt Count MPV Absolute Neuts (auto) Neutrophils % Lymphocytes % Monocytes % Eosinophils % Basophils % Nucleated RBC % ESR Sodium Potassium Chloride Carbon Dioxide Anion Gap BUN Creatinine Est GFR (CKD-EPI)AfAm Est GFR (CKD-EPI)NonAf POC Glucometer 114 Random Glucose Calcium Phosphorus Magnesium Total Bilirubin AST ALT Alkaline Phosphatase C-Reactive Protein Total Protein Albumin Current Medications Generic Name Dose Route Start Last Admin Trade Name Freq PRN Reason Stop Dose Admin Acetaminophen 650 mg 03/29/20 23:27 04/03/20 18:04 Tylenol - PO 650 mg Q6H PRN Administration PAIN LEVEL 4 - 6 Aspirin 81 mg 04/01/20 10:00 04/04/20 12:21 Asa - PO 81 mg DAILY [facility] Administration Atorvastatin Calcium 10 mg 03/30/20 22:00 04/03/20 21:46 Lipitor - PO Not Given HS [facility] Carvedilol 25 mg 03/30/20 10:00 04/04/20 12:20 Coreg - PO 25 mg BID [facility] Administration Clonidine 0.2 mg 03/29/20 23:30 04/04/20 12:20 Catapres - PO 0.2 mg BID [facility] Administration Divalproex Sodium 500 mg 04/01/20 19:30 04/04/20 12:22 Depakote *Er* - PO 500 mg DAILY [facility] Administration Gabapentin 200 mg 03/30/20 10:00 04/04/20 12:22 Neurontin - PO 200 mg BID [facility] Administration Gabapentin 100 mg 03/30/20 22:00 04/03/20 21:45 Neurontin - PO 100 mg HS [facility] Administration Heparin Sodium (Porcine) 5,000 unit 03/30/20 06:00 04/04/20 13:00 Heparin - SQ 5,000 unit TID [facility] Administration Hydralazine HCl 10 mg 03/30/20 10:00 04/04/20 12:20 Apresoline - PO 10 mg BID [facility] Administration Sodium Chloride 250 mls @ 3,000 mls/hr 04/04/20 12:05 Normal Saline - IV 04/05/20 12:05 PRN PRN Hypotension during Dialysis Insulin Aspart 1 vial 03/30/20 07:00 04/04/20 12:19 Novolog Vial Sliding Scale - SQ Not Given ACHS COUNT INCLUDES [facility] Protocol Multivit/Ca Carb/B Cmplx/FA/Prenat 1 tablet 03/30/20 10:00 04/04/20 12:20 Nephro-Roberta - PO 1 tablet DAILY [facility] Administration Nifedipine 90 mg 03/30/20 10:00 04/04/20 12:20 Procardia Xl - PO 90 mg DAILY [facility] Administration Non-Formulary Medication 145 mcg 03/30/20 10:00 Linaclotide [Linzess] PO DAILY [facility] Pantoprazole Sodium 20 mg 03/30/20 10:00 04/04/20 12:21 Protonix - PO 20 mg DAILY [facility] Administration Sevelamer Carbonate 1,600 mg 03/30/20 08:00 04/04/20 12:21 Renvela - PO 1,600 mg TIDCM [facility] Administration ASSESSMENT AND PLAN:
--- NOTE | 2020-04-04 16:40 | DS ---
Physical Exam: SUBJECTIVE: Patient seen and examined at bedside. No acute events overnight. OBJECTIVE: Vital Signs Period Temp Pulse Resp BP Sys/Dietz Pulse Ox Last 24 Hr 98.0 F-98.9 F 67-77 16-20 137-177/54-70 96-97 PHYSICAL EXAM GENERAL: Aox3, in no acute distress. HEENT: NCAT. MMM. No JVD. LUNGS: CTABL, no wheezes, no crackles, no accessory muscle use. HEART: RRR, S1, S2, 3/6 systolic murmur noted. ABDOMEN: Soft, ntnd, + bowel sounds, no guarding. EXTREMITIES: 2+ pulses, warm, well-perfused, no edema. NEUROLOGICAL: Cranial nerves II through XII grossly intact. Sensation intact throughout. 3/5 b/l hip flexion, 4/5 knee flexion/extension; 4/5 b/l elbow flexion/extension. Good handgrip strength. Reflexes 2+ SKIN: Warm, dry LABS Laboratory Results - last 24 hr 04/04/20 04/04/20 04/04/20 07:00 07:00 07:00 WBC 6.7 RBC 3.20 L Hgb 9.5 L Hct 29.1 L MCV 91.1 MCH 29.7 MCHC 32.6 RDW 15.6 Plt Count 185 MPV 9.0 Absolute Neuts (auto) 3.3 Neutrophils % 48.2 Lymphocytes % 35.1 Monocytes % 9.2 Eosinophils % 6.5 H Basophils % 1.0 Nucleated RBC % 0 ESR 87 H Sodium 137 Potassium 4.3 Chloride 96 L Carbon Dioxide 34 H Anion Gap 7 L BUN 27.7 H Creatinine 6.1 H Est GFR (CKD-EPI)AfAm 7.43 Est GFR (CKD-EPI)NonAf 6.41 POC Glucometer Random Glucose 117 H Calcium 9.0 Phosphorus 3.3 Magnesium 2.0 Total Bilirubin 0.6 AST 9 L ALT 11 L Alkaline Phosphatase 112 C-Reactive Protein 1.3 H Total Protein 7.4 Albumin 3.3 L 04/04/20 12:17 WBC RBC Hgb Hct MCV MCH MCHC RDW Plt Count MPV Absolute Neuts (auto) Neutrophils % Lymphocytes % Monocytes % Eosinophils % Basophils % Nucleated RBC % ESR Sodium Potassium Chloride Carbon Dioxide Anion Gap BUN Creatinine Est GFR (CKD-EPI)AfAm Est GFR (CKD-EPI)NonAf POC Glucometer 114 Random Glucose Calcium Phosphorus Magnesium Total Bilirubin AST ALT Alkaline Phosphatase C-Reactive Protein Total Protein Albumin HOSPITAL COURSE: Date of Admission:04/01/20 IMAGING: * CTA Chest 04/01: 1. No evidence of pulmonary embolism. 2. Groundglass opacification throughout the lung villegas. Diagnostic possibilities would include mild congestion or viral pneumonitis. 3. Cardiomegaly and mild mediastinal and right hilar lymphadenopathy. 4. Suspected cholelithiasis. Please see above discussion. * CT head w/o con 03/31: No CT evidence of acute intracranial pathology. Chronic supratentorial and infratentorial infarcts are noted as discussed above. Moderate to marked periventricular and subcortical chronic microvascular ischemic changes are seen. No definite change is identified in comparison to prior CT exams of 03/05/2020 and 03/01/2020. * CXR 03/29: Mild cardiomegaly without evidence of acute lung disease * Echo: EF 55-60%. Grade II diastolic dysfunction. LA severely dilated. Mod TR, mod pulm HTN, Trace pericardial effusion. 69 y.o. Telugu and malay -speaking F PMH HTN, HLD, ESRD (T,TH, Sat.), DM2, HFpEF and constipation presented post-hemodialysis session on 03/29 for h ypertension associated with headache, shortness of breath, blurry vision, and chest pressure admitted for hypertensive emergency. Labs showed elevated trops. CXR showed cardiomegaly but no other acute pathology. Head CT and CTA chest was neg. She was given her home meds and her Hydralazine was increased to 10 mg BID. She continued with her normal dialysis schedule. Her hospital stay was complicated by L side hemiparesthesia. MRI brain was done that did not show any evid of acute infarct/bleed. She was seen by the neurologist with recommendation to take Depakote and to follow up as an outpatient to obtain an EEG. Pt was seen by cardio with recommendation to take daily aspirin. A lexiscan stress test was done that showed mild basal anterolateral ischemia, most likely corresponding to branch vessel dz. No evid of transient ischemic dilatation, LVEF 56% with nl wall fxn. Her BP remained stable throughout the hospital admission and she was discharged home with recommendation to follow up with her pcp, funnel coater, nephro, and neurologist. Date of Discharge: 04/04/20 Minutes to complete discharge: 40 Discharge Summary Problems reviewed: Yes Reason For Visit: SHORTNESS OF BREATH Current Active Problems Elevated brain natriuretic peptide (BNP) level (Acute) Elevated troponin (Acute) Headache (Acute) SOB (shortness of breath) (Acute) Condition: Improved - Instructions Diet, Activity, Other Instructions: Your visit: You were admitted to the hospital for very high blood pressure. You were treated with blood pressure medications with improvement of your symptoms. While in the hospital you had an episode of what may appear to have been a mild stroke. We took pictures of your brain and did not find a stroke; however, you are experiencing some weakness still. It is important that you continue to exercise your extremities daily in order to regain full strength. We will provide you with a referral for a physical therapist. Your kidney function is low; you have known chronic kidney disease. Please continue to receive hemodialysis at your scheduled timing on Tuesdays, and Saturdays. You had imaging of your lungs showing some congestion. Your breathing was monitored and was stable throughout your hospital course. You were also found to have gallstones. You had a cardiac stress test that did not show any acute condition requiring emergent intervention. Medications changes: -Add a daily aspirin, 81 mg. -Continue to take these blood pressure medications: Hydralazine 10mg, two tablets per day, Clonidine 0.2mg two times per day, Carvedilol 25mg two times per day, Nifedipine 90 mg daily -Continue to take all other home medications as prescribed Follow up: -Please follow-up with funnel coater Dr. Blackwell in 1 week. -Visit with your Primary Care Provider Dr. Rossi in 2 weeks. -Nephrology Dr. Bassam Rebollar in 2 weeks. -Neurology Dr. Valentine in 2 weeks. You will need an EEG as an outpatient. Additional Instructions: -You are being discharged to your home with home health services. -Please use your walker to help you ambulate. -Maintain a diet low in salt, sugars and fat. -Please return to the Emergency Department if you experience worsening headaches, blurred vision, chest pain, fevers, chills, shortness of breath, or if you experience any worsening, new or concerning symptoms. Referrals: Segundo Valentine MD [Staff Physician] - Esa Blackwell MD [Staff Physician] - Dannie Rossi MD [Non Staff, Medical] - Eddi Watkins MD [Staff Physician] - Bassam Rebollar MD [Staff Physician] - Disposition: HOME - Home Medications Comprehensive Discharge Medication List: Ambulatory Orders Carvedilol [Coreg -] 25 mg PO BID 02/05/19 Clonidine HCl [Catapres] 0.2 mg PO Q12H 02/05/19 Folic Acid/Vit B Complex and C [Yue-Roberta Tablet] 0.8 mg PO DAILY 02/05/19 Gabapentin [Neurontin] 100 mg PO HS 02/05/19 Linaclotide [Linzess] 145 mcg PO DAILY 02/05/19 Nifedipine [Procardia Xl] 90 mg PO DAILY 02/05/19 Omeprazole 20 mg PO DAILY 02/05/19 Oxycodone HCl 5 mg PO DAILY PRN 02/05/19 Sevelamer Carbonate [Renvela -] 1,600 mg PO TID 02/05/19 Simvastatin [Zocor -] 20 mg PO HS 02/05/19 Sitagliptin Phosphate [Januvia] 25 mg PO DAILY 02/05/19 Gabapentin [Neurontin -] 200 mg PO BID 04/17/19 hydrALAZINE HCL [Apresoline -] 10 mg PO DAILY #0 tablet 03/10/20 Aspirin 81 mg PO DAILY #30 tab.chew 04/02/20 This patient is new to me today: No Emergency Visit: Yes ED Registration Date: 04/01/20 Care time: The patient presented to the Emergency Department on the above date and was hospitalized for further evaluation of their emergent condition. Critical Care patient: No - Discharge Referral Referred to [facility] Med [facility] No ATTENDING PHYSICIAN STATEMENT I saw and evaluated the patient. I reviewed the resident's note and discussed the case with the resident. I agree with the resident's findings and plan as documented. SUBJECTIVE: OBJECTIVE: ASSESSMENT AND PLAN:
== END 2020-04-04 18:03 | disposition home or self-care (01) | DRG 291 ==
LOC: JER 17:29 → JERBED 21:01 → J4S 03-30 00:28 → OBSVTOIN 04-01 09:53 → J4S 04-03 06:31
PROVIDERS: ADMIT Internal Medicine; ATTEND Internal Medicine
PROC: 5A1D70Z Performance of Urinary Filtration, Intermittent, Less than 6 Hours Per Day (ICD-10-PCS; principal; 2020-03-31)
DX: I13.2 Hypertensive heart and chronic kidney disease with heart failure and with stage 5 chronic kidney disease, or end stage renal disease (principal); N18.6 End stage renal disease; I50.33 Acute on chronic diastolic (congestive) heart failure; R47.01 Aphasia; I16.0 Hypertensive urgency; I25.10 Atherosclerotic heart disease of native coronary artery without angina pectoris; Z99.2 Dependence on renal dialysis; E11.22 Type 2 diabetes mellitus with diabetic chronic kidney disease; I44.0 Atrioventricular block, first degree; Z79.84 Long term (current) use of oral hypoglycemic drugs; R20.2 Paresthesia of skin; K59.00 Constipation, unspecified; D63.1 Anemia in chronic kidney disease; Z86.73 Personal history of transient ischemic attack (TIA), and cerebral infarction without residual deficits; E78.5 Hyperlipidemia, unspecified; E66.3 Overweight; Z68.29 Body mass index [BMI] 29.0-29.9, adult; Z91.14 Patient's other noncompliance with medication regimen; G43.909 Migraine, unspecified, not intractable, without status migrainosus; R07.9 Chest pain, unspecified; R79.89 Other specified abnormal findings of blood chemistry; I27.20 Pulmonary hypertension, unspecified; K80.80 Other cholelithiasis without obstruction
CPT/HCPCS: 36415; 70450-TC; 70551-TC; 71045-TC-FY; 71275-TC; 78452-TC; 80048; 80053; 81003; 82550; 82962; 83036; 83735; 83880; 84100; 84443; 84484; 85025; 85027; 85379; 85610; 85651; 85730; 86140; 86803; 86850; 86870; 86880; 86900; 86901; 86902; 87340; 93005; 93010; 93017; 93306-TC; 97116-GP; 97161-GP; 99285-25; A9502; G0378; J0131; J0735; J1644; J2785; Q5106; Q9967; U0003

== ENCOUNTER 2020-04-26 08:15 | Inpatient (IN) | payer OTHER ==
--- NOTE | 2020-04-26 08:53 | PDOC ---
Attending Attestation - Resident Resident Name: Deon Johnson - ED Attending Attestation I have performed the following: I have examined & evaluated the patient, The case was reviewed & discussed with the resident, I agree w/resident's findings & plan, Exceptions are as noted - HPI HPI: 04/26/20 08:26 69YOF with h/o HTN, HLD, ESRD (on HD T/Th/Sat and does occasionally make urine but does not urinate every day) who was BIBEMS for SOB since 5 am today, similar to prior episodes. EMS found her to be hypertensive in the field at 209/115 initially. She notes palpitations yesterday which have since resolved, as well as a low-grade headache ongoing for the past 3 weeks, and nausea with 1-2 episodes NBNB vomiting. She was admitted earlier this week for the same issues. States she is adherent to her medication regimen and has not missed HD but she has not taken her medications today and has not gotten her Tuesday dialysis yet (due at 10:30am today). - Physicial Exam PE: 04/26/20 08:55 GENERAL: nontoxic-appearing, A/Ox4, no distress, answers questions appropriately, laying down in dark exam room states because light hurts her eye HEENT: PERRLA, EOMI, moist mucous membranes NECK/BACK: no midline ttp, no spinal stepoff or deformity, no hematoma, full ROM, neck supple CARDIOVASCULAR: regular rate/rhythm, no MGR, strong peripheral pulses, capillary refill <2 seconds, extremities wwp, no edema, AV fistula RUE with good bruit and thrill LUNGS/RESPIRATORY: no respiratory distress, CTAB GI/ABDOMEN: symmetric [id number], normoactive BS, soft, no ttp, no midline pulsatile masses : no CVA tenderness MSK/EXTREMITIES: no muscle atrophy, no acute deformity SKIN: warm and dry, no pallor, no jaundice, no rash, no pathologic-appearing bruising, no skin breakdown, no cuts, no lesions NEUROLOGICAL: GCS 15, CN II-XII grossly intact, 5/5 strength proximally and distally, no facial droop - Medical Decision Making 04/26/20 09:22 69YOF with HTN, HLD, ESRD on HD T/Th/Sat without recent missed treatment who p/w SOB and HTN. Initial Vital Signs Temp Pulse Resp BP Pulse Ox 97.4 F L 82 22 H 209/115 H 98 04/26/20 08:15 04/26/20 08:15 04/26/20 08:15 04/26/20 08:15 04/26/20 08:15 DDX IBNLT: most likely pulmonary edema, CHF exacerbation, hypertensive emergency, possible metabolic derangement including hyperkalemia, also could be a component of other common causes of SOB including PNA/bronchitis, PE, etc. W/U ordered: Labs as noted below, EKG, CXR, HCT (given headache x3 weeks) TX ordered: Coreg, clonidine, hydralazine EKG: Reviewed; results as noted in ECG Review section. CXR: Nothing acute, no e/o volume overload on CXR Laboratory Results 04/26/20 04/26/20 09:00 08:29 Sodium 136 Potassium 6.0 H Chloride 100 Carbon Dioxide 24 Anion Gap 12 BUN 49.6 H Creatinine 8.4 H* Est GFR (CKD-EPI)AfAm 5.04 Est GFR (CKD-EPI)NonAf 4.35 POC Glucometer 142 Random Glucose 138 H Calcium 9.5 Total Bilirubin 0.5 AST 31 ALT 14 Alkaline Phosphatase 110 Creatine Kinase 98 Troponin I 0.20 H Total Protein 8.3 H Albumin 3.7 04/26/20 04/26/20 09:00 08:29 RBC 3.39 L MCV 92.4 MCHC 31.9 L RDW 16.5 H MPV 9.1 Neutrophils % 45.6 Lymphocytes % 39.3 Monocytes % 7.7 Eosinophils % 6.3 H Basophils % 1.1 POC Glucometer 142 Last Vital Signs Temp Pulse Resp BP Pulse Ox 97.4 F L 73 16 207/83 H 98 04/26/20 08:15 04/26/20 11:18 04/26/20 11:18 04/26/20 11:18 04/26/20 11:18 Patient has been given multiple antihypertensives in the ED so far, as is normal for her prior visits. The Pt is unsafe for discharge at this time. They require further hospital observation, workup, and treatment. HD unit is ready to dialyze, inpatient team accepts to Dr. Shaikh. Heart Score/ECG Review #1 04/26/20 09:30 Sinus rhythm, ate 75, 1st degree AV block, normal axis and intervals, poor R wave progression, no pathologic ST elevations Discharge - Discharge Information Problems reviewed: Yes Clinical Impression/Diagnosis: Missed dialysis, SOB (shortness of breath) Condition: Guarded - Admission Yes - Follow up/Referral Referrals: Saritha Blankenship MD [Primary Care Provider] - - Patient Discharge Instructions - Post Discharge Activity
[2020-04-26] MEDS ORDERED: FUROSEMIDE 40 MG/4 ML INJECTABLE VIAL IVPUSH ONE (08:57)
[2020-04-26] MEDS ORDERED: CARVEDILOL 25 MG TABLET (FP) PO ONE (09:08)
--- NOTE | 2020-04-26 09:14 | PDOC ---
History of Present Illness - General Chief Complaint: Shortness of Breath Stated Complaint: TROUBLE BREATHING Time Seen by Provider: 04/26/20 08:25 - History of Present Illness Initial Comments: 04/26/20 09:08 69 yo female with pmh of HTN, HLD, ESRD ( dialysis , , Tue) presents to the ED with SOB that started this morning. Pt explains SOB feels very similar to prior instances of fluid oveload. Pt is scheduled for dialysis later today her last one being . Pt explains she is compliant with her medication but did not take this morning. Pt has assciated sxs of nausea and 2 episodes of nonbloody, nonbilious emesis this morning and headache which has been going on for three weeks. Pt also explains she has had some palpitations yesterday but denies any current palpitations. Pt denies blurry vision, chest pain, fevers, chills, dizziness, or LOC. Pt was recently seen at hospital five days ago for very similar problem. PMH: ESRD (HD , , Tue) HLD HTN PSH: - RUE fistula -hysterectomy -appendectomy - breast reduction Allergies: NKA Social: Denies smoking Denies Drugs Denies alcohol PCP: Dr. Rossi Nephro: Dr. Cazares 04/26/20 09:49 Past History - Medical History Allergies/Adverse Reactions: Allergies Allergy/AdvReac Type Severity Reaction Status Date / Time No Known Allergies Allergy Verified 04/22/20 06:06 Home Medications: Ambulatory Orders Carvedilol [Coreg -] 25 mg PO BID 02/05/19 Clonidine HCl [Catapres] 0.2 mg PO Q12H 02/05/19 Folic Acid/Vit B Complex and C [Yue-Roberta Tablet] 0.8 mg PO DAILY 02/05/19 Gabapentin [Neurontin] 100 mg PO HS 02/05/19 Linaclotide [Linzess] 145 mcg PO DAILY 02/05/19 Nifedipine [Procardia Xl] 90 mg PO DAILY 02/05/19 Omeprazole 20 mg PO DAILY 02/05/19 Sevelamer Carbonate [Renvela -] 1,600 mg PO TID 02/05/19 Simvastatin [Zocor -] 20 mg PO HS 02/05/19 Sitagliptin Phosphate [Januvia] 25 mg PO DAILY 02/05/19 oxyCODONE HCL [Oxycodone HCl] 5 mg PO DAILY PRN 02/05/19 Gabapentin [Neurontin -] 200 mg PO BID 04/17/19 Aspirin 81 mg PO DAILY #30 tab.chew 04/02/20 hydrALAZINE HCL [Apresoline -] 10 mg PO BID 04/22/20 Miconazole Nitrate [Monistat-7 -] 1 applic VG HS #1 tube 04/23/20 Sucralfate 1 gm PO TID 04/26/20 COPD: No Diabetes: Yes Dialysis: Yes (t-th-sat) HTN: Yes - Immunization History Immunization Up to Date: Yes - Psycho-Social/Smoking History Smoking History: Unknown if ever smoked Have you smoked in the past 12 months: No - Substance Abuse Hx (Audit-C & DAST Scrn) How often the patient has a drink containing alcohol: Never Score: In Men: 4 or > Positive; In Women: 3 or > Positive: 0 Screen Result (Pos requires Nsg. Audit-10AR): Negative In the last yr the pt used illegal drug/Rx for NonMed reason: No Score: Yes response is considered Positive: 0 Screen Result (Positive result requires Nsg. DAST-10): Negative Review of Systems - Review of Systems Comments:: 04/26/20 09:49 GENERAL/CONSTITUTIONAL: No fever or chills. No weakness. HEAD, EYES, EARS, NOSE AND THROAT: No change in vision. No ear pain or discharge. No sore throat. CARDIOVASCULAR: SOB No chest pain RESPIRATORY: No cough, wheezing, or hemoptysis. GASTROINTESTINAL:Nausea with 2 episodes of emesis GENITOURINARY: No dysuria, frequency, or change in urination. MUSCULOSKELETAL: No joint or muscle swelling or pain. No neck or back pain. SKIN: No rash NEUROLOGIC: Headache, no vertigo, loss of consciousness, or change in strength/sensation. ENDOCRINE: No increased thirst. No abnormal weight change ALLERGIC/IMMUNOLOGIC: No hives or skin allergy. *Physical Exam - Vital Signs Last Vital Signs Temp Pulse Resp BP Pulse Ox 97.4 F L 76 20 218/81 H 100 04/26/20 08:15 04/26/20 08:52 04/26/20 08:52 04/26/20 08:52 04/26/20 08:52 - Physical Exam 04/26/20 09:51 GENERAL: Awake, alert, and oriented to only person and place and not time, in moderate distress HEAD: No signs of trauma, normocephalic, atraumatic EYES: PERRLA, EOMI, sclera anicteric, conjunctiva clear ENT: Auricles normal inspection, hearing grossly normal, nares patent, oropharynx clear without exudates. Moist mucosa NECK: Normal ROM, supple, no lymphadenopathy, JVD, or masses LUNGS: No distress, speaks full sentences, bilateral crackles in bases HEART: Regular rate and rhythm, normal S1 and S2, no murmurs, rubs or gallops, peripheral pulses normal and equal bilaterally. ABDOMEN: Soft, nontender, normoactive bowel sounds. No guarding, no rebound. No masses EXTREMITIES : Normal inspection, Normal range of motion, no edema. No clubbing or cyanosis. Right arm dialysis with palpable thrill and audible bruits NEUROLOGICAL: Cranial nerves II through XII grossly intact. Normal speech, no focal sensorimotor deficits SKIN: Warm, Dry, normal turgor, no rashes or lesions noted 04/26/20 13:12 Heart Score/ECG Review - ECG Impressions Comment:: 04/26/20 10:27 Regular rate Normal Sinus rhythm @75bpm MT interval long No ST changes Normal QRS, and QT intervals. ED Treatment Course - LABORATORY CBC & Chemistry Diagram: 04/26/20 09:00 04/26/20 09:00 - ADDITIONAL ORDERS Additional order review: Laboratory Results 04/26/20 08:29 POC Glucometer 142 04/26/20 08:29 POC Glucometer 142 - RADIOLOGY Radiology Studies Ordered: Category Date Time Status CHEST X-RAY PORTABLE* [RAD] Stat Radiology 04/26/20 08:54 Ordered Medical Decision Making - Medical Decision Making DDx: -ESRD Fluid overload - HTN Emergency 04/26/20 09:04 69 yo female with pmh ESRD (dialysis Tuesday), HD, HT presented to the ED with SOB starting this morning. Pt has not taken her medication today and she has not had dialysis today. Will assess for fluid overload with labs, EKG, and CXR. Will also give loop diuretics and home meds to bring down pressure. Called out to outgoing inspector Dr. Watkins who will flora back by 9:26. CT head was done because of headache and high blood pressure. 04/26/20 10:[address] Moody who is covering for Dr. Mccarthy who said he will see pt and schedule for dialysis. 04/26/20 13:12 Pt labs show elevated K and Cr CXR and CT scan of head was negative. History was reported to Admitting team pt was admitted to Dr. Shaikh Discharge - Discharge Information Problems reviewed: Yes Clinical Impression/Diagnosis: SOB (shortness of breath), Missed dialysis Condition: Guarded - Admission Yes - Follow up/Referral - Patient Discharge Instructions - Post Discharge Activity
[2020-04-26] MEDS ORDERED: CARVEDILOL 12.5 MG TABLET (FP) ONE (09:17)
[2020-04-26 09:18] LABS: BASO % 1.1 % (0-2.0); EOS % 6.3 % (0-4.5); HEMATOCRIT 31.3 % (32.4-45.2); LYMPH % 39.3 % (8-40); MCH 29.5 pg (25.7-33.7); MCHC 31.9 g/dl (32.0-36.0); MEAN CELL VOLUME 92.4 fl (80-96); MEAN PLT VOLUME 9.1 fl (7.5-11.1); MONO % 7.7 % (3.8-10.2); NEUT % 45.6 % (42.8-82.8); PLATELET COUNT 190 K/MM3 (134-434); RBC 3.39 M/mm3 (3.60-5.2); RDW 16.5 % (11.6-15.6); WHITE BLOOD COUNT 7.6 K/mm3 (4.0-10.0)
[2020-04-26] MEDS ORDERED: FUROSEMIDE 40 MG/4 ML INJECTABLE VIAL ONE (09:18)
[2020-04-26] MEDS ORDERED: ACETAMINOPHEN 325 MG TABLET (FP) PO ONE (09:31)
[2020-04-26 10:02] LABS: ALBUMIN 3.7 g/dl (3.4-5.0); BILIRUBIN,TOTAL 0.5 mg/dL (0.2-1); BLOOD UREA NITROGEN 49.6 mg/dL (7-18); CALCIUM 9.5 mg/dL (8.5-10.1); TOT PROT 8.3 g/dl (6.4-8.2)
[2020-04-26 10:06] LABS: CREATININE 8.4 mg/dL (0.55-1.3)
[2020-04-26] MEDS ORDERED: ACETAMINOPHEN 325 MG TABLET (FP) ONE (10:11)
[2020-04-26] MEDS ORDERED: cloNIDine HCL 0.1 MG TABLET PO ONE ×2 (11:20→17:15)
[2020-04-26] MEDS ORDERED: hydrALAZINE HCL 20 MG/ML VIAL IVPUSH ONE (11:22)
[2020-04-26] MEDS ORDERED: cloNIDine HCL 0.1 MG TABLET ONE (11:42)
[2020-04-26] MEDS ORDERED: hydrALAZINE HCL 20 MG/ML VIAL ONE (11:42)
--- NOTE | 2020-04-26 13:18 | CON.NEP ---
Consult Consult Specialty:: nephrology Referred by:: una Reason for Consultation:: esrd needs hd - History of Present Illness Chief Complaint: sob - History Source History Provided By: Medical Record - Past Medical History Cardio/Vascular: Yes: CAD, CHF, HTN Gastrointestinal: Yes: GERD, Other (s/p appendectomy on 02/06/2019 - laparoscopic appendectomy for enlarged, inflamed, bulbous-ended appendix) Renal/: Yes: Renal Failure, Hemodialysis Musculoskeletal: Yes: Osteoarthritis Endocrine: Yes: Diabetes Mellitus - Past Surgical History Past Surgical History: Yes: Appendectomy, AV Fistula/Graft (RUE), Hysterectomy - Alcohol/Substance Use Hx Alcohol Use: No History of Substance Use: reports: None - Smoking History Smoking history: Unknown if ever smoked Have you smoked in the past 12 months: No - Social History Usual Living Arrangement: Assisted Living ADL: Independent Home Medications - Allergies Allergies/Adverse Reactions: Allergies Allergy/AdvReac Type Severity Reaction Status Date / Time No Known Allergies Allergy Verified 04/22/20 06:06 - Home Medications Home Medications: Ambulatory Orders Carvedilol [Coreg -] 25 mg PO BID 02/05/19 Clonidine HCl [Catapres] 0.2 mg PO Q12H 02/05/19 Folic Acid/Vit B Complex and C [Yue-Roberta Tablet] 0.8 mg PO DAILY 02/05/19 Gabapentin [Neurontin] 100 mg PO HS 02/05/19 Linaclotide [Linzess] 145 mcg PO DAILY 02/05/19 Nifedipine [Procardia Xl] 90 mg PO DAILY 02/05/19 Omeprazole 20 mg PO DAILY 02/05/19 Sevelamer Carbonate [Renvela -] 1,600 mg PO TID 02/05/19 Simvastatin [Zocor -] 20 mg PO HS 02/05/19 Sitagliptin Phosphate [Januvia] 25 mg PO DAILY 02/05/19 oxyCODONE HCL [Oxycodone HCl] 5 mg PO DAILY PRN 02/05/19 Gabapentin [Neurontin -] 200 mg PO BID 04/17/19 Aspirin 81 mg PO DAILY #30 tab.chew 04/02/20 hydrALAZINE HCL [Apresoline -] 10 mg PO BID 04/22/20 Miconazole Nitrate [Monistat-7 -] 1 applic VG HS #1 tube 04/23/20 Sucralfate 1 gm PO TID 04/26/20 Nephrology Consult - Height Height: 5 ft 6 in - Weight Weight: 172 lb - BMI Body Mass Index (BMI): 27.7 - Lab Results CBC,BMP: CBC, BMP 04/26/20 09:00 04/26/20 09:00 Anion Gap: Anion Gap Anion Gap 12 MMOL/L (8-16) 04/26/20 09:00 - Physical Examination Vital Signs: Vital Signs Temperature 97.4 F L 04/26/20 08:15 Pulse Rate 68 04/26/20 12:30 Respiratory Rate 20 04/26/20 12:30 Blood Pressure 205/91 H 04/26/20 12:30 O2 Sat by Pulse Oximetry (%) 98 04/26/20 12:30 Assessment/Plan ESRD ON HD came via ER with SOB seen on dialysis- feeling better durinmg the tx
[2020-04-26] MEDS ORDERED: SODIUM CHLORIDE 250 ML IV PRN (13:34)
--- NOTE | 2020-04-26 14:58 | EKG ---
Test Reason : Blood Pressure : / mmHG Vent. Rate : 075 BPM Atrial Rate : 075 BPM P-R Int : 222 ms QRS Dur : 096 ms QT Int : 418 ms P-R-T Axes : 055 -09 065 degrees QTc Int : 466 ms SINUS RHYTHM WITH 1ST DEGREE A-V BLOCK POSSIBLE LEFT ATRIAL ENLARGEMENT LEFT VENTRICULAR HYPERTROPHY ABNORMAL ECG WHEN COMPARED WITH ECG OF 22-APR-2020 06:25, NO SIGNIFICANT CHANGE WAS FOUND Confirmed by JESS MILLER MD ([id number]) on 04/26/2020 2:57:32 PM Referred By: Confirmed By:JESS MILLER MD
--- NOTE | 2020-04-26 16:10 | HP ---
Admitting History and Physical - Admission Chief Complaint: SOB History of Present Illness: 69 yo female with a pmh notable for HTN, HLD, ESRD ( dialysis T, , Tue) , and DM II who presents to the ED with SOB that started this morning. Pt explains SOB feels very similar to prior instances of fluid oveload. Pt is scheduled for dialysis later today her last one was on 04/24. Pt explains she is compliant with her medication but did not take this morning. Pt has assciated ssymptoms of nausea and 2 episodes of nonbloody, nonbilious emesis this morning and headache which has been going on for three weeks. Pt also explains she has had some palpitations yesterday but denies any current palpitations. Pt denies blurry vision, chest pain, fevers, chills, dizziness, or LOC. Pt was recently seen at hospital five days ago for very similar problem. PMH: ESRD (HD T, , Tue) HLD HTN PSH: - RUE fistula -hysterectomy -appendectomy - breast reduction Allergies: NKA Social: Denies smoking Denies Drugs Denies alcohol PCP: Dr. Rossi Nephro: Dr. Cazares ED course: BP 178/96 CBC ok Hgb/Hct=10/31 BMP with Na 136 K =6.0 BUN/Cr=49/8.4 Chest xray: no evidence for fluid overload CT head : no acute findings History Source: Patient Limitations to Obtaining History: No Limitations - Past Medical History Cardiovascular: Yes: CAD, CHF, HTN Gastrointestinal: Yes: GERD, Other (s/p appendectomy on 02/06/2019 - laparoscopic appendectomy for enlarged, inflamed, bulbous-ended appendix) Renal/: Yes: Renal Failure, Hemodialysis Musculoskeletal: Yes: Osteoarthritis Endocrine: Yes: Diabetes Mellitus - Past Surgical History Past Surgical History: Yes: Appendectomy, AV Fistula/Graft (RUE), Hysterectomy - Smoking History Smoking history: Unknown if ever smoked Have you smoked in the past 12 months: No - Alcohol/Substance Use Hx Alcohol Use: No History of Substance Use: reports: None - Social History ADL: Independent Home Medications - Allergies Allergies/Adverse Reactions: Allergies Allergy/AdvReac Type Severity Reaction Status Date / Time No Known Allergies Allergy Verified 04/22/20 06:06 - Home Medications Home Medications: Ambulatory Orders Carvedilol [Coreg -] 25 mg PO BID 02/05/19 Clonidine HCl [Catapres] 0.2 mg PO Q12H 02/05/19 Folic Acid/Vit B Complex and C [Yue-Roberta Tablet] 0.8 mg PO DAILY 02/05/19 Gabapentin [Neurontin] 100 mg PO HS 02/05/19 Linaclotide [Linzess] 145 mcg PO DAILY 02/05/19 Nifedipine [Procardia Xl] 90 mg PO DAILY 02/05/19 Omeprazole 20 mg PO DAILY 02/05/19 Sevelamer Carbonate [Renvela -] 1,600 mg PO TID 02/05/19 Simvastatin [Zocor -] 20 mg PO HS 02/05/19 Sitagliptin Phosphate [Januvia] 25 mg PO DAILY 02/05/19 oxyCODONE HCL [Oxycodone HCl] 5 mg PO DAILY PRN 02/05/19 Gabapentin [Neurontin -] 200 mg PO BID 04/17/19 Aspirin 81 mg PO DAILY #30 tab.chew 04/02/20 hydrALAZINE HCL [Apresoline -] 10 mg PO BID 04/22/20 Miconazole Nitrate [Monistat-7 -] 1 applic VG HS #1 tube 04/23/20 Sucralfate 1 gm PO TID 04/26/20 Family Medical History Family History: Denies Review of Systems - Review of Systems Constitutional: reports: Weakness Eyes: reports: No Symptoms HENT: reports: No Symptoms Neck: reports: No Symptoms Cardiovascular: reports: No Symptoms Respiratory: reports: No Symptoms Gastrointestinal: reports: Nausea Genitourinary: reports: No Symptoms Breasts: reports: No Symptoms Reported Musculoskeletal: reports: No Symptoms Integumentary: reports: No Symptoms Neurological: reports: Headache Endocrine: reports: No Symptoms Hematology/Lymphatic: reports: No Symptoms Psychiatric: reports: No Symptoms Physical Examination Vital Signs: Vital Signs Temperature 97.4 F L 04/26/20 08:15 Pulse Rate 74 04/26/20 16:02 Respiratory Rate 18 04/26/20 16:02 Blood Pressure 178/96 H 04/26/20 16:02 O2 Sat by Pulse Oximetry (%) 98 04/26/20 12:30 Constitutional: Yes: Well Nourished, No Distress, Calm Eyes: Yes: WNL, Conjunctiva Clear, EOM Intact HENT: Yes: WNL, Atraumatic, Normocephalic Neck: Yes: WNL, Supple, Trachea Midline Cardiovascular: Yes: WNL, Regular Rate and Rhythm Respiratory: Yes: WNL, Regular, CTA Bilaterally Gastrointestinal: Yes: WNL, Normal Bowel Sounds, Soft Renal/: Yes: WNL Musculoskeletal: Yes: WNL Extremities: Yes: WNL Edema: No Peripheral Pulses WNL: Yes Integumentary: Yes: WNL Neurological: Yes: WNL, Alert, Oriented ...Motor Strength: WNL Psychiatric: Yes: WNL, Alert, Oriented Labs: CBC, BMP 04/26/20 09:00 04/26/20 09:00 Imaging - Results Chest X-ray: Other (Improved. No signs of fluid overload CT head: No acute find ings) Assessment/Plan 69 yo female with a pmh notable for HTN, HLD, ESRD ( dialysis T, TH, Sat), and DM II who presents to the ED with SOB that started this morning. Pt explains SOB feels very similar to prior instances of fluid overload. Patient is scheduled for dialysis later today her last one was on 04/24. Pt explains she is compliant with her medication but did not take this morning. Patient has assciated ssymptoms of nausea and 2 episodes of nonbloody, nonbilious emesis this morning and headache which has been going on for three weeks. Pt also explains she has had some palpitations yesterday but denies any current palpitations. Pt denies blurry vision, chest pain, fevers, chills, dizziness, or LOC. Pt was recently seen at hospital five days ago for very similar problem. ED course: BP 178/96 CBC ok Hgb/Hct=10/31 BMP with Na 136 K =6.0 BUN/Cr=49/8.4 Chest xray: no evidence for fluid overload CT head : no acute findings PLAN # Hypertensive urgency - Admit to medicine - Resume home meds coreg, clonidine, procardia - continue to monitor BP # Hyperkalemia - patient is s/p dialysis - repeat K level now # ESRD - Dialysis as per renal - continue renvela phosphate binder # DM II - For now hold oral med januvia while in the acute care setting - Insulin SS QAc/Hs - check hemoglobin A1c - monitor acuchecks # HLD - continue with zocor - Low fat diet #DVT prophylaxsis - SQ heparin Q12H Visit type - Emergency Visit Emergency Visit: Yes ED Registration Date: 04/26/20 Care time: The patient presented to the Emergency Department on the above date and was hospitalized for further evaluation of their emergent condition. - New Patient This patient is new to me today: Yes Date on this admission: 04/26/20 - Critical Care Critical Care patient: No
[2020-04-26] MEDS ORDERED: ACETAMINOPHEN 325 MG TABLET (FP) PO PRN (17:15)
[2020-04-26] MEDS: hydrALAZINE HCL 25 MG TABLET (FP) PO SCH (18:09)
[2020-04-26] MEDS ORDERED: oxyCODONE HCL 5 MG TABLET PO PRN (18:18)
[2020-04-26] MEDS ORDERED: PT OWN MED DRAWER 7, Y5N ONE (23:42)
[2020-04-27] MEDS: SUCRALFATE 1 GM TABLET (FP) PO SCH ×4 (00:08→21:46)
[2020-04-27] MEDS: hydrALAZINE HCL 25 MG TABLET (FP) PO SCH ×2 (00:08→06:56)
[2020-04-27] MEDS: CARVEDILOL 25 MG TABLET (FP) PO SCH ×3 (00:09→21:46)
[2020-04-27] MEDS: GABAPENTIN 100 MG CAPSULE PO SCH ×4 (00:09→21:48)
[2020-04-27] MEDS: HEPARIN NA (PORCINE) 5,000 UNITS/ML 1ML VIAL SQ SCH ×3 (00:09→21:46)
[2020-04-27] MEDS: ATORVASTATIN CA 10 MG TABLET (FP) PO SCH ×2 (00:09→21:46)
[2020-04-27] MEDS: cloNIDine HCL 0.1 MG TABLET PO SCH ×3 (00:09→21:47)
[2020-04-27] MEDS ORDERED: PT OWN MED DRAWER 7, Y5N ONE (06:53)
[2020-04-27] MEDS: SEVELAMER CARBONATE 800 MG TAB (FP) PO SCH ×3 (07:48→17:02)
[2020-04-27 08:54] LABS: BASO % 0.9 % (0-2.0); EOS % 6.2 % (0-4.5); HEMATOCRIT 30.9 % (32.4-45.2); LYMPH % 46.2 % (8-40); MCHC 32.4 g/dl (32.0-36.0); MEAN CELL VOLUME 92.7 fl (80-96); MEAN PLT VOLUME 9.2 fl (7.5-11.1); MONO % 9.3 % (3.8-10.2); NEUT % 37.4 % (42.8-82.8); PLATELET COUNT 181 K/MM3 (134-434); RBC 3.34 M/mm3 (3.60-5.2); RDW 15.7 % (11.6-15.6); WHITE BLOOD COUNT 6.6 K/mm3 (4.0-10.0)
[2020-04-27 09:21] LABS: BLOOD UREA NITROGEN 30.5 mg/dL (7-18); CALCIUM 9.4 mg/dL (8.5-10.1); CREATININE 6.1 mg/dL (0.55-1.3); POTASSIUM 4.8 mmol/L (3.5-5.1)
[2020-04-27] MEDS ORDERED: PATIENT'S OWN MEDICATION (NON-FORMULARY) (Linaclotide [Linzess] 145 MCG) PO SCH (10:00)
[2020-04-27] MEDS: NIFEdipine E.R. 90 MG TABLET PO SCH (10:55)
[2020-04-27] MEDS: PANTOPRAZOLE 20 MG TABLET PO SCH (10:55)
[2020-04-27] MEDS: VITAMIN B COMP W-C 1 EA TABLET (NEPHRO-VITE) PO SCH (10:55)
[2020-04-27] MEDS: ASPIRIN 81 MG CHEWABLE TABLETS PO SCH (10:55)
--- NOTE | 2020-04-27 12:58 | PN ---
Progress Note, Physician Chief Complaint: ESRD Nausea + Vomiting Anemia - Current Medication List Current Medications: Active Medications Acetaminophen (Tylenol -) 650 mg PO Q4H PRN PRN Reason: PAIN LEVEL 1-5 Last Admin: 04/26/20 17:22 Dose: 650 mg Documented by: Aspirin (Asa -) 81 mg PO DAILY [facility] Last Admin: 04/27/20 10:55 Dose: 81 mg Documented by: Atorvastatin Calcium (Lipitor -) 10 mg PO [facility] Last Admin: 04/27/20 00:09 Dose: 10 mg Documented by: Carvedilol (Coreg -) 25 mg PO BID [facility] Last Admin: 04/27/20 10:40 Dose: 25 mg Documented by: Clonidine (Catapres -) 0.2 mg PO BID [facility] Last Admin: 04/27/20 10:41 Dose: 0.2 mg Documented by: Gabapentin (Neurontin -) 100 mg PO [facility] Last Admin: 04/27/20 00:09 Dose: 100 mg Documented by: Gabapentin (Neurontin -) 200 mg PO BID@0600,1400 [facility] Last Admin: 04/27/20 06:56 Dose: 200 mg Documented by: Heparin Sodium (Porcine) (Heparin -) 5,000 unit SQ BID [facility] Last Admin: 04/27/20 10:41 Dose: 5,000 unit Documented by: Hydralazine HCl (Apresoline -) 25 mg PO TID [facility] Last Admin: 04/27/20 06:56 Dose: 25 mg Documented by: Sodium Chloride (Normal Saline -) 250 mls @ 3,000 mls/hr IV PRN PRN PRN Reason: Hypotension during Dialysis Stop: 04/27/20 13:34 Multivit/Ca Carb/B Cmplx/FA/Prenat (Nephro-Roberta -) 1 tablet PO DAILY [facility] Last Admin: 04/27/20 10:55 Dose: 1 tablet Documented by: Nifedipine (Procardia Xl -) 90 mg PO DAILY [facility] Last Admin: 04/27/20 10:55 Dose: 90 mg Documented by: Non-Formulary Medication (Linaclotide [Linzess]) 145 mcg PO DAILY [facility] Oxycodone HCl (Roxicodone -) 5 mg PO DAILY PRN PRN Reason: PAIN LEVEL 6-10 Pantoprazole Sodium (Protonix -) 20 mg PO DAILY [facility] Last Admin: 04/27/20 10:55 Dose: 20 mg Documented by: Sevelamer Carbonate (Renvela -) 1,600 mg PO TIDCM [facility] Last Admin: 04/27/20 11:36 Dose: 1,600 mg Documented by: Sucralfate (Carafate -) 1 gm PO TID [facility] Last Admin: 04/27/20 06:56 Dose: 1 gm Documented by: - Objective Vital Signs: Vital Signs Temperature 98.2 F 04/27/20 10:40 Pulse Rate 70 04/27/20 10:40 Respiratory Rate 17 04/27/20 10:40 Blood Pressure 158/68 04/27/20 10:40 O2 Sat by Pulse Oximetry (%) 100 04/27/20 10:45 Constitutional: Yes: Well Nourished, No Distress, Calm Cardiovascular: Yes: Regular Rate and Rhythm Respiratory: Yes: Regular, CTA Bilaterally Gastrointestinal: Yes: Normal Bowel Sounds, Soft, Abdomen, Obese Genitourinary: Yes: WNL (still makes urine) Musculoskeletal: Yes: Muscle Weakness Extremities: Yes: WNL Edema: No Peripheral Pulses WNL: Yes Neurological: Yes: Alert, Oriented Psychiatric: Yes: Alert, Oriented Labs: CBC, BMP 04/27/20 07:45 04/27/20 07:45 Problem List - Problems (1) Nausea & vomiting Assessment/Plan: -C/O Nausea -Cholelithiasis on previous imaging -GI consult -Ondansetron 4 mg IVP Q6H PRN Problems reviewed: Yes Code(s): R11.2 - NAUSEA WITH VOMITING, UNSPECIFIED (2) SOB (shortness of breath) Assessment/Plan: -Improved -S/P dialysis -CXR no signs of fluid overload -Pulmonary consult Problems reviewed: Yes Code(s): R06.02 - SHORTNESS OF BREATH (3) Anemia Assessment/Plan: -H/H stable -Likely 2/2 to CKD -Check Iron profile + b12 + stool OB -Follow trend Problems reviewed: Yes Code(s): D64.9 - ANEMIA, UNSPECIFIED (4) ESRD on hemodialysis Assessment/Plan: -s/p dialysis yesterday -Nephrology on board -Dialysis as per nephrology Problems reviewed: Yes Code(s): N18.6 - END STAGE RENAL DISEASE; Z99.2 - DEPENDENCE ON RENAL DIALYSIS (5) Hyperkalemia Assessment/Plan: -resolved Problems reviewed: Yes Code(s): E87.5 - HYPERKALEMIA Assessment/Plan See problem list
[2020-04-27] MEDS ORDERED: ONDANSETRON 4 MG/2 ML VIAL IVPUSH PRN (12:59)
[2020-04-27] MEDS ORDERED: FLUCONAZOLE 150 MG TABLET PO ONE (13:30)
--- NOTE | 2020-04-27 13:47 | PN ---
Progress Note (short form) - Note Progress Note: Active Medications Acetaminophen (Tylenol -) 650 mg PO Q4H PRN PRN Reason: PAIN LEVEL 1-5 Last Admin: 04/26/20 17:22 Dose: 650 mg Documented by: Aspirin (Asa -) 81 mg PO DAILY [facility] Last Admin: 04/27/20 10:55 Dose: 81 mg Documented by: Atorvastatin Calcium (Lipitor -) 10 mg PO [facility] Last Admin: 04/27/20 00:09 Dose: 10 mg Documented by: Carvedilol (Coreg -) 25 mg PO BID [facility] Last Admin: 04/27/20 10:40 Dose: 25 mg Documented by: Clonidine (Catapres -) 0.2 mg PO BID [facility] Last Admin: 04/27/20 10:41 Dose: 0.2 mg Documented by: Gabapentin (Neurontin -) 100 mg PO [facility] Last Admin: 04/27/20 00:09 Dose: 100 mg Documented by: Gabapentin (Neurontin -) 200 mg PO BID@0600,1400 [facility] Last Admin: 04/27/20 06:56 Dose: 200 mg Documented by: Heparin Sodium (Porcine) (Heparin -) 5,000 unit SQ BID [facility] Last Admin: 04/27/20 10:41 Dose: 5,000 unit Documented by: Hydralazine HCl (Apresoline -) 50 mg PO TID [facility] Multivit/Ca Carb/B Cmplx/FA/Prenat (Nephro-Roberta -) 1 tablet PO DAILY [facility] Last Admin: 04/27/20 10:55 Dose: 1 tablet Documented by: Nifedipine (Procardia Xl -) 90 mg PO DAILY [facility] Last Admin: 04/27/20 10:55 Dose: 90 mg Documented by: Ondansetron HCl (Zofran Injection) 4 mg IVPUSH Q6H PRN PRN Reason: NAUSEA AND/OR VOMITING Oxycodone HCl (Roxicodone -) 5 mg PO DAILY PRN PRN Reason: PAIN LEVEL 6-10 Pantoprazole Sodium (Protonix -) 20 mg PO DAILY [facility] Last Admin: 04/27/20 10:55 Dose: 20 mg Documented by: Polyethylene Glycol (Miralax (For Daily Use) -) 17 gm PO DAILY [facility] Sevelamer Carbonate (Renvela -) 1,600 mg PO TIDCM [facility] Last Admin: 04/27/20 11:36 Dose: 1,600 mg Documented by: Sucralfate (Carafate -) 1 gm PO TID [facility] Last Admin: 04/27/20 06:56 Dose: 1 gm Documented by: Last Vital Signs Temp Pulse Resp BP Pulse Ox 98.2 F 70 17 158/68 100 04/27/20 10:40 04/27/20 10:40 04/27/20 10:40 04/27/20 10:40 04/27/20 10:45 lungs clear heart reg Abd soft nontender Ext no edema CBC, BMP 04/27/20 07:45 04/27/20 07:45 IMP- ESRD ABD PAIN VS CONSTIPATION HD ON TUESDAY
[2020-04-27] MEDS: hydrALAZINE HCL 50 MG TABLET (FP) PO SCH ×2 (14:24→21:47)
[2020-04-27] MEDS: POLYETHYLENE GLYCOL 3350 119 GM BTL PO SCH (14:25)
[2020-04-27] MEDS ORDERED: SENNOSIDES 8.6MG TABLET (FP) PO SCH (22:00)
[2020-04-28] MEDS: hydrALAZINE HCL 50 MG TABLET (FP) PO SCH ×3 (05:22→21:33)
[2020-04-28] MEDS: GABAPENTIN 100 MG CAPSULE PO SCH ×3 (05:22→21:33)
[2020-04-28] MEDS: SUCRALFATE 1 GM TABLET (FP) PO SCH ×2 (05:23→14:01)
[2020-04-28] MEDS ORDERED: PT OWN MED DRAWER 7, Y5N ONE ×2 (09:17→13:55)
[2020-04-28] MEDS: PANTOPRAZOLE 20 MG TABLET PO SCH (09:30)
[2020-04-28] MEDS: CARVEDILOL 25 MG TABLET (FP) PO SCH ×2 (09:30→21:33)
[2020-04-28] MEDS: ASPIRIN 81 MG CHEWABLE TABLETS PO SCH (09:30)
[2020-04-28] MEDS: VITAMIN B COMP W-C 1 EA TABLET (NEPHRO-VITE) PO SCH (09:30)
[2020-04-28] MEDS: NIFEdipine E.R. 90 MG TABLET PO SCH (09:30)
[2020-04-28] MEDS: SEVELAMER CARBONATE 800 MG TAB (FP) PO SCH ×3 (09:31→17:25)
[2020-04-28] MEDS: cloNIDine HCL 0.1 MG TABLET PO SCH ×2 (09:31→21:33)
[2020-04-28] MEDS: HEPARIN NA (PORCINE) 5,000 UNITS/ML 1ML VIAL SQ SCH ×2 (09:31→21:34)
[2020-04-28] MEDS: POLYETHYLENE GLYCOL 3350 119 GM BTL PO SCH (09:34)
--- NOTE | 2020-04-28 12:52 | CON.PULM ---
Consult Consult Specialty:: PULM/CCM Referred by:: Hospitalist Reason for Consultation:: SOB - History of Present Illness Chief Complaint: SOB History of Present Illness: 69 F, HTN, HLD, ESRD on HD (T, TH, Sat), and DM. Admitted via the ER due to SOB that started in the morning. Reports that she has had prior instances due to fluid overload. No fever or chills. She reports associated symptoms of nausea and 2 episodes of nonbloody, nonbilious emesis. She also reports JUNIOR and itching and vaginal itching for the past week. CXR: Improved volume overload compared from previous - History Source History Provided By: Patient Limitations to Obtaining History: No Limitations - Past Medical History Cardio/Vascular: Yes: CAD, CHF, HTN Pulmonary: Yes: Bronchitis. No: Asthma, Cancer, COPD, O2 Dependent, Pneumonia, Previously Intubated, Pulmonary Embolus, Pulmonary Fibrosis, Sleep Apnea Gastrointestinal: Yes: GERD, Other (s/p appendectomy on 02/06/2019 - laparoscopic appendectomy for enlarged, inflamed, bulbous-ended appendix) Renal/: Yes: Renal Failure, Hemodialysis ...: No Musculoskeletal: Yes: Osteoarthritis Endocrine: Yes: Diabetes Mellitus - Past Surgical History Past Surgical History: Yes: Appendectomy, AV Fistula/Graft (RUE), Hysterectomy - Alcohol/Substance Use Hx Alcohol Use: No History of Substance Use: reports: None - Smoking History Smoking history: Unknown if ever smoked Have you smoked in the past 12 months: No - Social History Usual Living Arrangement: Assisted Living ADL: Independent Home Medications - Allergies Allergies/Adverse Reactions: Allergies Allergy/AdvReac Type Severity Reaction Status Date / Time No Known Allergies Allergy Verified 04/22/20 06:06 - Home Medications Home Medications: Ambulatory Orders Carvedilol [Coreg -] 25 mg PO BID 02/05/19 Clonidine HCl [Catapres] 0.2 mg PO Q12H 02/05/19 Folic Acid/Vit B Complex and C [Yue-Roberta Tablet] 0.8 mg PO DAILY 02/05/19 Gabapentin [Neurontin] 100 mg PO HS 02/05/19 Linaclotide [Linzess] 145 mcg PO DAILY 02/05/19 Nifedipine [Procardia Xl] 90 mg PO DAILY 02/05/19 Omeprazole 20 mg PO DAILY 02/05/19 Sevelamer Carbonate [Renvela -] 1,600 mg PO TID 02/05/19 Simvastatin [Zocor -] 20 mg PO HS 02/05/19 Sitagliptin Phosphate [Januvia] 25 mg PO DAILY 02/05/19 oxyCODONE HCL [Oxycodone HCl] 5 mg PO DAILY PRN 02/05/19 Gabapentin [Neurontin -] 200 mg PO BID 04/17/19 Aspirin 81 mg PO DAILY #30 tab.chew 04/02/20 hydrALAZINE HCL [Apresoline -] 10 mg PO BID 04/22/20 Miconazole Nitrate [Monistat-7 -] 1 applic VG HS #1 tube 04/23/20 Sucralfate 1 gm PO TID 04/26/20 Review of Systems - Review of Systems Constitutional: reports: Malaise. denies: Chills, Fever, Night Sweats, Unintentional Wgt. Loss Eyes: reports: No Symptoms HENT: reports: No Symptoms Neck: reports: No Symptoms Cardiovascular: reports: Shortness of Breath. denies: Chest Pain, Edema, Palpitations Respiratory: reports: Cough, Orthopnea, SOB, SOB on Exertion. denies: Snoring, Wheezing Gastrointestinal: reports: No Symptoms Genitourinary: reports: Other (Itching) Breasts: reports: No Symptoms Reported Musculoskeletal: reports: No Symptoms Integumentary: reports: No Symptoms Neurological: reports: No Symptoms Endocrine: reports: No Symptoms Hematology/Lymphatic: reports: No Symptoms Psychiatric: reports: No Symptoms Physical Exam Vital Sings: Vital Signs Temperature 98.4 F 04/28/20 05:00 Pulse Rate 67 04/28/20 05:00 Respiratory Rate 18 04/27/20 22:00 Blood Pressure 136/59 L 04/28/20 05:00 O2 Sat by Pulse Oximetry (%) 99 04/27/20 22:00 Constitutional: Yes: No Distress, Calm Eyes: Yes: Conjunctiva Clear, EOM Intact HENT: Yes: Atraumatic, Normocephalic Neck: Yes: Supple, Trachea Midline Cardiovascular: Yes: Regular Rate and Rhythm Respiratory: Yes: Diminished. No: Accessory Muscle Use, Rales, Rhonchi, SOB, SOB on Exertion, Stridor, Tachypnea, Wheezes ...Inspection: Yes: WNL ...Clubbing: No Gastrointestinal: Yes: Normal Bowel Sounds, Soft Musculoskeletal: Yes: WNL Extremities: Yes: WNL Edema: No Peripheral Pulses WNL: Yes Integumentary: Yes: WNL Neurological: Yes: WNL, Alert, Oriented ...Motor Strength: WNL Psychiatric: Yes: WNL, Alert, Oriented Labs: CBC, BMP 04/27/20 07:45 04/27/20 07:45 Imaging - Results Chest X-ray: Report Reviewed, Image Reviewed Problem List - Problems (1) SOB (shortness of breath) Code(s): R06.02 - SHORTNESS OF BREATH (2) Anemia Code(s): D64.9 - ANEMIA, UNSPECIFIED (3) Anemia in chronic kidney disease Code(s): N18.9 - CHRONIC KIDNEY DISEASE, UNSPECIFIED; D63.1 - ANEMIA IN CHRONIC KIDNEY DISEASE (4) Back pain Code(s): M54.9 - DORSALGIA, UNSPECIFIED Qualifiers: Back pain location: low back pain (5) Diabetes mellitus type 2, noninsulin dependent Code(s): E11.9 - TYPE 2 DIABETES MELLITUS WITHOUT COMPLICATIONS (6) ESRD on hemodialysis Code(s): N18.6 - END STAGE RENAL DISEASE; Z99.2 - DEPENDENCE ON RENAL DIALYSIS (7) Headache Code(s): R51 - HEADACHE (8) Hypertension Code(s): I10 - ESSENTIAL (PRIMARY) HYPERTENSION Qualifiers: Hypertension type: unspecified Qualified Code(s): I10 - Essential (primary) hypertension (9) Pulmonary congestion Code(s): R09.89 - OTH SYMPTOMS AND SIGNS INVOLVING THE CIRC AND RESP SYSTEMS Assessment/Plan IMP: Symptoms may be possibly related to Uremia (?) No evidence of volume overload No evidence of respiratory infection PLAN: HD per Renal Supplemental O2 as needed Monitor off ABX VTE prophylaxis No smoking PFTs after discharge Will follow Thank you. Dr Flores
--- NOTE | 2020-04-28 13:56 | PN ---
Progress Note, Physician History of Present Illness: Pt seen and examined at bedside. SHe denies shortness of breath. - Current Medication List Current Medications: Active Medications Acetaminophen (Tylenol -) 650 mg PO Q4H PRN PRN Reason: PAIN LEVEL 1-5 Last Admin: 04/26/20 17:22 Dose: 650 mg Documented by: Aspirin (Asa -) 81 mg PO DAILY REPLACED BY [facility] Last Admin: 04/28/20 09:30 Dose: 81 mg Documented by: Atorvastatin Calcium (Lipitor -) 10 mg PO [facility] Last Admin: 04/27/20 21:46 Dose: 10 mg Documented by: Carvedilol (Coreg -) 25 mg PO BID REPLACED BY [facility] Last Admin: 04/28/20 09:30 Dose: 25 mg Documented by: Clonidine (Catapres -) 0.2 mg PO BID REPLACED BY [facility] Last Admin: 04/28/20 09:31 Dose: 0.2 mg Documented by: Gabapentin (Neurontin -) 100 mg PO [facility] Last Admin: 04/27/20 21:48 Dose: 100 mg Documented by: Gabapentin (Neurontin -) 200 mg PO BID@0600,1400 REPLACED BY [facility] Last Admin: 04/28/20 05:22 Dose: 200 mg Documented by: Heparin Sodium (Porcine) (Heparin -) 5,000 unit SQ BID REPLACED BY [facility] Last Admin: 04/28/20 09:31 Dose: 5,000 unit Documented by: Hydralazine HCl (Apresoline -) 50 mg PO TID REPLACED BY [facility] Last Admin: 04/28/20 05:22 Dose: 50 mg Documented by: Multivit/Ca Carb/B Cmplx/FA/Prenat (Nephro-Roberta -) 1 tablet PO DAILY REPLACED BY [facility] Last Admin: 04/28/20 09:30 Dose: 1 tablet Documented by: Nifedipine (Procardia Xl -) 90 mg PO DAILY REPLACED BY [facility] Last Admin: 04/28/20 09:30 Dose: 90 mg Documented by: Ondansetron HCl (Zofran Injection) 4 mg IVPUSH Q6H PRN PRN Reason: NAUSEA AND/OR VOMITING Oxycodone HCl (Roxicodone -) 5 mg PO DAILY PRN PRN Reason: PAIN LEVEL 6-10 Pantoprazole Sodium (Protonix -) 20 mg PO DAILY REPLACED BY [facility] Last Admin: 04/28/20 09:30 Dose: 20 mg Documented by: Polyethylene Glycol (Miralax (For Daily Use) -) 17 gm PO DAILY REPLACED BY [facility] Last Admin: 04/28/20 09:34 Dose: 17 grams Documented by: Sevelamer Carbonate (Renvela -) 1,600 mg PO TIDCM REPLACED BY [facility] Last Admin: 04/28/20 09:31 Dose: 1,600 mg Documented by: Sucralfate (Carafate -) 1 gm PO TID REPLACED BY [facility] Last Admin: 04/28/20 05:23 Dose: 1 gm Documented by: - Objective Vital Signs: Vital Signs Temperature 97.9 F 04/28/20 10:00 Pulse Rate 67 04/28/20 10:00 Respiratory Rate 18 04/28/20 10:00 Blood Pressure 137/61 04/28/20 10:00 O2 Sat by Pulse Oximetry (%) 98 04/28/20 10:00 Constitutional: Yes: Calm Eyes: Yes: Conjunctiva Clear HENT: Yes: Atraumatic Neck: Yes: Supple Cardiovascular: Yes: S1, S2 Respiratory: Yes: CTA Bilaterally Gastrointestinal: Yes: Soft Genitourinary: Yes: WNL Musculoskeletal: Yes: WNL Edema: No Neurological: Yes: Oriented Psychiatric: Yes: Oriented Labs: CBC, BMP 04/27/20 07:45 04/27/20 07:45 Assessment/Plan Current Medications Generic Name Dose Route Start Last Admin Trade Name Isaiahq PRN Reason Stop Dose Admin Acetaminophen 650 mg 04/26/20 17:15 04/26/20 17:22 Tylenol - PO 650 mg Q4H PRN Administration PAIN LEVEL 1-5 Aspirin 81 mg 04/27/20 10:00 04/28/20 09:30 Asa - PO 81 mg DAILY TERRA Administration Atorvastatin Calcium 10 mg 04/26/20 22:00 04/27/20 21:46 Lipitor - PO 10 mg HS TERRA Administration Carvedilol 25 mg 04/26/20 22:00 04/28/20 09:30 Coreg - PO 25 mg BID TERRA Administration Clonidine 0.2 mg 04/26/20 22:00 04/28/20 09:31 Catapres - PO 0.2 mg BID TERRA Administration Gabapentin 100 mg 04/26/20 22:00 04/27/20 21:48 Neurontin - PO 100 mg HS TERRA Administration Gabapentin 200 mg 04/27/20 06:00 04/28/20 05:22 Neurontin - PO 200 mg BID@0600,1400 TERRA Administration Heparin Sodium (Porcine) 5,000 unit 04/26/20 22:00 04/28/20 09:31 Heparin - SQ 5,000 unit BID TERRA Administration Hydralazine HCl 50 mg 04/27/20 12:28 04/28/20 05:22 Apresoline - PO 50 mg TID TERRA Administration Multivit/Ca Carb/B Cmplx/FA/Prenat 1 tablet 04/27/20 10:00 04/28/20 09:30 Nephro-Roberta - PO 1 tablet DAILY TERRA Administration Nifedipine 90 mg 04/27/20 10:00 04/28/20 09:30 Procardia Xl - PO 90 mg DAILY TERRA Administration Ondansetron HCl 4 mg 04/27/20 12:59 Zofran Injection IVPUSH Q6H PRN NAUSEA AND/OR VOMITING Oxycodone HCl 5 mg 04/26/20 18:18 Roxicodone - PO DAILY PRN PAIN LEVEL 6-10 Pantoprazole Sodium 20 mg 04/27/20 10:00 04/28/20 09:30 Protonix - PO 20 mg DAILY TERRA Administration Polyethylene Glycol 17 gm 04/27/20 12:45 04/28/20 09:34 Miralax (For Daily Use) - PO 17 grams DAILY TERRA Administration Sevelamer Carbonate 1,600 mg 04/27/20 08:00 04/28/20 09:31 Renvela - PO 1,600 mg TIDCM TERRA Administration Sucralfate 1 gm 04/26/20 22:00 04/28/20 05:23 Carafate - PO 1 gm TID TERRA Administration Impression 1. ESRD 2. non compliance with bp meds 3. dyspnea 4. DM 5. HTN 6. hyperkalemia Plan - HD tomorrow - renal diet - avoid carafate as she is on HD - can increase protonix dose - will order prehd labs - epogen for anemia
--- NOTE | 2020-04-28 14:57 | PN ---
Physical Exam: SUBJECTIVE: Patient seen and examined at bedside, denies complains, no dyspnea OBJECTIVE: Vital Signs Period Temp Pulse Resp BP Sys/Dietz Pulse Ox Last 24 Hr 97.4 F-98.4 F 67-68 18-18 136-138/59-61 98-100 GENERAL: The patient is awake, alert, and fully oriented, in no acute distress. HEAD: Normal with no signs of trauma. EYES: PERRL, extraocular movements intact, sclera anicteric, conjunctiva clear. No ptosis. ENT: Ears normal, nares patent, oropharynx clear without exudates, moist mucous membranes. NECK: Trachea midline, full range of motion, supple. LUNGS: Breath sounds equal, clear to auscultation bilaterally, no wheezes, rales at lower lobes bilaterally . HEART: Regular rate and rhythm, S1, S2 with 2/6 systolic murmur at lt 2nd itnercostal, rub or gallop. ABDOMEN: Soft, nontender, nondistended, normoactive bowel sounds, no guarding, no rebound, no hepatosplenomegaly, no masses. EXTREMITIES: 2+ pulses, warm, well-perfused, no edema. NEUROLOGICAL: Cranial nerves II through XII grossly intact. Normal speech, gait not observed. Active Medications Generic Name Dose Route Start Last Admin Trade Name Freq PRN Reason Stop Dose Admin Acetaminophen 650 mg 04/26/20 17:15 04/26/20 17:22 Tylenol - PO 650 mg Q4H PRN Administration PAIN LEVEL 1-5 Aspirin 81 mg 04/27/20 10:00 04/28/20 09:30 Asa - PO 81 mg DAILY TERRA Administration Atorvastatin Calcium 10 mg 04/26/20 22:00 04/27/20 21:46 Lipitor - PO 10 mg HS TERRA Administration Carvedilol 25 mg 04/26/20 22:00 04/28/20 09:30 Coreg - PO 25 mg BID TERRA Administration Clonidine 0.2 mg 04/26/20 22:00 04/28/20 09:31 Catapres - PO 0.2 mg BID TERRA Administration Epoetin [place]on-epbx 3,000 unit 04/29/20 13:59 Retacrit IVPUSH 04/29/20 14:00 ONCE ONE Gabapentin 100 mg 04/26/20 22:00 04/27/20 21:48 Neurontin - PO 100 mg HS TERRA Administration Gabapentin 200 mg 04/27/20 06:00 04/28/20 14:01 Neurontin - PO 200 mg BID@0600,1400 TERRA Administration Heparin Sodium (Porcine) 5,000 unit 04/26/20 22:00 04/28/20 09:31 Heparin - SQ 5,000 unit BID TERRA Administration Hydralazine HCl 50 mg 04/27/20 12:28 04/28/20 14:01 Apresoline - PO 50 mg TID TERRA Administration Sodium Chloride 250 mls @ 3,000 mls/hr 04/28/20 13:59 Normal Saline - IV 04/29/20 14:00 PRN PRN Hypotension during Dialysis Multivit/Ca Carb/B Cmplx/FA/Prenat 1 tablet 04/27/20 10:00 04/28/20 09:30 Nephro-Roberta - PO 1 tablet DAILY TERRA Administration Nifedipine 90 mg 04/27/20 10:00 04/28/20 09:30 Procardia Xl - PO 90 mg DAILY TERRA Administration Ondansetron HCl 4 mg 04/27/20 12:59 Zofran Injection IVPUSH Q6H PRN NAUSEA AND/OR VOMITING Oxycodone HCl 5 mg 04/26/20 18:18 Roxicodone - PO DAILY PRN PAIN LEVEL 6-10 Pantoprazole Sodium 40 mg 04/28/20 13:59 Protonix - PO DAILY TERRA Polyethylene Glycol 17 gm 04/27/20 12:45 04/28/20 09:34 Miralax (For Daily Use) - PO 17 grams DAILY TERRA Administration Sevelamer Carbonate 1,600 mg 04/27/20 08:00 04/28/20 14:01 Renvela - PO 1,600 mg TIDCM TERRA Administration ASSESSMENT/PLAN: 69 yo female with a pmh notable for HTN, HLD, ESRD ( dialysis T, TH, Sat) , and DM II who presents to the ED with SOB Dyspnea, HTN emergency improved post HD denies SOB now, will have HD in AM denies abdominal pain afebrile, no leukocytosis cholelithiasis on imaging GI consulted if continues asymptomatic, may discharge in tomorrow after HD DVT prophylaxis Visit type - Emergency Visit Emergency Visit: Yes ED Registration Date: 04/26/20 Care time: The patient presented to the Emergency Department on the above date and was hospitalized for further evaluation of their emergent condition. - New Patient This patient is new to me today: Yes Date on this admission: 04/28/20 - Critical Care Critical Care patient: No - Discharge Referral Referred to [facility] No - Medication Review Med list reviewed for High Risk Meds patients 65 and older: Yes (reviewed)
[2020-04-28 20:09] VITALS: BMI 26.4
--- NOTE | 2020-04-28 20:42 | CON.GI ---
Consult Consult Specialty:: Gastroenterology Referred by:: Kenneth Horowitz NP Reason for Consultation:: Gallstones - History of Present Illness Chief Complaint: SOB, JUNIOR, N/V History of Present Illness: 69F presented to the ER with SOB,palpitations, JUNIOR and elevated BP. While here has developed N/V. She has DM and is on HD for ESRD. He was found to have possible GB stones on a 01/26 CT scan when she presented with appendicitis. She denies biliary colic and any abdominal pain. he denies hematemesis. She has never had an EGD or a colonoscopy. - History Source History Provided By: Patient Limitations to Obtaining History: Language Barrier - Past Medical History Cardio/Vascular: Yes: CAD, CHF (diastolic, has 55% EF), HTN, Hyperlipdemia Pulmonary: Yes: Asthma, Bronchitis Gastrointestinal: Yes: GERD, Other (s/p appendectomy on 02/06/2019 - laparoscopic appendectomy for enlarged, inflamed, bulbous-ended appendix) Hepatobiliary: Yes: Cholelithiasis Renal/: Yes: Renal Failure, Hemodialysis ...: No Heme/Onc: Yes: Anemia Musculoskeletal: Yes: Osteoarthritis Endocrine: Yes: Diabetes Mellitus - Past Surgical History Past Surgical History: Yes: Appendectomy, AV Fistula/Graft (RUE), Hysterectomy Additional Surgical History: Breast reduction - Alcohol/Substance Use Hx Alcohol Use: No History of Substance Use: reports: None - Smoking History Smoking history: Never smoked Have you smoked in the past 12 months: No - Social History Usual Living Arrangement: Assisted Living ADL: Independent 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year[place] 20 years ago History of Recent Travel: No Home Medications - Allergies Allergies/Adverse Reactions: Allergies Allergy/AdvReac Type Severity Reaction Status Date / Time No Known Allergies Allergy Verified 04/22/20 06:06 - Home Medications Home Medications: Ambulatory Orders Carvedilol [Coreg -] 25 mg PO BID 02/05/19 Clonidine HCl [Catapres] 0.2 mg PO Q12H 02/05/19 Folic Acid/Vit B Complex and C [Yue-Roberta Tablet] 0.8 mg PO DAILY 02/05/19 Gabapentin [Neurontin] 100 mg PO HS 02/05/19 Linaclotide [Linzess] 145 mcg PO DAILY 02/05/19 Nifedipine [Procardia Xl] 90 mg PO DAILY 02/05/19 Omeprazole 20 mg PO DAILY 02/05/19 Sevelamer Carbonate [Renvela -] 1,600 mg PO TID 02/05/19 Simvastatin [Zocor -] 20 mg PO HS 02/05/19 Sitagliptin Phosphate [Januvia] 25 mg PO DAILY 02/05/19 oxyCODONE HCL [Oxycodone HCl] 5 mg PO DAILY PRN 02/05/19 Gabapentin [Neurontin -] 200 mg PO BID 04/17/19 Aspirin 81 mg PO DAILY #30 tab.chew 04/02/20 hydrALAZINE HCL [Apresoline -] 10 mg PO BID 04/22/20 Miconazole Nitrate [Monistat-7 -] 1 applic VG HS #1 tube 04/23/20 Sucralfate 1 gm PO TID 04/26/20 Family Medical History Family History: Unable to Obtain Physical Exam-GI Vital Signs: Vital Signs Temperature 97.9 F 04/28/20 19:56 Pulse Rate 68 04/28/20 19:56 Respiratory Rate 18 04/28/20 19:56 Blood Pressure 121/55 L 04/28/20 19:56 O2 Sat by Pulse Oximetry (%) 98 04/28/20 10:00 CBC,CMP WBC 6.6 K/mm3 (4.0-10.0) 04/27/20 07:45 RBC 3.34 M/mm3 (3.60-5.2) L 04/27/20 07:45 Hgb 10.0 GM/dL (10.7-15.3) L 04/27/20 07:45 Hct 30.9 % (32.4-45.2) L 04/27/20 07:45 MCV 92.7 fl (80-96) 04/27/20 07:45 MCH 30.0 pg (25.7-33.7) 04/27/20 07:45 MCHC 32.4 g/dl (32.0-36.0) 04/27/20 07:45 RDW 15.7 % (11.6-15.6) H 04/27/20 07:45 Plt Count 181 K/MM3 (134-434) 04/27/20 07:45 MPV 9.2 fl (7.5-11.1) 04/27/20 07:45 Absolute Neuts (auto) 2.5 K/mm3 (1.5-8.0) 04/27/20 07:45 Neutrophils % 37.4 % (42.8-82.8) L 04/27/20 07:45 Lymphocytes % 46.2 % (8-40) H 04/27/20 07:45 Monocytes % 9.3 % (3.8-10.2) 04/27/20 07:45 Eosinophils % 6.2 % (0-4.5) H 04/27/20 07:45 Basophils % 0.9 % (0-2.0) 04/27/20 07:45 Nucleated RBC % 0 % (0-0) 04/27/20 07:45 Sodium 139 mmol/L (136-145) 04/27/20 07:45 Potassium 4.8 mmol/L (3.5-5.1) 04/27/20 07:45 Chloride 98 mmol/L (98-107) 04/27/20 07:45 Carbon Dioxide 30 mmol/L (21-32) 04/27/20 07:45 Anion Gap 10 MMOL/L (8-16) 04/27/20 07:45 BUN 30.5 mg/dL (7-18) H 04/27/20 07:45 Creatinine 6.1 mg/dL (0.55-1.3) H 04/27/20 07:45 Est GFR (CKD-EPI)AfAm 7.43 04/27/20 07:45 Est GFR (CKD-EPI)NonAf 6.41 04/27/20 07:45 POC Glucometer 142 UNITS (80-120) 04/26/20 08:29 Random Glucose 131 mg/dL (74-106) H 04/27/20 07:45 Calcium 9.4 mg/dL (8.5-10.1) 04/27/20 07:45 Iron 59 ug/dL (50-175) 04/27/20 07:45 TIBC 181 ug/dL (250-450) L 04/27/20 07:45 Iron Saturation 32 % (17.5-39) 04/27/20 07:45 Unsaturated IBC 122 ug/dL (200-275) L 04/27/20 07:45 Total Bilirubin 0.5 mg/dL (0.2-1) 04/26/20 09:00 AST 31 U/L (15-37) 04/26/20 09:00 ALT 14 U/L (13-61) 04/26/20 09:00 Alkaline Phosphatase 110 U/L (45-117) 04/26/20 09:00 Creatine Kinase 98 U/L (26-192) 04/26/20 09:00 Troponin I 0.20 ng/ml (0.00-0.05) H 04/26/20 09:00 Total Protein 8.3 g/dl (6.4-8.2) H 04/26/20 09:00 Albumin 3.7 g/dl (3.4-5.0) 04/26/20 09:00 Vitamin B12 630 pg/ml (193-986) 04/27/20 07:45 Current Medications Generic Name Dose Route Start Last Admin Trade Name Freq PRN Reason Stop Dose Admin Acetaminophen 650 mg 04/26/20 17:15 04/26/20 17:22 Tylenol - PO 650 mg Q4H PRN Administration PAIN LEVEL 1-5 Aspirin 81 mg 04/27/20 10:00 04/28/20 09:30 Asa - PO 81 mg DAILY TERRA Administration Atorvastatin Calcium 10 mg 04/26/20 22:00 04/27/20 21:46 Lipitor - PO 10 mg HS TERRA Administration Carvedilol 25 mg 04/26/20 22:00 04/28/20 09:30 Coreg - PO 25 mg BID TERRA Administration Clonidine 0.2 mg 04/26/20 22:00 04/28/20 09:31 Catapres - PO 0.2 mg BID TERRA Administration Epoetin [place]on-epbx 3,000 unit 04/29/20 13:59 Retacrit IVPUSH 04/29/20 14:00 ONCE ONE Gabapentin 100 mg 04/26/20 22:00 04/27/20 21:48 Neurontin - PO 100 mg HS TERRA Administration Gabapentin 200 mg 04/27/20 06:00 04/28/20 14:01 Neurontin - PO 200 mg BID@0600,1400 TERRA Administration Heparin Sodium (Porcine) 5,000 unit 04/26/20 22:00 04/28/20 09:31 Heparin - SQ 5,000 unit BID TERRA Administration Hydralazine HCl 50 mg 04/27/20 12:28 04/28/20 14:01 Apresoline - PO 50 mg TID TERRA Administration Sodium Chloride 250 mls @ 3,000 mls/hr 04/28/20 13:59 Normal Saline - IV 04/29/20 14:00 PRN PRN Hypotension during Dialysis Multivit/Ca Carb/B Cmplx/FA/Prenat 1 tablet 04/27/20 10:00 04/28/20 09:30 Nephro-Roberta - PO 1 tablet DAILY TERRA Administration Nifedipine 90 mg 04/27/20 10:00 04/28/20 09:30 Procardia Xl - PO 90 mg DAILY TERRA Administration Ondansetron HCl 4 mg 04/27/20 12:59 Zofran Injection IVPUSH Q6H PRN NAUSEA AND/OR VOMITING Oxycodone HCl 5 mg 04/26/20 18:18 Roxicodone - PO DAILY PRN PAIN LEVEL 6-10 Pantoprazole Sodium 40 mg 04/28/20 13:59 Protonix - PO DAILY TERRA Polyethylene Glycol 17 gm 04/27/20 12:45 04/28/20 09:34 Miralax (For Daily Use) - PO 17 grams DAILY TERRA Administration Sevelamer Carbonate 1,600 mg 04/27/20 08:00 04/28/20 17:25 Renvela - PO 1,600 mg TIDCM TERRA Administration Constitutional: Yes: Calm Eyes: Yes: Conjunctiva Clear HENT: Yes: Atraumatic Neck: Yes: Trachea Midline Cardiovascular: Yes: Regular Rate and Rhythm Respiratory: Yes: CTA Bilaterally Gastrointestinal Inspection: Yes: Distention, Scars (healed vertcal suprapubic and laparoscopic incisions) ...Auscultate: Yes: Hypoactive Bowel Sounds ...Palpate: Yes: Soft, Other (nontender) ...Percussion: Yes: Tympanitic ...Rectal Exam: Yes: Guaiac Negative (soft brown g neg stool, no rectal masses) Edema: No Neurological: Yes: Alert Labs: CBC, BMP 04/27/20 07:45 04/27/20 07:45 Problem List - Problems (1) Gallstones Code(s): K80.20 - CALCULUS OF GALLBLADDER W/O CHOLECYSTITIS W/O OBSTRUCTION (2) Nausea & vomiting Code(s): R11.2 - NAUSEA WITH VOMITING, UNSPECIFIED (3) Anemia in chronic kidney disease Code(s): N18.9 - CHRONIC KIDNEY DISEASE, UNSPECIFIED; D63.1 - ANEMIA IN CHRONIC KIDNEY DISEASE (4) Diabetes mellitus type 2, noninsulin dependent Code(s): E11.9 - TYPE 2 DIABETES MELLITUS WITHOUT COMPLICATIONS (5) ESRD on hemodialysis Code(s): N18.6 - END STAGE RENAL DISEASE; Z99.2 - DEPENDENCE ON RENAL DIALYSIS (6) Hypertension Code(s): I10 - ESSENTIAL (PRIMARY) HYPERTENSION Qualifiers: Hypertension type: unspecified Qualified Code(s): I10 - Essential (primary) hypertension Assessment/Plan Impression: - Although Nely has gallstones I am not convinced that they are causing her symptoms. I do suspect that she has diabetic gastroparesis but will get a Hida scan, CRP, lipase and amylase - I discussed screening colonoscopy and an EGD with Nely. She responded that she does not feel that she could tolerate them at this time Plan: -- Hida scan -- Amyase, lipase and CRP -- Trial of Reglan -- Continue PPI
[2020-04-28] MEDS: ATORVASTATIN CA 10 MG TABLET (FP) PO SCH (21:33)
[2020-04-28] MEDS: METOCLOPRAMIDE HCL INJECTION 10 MG/2 ML VIAL IVPUSH SCH (22:24)
[2020-04-29] MEDS: METOCLOPRAMIDE HCL INJECTION 10 MG/2 ML VIAL IVPUSH SCH ×3 (06:09→21:27)
[2020-04-29] MEDS: GABAPENTIN 100 MG CAPSULE PO SCH ×4 (06:10→21:27)
[2020-04-29] MEDS: hydrALAZINE HCL 50 MG TABLET (FP) PO SCH ×3 (06:10→21:27)
[2020-04-29 08:27] LABS: BASO % 0.5 % (0-2.0); EOS % 7.2 % (0-4.5); HEMATOCRIT 30.2 % (32.4-45.2); HEMOGLOBIN 9.5 GM/dL (10.7-15.3); LYMPH % 38.5 % (8-40); MCH 29.5 pg (25.7-33.7); MCHC 31.5 g/dl (32.0-36.0); MEAN CELL VOLUME 93.5 fl (80-96); MEAN PLT VOLUME 9.5 fl (7.5-11.1); MONO % 8.1 % (3.8-10.2); NEUT % 45.7 % (42.8-82.8); PLATELET COUNT 210 K/MM3 (134-434); RBC 3.23 M/mm3 (3.60-5.2); RDW 15.8 % (11.6-15.6)
[2020-04-29] MEDS: SEVELAMER CARBONATE 800 MG TAB (FP) PO SCH ×3 (08:27→17:32)
[2020-04-29 08:48] LABS: AMYLASE 126 U/L (25-115); LIPASE 67 U/L (73-393)
[2020-04-29] MEDS: VITAMIN B COMP W-C 1 EA TABLET (NEPHRO-VITE) PO SCH (09:23)
[2020-04-29] MEDS: ASPIRIN 81 MG CHEWABLE TABLETS PO SCH (09:23)
[2020-04-29] MEDS: NIFEdipine E.R. 90 MG TABLET PO SCH (09:23)
[2020-04-29] MEDS: PANTOPRAZOLE 40 MG TABLET PO SCH (09:23)
[2020-04-29] MEDS: cloNIDine HCL 0.1 MG TABLET PO SCH ×2 (09:24→21:27)
[2020-04-29] MEDS: HEPARIN NA (PORCINE) 5,000 UNITS/ML 1ML VIAL SQ SCH ×2 (09:24→21:27)
[2020-04-29] MEDS: CARVEDILOL 25 MG TABLET (FP) PO SCH ×2 (09:24→21:27)
[2020-04-29] MEDS: POLYETHYLENE GLYCOL 3350 119 GM BTL PO SCH (09:24)
[2020-04-29] MEDS ORDERED: SODIUM CHLORIDE 250 ML IV PRN (10:40)
[2020-04-29] MEDS ORDERED: EPOETIN ALFA-EPBX 3,000 UNIT/ML VIAL IVPUSH ONE (10:45)
[2020-04-29 10:48] LABS: HEMATOCRIT 28.9 % (32.4-45.2); HEMOGLOBIN 9.3 GM/dL (10.7-15.3); MCH 30.4 pg (25.7-33.7); MCHC 32.2 g/dl (32.0-36.0); MEAN CELL VOLUME 94.2 fl (80-96); MEAN PLT VOLUME 9.8 fl (7.5-11.1); PLATELET COUNT 193 K/MM3 (134-434); RBC 3.07 M/mm3 (3.60-5.2); RDW 15.5 % (11.6-15.6); WHITE BLOOD COUNT 8.9 K/mm3 (4.0-10.0)
[2020-04-29 11:13] LABS: ALBUMIN 3.5 g/dl (3.4-5.0); BILIRUBIN,TOTAL 0.4 mg/dL (0.2-1); CALCIUM 9.1 mg/dL (8.5-10.1); TOT PROT 7.4 g/dl (6.4-8.2)
[2020-04-29 11:51] LABS: BLOOD UREA NITROGEN 76.9 mg/dL (7-18)
[2020-04-29 12:12] LABS: CREATININE 10.5 mg/dL (0.55-1.3)
[2020-04-29 12:13] LABS: POTASSIUM 6.2 mmol/L (3.5-5.1)
--- NOTE | 2020-04-29 13:14 | PN ---
Progress Note (short form) - Note Progress Note: Feels OK today. Breathing improved. Still with JUNIOR. In HD. No acute events overnight. Intake & Output 04/26/20 04/27/20 04/28/20 04/29/20 23:59 23:59 23:59 23:59 Intake Total 450 940 200 Balance 450 940 200 Weight 166 lb 4 oz 172 lb 164 lb 167 lb 11.2 oz Last Vital Signs Temp Pulse Resp BP Pulse Ox 97.6 F 66 18 111/51 L 96 04/29/20 10:05 04/29/20 11:10 04/29/20 11:10 04/29/20 11:10 04/29/20 09:00 Active Medications Acetaminophen (Tylenol -) 650 mg PO Q4H PRN PRN Reason: PAIN LEVEL 1-5 Last Admin: 04/26/20 17:22 Dose: 650 mg Documented by: Aspirin (Asa -) 81 mg PO DAILY [facility] Last Admin: 04/29/20 09:23 Dose: 81 mg Documented by: Atorvastatin Calcium (Lipitor -) 10 mg PO [facility] Last Admin: 04/28/20 21:33 Dose: 10 mg Documented by: Carvedilol (Coreg -) 25 mg PO BID [facility] Last Admin: 04/29/20 09:24 Dose: 25 mg Documented by: Clonidine (Catapres -) 0.2 mg PO BID [facility] Last Admin: 04/29/20 09:24 Dose: 0.2 mg Documented by: Gabapentin (Neurontin -) 100 mg PO [facility] Last Admin: 04/28/20 21:33 Dose: 100 mg Documented by: Gabapentin (Neurontin -) 200 mg PO BID@0600,1400 [facility] Last Admin: 04/29/20 06:18 Dose: Not Given Documented by: Heparin Sodium (Porcine) (Heparin -) 5,000 unit SQ BID [facility] Last Admin: 04/29/20 09:24 Dose: 5,000 unit Documented by: Hydralazine HCl (Apresoline -) 50 mg PO TID [facility] Last Admin: 04/29/20 06:10 Dose: 50 mg Documented by: Metoclopramide HCl (Reglan Injection -) 10 mg IVPUSH TID [facility] Last Admin: 04/29/20 06:09 Dose: 10 mg Documented by: Multivit/Ca Carb/B Cmplx/FA/Prenat (Nephro-Roberta -) 1 tablet PO DAILY [facility] Last Admin: 04/29/20 09:23 Dose: 1 tablet Documented by: Nifedipine (Procardia Xl -) 90 mg PO DAILY [facility] Last Admin: 04/29/20 09:23 Dose: 90 mg Documented by: Ondansetron HCl (Zofran Injection) 4 mg IVPUSH Q6H PRN PRN Reason: NAUSEA AND/OR VOMITING Oxycodone HCl (Roxicodone -) 5 mg PO DAILY PRN PRN Reason: PAIN LEVEL 6-10 Pantoprazole Sodium (Protonix -) 40 mg PO DAILY [facility] Last Admin: 04/29/20 09:23 Dose: 40 mg Documented by: Polyethylene Glycol (Miralax (For Daily Use) -) 17 gm PO DAILY [facility] Last Admin: 04/29/20 09:24 Dose: 17 grams Documented by: Sevelamer Carbonate (Renvela -) 1,600 mg PO TIDCM [facility] Last Admin: 04/29/20 11:28 Dose: Not Given Documented by: Constitutional: Yes: No Distress, Calm Eyes: Yes: Conjunctiva Clear, EOM Intact HENT: Yes: Atraumatic, Normocephalic Neck: Yes: Supple, Trachea Midline Cardiovascular: Yes: Regular Rate and Rhythm Respiratory: Yes: Diminished. No: Accessory Muscle Use, Rales, Rhonchi, SOB, SOB on Exertion, Stridor, Tachypnea, Wheezes ...Inspection: Yes: WNL ...Clubbing: No Gastrointestinal: Yes: Normal Bowel Sounds, Soft Musculoskeletal: Yes: WNL Extremities: Yes: WNL Edema: No Peripheral Pulses WNL: Yes Integumentary: Yes: WNL Neurological: Yes: WNL, Alert, Oriented ...Motor Strength: WNL Psychiatric: Yes: WNL, Alert, Oriented Labs: Laboratory Results - last 24 hr 04/29/20 04/29/20 04/29/20 07:30 07:30 10:10 WBC 9.0 8.9 RBC 3.23 L 3.07 L Hgb 9.5 L 9.3 L Hct 30.2 L 28.9 L MCV 93.5 94.2 MCH 29.5 30.4 MCHC 31.5 L 32.2 RDW 15.8 H 15.5 Plt Count 210 193 MPV 9.5 9.8 Absolute Neuts (auto) 4.1 Neutrophils % 45.7 D Lymphocytes % 38.5 Monocytes % 8.1 Eosinophils % 7.2 H Basophils % 0.5 Nucleated RBC % 0 Sodium Potassium Chloride Carbon Dioxide Anion Gap BUN Creatinine Est GFR (CKD-EPI)AfAm Est GFR (CKD-EPI)NonAf Random Glucose Calcium Total Bilirubin AST ALT Alkaline Phosphatase C-Reactive Protein < 0.3 Total Protein Albumin Total Amylase 126 H Lipase 67 L 04/29/20 10:10 WBC RBC Hgb Hct MCV MCH MCHC RDW Plt Count MPV Absolute Neuts (auto) Neutrophils % Lymphocytes % Monocytes % Eosinophils % Basophils % Nucleated RBC % Sodium 135 L Potassium 6.2 H* Chloride 97 L Carbon Dioxide 26 Anion Gap 12 BUN 76.9 H Creatinine 10.5 H* Est GFR (CKD-EPI)AfAm 3.85 Est GFR (CKD-EPI)NonAf 3.32 Random Glucose 198 H Calcium 9.1 Total Bilirubin 0.4 AST 10 L ALT 11 L Alkaline Phosphatase 118 H C-Reactive Protein Total Protein 7.4 Albumin 3.5 Total Amylase Lipase Imaging - Results Chest X-ray: Report Reviewed, Image Reviewed Problem List - Problems (1) SOB (shortness of breath) Code(s): R06.02 - SHORTNESS OF BREATH (2) Anemia Code(s): D64.9 - ANEMIA, UNSPECIFIED (3) Anemia in chronic kidney disease Code(s): N18.9 - CHRONIC KIDNEY DISEASE, UNSPECIFIED; D63.1 - ANEMIA IN CHRONIC KIDNEY DISEASE (4) Back pain Code(s): M54.9 - DORSALGIA, UNSPECIFIED Qualifiers: Back pain location: low back pain (5) Diabetes mellitus type 2, noninsulin dependent Code(s): E11.9 - TYPE 2 DIABETES MELLITUS WITHOUT COMPLICATIONS (6) ESRD on hemodialysis Code(s): N18.6 - END STAGE RENAL DISEASE; Z99.2 - DEPENDENCE ON RENAL DIALYSIS (7) Headache Code(s): R51 - HEADACHE (8) Hypertension Code(s): I10 - ESSENTIAL (PRIMARY) HYPERTENSION Qualifiers: Hypertension type: unspecified Qualified Code(s): I10 - Essential (primary) hypertension (9) Pulmonary congestion Code(s): R09.89 - OTH SYMPTOMS AND SIGNS INVOLVING THE CIRC AND RESP SYSTEMS Assessment/Plan Symptoms may be possibly related to Uremia (?) No evidence of volume overload No evidence of respiratory infection PLAN: HD per Renal Supplemental O2 as needed Monitor off ABX VTE prophylaxis No smoking PFTs after discharge Dr Flores Problem List - Problems (1) SOB (shortness of breath) Code(s): R06.02 - SHORTNESS OF BREATH (2) Anemia Code(s): D64.9 - ANEMIA, UNSPECIFIED (3) Anemia in chronic kidney disease Code(s): N18.9 - CHRONIC KIDNEY DISEASE, UNSPECIFIED; D63.1 - ANEMIA IN CHRONIC KIDNEY DISEASE (4) Back pain Code(s): M54.9 - DORSALGIA, UNSPECIFIED Qualifiers: Back pain location: low back pain (5) Diabetes mellitus type 2, noninsulin dependent Code(s): E11.9 - TYPE 2 DIABETES MELLITUS WITHOUT COMPLICATIONS (6) ESRD on hemodialysis Code(s): N18.6 - END STAGE RENAL DISEASE; Z99.2 - DEPENDENCE ON RENAL DIALYSIS (7) Headache Code(s): R51 - HEADACHE (8) Hypertension Code(s): I10 - ESSENTIAL (PRIMARY) HYPERTENSION Qualifiers: Hypertension type: unspecified Qualified Code(s): I10 - Essential (primary) hypertension (9) Pulmonary congestion Code(s): R09.89 - OTH SYMPTOMS AND SIGNS INVOLVING THE CIRC AND RESP SYSTEMS
--- NOTE | 2020-04-29 13:47 | PN ---
Progress Note, Physician History of Present Illness: Pt seen and examined at bedside. She is tolerating HD. - Current Medication List Current Medications: Active Medications Acetaminophen (Tylenol -) 650 mg PO Q4H PRN PRN Reason: PAIN LEVEL 1-5 Last Admin: 04/26/20 17:22 Dose: 650 mg Documented by: Aspirin (Asa -) 81 mg PO DAILY [facility] Last Admin: 04/29/20 09:23 Dose: 81 mg Documented by: Atorvastatin Calcium (Lipitor -) 10 mg PO [facility] Last Admin: 04/28/20 21:33 Dose: 10 mg Documented by: Carvedilol (Coreg -) 25 mg PO BID [facility] Last Admin: 04/29/20 09:24 Dose: 25 mg Documented by: Clonidine (Catapres -) 0.2 mg PO BID [facility] Last Admin: 04/29/20 09:24 Dose: 0.2 mg Documented by: Gabapentin (Neurontin -) 100 mg PO [facility] Last Admin: 04/28/20 21:33 Dose: 100 mg Documented by: Gabapentin (Neurontin -) 200 mg PO BID@0600,1400 [facility] Last Admin: 04/29/20 06:18 Dose: Not Given Documented by: Heparin Sodium (Porcine) (Heparin -) 5,000 unit SQ BID [facility] Last Admin: 04/29/20 09:24 Dose: 5,000 unit Documented by: Hydralazine HCl (Apresoline -) 50 mg PO TID [facility] Last Admin: 04/29/20 06:10 Dose: 50 mg Documented by: Metoclopramide HCl (Reglan Injection -) 10 mg IVPUSH TID [facility] Last Admin: 04/29/20 06:09 Dose: 10 mg Documented by: Multivit/Ca Carb/B Cmplx/FA/Prenat (Nephro-Roberta -) 1 tablet PO DAILY [facility] Last Admin: 04/29/20 09:23 Dose: 1 tablet Documented by: Nifedipine (Procardia Xl -) 90 mg PO DAILY [facility] Last Admin: 04/29/20 09:23 Dose: 90 mg Documented by: Ondansetron HCl (Zofran Injection) 4 mg IVPUSH Q6H PRN PRN Reason: NAUSEA AND/OR VOMITING Oxycodone HCl (Roxicodone -) 5 mg PO DAILY PRN PRN Reason: PAIN LEVEL 6-10 Pantoprazole Sodium (Protonix -) 40 mg PO DAILY [facility] Last Admin: 04/29/20 09:23 Dose: 40 mg Documented by: Polyethylene Glycol (Miralax (For Daily Use) -) 17 gm PO DAILY [facility] Last Admin: 04/29/20 09:24 Dose: 17 grams Documented by: Sevelamer Carbonate (Renvela -) 1,600 mg PO TIDCM [facility] Last Admin: 04/29/20 11:28 Dose: Not Given Documented by: - Objective Vital Signs: Vital Signs Temperature 97.6 F 04/29/20 10:05 Pulse Rate 66 04/29/20 13:36 Respiratory Rate 18 04/29/20 13:36 Blood Pressure 124/52 L 04/29/20 13:36 O2 Sat by Pulse Oximetry (%) 96 04/29/20 09:00 Constitutional: Yes: Calm Eyes: Yes: Conjunctiva Clear HENT: Yes: Atraumatic Neck: Yes: Supple Cardiovascular: Yes: S1, S2 Respiratory: Yes: CTA Bilaterally Gastrointestinal: Yes: Soft Genitourinary: Yes: WNL Musculoskeletal: Yes: WNL Edema: No Neurological: Yes: Oriented Psychiatric: Yes: Oriented Labs: CBC, BMP 04/29/20 10:10 04/29/20 10:10 Assessment/Plan Current Medications Generic Name Dose Route Start Last Admin Trade Name Jairo PRN Reason Stop Dose Admin Acetaminophen 650 mg 04/26/20 17:15 04/26/20 17:22 Tylenol - PO 650 mg Q4H PRN Administration PAIN LEVEL 1-5 Aspirin 81 mg 04/27/20 10:00 04/29/20 09:23 Asa - PO 81 mg DAILY [facility] Administration Atorvastatin Calcium 10 mg 04/26/20 22:00 04/28/20 21:33 Lipitor - PO 10 mg HS [facility] Administration Carvedilol 25 mg 04/26/20 22:00 04/29/20 09:24 Coreg - PO 25 mg BID [facility] Administration Clonidine 0.2 mg 04/26/20 22:00 04/29/20 09:24 Catapres - PO 0.2 mg BID [facility] Administration Gabapentin 100 mg 04/26/20 22:00 04/28/20 21:33 Neurontin - PO 100 mg HS [facility] Administration Gabapentin 200 mg 04/27/20 06:00 04/29/20 06:18 Neurontin - PO Not Given BID@0600,1400 [facility] Heparin Sodium (Porcine) 5,000 unit 04/26/20 22:00 04/29/20 09:24 Heparin - SQ 5,000 unit BID [facility] Administration Hydralazine HCl 50 mg 04/27/20 12:28 04/29/20 06:10 Apresoline - PO 50 mg TID [facility] Administration Metoclopramide HCl 10 mg 04/28/20 22:00 04/29/20 06:09 Reglan Injection - IVPUSH 10 mg TID [facility] Administration Multivit/Ca Carb/B Cmplx/FA/Prenat 1 tablet 04/27/20 10:00 04/29/20 09:23 Nephro-Roberta - PO 1 tablet DAILY [facility] Administration Nifedipine 90 mg 04/27/20 10:00 04/29/20 09:23 Procardia Xl - PO 90 mg DAILY [facility] Administration Ondansetron HCl 4 mg 04/27/20 12:59 Zofran Injection IVPUSH Q6H PRN NAUSEA AND/OR VOMITING Oxycodone HCl 5 mg 04/26/20 18:18 Roxicodone - PO DAILY PRN PAIN LEVEL 6-10 Pantoprazole Sodium 40 mg 04/28/20 13:59 04/29/20 09:23 Protonix - PO 40 mg DAILY [facility] Administration Polyethylene Glycol 17 gm 04/27/20 12:45 04/29/20 09:24 Miralax (For Daily Use) - PO 17 grams DAILY [facility] Administration Sevelamer Carbonate 1,600 mg 04/27/20 08:00 04/29/20 11:28 Renvela - PO Not Given TIDCM [facility] Impression 1. ESRD 2. non compliance with bp meds 3. dyspnea 4. DM 5. HTN 6. hyperkalemia Plan - HD today - increase time to 3 15 - pt reluctant to dialyze more than 3 hours however agrees to 3:15 - monitor bp - renal diet - epogen for anemia
--- NOTE | 2020-04-29 16:22 | PN.GI ---
GI Progress Note Subjective: GI NOte: Nely tells me that her N/V has resolved and tolerated solid diet today. Amylase and CRP unremarkable. Hida pending. - Objective Vital Signs: Vital Signs Temperature 97.6 F 04/29/20 10:05 Pulse Rate 66 04/29/20 13:36 Respiratory Rate 18 04/29/20 13:36 Blood Pressure 124/52 L 04/29/20 13:36 O2 Sat by Pulse Oximetry (%) 96 04/29/20 09:00 Laboratory Tests 04/29/20 04/29/20 04/29/20 07:30 07:30 10:10 Total Bilirubin 0.4 AST 10 L ALT 11 L Alkaline Phosphatase 118 H C-Reactive Protein < 0.3 Total Amylase 126 H Lipase 67 L Hep A IgM Ab Confirm Pending Hepatitis A Ab Total Pending Hep Bs Antigen Pending Hep Bs Antibody Pending Hep B Core Total Ab Pending Hep B Core IgM Ab Pending Hepatitis Be Antibody Pending Hepatitis Be Antigen Pending Hep C Ab Diagnostic Pending Constitutional: Calm ...Auscultate: Yes: Hypoactive Bowel Sounds ...Palpate: Yes: Soft, Other (nontender) Labs: CBC, BMP 04/29/20 10:10 04/29/20 13:25 Assessment/Plan Impression: - Diabetic gastroparesis - Suspect that the gallstones are innocent. - I discussed screening colonoscopy and an EGD with Nely. She responded that she does not feel that she could tolerate them at this time Plan: -- Await Hida scan -- Continue Reglan and PPI Problem List - Problems (1) Gallstones Code(s): K80.20 - CALCULUS OF GALLBLADDER W/O CHOLECYSTITIS W/O OBSTRUCTION (2) Nausea & vomiting Code(s): R11.2 - NAUSEA WITH VOMITING, UNSPECIFIED (3) Anemia in chronic kidney disease Code(s): N18.9 - CHRONIC KIDNEY DISEASE, UNSPECIFIED; D63.1 - ANEMIA IN CHRONIC KIDNEY DISEASE (4) Diabetes mellitus type 2, noninsulin dependent Code(s): E11.9 - TYPE 2 DIABETES MELLITUS WITHOUT COMPLICATIONS (5) ESRD on hemodialysis Code(s): N18.6 - END STAGE RENAL DISEASE; Z99.2 - DEPENDENCE ON RENAL DIALYSIS (6) Hypertension Code(s): I10 - ESSENTIAL (PRIMARY) HYPERTENSION Qualifiers: Hypertension type: unspecified Qualified Code(s): I10 - Essential (primary) hypertension
--- NOTE | 2020-04-29 18:33 | PN ---
Physical Exam: SUBJECTIVE: Patient seen and examined. denies pain, denies nausea or vomiting. no shortness of breath. OBJECTIVE: Patient is a 69 year old female with a significant past medical history of HTN, DM, ESRD on dialysis 3 x a week, chronic pain. patient admitted for shortness of breath and hypertensive urgency. shortness of breath has resolved and she is tolerating room air. Hypertensive urgency resolved on continuation of cardiac medications. Patient reports home compliance with her cardiac medications. Vital Signs Period Temp Pulse Resp BP Sys/Dietz Pulse Ox Last 24 Hr 97.3 F-97.9 F 63-68 18-20 103-129/47-59 96-98 GENERAL: The patient is awake, alert, and fully oriented, in no acute distress. HEAD: Normal with no signs of trauma. EYES: PERRL, extraocular movements intact, sclera anicteric, conjunctiva clear. No ptosis. ENT: Ears normal, nares patent, oropharynx clear without exudates, moist mucous membranes. NECK: Trachea midline, full range of motion, supple. LUNGS: Breath sounds equal, clear to auscultation bilaterally, no wheezes, rales at lower lobes bilaterally . HEART: Regular rate and rhythm, S1, S2 with 2/6 systolic murmur at lt 2nd itnercostal, rub or gallop. ABDOMEN: Soft, nontender, nondistended, normoactive bowel sounds, no guarding, no rebound, no hepatosplenomegaly, no masses. EXTREMITIES: 2+ pulses, warm, well-perfused, no edema. NEUROLOGICAL: Cranial nerves II through XII grossly intact. Normal speech, gait not observed. Laboratory Results - last 24 hr 04/29/20 04/29/20 04/29/20 07:30 07:30 10:10 WBC 9.0 8.9 RBC 3.23 L 3.07 L Hgb 9.5 L 9.3 L Hct 30.2 L 28.9 L MCV 93.5 94.2 MCH 29.5 30.4 MCHC 31.5 L 32.2 RDW 15.8 H 15.5 Plt Count 210 193 MPV 9.5 9.8 Absolute Neuts (auto) 4.1 Neutrophils % 45.7 D Lymphocytes % 38.5 Monocytes % 8.1 Eosinophils % 7.2 H Basophils % 0.5 Nucleated RBC % 0 Sodium Potassium Chloride Carbon Dioxide Anion Gap BUN Creatinine Est GFR (CKD-EPI)AfAm Est GFR (CKD-EPI)NonAf Random Glucose Calcium Total Bilirubin AST ALT Alkaline Phosphatase C-Reactive Protein < 0.3 Total Protein Albumin Total Amylase 126 H Lipase 67 L 04/29/20 04/29/20 10:10 13:25 WBC RBC Hgb Hct MCV MCH MCHC RDW Plt Count MPV Absolute Neuts (auto) Neutrophils % Lymphocytes % Monocytes % Eosinophils % Basophils % Nucleated RBC % Sodium 135 L Potassium 6.2 H* 3.4 L Chloride 97 L Carbon Dioxide 26 Anion Gap 12 BUN 76.9 H Creatinine 10.5 H* Est GFR (CKD-EPI)AfAm 3.85 Est GFR (CKD-EPI)NonAf 3.32 Random Glucose 198 H Calcium 9.1 Total Bilirubin 0.4 AST 10 L ALT 11 L Alkaline Phosphatase 118 H C-Reactive Protein Total Protein 7.4 Albumin 3.5 Total Amylase Lipase Active Medications Generic Name Dose Route Start Last Admin Trade Name Freq PRN Reason Stop Dose Admin Acetaminophen 650 mg 04/26/20 17:15 04/26/20 17:22 Tylenol - PO 650 mg Q4H PRN Administration PAIN LEVEL 1-5 Aspirin 81 mg 04/27/20 10:00 04/29/20 09:23 Asa - PO 81 mg DAILY [facility] Administration Atorvastatin Calcium 10 mg 04/26/20 22:00 04/28/20 21:33 Lipitor - PO 10 mg HS [facility] Administration Carvedilol 25 mg 04/26/20 22:00 04/29/20 09:24 Coreg - PO 25 mg BID [facility] Administration Clonidine 0.2 mg 04/26/20 22:00 04/29/20 09:24 Catapres - PO 0.2 mg BID [facility] Administration Gabapentin 100 mg 04/26/20 22:00 04/28/20 21:33 Neurontin - PO 100 mg HS [facility] Administration Gabapentin 200 mg 04/27/20 06:00 04/29/20 14:34 Neurontin - PO 200 mg BID@0600,1400 [facility] Administration Heparin Sodium (Porcine) 5,000 unit 04/26/20 22:00 04/29/20 09:24 Heparin - SQ 5,000 unit BID [facility] Administration Hydralazine HCl 50 mg 04/27/20 12:28 04/29/20 14:35 Apresoline - PO 50 mg TID [facility] Administration Metoclopramide HCl 10 mg 04/28/20 22:00 04/29/20 14:35 Reglan Injection - IVPUSH 10 mg TID [facility] Administration Multivit/Ca Carb/B Cmplx/FA/Prenat 1 tablet 04/27/20 10:00 04/29/20 09:23 Nephro-Roberta - PO 1 tablet DAILY [facility] Administration Nifedipine 90 mg 04/27/20 10:00 04/29/20 09:23 Procardia Xl - PO 90 mg DAILY [facility] Administration Ondansetron HCl 4 mg 04/27/20 12:59 Zofran Injection IVPUSH Q6H PRN NAUSEA AND/OR VOMITING Oxycodone HCl 5 mg 04/26/20 18:18 Roxicodone - PO DAILY PRN PAIN LEVEL 6-10 Pantoprazole Sodium 40 mg 04/28/20 13:59 04/29/20 09:23 Protonix - PO 40 mg DAILY [facility] Administration Polyethylene Glycol 17 gm 04/27/20 12:45 04/29/20 09:24 Miralax (For Daily Use) - PO 17 grams DAILY [facility] Administration Sevelamer Carbonate 1,600 mg 04/27/20 08:00 04/29/20 17:32 Renvela - PO 1,600 mg TIDCM [facility] Administration ASSESSMENT/PLAN: Problem List - Problems (1) SOB (shortness of breath) Assessment/Plan: improved after dialysis. tolerating room air. will do pre and post prior to d/c home per pulmonary, no evidence of volume overload or respiratory infections recommend outpatient follow up Code(s): R06.02 - SHORTNESS OF BREATH (2) Diabetes mellitus type 2, noninsulin dependent Assessment/Plan: monitor bgms, continue insulin coverage Code(s): E11.9 - TYPE 2 DIABETES MELLITUS WITHOUT COMPLICATIONS (3) ESRD on hemodialysis Assessment/Plan: dialysis today Code(s): N18.6 - END STAGE RENAL DISEASE; Z99.2 - DEPENDENCE ON RENAL DIALYSIS (4) Elevated brain natriuretic peptide (BNP) level Code(s): R79.89 - OTHER SPECIFIED ABNORMAL FINDINGS OF BLOOD CHEMISTRY (5) Gallstones Assessment/Plan: for [facility] to further evaluate Code(s): K80.20 - CALCULUS OF GALLBLADDER W/O CHOLECYSTITIS W/O OBSTRUCTION (6) DVT prophylaxis Assessment/Plan: heparin bid Code(s): Z29.9 - ENCOUNTER FOR PROPHYLACTIC MEASURES, UNSPECIFIED (7) Hypertensive urgency Assessment/Plan: bp stablized on hydralazine 20mg tid coreq 25mg bid procardia 30mg xl patient reports compliance with home medications. Code(s): I16.0 - HYPERTENSIVE URGENCY Visit type - Emergency Visit Emergency Visit: Yes ED Registration Date: 04/26/20 Care time: The patient presented to the Emergency Department on the above date and was hospitalized for further evaluation of their emergent condition. - New Patient This patient is new to me today: No - Critical Care Critical Care patient: No - Discharge Referral [facility]erred [facility] Med [facility] No - Medication Review Med list reviewed for High Risk Meds patients 65 and older: Yes
[2020-04-29] MEDS: ATORVASTATIN CA 10 MG TABLET (FP) PO SCH (21:27)
[2020-04-30] MEDS: hydrALAZINE HCL 50 MG TABLET (FP) PO SCH ×2 (05:44→14:32)
[2020-04-30] MEDS: GABAPENTIN 100 MG CAPSULE PO SCH ×3 (05:44→14:30)
[2020-04-30] MEDS: METOCLOPRAMIDE HCL INJECTION 10 MG/2 ML VIAL IVPUSH SCH ×2 (05:44→14:32)
[2020-04-30] MEDS: SEVELAMER CARBONATE 800 MG TAB (FP) PO SCH ×3 (08:19→11:50)
[2020-04-30] MEDS: VITAMIN B COMP W-C 1 EA TABLET (NEPHRO-VITE) PO SCH (09:15)
[2020-04-30] MEDS: ASPIRIN 81 MG CHEWABLE TABLETS PO SCH (09:15)
[2020-04-30] MEDS: PANTOPRAZOLE 40 MG TABLET PO SCH (09:15)
[2020-04-30] MEDS: CARVEDILOL 25 MG TABLET (FP) PO SCH (09:15)
[2020-04-30] MEDS: cloNIDine HCL 0.1 MG TABLET PO SCH (09:15)
[2020-04-30] MEDS: NIFEdipine E.R. 90 MG TABLET PO SCH (09:15)
[2020-04-30] MEDS: POLYETHYLENE GLYCOL 3350 119 GM BTL PO SCH (09:15)
[2020-04-30] MEDS: HEPARIN NA (PORCINE) 5,000 UNITS/ML 1ML VIAL SQ SCH (09:15)
--- NOTE | 2020-04-30 10:18 | PN ---
Progress Note, Physician History of Present Illness: pulmonary alert,comfortable,-resp distress - Current Medication List Current Medications: Active Medications Acetaminophen (Tylenol -) 650 mg PO Q4H PRN PRN Reason: PAIN LEVEL 1-5 Last Admin: 04/26/20 17:22 Dose: 650 mg Documented by: Aspirin (Asa -) 81 mg PO DAILY [facility] Last Admin: 04/30/20 09:15 Dose: 81 mg Documented by: Atorvastatin Calcium (Lipitor -) 10 mg PO [facility] Last Admin: 04/29/20 21:27 Dose: 10 mg Documented by: Carvedilol (Coreg -) 25 mg PO BID [facility] Last Admin: 04/30/20 09:15 Dose: 25 mg Documented by: Clonidine (Catapres -) 0.2 mg PO BID [facility] Last Admin: 04/30/20 09:15 Dose: 0.2 mg Documented by: Gabapentin (Neurontin -) 100 mg PO [facility] Last Admin: 04/29/20 21:27 Dose: 100 mg Documented by: Gabapentin (Neurontin -) 200 mg PO BID@0600,1400 [facility] Last Admin: 04/30/20 05:48 Dose: Not Given Documented by: Heparin Sodium (Porcine) (Heparin -) 5,000 unit SQ BID [facility] Last Admin: 04/30/20 09:15 Dose: 5,000 unit Documented by: Hydralazine HCl (Apresoline -) 50 mg PO TID [facility] Last Admin: 04/30/20 05:44 Dose: 50 mg Documented by: Metoclopramide HCl (Reglan Injection -) 10 mg IVPUSH TID [facility] Last Admin: 04/30/20 05:44 Dose: 10 mg Documented by: Multivit/Ca Carb/B Cmplx/FA/Prenat (Nephro-Roberta -) 1 tablet PO DAILY [facility] Last Admin: 04/30/20 09:15 Dose: 1 tablet Documented by: Nifedipine (Procardia Xl -) 90 mg PO DAILY [facility] Last Admin: 04/30/20 09:15 Dose: 90 mg Documented by: Ondansetron HCl (Zofran Injection) 4 mg IVPUSH Q6H PRN PRN Reason: NAUSEA AND/OR VOMITING Oxycodone HCl (Roxicodone -) 5 mg PO DAILY PRN PRN Reason: PAIN LEVEL 6-10 Pantoprazole Sodium (Protonix -) 40 mg PO DAILY [facility] Last Admin: 04/30/20 09:15 Dose: 40 mg Documented by: Polyethylene Glycol (Miralax (For Daily Use) -) 17 gm PO DAILY [facility] Last Admin: 04/30/20 09:15 Dose: 17 grams Documented by: Sevelamer Carbonate (Renvela -) 1,600 mg PO TIDCM [facility] Last Admin: 04/30/20 09:16 Dose: 1,600 mg Documented by: - Objective Vital Signs: Vital Signs Temperature 98.2 F 04/30/20 10:00 Pulse Rate 73 04/30/20 10:00 Respiratory Rate 20 04/30/20 10:00 Blood Pressure 150/60 04/30/20 10:00 O2 Sat by Pulse Oximetry (%) 95 04/30/20 10:00 Constitutional: Yes: Well Nourished, Calm Eyes: Yes: WNL HENT: Yes: WNL Neck: Yes: WNL Cardiovascular: Yes: Regular Rate and Rhythm, S1, S2 Respiratory: Yes: CTA Bilaterally Gastrointestinal: Yes: Normal Bowel Sounds, Soft Extremities: Yes: WNL Edema: No Labs: CBC, BMP 04/29/20 10:10 Assessment/Plan Problem List - Problems (1) SOB (shortness of breath) Code(s): R06.02 - SHORTNESS OF BREATH (2) Anemia Code(s): D64.9 - ANEMIA, UNSPECIFIED (3) Anemia in chronic kidney disease Code(s): N18.9 - CHRONIC KIDNEY DISEASE, UNSPECIFIED; D63.1 - ANEMIA IN CHRONIC KIDNEY DISEASE (4) Back pain Code(s): M54.9 - DORSALGIA, UNSPECIFIED Qualifiers: Back pain location: low back pain (5) Diabetes mellitus type 2, noninsulin dependent Code(s): E11.9 - TYPE 2 DIABETES MELLITUS WITHOUT COMPLICATIONS (6) ESRD on hemodialysis Code(s): N18.6 - END STAGE RENAL DISEASE; Z99.2 - DEPENDENCE ON RENAL DIALYSIS (7) Headache Code(s): R51 - HEADACHE (8) Hypertension Code(s): I10 - ESSENTIAL (PRIMARY) HYPERTENSION Qualifiers: Hypertension type: unspecified Qualified Code(s): I10 - Essential (primary) hypertension (9) Pulmonary congestion Code(s): R09.89 - OTH SYMPTOMS AND SIGNS INVOLVING THE CIRC AND RESP SYSTEMS Assessment/Plan No evidence of volume overload No evidence of respiratory infection PLAN: HD per Renal Supplemental O2 as needed VTE prophylaxis No smoking PFTs after discharge DR LUCAS Problem List - Problems (1) SOB (shortness of breath) Code(s): R06.02 - SHORTNESS OF BREATH (2) Anemia Code(s): D64.9 - ANEMIA, UNSPECIFIED (3) Anemia in chronic kidney disease Code(s): N18.9 - CHRONIC KIDNEY DISEASE, UNSPECIFIED; D63.1 - ANEMIA IN CHRONIC KIDNEY DISEASE (4) Back pain Code(s): M54.9 - DORSALGIA, UNSPECIFIED Qualifiers: Back pain location: low back pain (5) Diabetes mellitus type 2, noninsulin dependent Code(s): E11.9 - TYPE 2 DIABETES MELLITUS WITHOUT COMPLICATIONS (6) ESRD on hemodialysis Code(s): N18.6 - END STAGE RENAL DISEASE; Z99.2 - DEPENDENCE ON RENAL DIALYSIS (7) Headache Code(s): R51 - HEADACHE (8) Hypertension Code(s): I10 - ESSENTIAL (PRIMARY) HYPERTENSION Qualifiers: Hypertension type: unspecified Qualified Code(s): I10 - Essential (primary) hypertension (9) Pulmonary congestion Code(s): R09.89 - OTH SYMPTOMS AND SIGNS INVOLVING THE CIRC AND RESP SYSTEMS
[2020-04-30] MEDS ORDERED: SODIUM CHLORIDE 250 ML IV PRN (12:06)
--- NOTE | 2020-04-30 12:06 | PN ---
Progress Note, Physician History of Present Illness: Pt seen and examined at bedside. She is awake and alert. She denies shortness of breath. - Current Medication List Current Medications: Active Medications Acetaminophen (Tylenol -) 650 mg PO Q4H PRN PRN Reason: PAIN LEVEL 1-5 Last Admin: 04/26/20 17:22 Dose: 650 mg Documented by: Aspirin (Asa -) 81 mg PO DAILY [facility] Last Admin: 04/30/20 09:15 Dose: 81 mg Documented by: Atorvastatin Calcium (Lipitor -) 10 mg PO [facility] Last Admin: 04/29/20 21:27 Dose: 10 mg Documented by: Carvedilol (Coreg -) 25 mg PO BID [facility] Last Admin: 04/30/20 09:15 Dose: 25 mg Documented by: Clonidine (Catapres -) 0.2 mg PO BID [facility] Last Admin: 04/30/20 09:15 Dose: 0.2 mg Documented by: Gabapentin (Neurontin -) 100 mg PO [facility] Last Admin: 04/29/20 21:27 Dose: 100 mg Documented by: Gabapentin (Neurontin -) 200 mg PO BID@0600,1400 [facility] Last Admin: 04/30/20 05:48 Dose: Not Given Documented by: Heparin Sodium (Porcine) (Heparin -) 5,000 unit SQ BID [facility] Last Admin: 04/30/20 09:15 Dose: 5,000 unit Documented by: Hydralazine HCl (Apresoline -) 50 mg PO TID [facility] Last Admin: 04/30/20 05:44 Dose: 50 mg Documented by: Metoclopramide HCl (Reglan Injection -) 10 mg IVPUSH TID [facility] Last Admin: 04/30/20 05:44 Dose: 10 mg Documented by: Multivit/Ca Carb/B Cmplx/FA/Prenat (Nephro-Roberta -) 1 tablet PO DAILY [facility] Last Admin: 04/30/20 09:15 Dose: 1 tablet Documented by: Nifedipine (Procardia Xl -) 90 mg PO DAILY [facility] Last Admin: 04/30/20 09:15 Dose: 90 mg Documented by: Ondansetron HCl (Zofran Injection) 4 mg IVPUSH Q6H PRN PRN Reason: NAUSEA AND/OR VOMITING Oxycodone HCl (Roxicodone -) 5 mg PO DAILY PRN PRN Reason: PAIN LEVEL 6-10 Pantoprazole Sodium (Protonix -) 40 mg PO DAILY [facility] Last Admin: 04/30/20 09:15 Dose: 40 mg Documented by: Polyethylene Glycol (Miralax (For Daily Use) -) 17 gm PO DAILY [facility] Last Admin: 04/30/20 09:15 Dose: 17 grams Documented by: Sevelamer Carbonate (Renvela -) 1,600 mg PO TIDCM [facility] Last Admin: 04/30/20 11:50 Dose: 1,600 mg Documented by: - Objective Vital Signs: Vital Signs Temperature 98.2 F 04/30/20 10:00 Pulse Rate 73 04/30/20 10:00 Respiratory Rate 20 04/30/20 10:00 Blood Pressure 150/60 04/30/20 10:00 O2 Sat by Pulse Oximetry (%) 95 04/30/20 10:00 Constitutional: Yes: Calm Eyes: Yes: Conjunctiva Clear HENT: Yes: Atraumatic Neck: Yes: Supple Cardiovascular: Yes: S1, S2 Respiratory: Yes: CTA Bilaterally Gastrointestinal: Yes: Normal Bowel Sounds, Soft Genitourinary: Yes: WNL Musculoskeletal: Yes: WNL Edema: No Neurological: Yes: Oriented Psychiatric: Yes: Oriented Labs: CBC, BMP 04/29/20 10:10 04/29/20 13:25 Assessment/Plan Current Medications Generic Name Dose Route Start Last Admin Trade Name Freq PRN Reason Stop Dose Admin Acetaminophen 650 mg 04/26/20 17:15 04/26/20 17:22 Tylenol - PO 650 mg Q4H PRN Administration PAIN LEVEL 1-5 Aspirin 81 mg 04/27/20 10:00 04/30/20 09:15 Asa - PO 81 mg DAILY [facility] Administration Atorvastatin Calcium 10 mg 04/26/20 22:00 04/29/20 21:27 Lipitor - PO 10 mg HS [facility] Administration Carvedilol 25 mg 04/26/20 22:00 04/30/20 09:15 Coreg - PO 25 mg BID [facility] Administration Clonidine 0.2 mg 04/26/20 22:00 04/30/20 09:15 Catapres - PO 0.2 mg BID [facility] Administration Gabapentin 100 mg 04/26/20 22:00 04/29/20 21:27 Neurontin - PO 100 mg HS [facility] Administration Gabapentin 200 mg 04/27/20 06:00 04/30/20 05:48 Neurontin - PO Not Given BID@0600,1400 [facility] Heparin Sodium (Porcine) 5,000 unit 04/26/20 22:00 04/30/20 09:15 Heparin - SQ 5,000 unit BID [facility] Administration Hydralazine HCl 50 mg 04/27/20 12:28 04/30/20 05:44 Apresoline - PO 50 mg TID [facility] Administration Metoclopramide HCl 10 mg 04/28/20 22:00 04/30/20 05:44 Reglan Injection - IVPUSH 10 mg TID [facility] Administration Multivit/Ca Carb/B Cmplx/FA/Prenat 1 tablet 04/27/20 10:00 04/30/20 09:15 Nephro-Roberta - PO 1 tablet DAILY [facility] Administration Nifedipine 90 mg 04/27/20 10:00 04/30/20 09:15 Procardia Xl - PO 90 mg DAILY [facility] Administration Ondansetron HCl 4 mg 04/27/20 12:59 Zofran Injection IVPUSH Q6H PRN NAUSEA AND/OR VOMITING Oxycodone HCl 5 mg 04/26/20 18:18 Roxicodone - PO DAILY PRN PAIN LEVEL 6-10 Pantoprazole Sodium 40 mg 04/28/20 13:59 04/30/20 09:15 Protonix - PO 40 mg DAILY [facility] Administration Polyethylene Glycol 17 gm 04/27/20 12:45 04/30/20 09:15 Miralax (For Daily Use) - PO 17 grams DAILY [facility] Administration Sevelamer Carbonate 1,600 mg 04/27/20 08:00 04/30/20 11:50 Renvela - PO 1,600 mg TIDCM [facility] Administration Impression 1. ESRD 2. non compliance with bp meds 3. dyspnea 4. DM 5. HTN 6. hyperkalemia Plan - next HD tomorrow - can give lactulose if no response to miralax - 3:30 of HD tomorrow - renal diet - monitor bp - renal diet - epogen for anemia
[2020-04-30 13:49] VITALS: BP 143/66; TEMP 97.4
[2020-04-30 14:10] VITALS: PULSE 77
--- NOTE | 2020-04-30 14:10 | DS ---
Physical Exam: SUBJECTIVE: Patient seen and examined. sitting up in bed, talking on the phone. denies shortness of breath. She wants to go home and do the MRCP as an outpatient. She denies abdominal pain or nausea. She is tolerating her meals without issue. OBJECTIVE: Patient is a 69 year old female with a significant past medical history of HTN, DM, ESRD on dialysis 3 x a week, chronic pain. patient admitted for shortness of breath and hypertensive urgency. shortness of breath has resolved and she is tolerating room air. Hypertensive urgency resolved on continuation of cardiac medications. Patient reports home compliance with her cardiac medications. Patient refused MRCP but wiling to do it as an outpatient. She asked me to discharge her home. pre and post shows patient does not qualify for home oxygen. Vital Signs Period Temp Pulse Resp BP Sys/Dietz Pulse Ox Last 24 Hr 97.4 F-98.3 F 71-94 18-20 130-150/57-66 95-98 PHYSICAL EXAM GENERAL: The patient is awake, alert, and fully oriented, in no acute distress. HEAD: Normal with no signs of trauma. EYES: PERRL, extraocular movements intact, sclera anicteric, conjunctiva clear. No ptosis. ENT: Ears normal, nares patent, oropharynx clear without exudates, moist mucous membranes. NECK: Trachea midline, full range of motion, supple. LUNGS: Breath sounds equal, clear to auscultation bilaterally, no wheezes, rales at lower lobes bilaterally . HEART: Regular rate and rhythm, S1, S2 with 2/6 systolic murmur at lt 2nd itnercostal, rub or gallop. ABDOMEN: Soft, nontender, nondistended, normoactive bowel sounds, no guarding, no rebound, no hepatosplenomegaly, no masses. EXTREMITIES: 2+ pulses, warm, well-perfused, no edema. NEUROLOGICAL: Cranial nerves II through XII grossly intact. Normal speech, gait not observed. Laboratory Results - last 24 hr 04/29/20 04/29/20 07:30 13:25 Potassium 3.4 L Hep C Ab Diagnostic <0.1 HOSPITAL COURSE: Date of Admission:04/26/20 Date of Discharge: 04/30/20 Minutes to complete discharge: 45 Discharge Summary Problems reviewed: Yes Reason For Visit: END STAGE RENAL DISEASE ON DIALYSIS Current Active Problems Gallstones (Acute) Missed dialysis (Acute) Nausea & vomiting (Acute) SOB (shortness of breath) (Acute) Condition: Improved - Instructions Diet, Activity, Other Instructions: Mrs Whitney: You were admitted for shortness of breath and improved after dialysis. Your blood pressure was also uncontrolled. Here are our discharge recommendations. Shortness of breath: Continue your dialysis on your schedule. Hypertension: START hydralzine 50mg three times per day at 8am, 2pm and 8pm (this medication is to control your blood pressure) START Clonodine 0.2mg TWICE per day at 8am and 8pm - (this medication is to control your blood pressure) START Coreq 25mg TWICE per day at 8am and 8pm - (this medication is to control your blood pressure) START Procardia 90mg ONCE PER DAY AT 8AM - (this medication is to control your blood pressure) You were also noted to have gallstones, and a referral to Dr Hall has been made part of your discharge instructions. Please call him for an appointment. Thank you for allowing us to care for you. Referrals: Saritha Blankenship MD [Primary Care Provider] - Letty Pak MD [Staff Physician] - Disposition: HOME - Home Medications Comprehensive Discharge Medication List: Ambulatory Orders Folic Acid/Vit B Complex and C [Yue-Roberta Tablet] 0.8 mg PO DAILY 02/05/19 Gabapentin [Neurontin] 100 mg PO HS 02/05/19 Linaclotide [Linzess] 145 mcg PO DAILY 02/05/19 Omeprazole 20 mg PO DAILY 02/05/19 Sevelamer Carbonate [Renvela -] 1,600 mg PO TID 02/05/19 Simvastatin [Zocor -] 20 mg PO HS 02/05/19 Sitagliptin Phosphate [Januvia] 25 mg PO DAILY 02/05/19 oxyCODONE HCL [Oxycodone HCl] 5 mg PO DAILY PRN 02/05/19 Gabapentin [Neurontin -] 200 mg PO BID 04/17/19 Aspirin 81 mg PO DAILY #30 tab.chew 04/02/20 Miconazole Nitrate [Monistat-7 -] 1 applic VG HS #1 tube 04/23/20 Sucralfate 1 gm PO TID 04/26/20 Carvedilol [Coreg -] 25 mg PO BID #120 tablet 04/30/20 Clonidine HCl [Catapres] 0.2 mg PO Q12H #120 tablet 04/30/20 Nifedipine [Procardia Xl] 90 mg PO DAILY #90 tab.sr 04/30/20 hydrALAZINE HCL [Apresoline -] 50 mg PO TID #180 tablet 04/30/20 Problem List - Problems (1) Diabetes mellitus type 2, noninsulin dependent Assessment/Plan: monitor bgms, continue insulin coverage Code(s): E11.9 - TYPE 2 DIABETES MELLITUS WITHOUT COMPLICATIONS (2) ESRD on hemodialysis Assessment/Plan: dialysis today Code(s): N18.6 - END STAGE RENAL DISEASE; Z99.2 - DEPENDENCE ON RENAL DIALYSIS (3) Gallstones Assessment/Plan: for [facility]p to further evaluate Code(s): K80.20 - CALCULUS OF GALLBLADDER W/O CHOLECYSTITIS W/O OBSTRUCTION (4) Hypertensive urgency Assessment/Plan: bp stablized on hydralazine 20mg tid coreq 25mg bid procardia 30mg xl patient reports compliance with home medications. Code(s): I16.0 - HYPERTENSIVE URGENCY (5) SOB (shortness of breath) Assessment/Plan: improved after dialysis. tolerating room air. will do pre and post prior to d/c home per pulmonary, no evidence of volume overload or respiratory infections recommend outpatient follow up Code(s): R06.02 - SHORTNESS OF BREATH This patient is new to me today: Yes Date on this admission: 04/30/20 Emergency Visit: No Critical Care patient: No - Discharge Referral Referred to [facility] Med P.C.: No
[2020-04-30 20:07] LABS: HEP B CORE AB, TOT Negative (Negative); TRANSGLUTAMINASE IGA < 2 U/mL (0-3); TRANSGLUTAMINASE IGG 6 U/mL (0-5)
[2020-05-01] MEDS ORDERED: EPOETIN ALFA-EPBX 4,000 UNIT/ML VIAL IVPUSH ONE (12:06)
== END 2020-04-30 17:17 | disposition home or self-care (01) | DRG 291 ==
LOC: JER 08:15 → JERBED 10:20 → J6S 17:50
PROVIDERS: ADMIT Internal Medicine; ATTEND Nurse Practitioner Family
PROC: 5A1D70Z Performance of Urinary Filtration, Intermittent, Less than 6 Hours Per Day (ICD-10-PCS; principal; 2020-04-26)
PROC: 5A1D70Z Performance of Urinary Filtration, Intermittent, Less than 6 Hours Per Day (ICD-10-PCS; 2020-04-29)
DX: I13.2 Hypertensive heart and chronic kidney disease with heart failure and with stage 5 chronic kidney disease, or end stage renal disease (principal); N18.6 End stage renal disease; I50.30 Unspecified diastolic (congestive) heart failure; I16.0 Hypertensive urgency; I44.0 Atrioventricular block, first degree; I25.10 Atherosclerotic heart disease of native coronary artery without angina pectoris; K21.9 Gastro-esophageal reflux disease without esophagitis; E87.5 Hyperkalemia; E11.43 Type 2 diabetes mellitus with diabetic autonomic (poly)neuropathy; K31.84 Gastroparesis; R51 Headache; M54.9 Dorsalgia, unspecified; E78.5 Hyperlipidemia, unspecified; D63.1 Anemia in chronic kidney disease; E11.22 Type 2 diabetes mellitus with diabetic chronic kidney disease; R11.2 Nausea with vomiting, unspecified; J45.909 Unspecified asthma, uncomplicated; K80.20 Calculus of gallbladder without cholecystitis without obstruction; Z91.15 Patient's noncompliance with renal dialysis; Z99.2 Dependence on renal dialysis
CPT/HCPCS: 36415; 70450-TC; 71045-TC-FY; 74019-TC-FY; 80048; 80053; 80061; 82150; 82550; 82607; 82962; 83036; 83516; 83540; 83550; 83690; 83721; 83735; 84100; 84132; 84484; 85025; 85027; 85610; 86140; 86704; 86706; 86707; 86708; 86709; 86803; 87340; 93005; 93010; 94761; 96372; 96374; 97116-GP; 97161-GP; 99285-25; G0378; J0735; J1644; Q5106; U0003

== ENCOUNTER 2020-07-21 23:50 | Inpatient (IN) | payer OTHER ==
--- NOTE | 2020-07-22 00:05 | PDOC ---
History of Present Illness - General Chief Complaint: Shortness of Breath Stated Complaint: SOB Time Seen by Provider: 07/22/20 00:05 Past History - Medical History Allergies/Adverse Reactions: Allergies Allergy/AdvReac Type Severity Reaction Status Date / Time No Known Allergies Allergy Verified 07/22/20 00:03 Home Medications: Ambulatory Orders Folic Acid/Vit B Complex and C [Yue-Roberta Tablet] 0.8 mg PO DAILY 02/05/19 Gabapentin [Neurontin] 100 mg PO HS 02/05/19 Linaclotide [Linzess] 145 mcg PO DAILY 02/05/19 Omeprazole 20 mg PO DAILY 02/05/19 Sevelamer Carbonate [Renvela -] 1,600 mg PO TID 02/05/19 Simvastatin [Zocor -] 20 mg PO HS 02/05/19 Sitagliptin Phosphate [Januvia] 25 mg PO DAILY 02/05/19 oxyCODONE HCL [Oxycodone HCl] 5 mg PO DAILY PRN 02/05/19 Aspirin 81 mg PO DAILY #30 tab.chew 04/02/20 Sucralfate 1 gm PO TID 04/26/20 Carvedilol [Coreg -] 25 mg PO BID #120 tablet 04/30/20 Clonidine HCl [Catapres] 0.2 mg PO Q12H #120 tablet 04/30/20 Nifedipine [Procardia Xl] 90 mg PO DAILY #90 tab.sr 04/30/20 hydrALAZINE HCL [Apresoline -] 50 mg PO TID #180 tablet 04/30/20 Anemia: No Asthma: No Cancer: No Cardiac Disorders: No CVA: No COPD: No CHF: No Dementia: No Diabetes: Yes Dialysis: Yes GI Disorders: No Disorders: No HTN: Yes Hypercholesterolemia: Yes Liver Disease: No Seizures: No Thyroid Disease: No - Surgical History Abdominal Surgery: No Appendectomy: No Cardiac Surgery: No Cholecystectomy: No Lung Surgery: No Neurologic Surgery: No Orthopedic Surgery: No - Immunization History Immunization Up to Date: Yes - Psycho-Social/Smoking History Smoking History: Never smoked Have you smoked in the past 12 months: No Information on smoking cessation initiated: No - Substance Abuse Hx (Audit-C & DAST Scrn) How often the patient has a drink containing alcohol: Never Score: In Men: 4 or > Positive; In Women: 3 or > Positive: 0 Screen Result (Pos requires Nsg. Audit-10AR): Negative In the last yr the pt used illegal drug/Rx for NonMed reason: No Score: Yes response is considered Positive: 0 Screen Result (Positive result requires Nsg. DAST-10): Negative *Physical Exam - Vital Signs Last Vital Signs Temp Pulse Resp BP Pulse Ox 98.1 F 81 20 170/69 99 07/21/20 23:59 07/21/20 23:59 07/21/20 23:59 07/21/20 23:59 07/21/20 23:59 ED Treatment Course - LABORATORY CBC & Chemistry Diagram: 07/22/20 00:43 07/22/20 00:43 Medical Decision Making - Medical Decision Making 07/22/20 00:06 HPI: 70yo F hx HTN, HLD, ESRD (on HD //Tue), s/p appendectomy, s/p hysterectomy, BIBA c/o 3 days rhinorrhea, congestion, sneezing, cough productive of phlegm, myalgias, fatigue, SOB, nausea without vomiting, intermittent unknown type chest pains, and RUQ abdominal pain. Last dialysis Tuesday. Got flu shot on during dialysis. Lives at home alone. PE crying RUQ TTP -RUQ US -EKG -CXR -Labs incl lipase, cardiac profile, Mg, Phos, UA -Covid, flu -Pain management EKG: sinus rhythm with 1st degree AV block, 78bpm, QTc 451ms, TWI aVL/V1, no ST elevations or depressions CXR: congestion, no significant changes or acute pathology Labs reviewed. Notable for K 5.9, CKD, chronic anemia, troponinemia (lower than baseline). US reviewed: FINDINGS: Right upper quadrant ultrasound:The liver is mildly fatty, without mass or biliary duct dilation. The gallbladder is underdistended and contain stones. There is a positive sonographic Elizalde sign but no wall thickening or pericholecystic fluid burden. Findings are mildly suspicious for cholecystitis. The CBD is not dilated and measures5 millimeters in diameter. Right kidney measures 8.0centimeters in length and is echogenic, suggesting medical renal disease, without stones or hydronephrosis for. The visualized aorta and IVC are normal. Pancreas is partially obscured, but appears normal. IMPRESSION: Mildly fatty liver. Mild suspicion for cholecystitis Atrophic right kidney, with probable medical renal disease but no hydronephrosis. 07/22/20 02:21 -Surgery consult -NPO -Admit 07/22/20 02:[address] El on phone - no current recs; aware of pt. Discharge - Discharge Information Problems reviewed: Yes Clinical Impression/Diagnosis: Cholecystitis, Hyperkalemia Condition: Fair - Admission Yes - Follow up/Referral - Patient Discharge Instructions - Post Discharge Activity
--- NOTE | 2020-07-22 00:22 | PDOC ---
Attending Attestation - Resident Resident Name: Katrin Lucas - ED Attending Attestation I have performed the following: I have examined & evaluated the patient, The case was reviewed & discussed with the resident, I agree w/resident's findings & plan, Exceptions are as noted - HPI HPI: 07/22/20 00:21 This 70 yo female had her influenza vaccine on and since that time developed body aches,nausea,cough, rhinorrhea, RUQ pain, chest pain and shortness of breath PMH significant for ESRD,CAD,CHF,HTN, PSH appendectomy,TAHBSO,AV fistula 07/22/20 00:23 ekg NSR @ 78 bpm with first degree AV block - Physicial Exam PE: 07/22/20 01:07 this 70 yo female has c/o multiple symptoms after having a flu vaccine last week head ncat neck eomi lungs no rales,no wheezing cvs [id number] abd no rebound skin no versicles, AV fistula extremities no clubbing, no rashes neuro axox3,ambulatory 07/22/20 01:09 07/22/20 17:07 - Medical Decision Making 07/22/20 01:13 will obtain cxr.labs, covid swab and reassess 07/22/20 01:13 Discharge - Discharge Information Problems reviewed: Yes Clinical Impression/Diagnosis: Cholecystitis, Hyperkalemia Condition: Fair - Follow up/Referral - Patient Discharge Instructions - Post Discharge Activity
--- OUTSIDE RECORDS SUMMARY | 2020-07-22 00:32 | XMS ---
:1950 Author Organization [facility] Care Team Providers Name Role Phone Emily, Helena Unavailable Unavailable Larry Avitiav Unavailable Unavailable ED STAFF PHYSICIAN, STAFF Unavailable Unavailable Francisco Wu Unavailable Unavailable ED STAFF PHYSICIANEDITH Unavailable Unavailable Evan, Osama Unavailable Unavailable Evan, Osama Unavailable Unavailable Evan, Osama Unavailable Unavailable Evan, Osama Unavailable Unavailable Evan, Osama Unavailable Unavailable Evan, Osama Unavailable Unavailable Evan, Osama Unavailable Unavailable Evan, Osama Unavailable Unavailable Evan, Osama Unavailable Unavailable Evan, Osama Unavailable Unavailable Evan, Osama Unavailable Unavailable Evan, Osama Unavailable Unavailable Evan, Osama Unavailable Unavailable Evan, Osama Unavailable Unavailable Evan, Osama Unavailable Unavailable Care, Instrument Technician Apprentice Unavailable Unavailable Thea Stringer Unavailable Unavailable Royer Sharma Unavailable Unavailable Re-disclosure Warning The records that you are about to access may contain information from federally- assisted alcohol or drug abuse programs. If such information is present, then the following federally mandated warning applies: This information has been disclosed to you from records protected by federal confidentiality rules (42 CFR part 2). The federal rules prohibit you from making any further disclosure of this information unless further disclosure is expressly permitted by the written consent of the person to whom it pertains or as otherwise permitted by 42 CFR part 2. A general authorization for the release of medical or other information is NOT sufficient for this purpose. The Federal rules restrict any use of the information to criminally investigate or prosecute any alcohol or drug abuse patient.The records that you are about to access may contain highly sensitive health information, the redisclosure of which is protected by Article 27-F of the [facility] Public Health law. If you continue you may haveaccess to information: Regarding HIV / AIDS; Provided by facilities licensed or operated by the [facility] Office of Mental Health; or Provided by the [facility] Office for People With Developmental Disabilities. If such information is present, then the following [facility] mandated warning applies: This information has been disclosed to you from confidential records which are protected by state law. State law prohibits you from making any further disclosure of this information without the specific written consent of the person to whom it pertains, or as otherwise permitted by law. Any unauthorized further disclosure in violation of state law may result in a fine or fci sentence or both. A general authorization for the release of medical or other information is NOT sufficient authorization for further disclosure. Allergies and Adverse Reactions Type Description Substance Reaction Status Data Source(s ) 3 NO KNOWN ALLERGIES Clindamycin 150 MG Oral NEXTGEN ([facility] Tablet [Clintabs] Medical - [facility] ) Encounters Encounter Providers Location Date Indications Data Source(s ) Outpatient Attender: Royer 06/06/2020 NEXTGEN ( [facility] BraunReferrer: Royer 01:30:00 [facility] Outpatient Attender: Francisco 06/02/2020 NEXTGEN ([facility] CharlesReferrer: 02:30:00 PM [facility]) Outpatient Attender: Helena 04/07/2020 NEXTGEN ([facility] BustamanteReferrer: 04:21:00 PM Medi flora - [place] [facility]) Outpatient Attender: Helena 03/11/2020 NEXTGEN ([facility] BustamanteReferrer: 09:49:00 AM Medi flora - [place] [facility]) Outpatient Attender: Francisco 11/05/2019 NEXTGEN ([facility] CharlesReferrer: 11:00:00 AM [facility]) Inpatient Attender: Sergo H-HAL5 10/28/2019 [facility] SayeghAttender: 05:29:00 AM Medical Center STAFF ED STAFF EST - PHYSICIANAdmitter: 10/31/2019 Osama 02:09:00 PM SayeghReferrer: EST Osaflavio Gordon Patient discharged. Emergency Attender: EDITH ED STAFF H 10/16/2019 02:08:00 PM [facility] PHYSICIANAttender: STAFF ED EST - 10/16/2019 Medical Center STAFF PHYSICIANAdmitter: EDITH 08:54:00 PM EST ED STAFF PHYSICIAN Patient discharged. Outpatient Attender: Francisco 08/28/2019 10:45:00 NEXTGEN ([facility] WuReferrer: Francisco CHAPMAN [facility]) Emergency H 07/15/2019 11:57:[address] [facility] EDT - 07/15/2019 Krupa gastelum 04:39:00 PM EDT Patient discharged. Outpatient Attender: Francisco 07/03/2019 10:30:00 NEXTGEN ([facility] BryceReferrer: Francisco OVIEDO [facility]) Outpatient Attender: Francisco 05/25/2019 10:00:00 NEXTGEN ([facility] CharlesReferrer: Francisco OVIEDO [facility]) Outpatient Attender: José 10/08/2018 12:00:00 NEXTGEN ([facility] LissReferrer: José Avitia [facility]) Outpatient Attender: José 09/08/2018 12:00:00 NEXTGEN ([facility] LissReferrer: José Avitia [facility]) Outpatient Attender: José 09/05/2018 12:00:00 NEXTGEN ([facility] LissReferrer: Thea FOUNTAIN [facility]) Medications Medication Brand Start Product Dose Route Administrative Pharmacy atus Indications Reaction Description Data Name Date Form Instructions Instructions Source(s) Aspirin 81 ASPIRI 05/01/ chew 1 tablet RP NEXTGEN MG Chewable N 2013 by oral route ([facility] Tablet 81 12:00: every day Med ical - mg 81 mg 00 AM [place] [facility]) This may be an active medication. No end date is available. "" "" 05/01/2014 12:00:00 AM To test blood RP NEXTGEN ([facility] EDT sugar three times Me dical - [place] daily [facility]) This may be an active medication. No end date is available. Metoprolol METOPROLOL 04/25/2014 take 1 RP NEXTGEN Tartrate 25 MG TARTRATE 12:00:00 AM Tablet by ([facility] Oral Tablet 25 EDT oral route Medical - [facility] mg 25 mg 2 times [place] [facility] every day Group [facility]) This may be an active medication. No end date is available. tizanidine 2 MG TIZANIDINE HCL 04/25/2014 take 1 RP NEXTGEN Oral Capsule 2 12:00:00 AM capsule by ([facility] mg 2 mg EDT oral route Medica l - [facility] every 6 [place] [facility] hours [facility]) This may be an active medication. No end date is available. Simvastatin 10 SIMVASTATIN 04/25/2014 take 1 RP NEXTGEN MG Oral Tablet 12:00:00 AM EDT tablet by ([facility] 10 mg 10 mg oral route Me dical - [facility] day [facility]) evening This may be an active medication. No end date is available. Acetaminophen 500 MAPAP 04/25/2014 take 2 RP NEXTGEN MG Oral Capsule 12:00:00 AM EDT capsule by ([facility] [Mapap] 500 mg 500 oral route Medical - [facility] mg every 6 [place] [facility]ica [facility] hours as [facility]) needed This may be an active medication. No end date is available. Docusate DOCUSATE 04/25/2014 take 1 RP NEXTGEN Sodium 100 MG SODIUM 12:00:00 AM EDT capsule by ([facility] Oral Capsule oral route 3 Medical - [facility] 100 mg 100 mg times every [place] [facility] day [facility]) This may be an active medication. No end date is available. Aspirin 81 MG ASPIRIN 04/25/2014 chew 1 RP NEXTGEN Chewable Tablet 12:00:00 AM EDT tablet by ([facility] 81 mg 81 mg oral route Me dical - [facility] every day [facility]) This may be an active medication. No end date is available. Amlodipine 10 AMLODIPINE 04/25/2014 take 1 RP NEXTGEN MG Oral Tablet BESYLATE 12:00:00 AM tablet by ([facility] 10 mg 10 mg EDT mouth once Me dical - [facility] daily for [place] Medi flora high blood Group [facility]) pressure This may be an active medication. No end date is available. Insulin LANTUS 04/25/2014 inject 15 units RP NEXTGEN Glargine 100 12:00:00 AM EDT by subcutaneous ([facility] UNT/ML route every Medica l - [facility] Injectable morning [place] [facility]) [Lantus] 100 unit/mL 100 unit/mL This may be an active medication. No end date is available. Insurance Providers Payer name Policy type Policy ID Covered Covered republican's Policy P carlyn / Coverage republican ID relationship to [place] [employer] ormation type [place] MEDICAID [id number] SP [id number] MEDICARE [id number] SP [id number] 18 [id number] MEDICARE [id number] SP [id number] [employer] [facility] Medicare [id number] 1 [id number] Part B Par 8 Providers M [id number] 01 [id number] 18 8 M [id number] 01 [id number] 18 8 W [id number] 01 [id number] M [id number] 01 [id number] 18 8 W [id number] 01 [id number] [employer] [id number] 1 [id number] [employer] [id number] [employer] [facility] Medicare [id number] 1 [id number] Part B Par 8 Providers MEDICARE [id number] SP [id number] 18 [id number] ADD Medicaid [id number] 1 [id number] Q Only [facility] Medicare [id number] 1 [id number] Part B Par 8 Providers Problems, Conditions, and Diagnoses Code Display Name Description Problem Type Effective Data Dates Source(s) E11.311 Type 2 diabetes Diabetic macular Diagnosis 06/02/2020 NEX TGEN mellitus with edema 02:30:00 PM ([facility] unspecified EDT Medical - [facility] diabetic [facility] retinopathy with Group PC ) macular edema 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/2020 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 02:30:00 PM ([facility] cataract, cataract of both EDT Medical - [facility] bilateral eyes [facility]) E10.3553 Type 1 diabetes Stable Diagnosis 06/02/2020 NEXTGEN mellitus with proliferative 02:30:00 PM ([facility] unt stable diabetic EDT Medical - [facility] proliferative retinopathy of [facility]) retinopathy, associated with bilateral type 1 diabetes mellitus E11.22 Type 2 diabetes TYPE 2 DIABETES Diagnosis 10/31/2019 [facility] mellitus with MELLITUS W 02:09:00 PM Medical diabetic chronic DIABETIC CHRONIC EST Ce nter kidney disease KIDNEY DISEASE I12.0 Hypertensive HYP CHR KIDNEY Diagnosis 10/31/2019 [facility] chronic kidney DISEASE W STAGE 5 02:09:00 PM Me dical disease with stage CHR KIDNEY DISEASE EST Center 5 chronic kidney OR ESRD disease or end stage renal disease N18.6 End stage renal END STAGE RENAL Diagnosis 10/31/2019 [facility] disease DISEASE 02:09:00 PM Medical EST Center Z79.84 director long term care PRINCIPAL TECHNICAL ARCHITECT Diagnosis 10/31/2019 [facility] (current) use of (CURRENT) USE OF 02:09:00 PM M edical oral hypoglycemic ORAL HYPOGLYCEMIC EST Center drugs DRUGS 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 10/31/2019 [facility]queira renal dialysis RENAL DIALYSIS 02:09:00 PM Medic al EST Center K85.90 Acute pancreatitis ACUTE PANCREATITIS Diagnosis 0 [facility] without necrosis WITHOUT NECROSIS 05:29:00 AM M edical or infection, OR INFECTION, UNSP EST Oseas ter unspecified I10 Essential ESSENTIAL Diagnosis 10/16/2019 [facility] (primary) (PRIMARY) 02:08:00 PM Medical hypertension HYPERTENSION EST Center E11.9 Type 2 diabetes TYPE 2 DIABETES Diagnosis 10/16/2019 [facility] mellitus without MELLITUS WITHOUT 02:08:00 PM M edical complications COMPLICATIONS EST Center R42 Dizziness and DIZZINESS AND Diagnosis 10/16/2019 [facility] giddiness GIDDINESS 02:08:00 PM Medical EST Center N19 Unspecified kidney UNSPECIFIED KIDNEY Diagnosis 0 [facility] failure FAILURE 02:08:00 PM Medical EST Center R11.10 Vomiting, VOMITING, Diagnosis 10/16/2019 [facility] unspecified UNSPECIFIED 02:08:00 PM Medical EST Center M54.5 Low back pain LOW BACK PAIN Diagnosis 07/15/2019 [facility]x 11:57:00 AM Medical EDT Center N18.9 Chronic kidney CHRONIC KIDNEY Diagnosis 07/15/2019 [facility] disease, DISEASE, 11:57:00 AM Medical unspecified UNSPECIFIED EDT Center E13.311 Other specified Macular edema due Diagnosis 05/25/2019 NE XTGEN diabetes mellitus to secondary 10:00:00 AM ([facility] with unspecified diabetes EDT [facility] diabetic [facility] Medical retinopathy with Group PC ) macular edema Surgeries/Procedures Procedure Description Date Indications Data Source(s) Injection, Ranibizumab injection 06/02/2020 NEXTGE N ([facility] ranibizumab, 0.1 mg 12:00:00 AM [facility]) INJECTION EYE DRUG INJECTION EYE DRUG 06/02/2020 NEX TGEN ([facility] 12:00:00 AM [facility] EDT Medical Group P C) CPTR OPHTH DX IMG CPTR OPHTH DX IMG 06/02/2020 NEXTG EN ([facility] POST SEGMT POST SEGMT 12:00:00 [facility] DIL RETINA EXAM DIL RETINA EXAM 06/02/2020 NEXT ( [facility] INTERP REV INTERP REV 12:00:00 AM [facility] EYE EXAM&TX ESTAB EYE EXAM&TX ESTAB PT 06/02/2020 NE XTGEN ([facility] PT 1/>VST 1/>VST 12:00:00 AM [facility] OFFICE/OUTPATIENT OFFICE/OUTPATIENT 07/03/2019 NEXTG EN ([facility] VISIT EST VISIT EST 12:00:00 AM [facility] Results ID Date Data Source [id number] 04/22/2020 07:20:00 AM EDT [facility] Name Value Range Interpretation Description Data Sup porting Code Source(s) Document(s ) SARS [facility] coronavirus 2 RNA This lab was ordered by [facility] and reported by [facility]. ID Date Data Source [id number] 03/31/2020 04:11:00 PM EDT [facility] Name Value Range Interpretation Description Data Sup porting Code Source(s) Document(s ) SARS [facility] CORONAVIRUS 2 RNA This lab was ordered by [facility] and reported by [facility]. ID Date Data Source [id number] 03/01/2020 03:30:00 PM EDT [facility] Name Value Range Interpretation Description Data Sup porting Code Source(s) Document(s ) SARS [facility] CORONAVIRUS 2 RNA This lab was ordered by [facility] and reported by [facility]. ID Date Data Source Liver 10/31/2019 05:50:00 AM EST [facility] Profile.[id number] Name Value Range Interpretation Description Data Sup porting Code Source(s) Document(s ) Aspartate 14-36 <content [facility] aminotransferase styleCode="Bold"> Paul hs [Enzymatic Aspartate Medical activity/volume] Aminotransferase Center in Serum or Plasma (AST) </content>19 IU/L<content styleCode="Italic s"> (14-36 IU/L)</content> Alanine 7-30 <content [facility] aminotransferase styleCode="Bold"> Paul hs [Enzymatic Alanine Medical activity/volume] Aminotransferase Center in Serum or Plasma (ALT) </content>9 IU/L<content styleCode="Italic s"> (7-30 IU/L)</content> Albumin 3.5-5.0 <content Saint [Mass/volume] in styleCode="Bold"> Paul hs Serum or Plasma Albumin Medical </content>4.1 Center G/DL<content styleCode="Italic s"> (3.5-5.0 G/DL)</content> Bilirubin.total 0.2-1.3 <content Saint [Mass/volume] in styleCode="Bold"> Paul hs Serum or Plasma Bilirubin Total Medical </content>0.5 Center MG/DL<content styleCode="Italic s"> (0.2-1.3 MG/DL)</content> Alkaline 38-126 <content [facility] phosphatase styleCode="Bold"> [facility] [Enzymatic Alkaline Medical activity/volume] Phosphatase (ALP) Cente r in Serum or Plasma </content>116 IU/L<content styleCode="Italic s"> (38-126 IU/L)</content> ID Date Data Source HematologyRou.[id number] 10/31/2019 05:50:00 AM ADELA [facility] 0500 Name Value Range Interpretation Description Data Sup porting Code Source(s) Document(s ) Leukocytes 4.4-11.0 <content Saint [#/volume] in styleCode="Bold [facility] Blood by ">White Blood Medical Automated count Cell Count Center </content>4.96 KCUMM<content styleCode="Ital ics"> (4.4-11.0 KCUMM)</content > Erythrocytes 4.0-5.1 Below low normal <content Saint [#/volume] in styleCode="Bold [facility] Blood by ">Red Blood Medical Automated count Cell Count Center </content>3.31 MCUMM L<content styleCode="Ital ics"> (4.0-5.1 MCUMM)</content > Hematocrit 36.0-46. Below low normal <content Saint [Volume 0 styleCode="Bold [facility] Fraction] of ">Hematocrit Medical Blood by </content>29.6 Center Automated count % L<content styleCode="Ital ics"> (36.0-46.0 %)</content> Erythrocyte mean 80.0-100 <content [facility] corpuscular .0 styleCode="Bold [facility] volume [Entitic ">Mean Medical volume] by Corpuscular Center Automated count Volume </content>89.4 FL<content styleCode="Ital ics"> (80.0-100.0 FL)</content> Hemoglobin 12.3-16. Below low normal <content Saint [Mass/volume] in 0 styleCode="Bold [facility] Blood ">Hemoglobin Medical </content>9.1 Center G/DL L<content styleCode="Ital ics"> (12.3-16.0 G/DL)</content> Erythrocyte mean 26.0-34. <content [facility] corpuscular 0 styleCode="Bold [facility] hemoglobin ">Mean Medical [Entitic mass] Corposcular Center by Automated Hemoglobin count </content>27.5 PG<content styleCode="Ital ics"> (26.0-34.0 PG)</content> Erythrocyte 11.5-14. <content [facility] distribution 5 styleCode="Bold Stuart width [Ratio] by ">Red Cell Medical Automated count Distribution Center Width </content>14.2 %<content styleCode="Ital ics"> (11.5-14.5 %)</content> Erythrocyte mean 32.0-37. Below low normal <content [facility] corpuscular 0 styleCode="Bold Stuart hemoglobin ">Mean Corpus. Medical concentration Hgb Center [Mass/volume] by Concentration Automated count (MCHC) </content>30.7 G/DL L<content styleCode="Ital ics"> (32.0-37.0 G/DL)</content> Platelets 130-400 <content Saint [#/volume] in styleCode="Bold [facility] Blood by ">Platelet Medical Automated count Count Center </content>231 KCUMM<content styleCode="Ital ics"> (130-400 KCUMM)</content > UNK 0 <content Saint styleCode="Bold Stuart ">Nucleated Red Medical Blood Cell Center </content>0.0 /100<content styleCode="Ital ics"> (0 /100)</content> Platelet mean 8.0-11.0 <content Saint volume [Entitic styleCode="Bold [facility] volume] in Blood ">Mean Platelet Medical by Automated Volume Center count </content>10.1 FL<content styleCode="Ital ics"> (8.0-11.0 FL)</content> UNK 0.0 <content Saint styleCode="Bold Stuart ">Nucleated Red Medical Blood Cell Center Count </content>0.00 KCUMM<content styleCode="Ital ics"> (0.0 KCUMM)</content > ID Date Data Source GFR(Creatinine).[id number] 10/31/2019 05:50:00 AM ADELA [facility] 0-0500 Name Value Range Interpretation Code Description Data Cathi rce(s) Supporting Document(s ) UNK > 60 Below low normal <content [facility] styleCode="Bold"> Medical Cent er EGFR </content>6 GFR L<content styleCode="Italic s"> (> 60 GFR)</content> ID Date Data Source EVENSMRSHANTHI.[id number] 10/31/2019 05:50:00 AM ADELA bhatt [facility] -0500 Name Value Range Interpretation Description Data Sup porting Code Source(s) Document(s ) UNK >= 1.0 <content Saint styleCode="Fabienne Stuart d">AG Ratio Medical </content>1.1 Center <content styleCode="Monika lics"> (>= 1.0 )</content> UNK 2.3-3.5 Above high normal <content Saint styleCode="Fabeinne Stuart d">Globulin Medical </content>3.6 Center G/DL H<content styleCode="Monika lics"> (2.3-3.5 G/DL)</content > Magnesium 1.6-2.3 <content Saint [Mass/volume] styleCode="Fabienne [facility] in Serum or d">Magnesium Medical Plasma </content>2.0 Center MG/DL<content styleCode="Monika lics"> (1.6-2.3 MG/DL)</conten t> Phosphate 2.5-4.5 <content Saint [Mass/volume] styleCode="Fabienne Stuart in Serum or d">Phosphorus Medical Plasma </content>4.1 Center MG/DL<content styleCode="Monika lics"> (2.5-4.5 MG/DL)</conten t> Protein 6.3-8.2 <content Saint [Mass/volume] styleCode="Fabienne Stuart in Serum or d">Total Medical Plasma Protein Center </content>7.7 G/DL<content styleCode="Monika lics"> (6.3-8.2 G/DL)</content > ID Date Data Source [facility].[id number] 10/31/2019 05:50:00 AM EST [facility] Name Value Range Interpretation Description Data Sup porting Code Source(s) Document(s ) Sodium 137-145 <content Saint [Moles/volume] in styleCode="Bold"> Christian phs Serum or Plasma Sodium Medical </content>140 Center MEQ/L<content styleCode="Italic s"> (137-145 MEQ/L)</content> UNK 7-17 Above high <content Saint normal styleCode="Bold"> Stuart BUN </content>29 Medical MG/DL H<content Center styleCode="Italic s"> (7-17 MG/DL)</content> Chloride 98-107 Below low <content Saint [Moles/volume] in normal styleCode="Bold"> Christian phs Serum or Plasma Chloride Medical </content>97 Center MEQ/L L<content styleCode="Italic s"> (98-107 MEQ/L)</content> Carbon dioxide, 22-30 <content Saint total styleCode="Bold"> Stuart [Moles/volume] in Carbon Dioxide Medical Serum or Plasma </content>28 Center MEQ/L<content styleCode="Italic s"> (22-30 MEQ/L)</content> Potassium 3.5-5.3 <content Saint [Moles/volume] in styleCode="Bold"> Christian phs Serum or Plasma Potassium Medical </content>4.2 Center MEQ/L<content styleCode="Italic s"> (3.5-5.3 MEQ/L)</content> Glucose 74-106 Above high <content Saint [Mass/volume] in normal styleCode="Bold"> Paul hs Serum or Plasma Glucose Medical </content>160 Center MG/DL H<content styleCode="Italic s"> (74-106 MG/DL)</content> Creatinine 0.5-1.3 Above upper <content Saint [Mass/volume] in panic limits styleCode="Bold"> Christelle sephs Serum or Plasma Creatinine Medical </content><conten Center t styleCode="Bold"> 7.1 MG/DL HH</content><cont ent styleCode="Italic s"> (0.5-1.3 MG/DL)</content> Aspartate 14-36 <content [facility] aminotransferase styleCode="Bold"> Paul hs [Enzymatic Aspartate Medical activity/volume] Aminotransferase Center in Serum or Plasma (AST) </content>19 IU/L<content styleCode="Italic s"> (14-36 IU/L)</content> Calcium 8.4-10. <content Saint [Mass/volume] in 2 styleCode="Bold"> Paul hs Serum or Plasma Calcium Medical </content>9.6 Center MG/DL<content styleCode="Italic s"> (8.4-10.2 MG/DL)</content> UNK > 60 Below low <content Saint normal styleCode="Bold"> Stuart EGFR </content>6 Medical GFR L<content Center styleCode="Italic s"> (> 60 GFR)</content> Bilirubin.total 0.2-1.3 <content Saint [Mass/volume] in styleCode="Bold"> Paul hs Serum or Plasma Bilirubin Total Medical </content>0.5 Center MG/DL<content styleCode="Italic s"> (0.2-1.3 MG/DL)</content> Albumin 3.5-5.0 <content Saint [Mass/volume] in styleCode="Bold"> Paul hs Serum or Plasma Albumin Medical </content>4.1 Center G/DL<content styleCode="Italic s"> (3.5-5.0 G/DL)</content> Alanine 7-30 <content [facility] aminotransferase styleCode="Bold"> Paul hs [Enzymatic Alanine Medical activity/volume] Aminotransferase Center in Serum or Plasma (ALT) </content>9 IU/L<content styleCode="Italic s"> (7-30 IU/L)</content> Alkaline 38-126 <content [facility] phosphatase styleCode="Bold"> [facility] [Enzymatic Alkaline Medical activity/volume] Phosphatase (ALP) Cente r in Serum or Plasma </content>116 IU/L<content styleCode="Italic s"> (38-126 IU/L)</content> ID Date Data Source HematologyRou.[id number] 10/30/2019 12:23:00 PM EST [facility] 0500 Name Value Range Interpretation Description Data Sup porting Code Source(s) Document(s ) Leukocytes 4.4-11.0 <content Saint [#/volume] in styleCode="Bold [facility] Blood by ">White Blood Medical Automated count Cell Count Center </content>5.37 KCUMM<content styleCode="Ital ics"> (4.4-11.0 KCUMM)</content > Hemoglobin 12.3-16. Below low normal <content Saint [Mass/volume] in 0 styleCode="Bold Stuart Blood ">Hemoglobin Medical </content>8.3 Center G/DL L<content styleCode="Ital ics"> (12.3-16.0 G/DL)</content> Erythrocyte mean 80.0-100 <content [facility] corpuscular .0 styleCode="Bold Stuart volume [Entitic ">Mean Medical volume] by Corpuscular Center Automated count Volume </content>88.2 FL<content styleCode="Ital ics"> (80.0-100.0 FL)</content> Hematocrit 36.0-46. Below low normal <content Saint [Volume 0 styleCode="Bold [facility] Fraction] of ">Hematocrit Medical Blood by </content>27.0 Center Automated count % L<content styleCode="Ital ics"> (36.0-46.0 %)</content> Erythrocytes 4.0-5.1 Below low normal <content [facility] [#/volume] in styleCode="Bold Stuart Blood by ">Red Blood Medical Automated count Cell Count Center </content>3.06 MCUMM L<content styleCode="Ital ics"> (4.0-5.1 MCUMM)</content > Erythrocyte mean 26.0-34. <content [facility] corpuscular 0 styleCode="Bold Stuart hemoglobin ">Mean Medical [Entitic mass] Corposcular Center by Automated Hemoglobin count </content>27.1 PG<content styleCode="Ital ics"> (26.0-34.0 PG)</content> Platelets 130-400 <content [facility] [#/volume] in styleCode="Bold Stuart Blood by ">Platelet Medical Automated count Count Center </content>204 KCUMM<content styleCode="Ital ics"> (130-400 KCUMM)</content > Erythrocyte 11.5-14. <content [facility] distribution 5 styleCode="Bold Stuart width [Ratio] by ">Red Cell Medical Automated count Distribution Center Width </content>14.4 %<content styleCode="Ital ics"> (11.5-14.5 %)</content> Erythrocyte mean 32.0-37. Below low normal <content [facility] corpuscular 0 styleCode="Bold Stuart hemoglobin ">Mean Corpus. Medical concentration Hgb Center [Mass/volume] by Concentration Automated count (MCHC) </content>30.7 G/DL L<content styleCode="Ital ics"> (32.0-37.0 G/DL)</content> UNK 0.0 <content [facility] styleCode="Bold Stuart ">Nucleated Red Medical Blood Cell Center Count </content>0.00 KCUMM<content styleCode="Ital ics"> (0.0 KCUMM)</content > UNK 0 <content [facility] styleCode="Bold Stuart ">Nucleated Red Medical Blood Cell Center </content>0.0 /100<content styleCode="Ital ics"> (0 /100)</content> Platelet mean 8.0-11.0 <content [facility] volume [Entitic styleCode="Minoo Davidson volume] in Blood ">Mean Platelet Medical by Automated Volume Center count </content>10.2 FL<content styleCode="Ital ics"> (8.0-11.0 FL)</content> ID Date Data Source Liver 10/30/2019 11:00:00 AM EST [facility] Profile.[id number] Name Value Range Interpretation Description Data Sup porting Code Source(s) Document(s ) Aspartate 14-36 <content [facility] aminotransferase styleCode="Bold"> Paul hs [Enzymatic Aspartate Medical activity/volume] Aminotransferase Center in Serum or Plasma (AST) </content>18 IU/L<content styleCode="Italic s"> (14-36 IU/L)</content> Alanine 7-30 <content [facility] aminotransferase styleCode="Bold"> Paul hs [Enzymatic Alanine Medical activity/volume] Aminotransferase Center in Serum or Plasma (ALT) </content>8 IU/L<content styleCode="Italic s"> (7-30 IU/L)</content> Bilirubin.total 0.2-1.3 <content [facility] [Mass/volume] in styleCode="Bold"> Paul hs Serum or Plasma Bilirubin Total Medical </content>0.5 Center MG/DL<content styleCode="Italic s"> (0.2-1.3 MG/DL)</content> Alkaline 38-126 <content [facility] phosphatase styleCode="Bold"> Stuart [Enzymatic Alkaline Medical activity/volume] Phosphatase (ALP) Cente r in Serum or Plasma </content>118 IU/L<content styleCode="Italic s"> (38-126 IU/L)</content> Albumin 3.5-5.0 <content [facility] [Mass/volume] in styleCode="Bold"> Paul hs Serum or Plasma Albumin Medical </content>3.9 Center G/DL<content styleCode="Italic s"> (3.5-5.0 G/DL)</content> ID Date Data Source GFR(Creatinine).[id number] 10/30/2019 11:00:00 AM [facility] 0-0500 Name Value Range Interpretation Code Description Data Cathi rce(s) Supporting Document(s ) UNK > 60 Below low normal <content Stuart styleCode="Bold"> Medical Cent er EGFR </content>6 GFR L<content styleCode="Italic s"> (> 60 GFR)</content> ID Date Data Source CHMROUTINECCDA.[id number] 10/30/2019 11:00:00 AM [facility] -0500 Name Value Range Interpretation Description Data Sup porting Code Source(s) Document(s ) UNK >= 1.0 <content [facility] styleCode="Fabienne Stuart d">AG Ratio Medical </content>1.1 Center <content styleCode="Monika lics"> (>= 1.0 )</content> UNK 30-110 <content [facility] styleCode="Fabienne Stuart d">Amylase Medical </content>87 Center IU/L<content styleCode="Monika lics"> (30-110 IU/L)</content > UNK 2.3-3.5 <content [facility] styleCode="Fabienne Stuart d">Globulin Medical </content>3.5 Center G/DL<content styleCode="Monika lics"> (2.3-3.5 G/DL)</content > Protein 6.3-8.2 <content [facility] [Mass/volume] styleCode="Fabienne Stuart in Serum or d">Total Medical Plasma Protein Center </content>7.4 G/DL<content styleCode="Monika lics"> (6.3-8.2 G/DL)</content > Phosphate 2.5-4.5 <content [facility] [Mass/volume] styleCode="Fabienne Stuart in Serum or d">Phosphorus Medical Plasma </content>3.3 Center MG/DL<content styleCode="Monika lics"> (2.5-4.5 MG/DL)</conten t> Lipase 23-300 <content [facility] [Enzymatic styleCode="Fabienne Patinos activity/volu d">Lipase Medical me] in Serum </content>235 Center or Plasma IU/L<content styleCode="Monika lics"> (23-300 IU/L)</content > Magnesium 1.6-2.3 <content [facility] [Mass/volume] styleCode="Fabienne Stuart in Serum or d">Magnesium Medical Plasma </content>1.8 Center MG/DL<content styleCode="Monika lics"> (1.6-2.3 MG/DL)</conten t> ID Date Data Source [facility].[id number] 10/30/2019 11:00:00 AM EST [facility] Name Value Range Interpretation Description Data Sup porting Code Source(s) Document(s ) Chloride 98-107 Below low <content [facility] [Moles/volume] in normal styleCode="Bold"> Christian phs Serum or Plasma Chloride Medical </content>97 Center MEQ/L L<content styleCode="Italic s"> (98-107 MEQ/L)</content> Potassium 3.5-5.3 <content [facility] [Moles/volume] in styleCode="Bold"> Christian phs Serum or Plasma Potassium Medical </content>4.0 Center MEQ/L<content styleCode="Italic s"> (3.5-5.3 MEQ/L)</content> Carbon dioxide, 22-30 <content [facility] total styleCode="Bold"> Stuart [Moles/volume] in Carbon Dioxide Medical Serum or Plasma </content>26 Center MEQ/L<content styleCode="Italic s"> (22-30 MEQ/L)</content> Sodium 137-145 Below low <content [facility] [Moles/volume] in normal styleCode="Bold"> Christian phs Serum or Plasma Sodium Medical </content>136 Center MEQ/L L<content styleCode="Italic s"> (137-145 MEQ/L)</content> Calcium 8.4-10. <content [facility] [Mass/volume] in 2 styleCode="Bold"> Paul hs Serum or Plasma Calcium Medical </content>9.2 Center MG/DL<content styleCode="Italic s"> (8.4-10.2 MG/DL)</content> Glucose 74-106 Above high <content [facility] [Mass/volume] in normal styleCode="Bold"> Paul hs Serum or Plasma Glucose Medical </content>216 Center MG/DL H<content styleCode="Italic s"> (74-106 MG/DL)</content> Creatinine 0.5-1.3 Above upper <content [facility] [Mass/volume] in panic limits styleCode="Bold"> Christelle sephs Serum or Plasma Creatinine Medical </content><conten Center t styleCode="Bold"> 7.3 MG/DL HH</content><cont ent styleCode="Italic s"> (0.5-1.3 MG/DL)</content> UNK 7-17 Above high <content [facility] normal styleCode="Bold"> Stuart BUN </content>35 Medical MG/DL H<content Center styleCode="Italic s"> (7-17 MG/DL)</content> Alkaline 38-126 <content [facility] phosphatase styleCode="Bold"> Stuart [Enzymatic Alkaline Medical activity/volume] Phosphatase (ALP) Cente r in Serum or Plasma </content>118 IU/L<content styleCode="Italic s"> (38-126 IU/L)</content> UNK > 60 Below low <content [facility] normal styleCode="Bold"> Stuart EGFR </content>6 Medical GFR L<content Center styleCode="Italic s"> (> 60 GFR)</content> Bilirubin.total 0.2-1.3 <content [facility] [Mass/volume] in styleCode="Bold"> Paul hs Serum or Plasma Bilirubin Total Medical </content>0.5 Center MG/DL<content styleCode="Italic s"> (0.2-1.3 MG/DL)</content> Alanine 7-30 <content [facility] aminotransferase styleCode="Bold"> Paul hs [Enzymatic Alanine Medical activity/volume] Aminotransferase Center in Serum or Plasma (ALT) </content>8 IU/L<content styleCode="Italic s"> (7-30 IU/L)</content> Aspartate 14-36 <content [facility] aminotransferase styleCode="Bold"> Paul hs [Enzymatic Aspartate Medical activity/volume] Aminotransferase Center in Serum or Plasma (AST) </content>18 IU/L<content styleCode="Italic s"> (14-36 IU/L)</content> Albumin 3.5-5.0 <content [facility] [Mass/volume] in styleCode="Bold"> Paul hs Serum or Plasma Albumin Medical </content>3.9 Center G/DL<content styleCode="Italic s"> (3.5-5.0 G/DL)</content> ID Date Data Source Liver 10/29/2019 06:20:00 AM EST [facility] Profile.[id number] Name Value Range Interpretation Description Data Sup porting Code Source(s) Document(s ) Aspartate 14-36 <content [facility] aminotransferase styleCode="Bold"> Pual hs [Enzymatic Aspartate Medical activity/volume] Aminotransferase Center in Serum or Plasma (AST) </content>23 IU/L<content styleCode="Italic s"> (14-36 IU/L)</content> Alanine 7-30 <content [facility] aminotransferase styleCode="Bold"> Paul hs [Enzymatic Alanine Medical activity/volume] Aminotransferase Center in Serum or Plasma (ALT) </content>9 IU/L<content styleCode="Italic s"> (7-30 IU/L)</content> Alkaline 38-126 <content [facility] phosphatase styleCode="Bold"> Stuart [Enzymatic Alkaline Medical activity/volume] Phosphatase (ALP) Cente r in Serum or Plasma </content>116 IU/L<content styleCode="Italic s"> (38-126 IU/L)</content> Bilirubin.total 0.2-1.3 <content [facility] [Mass/volume] in styleCode="Bold"> Paul hs Serum or Plasma Bilirubin Total Medical </content>0.6 Center MG/DL<content styleCode="Italic s"> (0.2-1.3 MG/DL)</content> Albumin 3.5-5.0 <content [facility] [Mass/volume] in styleCode="Bold"> Paul hs Serum or Plasma Albumin Medical </content>4.1 Center G/DL<content styleCode="Italic s"> (3.5-5.0 G/DL)</content> ID Date Data Source LIPID.[id number] 10/29/2019 06:20:00 AM EST [facility] Name Value Range Interpretation Description Data Sup porting Code Source(s) Document(s ) Cholesterol -<200 <content [facility] [Mass/volume] in styleCode="Fabienne Stuart Serum or Plasma d">Cholesterol Medical </content>124 Center MG/DL<content styleCode="Monika lics"> (-<200 MG/DL)</conten t> Triglyceride < 150 <content [facility] [Mass/volume] in styleCode="Fabienne Stuart Serum or Plasma d">Triglycerid Medical Center </content>61 MG/DL<content styleCode="Monika lics"> (< 150 MG/DL)</conten t> UNK < 100 <content [facility] styleCode="Fabienne Stuart d">LDL-Cholest Medical [facility] </content>57 MG/DL<content styleCode="Monika lics"> (< 100 MG/DL)</conten t> UNK > 60 Below low normal <content [facility] styleCode="Fabienne Stuart d">HDL- Medical Cholesterol Center </content>55 MG/DL L<content styleCode="Monika lics"> (> 60 MG/DL)</conten t> ID Date Data Source HematologySpeci.[id number] 10/29/2019 06:20:00 AM [facility] 0-0500 Name Value Range Interpretation Description Data Sup porting Code Source(s) Document(s ) C reactive < 3.0 Above high normal <content [facility] [place] hs protein styleCode="Bold Medical [Mass/volume ">C-Reactive Center ] in Serum Protein or Plasma </content>> 15.00 MG/L H<content styleCode="Ital ics"> (< 3.0 MG/L)</content> ID Date Data Source HematologyRou.[id number] 10/29/2019 06:20:00 AM [facility] 0500 Name Value Range Interpretation Description Data Sup porting Code Source(s) Document(s ) Leukocytes 4.4-11.0 <content [facility] [#/volume] in styleCode="Bold Stuart Blood by ">White Blood Medical Automated count Cell Count Center </content>5.88 KCUMM<content styleCode="Ital ics"> (4.4-11.0 KCUMM)</content > Erythrocytes 4.0-5.1 Below low normal <content [facility] [#/volume] in styleCode="Bold Stuart Blood by ">Red Blood Medical Automated count Cell Count Center </content>3.36 MCUMM L<content styleCode="Ital ics"> (4.0-5.1 MCUMM)</content > Hemoglobin 12.3-16. Below low normal <content [facility] [Mass/volume] in 0 styleCode="Bold Stuart Blood ">Hemoglobin Medical </content>9.2 Center G/DL L<content styleCode="Ital ics"> (12.3-16.0 G/DL)</content> Hematocrit 36.0-46. Below low normal <content [facility] [Volume 0 styleCode="Bold Stuart Fraction] of ">Hematocrit Medical Blood by </content>29.6 Center Automated count % L<content styleCode="Ital ics"> (36.0-46.0 %)</content> Erythrocyte mean 80.0-100 <content [facility] corpuscular .0 styleCode="Bold Stuart volume [Entitic ">Mean Medical volume] by Corpuscular Center Automated count Volume </content>88.1 FL<content styleCode="Ital ics"> (80.0-100.0 FL)</content> Erythrocyte mean 32.0-37. Below low normal <content [facility] corpuscular 0 styleCode="Bold Stuart hemoglobin ">Mean Corpus. Medical concentration Hgb Center [Mass/volume] by Concentration Automated count (MCHC) </content>31.1 G/DL L<content styleCode="Ital ics"> (32.0-37.0 G/DL)</content> Erythrocyte 11.5-14. <content [facility] distribution 5 styleCode="Bold Stuart width [Ratio] by ">Red Cell Medical Automated count Distribution Center Width </content>13.9 %<content styleCode="Ital ics"> (11.5-14.5 %)</content> Erythrocyte mean 26.0-34. <content [facility] corpuscular 0 styleCode="Bold Stuart hemoglobin ">Mean Medical [Entitic mass] Corposcular Center by Automated Hemoglobin count </content>27.4 PG<content styleCode="Ital ics"> (26.0-34.0 PG)</content> Platelets 130-400 <content [facility] [#/volume] in styleCode="Bold Stuart Blood by ">Platelet Medical Automated count Count Center </content>240 KCUMM<content styleCode="Ital ics"> (130-400 KCUMM)</content > Neutrophils 36-66 Above high <content [facility] [#/volume] in normal styleCode="Bold Stuart Blood by ">Neutrophil Medical Automated count </content>67.7 Center % H<content styleCode="Ital ics"> (36-66 %)</content> UNK 1.6-7.3 <content [facility] styleCode="Bold Stuart ">Neutrophil Medical Count Center </content>3.98 KCUMM<content styleCode="Ital ics"> (1.6-7.3 KCUMM)</content > Platelet mean 8.0-11.0 <content [facility] volume [Entitic styleCode="Bold Stuart volume] in Blood ">Mean Platelet Medical by Automated Volume Center count </content>10.3 FL<content styleCode="Ital ics"> (8.0-11.0 FL)</content> UNK 0.2-0.9 <content [facility] styleCode="Bold Stuart ">Monocyte Medical Count Center </content>0.46 KCUMM<content styleCode="Ital ics"> (0.2-0.9 KCUMM)</content > UNK 1.0-4.8 <content [facility] styleCode="Bold Stuart ">Lymphocyte Medical Count Center </content>1.04 KCUMM<content styleCode="Ital ics"> (1.0-4.8 KCUMM)</content > Lymphocytes 24.0-44. Below low normal <content [facility] [#/volume] in 0 styleCode="Bold Stuart Blood by ">Lymphocyte Medical Automated count </content>17.7 Center % L<content styleCode="Ital ics"> (24.0-44.0 %)</content> Monocytes 3.0-10.0 <content [facility] [#/volume] in styleCode="Bold Stuart Blood by ">Monocyte Medical Automated count </content>7.8 Center %<content styleCode="Ital ics"> (3.0-10.0 %)</content> UNK 0.0-0.3 <content [facility] styleCode="Bold Stuart ">Basophil Medical Count Center </content>0.04 KCUMM<content styleCode="Ital ics"> (0.0-0.3 KCUMM)</content > Basophils 0.0-1.0 <content [facility] [#/volume] in styleCode="Bold Stuart Blood by ">Basophil Medical Automated count </content>0.7 Center %<content styleCode="Ital ics"> (0.0-1.0 %)</content> UNK 0.0-0.6 <content [facility] styleCode="Bold Stuart ">Eosinophil Medical Count Center </content>0.32 KCUMM<content styleCode="Ital ics"> (0.0-0.6 KCUMM)</content > Eosinophils 0-5.0 Above high <content [facility] [#/volume] in normal styleCode="Bold Stuart Blood by ">Eosinophil Medical Automated count </content>5.4 % Center H<content styleCode="Ital ics"> (0-5.0 %)</content> UNK 0 <content [facility] styleCode="Bold Stuart ">Nucleated Red Medical Blood Cell Center </content>0.0 /100<content styleCode="Ital ics"> (0 /100)</content> UNK 0.0 <content [facility] styleCode="Bold Stuart ">Nucleated Red Medical Blood Cell Center Count </content>0.00 KCUMM<content styleCode="Ital ics"> (0.0 KCUMM)</content > UNK 0-0.1 <content [facility] styleCode="Bold Stuart ">Immature Medical Granulocyte Center Count </content>0.04 KCUMM<content styleCode="Ital ics"> (0-0.1 KCUMM)</content > UNK < 1 <content Saint styleCode="Bold Stuart ">Immature Medical Granulocyte Center Ratio </content>0.7 %<content styleCode="Ital ics"> (< 1 %)</content> ID Date Data Source GFR(Creatinine).[id number] 10/29/2019 06:20:00 AM ADELA Moses [facility] 0-0500 Name Value Range Interpretation Code Description Data Cathi rce(s) Supporting Document(s ) UNK > 60 Below low normal <content [facility] styleCode="Bold"> Medical Cent er EGFR </content>6 GFR L<content styleCode="Italic s"> (> 60 GFR)</content> ID Date Data Source CHMROUTINECCDA.[id number] 10/29/2019 06:20:00 AM ADELA Moses [facility] -0500 Name Value Range Interpretation Description Data Sup porting Code Source(s) Document(s ) Lipase 23-300 Above high normal <content [facility] [Enzymatic styleCode="Fabienne Davidson activity/volu d">Lipase Medical me] in Serum </content>390 Center or Plasma IU/L H<content styleCode="Monika lics"> (23-300 IU/L)</content > UNK >= 1.0 <content [facility] styleCode="Fabienne Patinos d">AG Ratio Medical </content>1.1 Center <content styleCode="Monika lics"> (>= 1.0 )</content> UNK 2.3-3.5 Above high normal <content Saint styleCode="Fabienne Patinos d">Globulin Medical </content>3.6 Center G/DL H<content styleCode="Monika lics"> (2.3-3.5 G/DL)</content > Magnesium 1.6-2.3 <content [facility] [Mass/volume] styleCode="Fabienne Patinos in Serum or d">Magnesium Medical Plasma </content>1.8 Center MG/DL<content styleCode="Monika lics"> (1.6-2.3 MG/DL)</conten t> Protein 6.3-8.2 <content [facility] [Mass/volume] styleCode="Fabienne Patinos in Serum or d">Total Medical Plasma Protein Center </content>7.7 G/DL<content styleCode="Monika lics"> (6.3-8.2 G/DL)</content > Phosphate 2.5-4.5 <content [facility] [Mass/volume] styleCode="Fabienne Stuart in Serum or d">Phosphorus Medical Plasma </content>3.7 Center MG/DL<content styleCode="Monika lics"> (2.5-4.5 MG/DL)</conten t> ID Date Data Source [facility].[id number] 10/29/2019 06:20:00 AM EST [facility] Name Value Range Interpretation Description Data Sup porting Code Source(s) Document(s ) Potassium 3.5-5.3 <content [facility] [Moles/volume] in styleCode="Bold"> Christian phs Serum or Plasma Potassium Medical </content>4.5 Center MEQ/L<content styleCode="Italic s"> (3.5-5.3 MEQ/L)</content> Sodium 137-145 <content [facility] [Moles/volume] in styleCode="Bold"> Christian phs Serum or Plasma Sodium Medical </content>138 Center MEQ/L<content styleCode="Italic s"> (137-145 MEQ/L)</content> Chloride 98-107 <content [facility] [Moles/volume] in styleCode="Bold"> Christian phs Serum or Plasma Chloride Medical </content>98 Center MEQ/L<content styleCode="Italic s"> (98-107 MEQ/L)</content> UNK 7-17 Above high <content [facility] normal styleCode="Bold"> Stuart BUN </content>37 Medical MG/DL H<content Center styleCode="Italic s"> (7-17 MG/DL)</content> Carbon dioxide, 22-30 <content [facility] total styleCode="Bold"> Stuart [Moles/volume] in Carbon Dioxide Medical Serum or Plasma </content>28 Center MEQ/L<content styleCode="Italic s"> (22-30 MEQ/L)</content> Creatinine 0.5-1.3 Above upper <content [facility] [Mass/volume] in panic limits styleCode="Bold"> Christelle sephs Serum or Plasma Creatinine Medical </content><conten Center t styleCode="Bold"> 7.2 MG/DL HH</content><cont ent styleCode="Italic s"> (0.5-1.3 MG/DL)</content> Glucose 74-106 Above high <content [facility] [Mass/volume] in normal styleCode="Bold"> Paul hs Serum or Plasma Glucose Medical </content>149 Center MG/DL H<content styleCode="Italic s"> (74-106 MG/DL)</content> Aspartate 14-36 <content [facility] aminotransferase styleCode="Bold"> Paul hs [Enzymatic Aspartate Medical activity/volume] Aminotransferase Center in Serum or Plasma (AST) </content>23 IU/L<content styleCode="Italic s"> (14-36 IU/L)</content> Calcium 8.4-10. <content [facility] [Mass/volume] in 2 styleCode="Bold"> Paul hs Serum or Plasma Calcium Medical </content>10.0 Center MG/DL<content styleCode="Italic s"> (8.4-10.2 MG/DL)</content> Alanine 7-30 <content [facility] aminotransferase styleCode="Bold"> [place] hs [Enzymatic Alanine Medical activity/volume] Aminotransferase Center in Serum or Plasma (ALT) </content>9 IU/L<content styleCode="Italic s"> (7-30 IU/L)</content> Alkaline 38-126 <content [facility] phosphatase styleCode="Bold"> Stuart [Enzymatic Alkaline Medical activity/volume] Phosphatase (ALP) Cente r in Serum or Plasma </content>116 IU/L<content styleCode="Italic s"> (38-126 IU/L)</content> UNK > 60 Below low <content [facility] normal styleCode="Bold"> Stuart EGFR </content>6 Medical GFR L<content Center styleCode="Italic s"> (> 60 GFR)</content> Bilirubin.total 0.2-1.3 <content [facility] [Mass/volume] in styleCode="Bold"> Paul hs Serum or Plasma Bilirubin Total Medical </content>0.6 Center MG/DL<content styleCode="Italic s"> (0.2-1.3 MG/DL)</content> Albumin 3.5-5.0 <content [facility] [Mass/volume] in styleCode="Bold"> Paul hs Serum or Plasma Albumin Medical </content>4.1 Center G/DL<content styleCode="Italic s"> (3.5-5.0 G/DL)</content> ID Date Data Source Urinalysis.[id number] 10/28/2019 12:33:00 PM EST Josué [facility] 0 Name Value Range Interpretation Description Data Sup porting Code Source(s) Document(s ) Glucose NEGATIVE <content [facility] [Mass/volume] styleCode="Fabienne Davidson in Urine by d">Urine Medical Test strip Glucose Center </content>250 MG/DL<content styleCode="Monika lics"> (NEGATIVE MG/DL)</conten t> UNK CLEAR <content Saint styleCode="Fabienne Patinos d">Urine Medical Clarity Center </content>MARIELLA R <content styleCode="Monika lics"> (CLEAR )</content> Color of Urine YELLOW <content Saint styleCode="Fabienne Patinos d">Color, Medical Urine Center </content>YELL OW <content styleCode="Monika lics"> (YELLOW )</content> Ketones NEGATIVE <content Saint [Mass/volume] styleCode="Fabienne Davidson in Urine by d">Urine Medical Test strip Ketone Center </content>NEGA TIVE MG/DL<content styleCode="Monika lics"> (NEGATIVE MG/DL)</conten t> UNK NEGATIVE <content Saint styleCode="Fabienne Patinos d">Urine Medical Bilirubin Center </content>NEGA TIVE <content styleCode="Monika lics"> (NEGATIVE )</content> Hemoglobin NEGATIVE <content Saint [Presence] in styleCode="Fabienne Davidson Urine by Test d">Urine Blood Medical strip </content>TRAC Center E <content styleCode="Monika lics"> (NEGATIVE )</content> Specific 1.015-1.02 <content [facility] gravity of 5 styleCode="Fabienne Davidson Urine by Test d">Urine Medical strip Specific Center [place] </content>1.01 5 <content styleCode="Monika lics"> (1.015-1.025 )</content> pH of Urine by 4.5-8.0 Above high <content [facility] Test strip normal styleCode="Fabienne Patinos d">Urine pH Medical </content>8.5 Center H<content styleCode="Monika lics"> (4.5-8.0 )</content> Protein NEGATIVE <content [facility] [Mass/volume] styleCode="Fabienne Davidson in Urine by d">Urine Medical Test strip Protein Center </content>100 MG/DL<content styleCode="Monika lics"> (NEGATIVE MG/DL)</conten t> Urobilinogen 0.2-1.0 <content [facility] [Units/volume] styleCode="Fabienne Patinos in Urine by d">Urine Medical Test strip Urobilinogen Center </content>0.2 MG/DL<content styleCode="Monika lics"> (0.2-1.0 MG/DL)</conten t> UNK 0-3 <content Saint styleCode="Fabienne Patinos d">Urine Red Medical Blood Cell Center </content>0-3 HPF<content styleCode="Monika lics"> (0-3 HPF)</content> Leukocyte NEGATIVE <content [facility] esterase styleCode="Fabienne Davidson [Presence] in d">Urine Medical Urine by Test Leukocyte Center strip </content>NEGA TIVE <content styleCode="Monika lics"> (NEGATIVE )</content> Nitrite NEGATIVE <content [facility] [Presence] in styleCode="Fabienne Davidson Urine by Test d">Urine Medical strip Nitrite Center </content>NEGA TIVE <content styleCode="Monika lics"> (NEGATIVE )</content> UNK 0-3 <content Saint styleCode="Fabienne Patinos d">Urine White Medical Blood Cell Center </content>0-3 HPF<content styleCode="Monika lics"> (0-3 HPF)</content> ID Date Data Source Microbiology.[id number] 10/28/2019 12:33:00 PM EST [facility] 500 Name Value Range Interpretation Code Description Data Cathi rce(s) Supporting Document(s ) UNK <item><content [facility] styleCode="Bold"> Medical Cent er Culture Report </content>
<t able><tbody><tr>< td>Specimen Number:</td><td>[id number]</td></tr ><tr><td>Sample Collection Date/Time: </td><td> 0 12:33 PM</td></tr><tr>< td>Specimen Source:</td><td>U RINE BLADDER</td></tr> <tr><td>Urine Culture:</td><td> Collection Plate Date: 10/28/2019 12:41 </td></tr><tr><td >Culture Status:</td><td>F inal </td></tr><tr><td >Culture Report:</td><td>N O GROWTH </td></tr></tbody ></table></item> UNK <item><content [facility] styleCode="Bold"> Medical [facility] er Culture Status </content>
<t able><tbody><tr>< td>Specimen Number:</td><td>[id number]</td></tr ><tr><td>Sample Collection Date/Time: </td><td> 0 12:33 PM</td></tr><tr>< td>Specimen Source:</td><td>U RINE BLADDER</td></tr> <tr><td>Culture Status:</td><td>F inal </td></tr><tr><td >Culture Report:</td><td>N O GROWTH </td></tr><tr><td >Urine Culture:</td><td> Collection Plate Date: 10/28/2019 12:41 </td></tr></tbody ></table></item> ID Date Data Source CHMROUTINECCDA.[id number] 10/28/2019 10:43:00 AM EST [facility] -0500 Name Value Range Interpretation Code Description Data Cathi rce(s) Supporting Document(s ) UNK 0.7-2.0 <content [facility] styleCode="Bold" Medical Cente r >Lactic Acid 4hr </content>0.7 MMOLL<content styleCode="Itali cs"> (0.7-2.0 MMOLL)</content> ID Date Data Source GFR(Creatinine).[id number] 10/28/2019 10:15:00 AM EST [facility] 0-0500 Name Value Range Interpretation Code Description Data Cathi rce(s) Supporting Document(s ) UNK > 60 Below low normal <content [facility] styleCode="Bold"> Medical Cent er EGFR </content>9 GFR L<content styleCode="Italic s"> (> 60 GFR)</content> ID Date Data Source BMP.[id number] 10/28/2019 10:15:00 AM EST [facility] Name Value Range Interpretation Description Data Sup porting Code Source(s) Document(s ) Sodium 137-145 <content [facility] [Moles/volume] styleCode="Fabienne Stuart in Serum or d">Sodium Medical Plasma </content>138 Center MEQ/L<content styleCode="Monika lics"> (137-145 MEQ/L)</conten t> UNK 7-17 Above high normal <content [facility] styleCode="Fabienne Stuart d">BUN Medical </content>25 Center MG/DL H<content styleCode="Monika lics"> (7-17 MG/DL)</conten t> Carbon 22-30 <content [facility] dioxide, total styleCode="Fabienne Stuart [Moles/volume] d">Carbon Medical in Serum or Dioxide Center Plasma </content>28 MEQ/L<content styleCode="Monika lics"> (22-30 MEQ/L)</conten t> Chloride 98-107 Below low normal <content [facility] [Moles/volume] styleCode="Fabienne Stuart in Serum or d">Chloride Medical Plasma </content>97 Center MEQ/L L<content styleCode="Monika lics"> (98-107 MEQ/L)</conten t> Creatinine 0.5-1.3 Above high normal <content [facility] [Mass/volume] styleCode="Fabienne Stuart in Serum or d">Creatinine Medical Plasma </content>5.1 Center MG/DL H<content styleCode="Monika lics"> (0.5-1.3 MG/DL)</conten t> Potassium 3.5-5.3 <content [facility] [Moles/volume] styleCode="Fabienne Patinos in Serum or d">Potassium Medical Plasma </content>3.9 Center MEQ/L<content styleCode="Monika lics"> (3.5-5.3 MEQ/L)</conten t> UNK > 60 Below low normal <content [facility] styleCode="Fabienne Patinos d">EGFR Medical </content>9 Center GFR L<content styleCode="Monika lics"> (> 60 GFR)</content> Calcium 8.4-10.2 <content [facility] [Mass/volume] styleCode="Fabienne Davidson in Serum or d">Calcium Medical Plasma </content>9.6 Center MG/DL<content styleCode="Monika lics"> (8.4-10.2 MG/DL)</conten t> Glucose 74-106 Above high normal <content [facility] [Mass/volume] styleCode="Fabienne Davidson in Serum or d">Glucose Medical Plasma </content>189 Center MG/DL H<content styleCode="Monika lics"> (74-106 MG/DL)</conten t> ID Date Data Source Microbiology.[id number] 10/28/2019 07:40:00 AM EST [facility] 500 Name Value Range Interpretation Code Description Data Cathi rce(s) Supporting Document(s ) UNK <item><content [facility] styleCode="Bold"> Medical Cent er Culture Report </content>
<t able><tbody><tr>< td>Specimen Number:</td><td>[id number]</td></tr ><tr><td>Sample Collection Date/Time: </td><td> 0 7:40 AM</td></tr><tr>< td>Specimen Source:</td><td>B LOOD</td></tr><tr ><td>Blood Culture:</td><td> Collection Plate Date: 10/28/2019 10:00 </td></tr><tr><td >Culture Status:</td><td>P reliminary </td></tr><tr><td >Culture Report:</td><td>N O GROWTH AFTER 48 HOURS </td></tr></tbody ></table></item> UNK <item><content [facility] styleCode="Bold"> Medical Cent er Culture Status </content>
<t able><tbody><tr>< td>Specimen Number:</td><td>[id number]</td></tr ><tr><td>Sample Collection Date/Time: </td><td> 0 7:40 AM</td></tr><tr>< td>Specimen Source:</td><td>B LOOD</td></tr><tr ><td>Blood Culture:</td><td> Collection Plate Date: 10/28/2019 10:00 </td></tr><tr><td >Culture Report:</td><td>N O GROWTH AFTER 48 HOURS </td></tr><tr><td >Culture Status:</td><td>P reliminary </td></tr></tbody ></table></item> ID Date Data Source Microbiology.[id number] 10/28/2019 07:28:00 AM EST [facility] 500 Name Value Range Interpretation Code Description Data Cathi rce(s) Supporting Document(s ) UNK <item><content [facility] styleCode="Bold"> Medical Cent er Culture Report </content>
<t able><tbody><tr>< td>Specimen Number:</td><td>[id number]</td></tr ><tr><td>Sample Collection Date/Time: </td><td> 0 7:28 AM</td></tr><tr>< td>Specimen Source:</td><td>B LOOD</td></tr><tr ><td>Blood Culture:</td><td> Collection Plate Date: 10/28/2019 07:33 </td></tr><tr><td >Culture Status:</td><td>P reliminary </td></tr><tr><td >Culture Report:</td><td>N O GROWTH AFTER 48 HOURS </td></tr></tbody ></table></item> UNK <item><content [facility] styleCode="Bold"> Medical Cent er Culture Status </content>
<t able><tbody><tr>< td>Specimen Number:</td><td>[id number]</td></tr ><tr><td>Sample Collection Date/Time: </td><td> 0 7:28 AM</td></tr><tr>< td>Specimen Source:</td><td>B LOOD</td></tr><tr ><td>Culture Report:</td><td>N O GROWTH AFTER 48 HOURS </td></tr><tr><td >Culture Status:</td><td>P reliminary </td></tr><tr><td >Blood Culture:</td><td> Collection Plate Date: 10/28/2019 07:33 </td></tr></tbody ></table></item> ID Date Data Source CHMROUTINECCDA.[id number] 10/28/2019 07:28:00 AM EST [facility] -0500 Name Value Range Interpretation Description Data Sup porting Code Source(s) Document(s ) Lactate 0.7-2.0 <content [facility] [Mass/volum styleCode="Bold Medical e] in Serum ">Lactic Acid Center or Plasma </content>0.8 MMOLL<content styleCode="Ital ics"> (0.7-2.0 MMOLL)</content > ID Date Data Source Liver 10/28/2019 07:13:00 AM EST [facility] Profile.[id number] Name Value Range Interpretation Description Data Sup porting Code Source(s) Document(s ) Aspartate 14-36 Above high <content [facility] aminotransferase normal styleCode="Bold"> [facility] hs [Enzymatic Aspartate Medical activity/volume] Aminotransferase Center in Serum or Plasma (AST) </content>48 IU/L H<content styleCode="Italic s"> (14-36 IU/L)</content> Alkaline 38-126 Above high <content [facility] phosphatase normal styleCode="Bold"> [facility] [Enzymatic Alkaline Medical activity/volume] Phosphatase (ALP) Cente r in Serum or Plasma </content>143 IU/L H<content styleCode="Italic s"> (38-126 IU/L)</content> Alanine 7-30 <content [facility] aminotransferase styleCode="Bold"> [facility] hs [Enzymatic Alanine Medical activity/volume] Aminotransferase Center in Serum or Plasma (ALT) </content>10 IU/L<content styleCode="Italic s"> (7-30 IU/L)</content> Bilirubin.total 0.2-1.3 <content [facility] [Mass/volume] in styleCode="Bold"> Paul hs Serum or Plasma Bilirubin Total Medical </content>0.8 Center MG/DL<content styleCode="Italic s"> (0.2-1.3 MG/DL)</content> Albumin 3.5-5.0 <content [facility] [Mass/volume] in styleCode="Bold"> Paul hs Serum or Plasma Albumin Medical </content>4.7 Center G/DL<content styleCode="Italic s"> (3.5-5.0 G/DL)</content> UNK 0.0-0.3 <content [facility] styleCode="Bold"> [facility] Bilirubin, Direct Medical </content>< 0.2 Center MG/DL<content styleCode="Italic s"> (0.0-0.3 MG/DL)</content> ID Date Data Source HematologyRou.[id number] 10/28/2019 07:13:00 AM ADELA [facility] 0500 Name Value Range Interpretation Description Data Sup porting Code Source(s) Document(s ) Leukocytes 4.4-11.0 <content [facility] [#/volume] in styleCode="Bold [facility] Blood by ">White Blood Medical Automated count Cell Count Center </content>9.06 KCUMM<content styleCode="Ital ics"> (4.4-11.0 KCUMM)</content > Hematocrit 36.0-46. Below low normal <content [facility] [Volume 0 styleCode="Bold Stuart Fraction] of ">Hematocrit Medical Blood by </content>31.9 Center Automated count % L<content styleCode="Ital ics"> (36.0-46.0 %)</content> Erythrocytes 4.0-5.1 Below low normal <content [facility] [#/volume] in styleCode="Bold [facility] Blood by ">Red Blood Medical Automated count Cell Count Center </content>3.64 MCUMM L<content styleCode="Ital ics"> (4.0-5.1 MCUMM)</content > Hemoglobin 12.3-16. Below low normal <content [facility] [Mass/volume] in 0 styleCode="Bold Stuart Blood ">Hemoglobin Medical </content>10.2 Center G/DL L<content styleCode="Ital ics"> (12.3-16.0 G/DL)</content> Erythrocyte mean 80.0-100 <content [facility] corpuscular .0 styleCode="Bold Stuart volume [Entitic ">Mean Medical volume] by Corpuscular Center Automated count Volume </content>87.6 FL<content styleCode="Ital ics"> (80.0-100.0 FL)</content> Erythrocyte mean 26.0-34. <content [facility] corpuscular 0 styleCode="Bold Stuart hemoglobin ">Mean Medical [Entitic mass] Corposcular Center by Automated Hemoglobin count </content>28.0 PG<content styleCode="Ital ics"> (26.0-34.0 PG)</content> Erythrocyte mean 32.0-37. <content [facility] corpuscular 0 styleCode="Bold Stuart hemoglobin ">Mean Corpus. Medical concentration Hgb Center [Mass/volume] by Concentration Automated count (MCHC) </content>32.0 G/DL<content styleCode="Ital ics"> (32.0-37.0 G/DL)</content> Platelets 130-400 <content [facility] [#/volume] in styleCode="Bold [facility] Blood by ">Platelet Medical Automated count Count Center </content>289 KCUMM<content styleCode="Ital ics"> (130-400 KCUMM)</content > Erythrocyte 11.5-14. <content [facility] distribution 5 styleCode="Bold Stuart width [Ratio] by ">Red Cell Medical Automated count Distribution Center Width </content>13.6 %<content styleCode="Ital ics"> (11.5-14.5 %)</content> Platelet mean 8.0-11.0 <content [facility] volume [Entitic styleCode="Bold Stuart volume] in Blood ">Mean Platelet Medical by Automated Volume Center count </content>10.9 FL<content styleCode="Ital ics"> (8.0-11.0 FL)</content> UNK 1.6-7.3 <content [facility] styleCode="Bold Stuart ">Neutrophil Medical Count Center </content>6.76 KCUMM<content styleCode="Ital ics"> (1.6-7.3 KCUMM)</content > Lymphocytes 24.0-44. Below low normal <content [facility] [#/volume] in 0 styleCode="Bold Stuart Blood by ">Lymphocyte Medical Automated count </content>14.1 Center % L<content styleCode="Ital ics"> (24.0-44.0 %)</content> Neutrophils 36-66 Above high <content [facility] [#/volume] in normal styleCode="Bold Stuart Blood by ">Neutrophil Medical Automated count </content>74.6 Center % H<content styleCode="Ital ics"> (36-66 %)</content> Monocytes 3.0-10.0 <content [facility] [#/volume] in styleCode="Bold Stuart Blood by ">Monocyte Medical Automated count </content>7.0 Center %<content styleCode="Ital ics"> (3.0-10.0 %)</content> UNK 1.0-4.8 <content [facility] styleCode="Bold Stuart ">Lymphocyte Medical Count Center </content>1.28 KCUMM<content styleCode="Ital ics"> (1.0-4.8 KCUMM)</content > Eosinophils 0-5.0 <content [facility] [#/volume] in styleCode="Bold Stuart Blood by ">Eosinophil Medical Automated count </content>3.3 Center %<content styleCode="Ital ics"> (0-5.0 %)</content> UNK 0.0-0.6 <content [facility] styleCode="Bold Stuart ">Eosinophil Medical Count Center </content>0.30 KCUMM<content styleCode="Ital ics"> (0.0-0.6 KCUMM)</content > UNK 0.2-0.9 <content [facility] styleCode="Bold Stuart ">Monocyte Medical Count Center </content>0.63 KCUMM<content styleCode="Ital ics"> (0.2-0.9 KCUMM)</content > UNK 0 <content [facility] styleCode="Bold Stuart ">Nucleated Red Medical Blood Cell Center </content>0.0 /100<content styleCode="Ital ics"> (0 /100)</content> UNK 0.0-0.3 <content [facility] styleCode="Bold Stuart ">Basophil Medical Count Center </content>0.05 KCUMM<content styleCode="Ital ics"> (0.0-0.3 KCUMM)</content > Basophils 0.0-1.0 <content [facility] [#/volume] in styleCode="Bold Stuart Blood by ">Basophil Medical Automated count </content>0.6 Center %<content styleCode="Ital ics"> (0.0-1.0 %)</content> UNK 0.0 <content [facility] styleCode="Bold Stuart ">Nucleated Red Medical Blood Cell Center Count </content>0.00 KCUMM<content styleCode="Ital ics"> (0.0 KCUMM)</content > UNK 0-0.1 <content [facility] styleCode="Bold Stuart ">Immature Medical Granulocyte Center Count </content>0.04 KCUMM<content styleCode="Ital ics"> (0-0.1 KCUMM)</content > UNK < 1 <content [facility] styleCode="Bold Stuart ">Immature Medical Granulocyte Center Ratio </content>0.4 %<content styleCode="Ital ics"> (< 1 %)</content> ID Date Data Source GFR(Creatinine).[id number] 10/28/2019 07:13:00 AM EST [facility] 0-0500 Name Value Range Interpretation Code Description Data Cathi rce(s) Supporting Document(s ) UNK > 60 Below low normal <content [facility] styleCode="Bold"> Medical Cent er EGFR </content>10 GFR L<content styleCode="Italic s"> (> 60 GFR)</content> ID Date Data Source Coagulation 10/28/2019 07:13:00 AM [facility] ical Center Rout.[id number] EST Name Value Range Interpretation Description Data Sup porting Code Source(s) Document(s ) UNK 9.0-13.0 <content styleCode="Bold" [facility] >Protime Medical </content>12.3 Center SEC<content styleCode="Itali cs"> (9.0-13.0 SEC)</content> aPTT in 25.1-36. <content [facility] Platelet poor 5 styleCode="Bold" [facility] plasma by >Partial Medical Coagulation Thromboplastin Center assay Time </content>30.4 SEC<content styleCode="Itali cs"> (25.1-36.5 SEC)</content> INR in 0.80-1.2 <content [facility] Platelet poor 0 styleCode="Bold" [facility] plasma by >INR Medical Coagulation </content>1.11 Center assay #<content styleCode="Itali cs"> (0.80-1.20 #)</content> ID Date Data Source CardiacMarkers.[id number] 10/28/2019 07:13:00 AM ADELA bhatt [facility] -0500 Name Value Range Interpretation Description Data Sup porting Code Source(s) Document(s ) Creatine 30-135 <content [facility] kinase styleCode="Bold Stuart [Enzymatic ">CK Medical activity/vol </content>64 Center ume] in IU/L<content Serum or styleCode="Ital Plasma ics"> (30-135 IU/L)</content> Troponin < 0.034 <content [facility] I.cardiac styleCode="Bold Stuart [Mass/volume ">Troponin I Medical ] in Serum </content>< Center or Plasma 0.012 NG/ML<content styleCode="Ital ics"> (< 0.034 NG/ML)</content > ID Date Data Source BMP.[id number] 10/28/2019 07:13:00 AM EST [facility] Name Value Range Interpretation Description Data Sup porting Code Source(s) Document(s ) Sodium 137-145 <content [facility] [Moles/volume] in styleCode="Bold"> [facility] Serum or Plasma Sodium Medical </content>138 Center MEQ/L<content styleCode="Italic s"> (137-145 MEQ/L)</content> Chloride 98-107 Below low <content [facility] [Moles/volume] in normal styleCode="Bold"> [facility] Serum or Plasma Chloride Medical </content>97 Center MEQ/L L<content styleCode="Italic s"> (98-107 MEQ/L)</content> Potassium <content [facility] [Moles/volume] in styleCode="Bold"> [facility] Serum or Plasma Potassium Medical </content>Test Center not performed. MEQ/L (Reference Range: not available)
Glucose 74-106 Above high <content [facility] [Mass/volume] in normal styleCode="Bold"> Paul hs Serum or Plasma Glucose Medical </content>204 Center MG/DL H<content styleCode="Italic s"> (74-106 MG/DL)</content> Carbon dioxide, 22-30 <content [facility] total styleCode="Bold"> [facility] [Moles/volume] in Carbon Dioxide Medical Serum or Plasma </content>26 Center MEQ/L<content styleCode="Italic s"> (22-30 MEQ/L)</content> Creatinine 0.5-1.3 Above high <content [facility] [Mass/volume] in normal styleCode="Bold"> [facility] hs Serum or Plasma Creatinine Medical </content>4.7 Center MG/DL H<content styleCode="Italic s"> (0.5-1.3 MG/DL)</content> UNK 7-17 Above high <content [facility] normal styleCode="Bold"> Stuart BUN </content>27 Medical MG/DL H<content Center styleCode="Italic s"> (7-17 MG/DL)</content> Alanine 7-30 <content [facility] aminotransferase styleCode="Bold"> [facility] hs [Enzymatic Alanine Medical activity/volume] Aminotransferase Center in Serum or Plasma (ALT) </content>10 IU/L<content styleCode="Italic s"> (7-30 IU/L)</content> UNK > 60 Below low <content [facility] normal styleCode="Bold"> [facility] EGFR </content>10 Medical GFR L<content Center styleCode="Italic s"> (> 60 GFR)</content> Calcium 8.4-10. <content [facility] [Mass/volume] in 2 styleCode="Bold"> Paul hs Serum or Plasma Calcium Medical </content>10.0 Center MG/DL<content styleCode="Italic s"> (8.4-10.2 MG/DL)</content> Aspartate 14-36 Above high <content [facility] aminotransferase normal styleCode="Bold"> [facility] hs [Enzymatic Aspartate Medical activity/volume] Aminotransferase Center in Serum or Plasma (AST) </content>48 IU/L H<content styleCode="Italic s"> (14-36 IU/L)</content> Alkaline 38-126 Above high <content [facility] phosphatase normal styleCode="Bold"> [facility] [Enzymatic Alkaline Medical activity/volume] Phosphatase (ALP) Cente r in Serum or Plasma </content>143 IU/L H<content styleCode="Italic s"> (38-126 IU/L)</content> Bilirubin.total 0.2-1.3 <content [facility] [Mass/volume] in styleCode="Bold"> Paul hs Serum or Plasma Bilirubin Total Medical </content>0.8 Center MG/DL<content styleCode="Italic s"> (0.2-1.3 MG/DL)</content> Albumin 3.5-5.0 <content [facility] [Mass/volume] in styleCode="Bold"> Paul hs Serum or Plasma Albumin Medical </content>4.7 Center G/DL<content styleCode="Italic s"> (3.5-5.0 G/DL)</content> ID Date Data Source CHMROUTINECCDA.[id number] 10/28/2019 07:13:00 AM [facility] -0500 Name Value Range Interpretation Description Data Sup porting Code Source(s) Document(s ) Lipase 23-300 Above high normal <content [place] [facility] [Enzymatic styleCode="Bold Medical activity/vo ">Lipase Center lume] in </content>601 Serum or IU/L H<content Plasma styleCode="Ital ics"> (23-300 IU/L)</content> UNK 30-110 Above high normal <content [place] [facility] styleCode="Bold Medical ">Amylase Center </content>193 IU/L H<content styleCode="Ital ics"> (30-110 IU/L)</content> ID Date Data Source Liver 10/16/2019 03:33:00 PM EST [facility] Profile.[id number] Name Value Range Interpretation Description Data Sup porting Code Source(s) Document(s ) Aspartate 14-36 <content [facility] aminotransferase styleCode="Bold"> [facility] hs [Enzymatic Aspartate Medical activity/volume] Aminotransferase Center in Serum or Plasma (AST) </content>18 IU/L<content styleCode="Italic s"> (14-36 IU/L)</content> Alkaline 38-126 <content [facility] phosphatase styleCode="Bold"> [facility] [Enzymatic Alkaline Medical activity/volume] Phosphatase (ALP) Cente r in Serum or Plasma </content>105 IU/L<content styleCode="Italic s"> (38-126 IU/L)</content> UNK 0.0-0.3 <content [facility] styleCode="Bold"> [facility] Bilirubin, Direct Medical </content>< 0.2 Center MG/DL<content styleCode="Italic s"> (0.0-0.3 MG/DL)</content> Alanine 7-30 <content [facility] aminotransferase styleCode="Bold"> [facility] hs [Enzymatic Alanine Medical activity/volume] Aminotransferase Center in Serum or Plasma (ALT) </content>7 IU/L<content styleCode="Italic s"> (7-30 IU/L)</content> Bilirubin.total 0.2-1.3 <content [facility] [Mass/volume] in styleCode="Bold"> [facility] hs Serum or Plasma Bilirubin Total Medical </content>0.8 Center MG/DL<content styleCode="Italic s"> (0.2-1.3 MG/DL)</content> Albumin 3.5-5.0 <content [facility] [Mass/volume] in styleCode="Bold"> Apul hs Serum or Plasma Albumin Medical </content>4.3 Center G/DL<content styleCode="Italic s"> (3.5-5.0 G/DL)</content> ID Date Data Source HematologyRou.[id number] 10/16/2019 03:33:00 PM EST [facility] nt [facility] 0500 Name Value Range Interpretation Description Data Sup porting Code Source(s) Document(s ) Leukocytes 4.4-11.0 Above high <content [facility] [#/volume] in normal styleCode="Bold [facility] Blood by ">White Blood Medical Automated count Cell Count Center </content>14.77 KCUMM H<content styleCode="Ital ics"> (4.4-11.0 KCUMM)</content > Hemoglobin 12.3-16. Below low normal <content [facility] [Mass/volume] in 0 styleCode="Bold Stuart Blood ">Hemoglobin Medical </content>9.6 Center G/DL L<content styleCode="Ital ics"> (12.3-16.0 G/DL)</content> Erythrocytes 4.0-5.1 Below low normal <content [facility] [#/volume] in styleCode="Bold [facility] Blood by ">Red Blood Medical Automated count Cell Count Center </content>3.40 MCUMM L<content styleCode="Ital ics"> (4.0-5.1 MCUMM)</content > Erythrocyte mean 80.0-100 <content [facility] corpuscular .0 styleCode="Bold Stuart volume [Entitic ">Mean Medical volume] by Corpuscular Center Automated count Volume </content>88.5 FL<content styleCode="Ital ics"> (80.0-100.0 FL)</content> Erythrocyte mean 26.0-34. <content [facility] corpuscular 0 styleCode="Bold Stuart hemoglobin ">Mean Medical [Entitic mass] Corposcular Center by Automated Hemoglobin count </content>28.2 PG<content styleCode="Ital ics"> (26.0-34.0 PG)</content> Erythrocyte 11.5-14. <content [facility] distribution 5 styleCode="Bold Stuart width [Ratio] by ">Red Cell Medical Automated count Distribution Center Width </content>13.7 %<content styleCode="Ital ics"> (11.5-14.5 %)</content> Erythrocyte mean 32.0-37. Below low normal <content [facility] corpuscular 0 styleCode="Bold Stuart hemoglobin ">Mean Corpus. Medical concentration Hgb Center [Mass/volume] by Concentration Automated count (MCHC) </content>31.9 G/DL L<content styleCode="Ital ics"> (32.0-37.0 G/DL)</content> Hematocrit 36.0-46. Below low normal <content [facility] [Volume 0 styleCode="Bold [facility] Fraction] of ">Hematocrit Medical Blood by </content>30.1 Center Automated count % L<content styleCode="Ital ics"> (36.0-46.0 %)</content> UNK 0 <content [facility] styleCode="Bold Stuart ">Nucleated Red Medical Blood Cell Center </content>0.0 /100<content styleCode="Ital ics"> (0 /100)</content> UNK 0.0 <content [facility] styleCode="Bold Stuart ">Nucleated Red Medical Blood Cell Center Count </content>0.00 KCUMM<content styleCode="Ital ics"> (0.0 KCUMM)</content > Platelets 130-400 <content [facility] [#/volume] in styleCode="Bold Stuart Blood by ">Platelet Medical Automated count Count Center </content>264 KCUMM<content styleCode="Ital ics"> (130-400 KCUMM)</content > Platelet mean 8.0-11.0 <content [facility] volume [Entitic styleCode="Bold Stuart volume] in Blood ">Mean Platelet Medical by Automated Volume Center count </content>10.7 FL<content styleCode="Ital ics"> (8.0-11.0 FL)</content> ID Date Data Source GFR(Creatinine).[id number] 10/16/2019 03:33:00 PM EST [facility] 0-0500 Name Value Range Interpretation Code Description Data Cathi rce(s) Supporting Document(s ) UNK > 60 Below low normal <content [facility] styleCode="Bold"> Medical Cent er EGFR </content>4 GFR L<content styleCode="Italic s"> (> 60 GFR)</content> ID Date Data Source CHMROUTINECCDA.[id number] 10/16/2019 03:33:00 PM EST [facility] -0500 Name Value Range Interpretation Description Data Sup porting Code Source(s) Document(s ) Lipase 23-300 <content [facility] [Enzymatic styleCode="Bold Medical activity/vo ">Lipase Center lume] in </content>155 Serum or IU/L<content Plasma styleCode="Ital ics"> (23-300 IU/L)</content> UNK 30-110 Above high normal <content [facility] styleCode="Bold Medical ">Amylase Center </content>156 IU/L H<content styleCode="Ital ics"> (30-110 IU/L)</content> Lactate 0.7-2.0 <content [facility] [Mass/volum styleCode="Bold Medical e] in Serum ">Lactic Acid Center or Plasma </content>0.8 MMOLL<content styleCode="Ital ics"> (0.7-2.0 MMOLL)</content > ID Date Data Source CardiacMarkers.[id number] 10/16/2019 03:33:00 PM EST [facility] -0500 Name Value Range Interpretation Description Data Sup porting Code Source(s) Document(s ) Troponin < 0.034 <content [facility] I.cardiac styleCode="Bold [facility] [Mass/volume ">Troponin I Medical ] in Serum </content>< Center or Plasma 0.012 NG/ML<content styleCode="Ital ics"> (< 0.034 NG/ML)</content > ID Date Data Source [facility].[id number] 10/16/2019 03:33:00 PM EST [facility] Name Value Range Interpretation Description Data Sup porting Code Source(s) Document(s ) Sodium 137-145 Below low <content Saint [Moles/volume] in normal styleCode="Bold"> [facility] Serum or Plasma Sodium Medical </content>136 Center MEQ/L L<content styleCode="Italic s"> (137-145 MEQ/L)</content> Chloride 98-107 Below low <content Saint [Moles/volume] in normal styleCode="Bold"> [facility] Serum or Plasma Chloride Medical </content>96 Center MEQ/L L<content styleCode="Italic s"> (98-107 MEQ/L)</content> Potassium 3.5-5.3 <content Saint [Moles/volume] in styleCode="Bold"> [facility] Serum or Plasma Potassium Medical </content>4.8 Center MEQ/L<content styleCode="Italic s"> (3.5-5.3 MEQ/L)</content> Carbon dioxide, 22-30 <content [facility] total styleCode="Bold"> [facility] [Moles/volume] in Carbon Dioxide Medical Serum or Plasma </content>25 Center MEQ/L<content styleCode="Italic s"> (22-30 MEQ/L)</content> Creatinine 0.5-1.3 Above upper <content [facility] [Mass/volume] in panic limits styleCode="Bold"> [facility] Serum or Plasma Creatinine Medical </content><conten Center t styleCode="Bold"> 10.4 MG/DL HH</content><cont ent styleCode="Italic s"> (0.5-1.3 MG/DL)</content> Calcium 8.4-10. <content [facility] [Mass/volume] in 2 styleCode="Bold"> [facility] Serum or Plasma Calcium Medical </content>9.8 Center MG/DL<content styleCode="Italic s"> (8.4-10.2 MG/DL)</content> Glucose 74-106 Above high <content [facility] [Mass/volume] in normal styleCode="Bold"> [facility] Serum or Plasma Glucose Medical </content>190 Center MG/DL H<content styleCode="Italic s"> (74-106 MG/DL)</content> UNK 7-17 Above high <content [facility] normal styleCode="Bold"> [facility] BUN </content>55 Medical MG/DL H<content Center styleCode="Italic s"> (7-17 MG/DL)</content> UNK > 60 Below low <content [facility] normal styleCode="Bold"> [facility] EGFR </content>4 Medical GFR L<content Center styleCode="Italic s"> (> 60 GFR)</content> Alkaline 38-126 <content [facility] phosphatase styleCode="Bold"> [facility] [Enzymatic Alkaline Medical activity/volume] Phosphatase (ALP) Cente r in Serum or Plasma </content>105 IU/L<content styleCode="Italic s"> (38-126 IU/L)</content> Alanine 7-30 <content [facility] aminotransferase styleCode="Bold"> [facility] [Enzymatic Alanine Medical activity/volume] Aminotransferase Center in Serum or Plasma (ALT) </content>7 IU/L<content styleCode="Italic s"> (7-30 IU/L)</content> Aspartate 14-36 <content [facility] aminotransferase styleCode="Bold"> [facility] [Enzymatic Aspartate Medical activity/volume] Aminotransferase Center in Serum or Plasma (AST) </content>18 IU/L<content styleCode="Italic s"> (14-36 IU/L)</content> Bilirubin.total 0.2-1.3 <content [facility] [Mass/volume] in styleCode="Bold"> [facility] Serum or Plasma Bilirubin Total Medical </content>0.8 Center MG/DL<content styleCode="Italic s"> (0.2-1.3 MG/DL)</content> Albumin 3.5-5.0 <content [facility] [Mass/volume] in styleCode="Bold"> [facility] Serum or Plasma Albumin Medical </content>4.3 Center G/DL<content styleCode="Italic s"> (3.5-5.0 G/DL)</content> ID Date Data Source Liver 07/15/2019 12:47:00 PM EDT [facility] Profile.[id number] Name Value Range Interpretation Description Data Sup porting Code Source(s) Document(s ) Aspartate 14-36 <content [facility] aminotransferase styleCode="Bold"> [facility] [Enzymatic Aspartate Medical activity/volume] Aminotransferase Center in Serum or Plasma (AST) </content>20 IU/L<content styleCode="Italic s"> (14-36 IU/L)</content> Alkaline 38-126 Above high <content [facility] phosphatase normal styleCode="Bold"> [facility] [Enzymatic Alkaline Medical activity/volume] Phosphatase (ALP) Cente r in Serum or Plasma </content>148 IU/L H<content styleCode="Italic s"> (38-126 IU/L)</content> UNK 0.0-0.3 <content Saint styleCode="Bold"> [facility] Bilirubin, Direct Medical </content>< 0.2 Center MG/DL<content styleCode="Italic s"> (0.0-0.3 MG/DL)</content> Alanine 7-30 <content [facility] aminotransferase styleCode="Bold"> [facility] [Enzymatic Alanine Medical activity/volume] Aminotransferase Center in Serum or Plasma (ALT) </content>12 IU/L<content styleCode="Italic s"> (7-30 IU/L)</content> Bilirubin.total 0.2-1.3 <content [facility] [Mass/volume] in styleCode="Bold"> [facility] Serum or Plasma Bilirubin Total Medical </content>0.7 Center MG/DL<content styleCode="Italic s"> (0.2-1.3 MG/DL)</content> Albumin 3.5-5.0 <content [facility] [Mass/volume] in styleCode="Bold"> [facility] Serum or Plasma Albumin Medical </content>4.9 Center G/DL<content styleCode="Italic s"> (3.5-5.0 G/DL)</content> ID Date Data Source HematologyRou.[id number] 07/15/2019 12:47:00 PM EDT [facility] 0400 Name Value Range Interpretation Description Data Sup porting Code Source(s) Document(s ) Erythrocytes 4.0-5.1 <content Saint [#/volume] in styleCode="Bold [facility] Blood by ">Red Blood Medical Automated count Cell Count Center </content>4.88 MCUMM<content styleCode="Ital ics"> (4.0-5.1 MCUMM)</content > Leukocytes 4.4-11.0 <content Saint [#/volume] in styleCode="Bold [facility] Blood by ">White Blood Medical Automated count Cell Count Center </content>10.38 KCUMM<content styleCode="Ital ics"> (4.4-11.0 KCUMM)</content > Hemoglobin 12.3-16. <content [facility] [Mass/volume] in 0 styleCode="Bold [facility] Blood ">Hemoglobin Medical </content>12.9 Center G/DL<content styleCode="Ital ics"> (12.3-16.0 G/DL)</content> Erythrocyte mean 80.0-100 <content Saint corpuscular .0 styleCode="Bold [facility] volume [Entitic ">Mean Medical volume] by Corpuscular Center Automated count Volume </content>84.2 FL<content styleCode="Ital ics"> (80.0-100.0 FL)</content> Hematocrit 36.0-46. <content [facility] [Volume 0 styleCode="Bold [facility] Fraction] of ">Hematocrit Medical Blood by </content>41.1 Center Automated count %<content styleCode="Ital ics"> (36.0-46.0 %)</content> Erythrocyte mean 26.0-34. <content [facility] corpuscular 0 styleCode="Bold [facility] hemoglobin ">Mean Medical [Entitic mass] Corposcular Center by Automated Hemoglobin count </content>26.4 PG<content styleCode="Ital ics"> (26.0-34.0 PG)</content> Erythrocyte mean 32.0-37. Below low normal <content [facility] corpuscular 0 styleCode="Bold [facility] hemoglobin ">Mean Corpus. Medical concentration Hgb Center [Mass/volume] by Concentration Automated count (MCHC) </content>31.4 G/DL L<content styleCode="Ital ics"> (32.0-37.0 G/DL)</content> UNK 0 <content Saint styleCode="Bold [facility] ">Nucleated Red Medical Blood Cell Center </content>0.0 /100<content styleCode="Ital ics"> (0 /100)</content> Platelets 130-400 <content Saint [#/volume] in styleCode="Bold [facility] Blood by ">Platelet Medical Automated count Count Center </content>184 KCUMM<content styleCode="Ital ics"> (130-400 KCUMM)</content > Platelet mean 8.0-11.0 <content Saint volume [Entitic styleCode="Bold [facility] volume] in Blood ">Mean Platelet Medical by Automated Volume Center count </content>10.7 FL<content styleCode="Ital ics"> (8.0-11.0 FL)</content> Erythrocyte 11.5-14. Above high <content Saint distribution 5 normal styleCode="Bold [facility] width [Ratio] by ">Red Cell Medical Automated count Distribution Center Width </content>15.0 % H<content styleCode="Ital ics"> (11.5-14.5 %)</content> UNK 0.0 <content Saint styleCode="Bold [facility] ">Nucleated Red Medical Blood Cell Center Count </content>0.00 KCUMM<content styleCode="Ital ics"> (0.0 KCUMM)</content > ID Date Data Source GFR(Creatinine).[id number] 07/15/2019 12:47:00 PM EDT [facility] 0-0400 Name Value Range Interpretation Code Description Data Cathi rce(s) Supporting Document(s ) UNK > 60 Below low normal <content [facility] styleCode="Bold"> Medical Cent er EGFR </content>5 GFR L<content styleCode="Italic s"> (> 60 GFR)</content> ID Date Data Source [facility]MR[facility]DA.[id number] 07/15/2019 12:47:00 PM EDT [facility] -0400 Name Value Range Interpretation Description Data Sup porting Code Source(s) Document(s ) UNK 30-110 Above high normal <content [facility] s styleCode="Bold Medical ">Amylase Center </content>174 IU/L H<content styleCode="Ital ics"> (30-110 IU/L)</content> Lipase 23-300 <content [facility] [Enzymatic styleCode="Bold Medical activity/vo ">Lipase Center lume] in </content>52 Serum or IU/L<content Plasma styleCode="Ital ics"> (23-300 IU/L)</content> ID Date Data Source [employer].[id number] 07/15/2019 12:47:00 PM EDT [facility] -0400 Name Value Range Interpretation Description Data Sup porting Code Source(s) Document(s ) Troponin < 0.034 <content [facility] I.cardiac styleCode="Bold [facility] [Mass/volume ">Troponin I Medical ] in Serum </content>< Center or Plasma 0.012 NG/ML<content styleCode="Ital ics"> (< 0.034 NG/ML)</content > ID Date Data Source [facility].[id number] 07/15/2019 12:47:00 PM EDT [facility] Name Value Range Interpretation Description Data Sup porting Code Source(s) Document(s ) Potassium 3.5-5.3 <content [facility] [Moles/volume] in styleCode="Bold"> [facility] Serum or Plasma Potassium Medical </content>4.9 Center MEQ/L<content styleCode="Italic s"> (3.5-5.3 MEQ/L)</content> Sodium 137-145 <content [facility] [Moles/volume] in styleCode="Bold"> [facility] Serum or Plasma Sodium Medical </content>138 Center MEQ/L<content styleCode="Italic s"> (137-145 MEQ/L)</content> Creatinine 0.5-1.3 Above upper <content Saint [Mass/volume] in panic limits styleCode="Bold"> [facility] Serum or Plasma Creatinine Medical </content><conten Center t styleCode="Bold"> 8.4 MG/DL HH</content><cont ent styleCode="Italic s"> (0.5-1.3 MG/DL)</content> UNK 7-17 Above high <content [facility] normal styleCode="Bold"> [facility] BUN </content>48 Medical MG/DL H<content Center styleCode="Italic s"> (7-17 MG/DL)</content> Chloride 98-107 Below low <content [facility] [Moles/volume] in normal styleCode="Bold"> [facility] Serum or Plasma Chloride Medical </content>93 Center MEQ/L L<content styleCode="Italic s"> (98-107 MEQ/L)</content> Carbon dioxide, 22-30 <content [facility] total styleCode="Bold"> [facility] [Moles/volume] in Carbon Dioxide Medical Serum or Plasma </content>28 Center MEQ/L<content styleCode="Italic s"> (22-30 MEQ/L)</content> Glucose 74-106 <content [facility] [Mass/volume] in styleCode="Bold"> [facility] Serum or Plasma Glucose Medical </content>106 Center MG/DL<content styleCode="Italic s"> (74-106 MG/DL)</content> Calcium 8.4-10. Above high <content [facility] [Mass/volume] in 2 normal styleCode="Bold"> [facility] Serum or Plasma Calcium Medical </content>10.5 Center MG/DL H<content styleCode="Italic s"> (8.4-10.2 MG/DL)</content> Aspartate 14-36 <content [facility] aminotransferase styleCode="Bold"> [facility] [Enzymatic Aspartate Medical activity/volume] Aminotransferase Center in Serum or Plasma (AST) </content>20 IU/L<content styleCode="Italic s"> (14-36 IU/L)</content> UNK > 60 Below low <content [facility] normal styleCode="Bold"> [facility] EGFR </content>5 Medical GFR L<content Center styleCode="Italic s"> (> 60 GFR)</content> Alanine 7-30 <content [facility] aminotransferase styleCode="Bold"> [facility] [Enzymatic Alanine Medical activity/volume] Aminotransferase Center in Serum or Plasma (ALT) </content>12 IU/L<content styleCode="Italic s"> (7-30 IU/L)</content> Bilirubin.total 0.2-1.3 <content [facility] [Mass/volume] in styleCode="Bold"> [facility] Serum or Plasma Bilirubin Total Medical </content>0.7 Center MG/DL<content styleCode="Italic s"> (0.2-1.3 MG/DL)</content> Albumin 3.5-5.0 <content [facility] [Mass/volume] in styleCode="Bold"> [facility] Serum or Plasma Albumin Medical </content>4.9 Center G/DL<content styleCode="Italic s"> (3.5-5.0 G/DL)</content> Alkaline 38-126 Above high <content Saint phosphatase normal styleCode="Bold"> [facility] [Enzymatic Alkaline Medical activity/volume] Phosphatase (ALP) Cente r in Serum or Plasma </content>148 IU/L H<content styleCode="Italic s"> (38-126 IU/L)</content> Procedure Social History Code Duration Value Status Description Data Source(s ) Smoking 10/30/2019 Denies Ever completed Denies Ever Smoked [facility] 08:53:00 PM EST Smoked Medical C enter Smoking 10/28/2019 Denies Ever completed Denies Ever Smoked [facility] 07:35:00 PM EST Smoked Medical C enter Smoking 10/28/2019 Denies Ever completed Denies Ever Smoked [facility] 06:41:00 PM EST Smoked Medical C enter Smoking 10/28/2019 Denies Ever completed Denies Ever Smoked [facility] 07:16:00 AM EST Smoked Medical C enter Smoking 10/28/2019 Denies Ever completed Denies Ever Smoked [facility] 05:57:00 AM EST Smoked Medical C enter Smoking 10/28/2019 Denies Ever completed Denies Ever Smoked [facility] 05:52:00 AM EST Smoked Medical C enter Smoking 10/16/2019 Denies Ever completed Denies Ever Smoked [facility] 03:14:00 PM EST Smoked Medical C enter Smoking 10/16/2019 Denies Ever completed Denies Ever Smoked [facility] 02:31:00 PM EST Smoked Medical C enter Smoking 10/16/2019 Denies Ever completed Denies Ever Smoked [facility] 02:04:00 PM EST Smoked Medical C enter Smoking 07/15/2019 Denies Ever completed Denies Ever Smoked [facility] 12:57:00 PM EDT Smoked Medical C enter Smoking 07/15/2019 Denies Ever completed Denies Ever Smoked [facility] 12:13:00 PM EDT Smoked Medical C enter Smoking 07/15/2019 Denies Ever completed Denies Ever Smoked [facility] 12:02:00 PM EDT Smoked Medical C enter Vital Signs ID Date Data Source UNK Name Value Range Interpretation Code Description Data Source(s) Body temperature 36.644500 36.996875 [facility] Respiratory rate 20 /min 20 /min [facility] Heart rate 88 /min 88 /min [facility] Diastolic blood 78 mm[Hg] 78 mm[Hg] [facility] Systolic blood 163 mm[Hg] 163 mm[Hg] [facility] Center Body temperature 36.964728 36.095487 [facility] Respiratory rate 18 /min 18 /min [facility] Oxygen saturation 96 % 96 % [facility] by Pulse oximetry Heart rate 76 /min 76 /min [facility] Diastolic blood 69 mm[Hg] 69 mm[Hg] [facility] Systolic blood 157 mm[Hg] 157 mm[Hg] [facility] Body temperature 36.525433 36.509368 [facility] Respiratory rate 18 /min 18 /min [facility] Heart rate 77 /min 77 /min [facility] Diastolic blood 69 mm[Hg] 69 mm[Hg] [facility] Systolic blood 155 mm[Hg] 155 mm[Hg] [facility] Body temperature 36.591338 36.384186 [facility] Respiratory rate 18 /min 18 /min [facility] Heart rate 87 /min 87 /min [facility] Diastolic blood 72 mm[Hg] 72 mm[Hg] [facility] Systolic blood 146 mm[Hg] 146 mm[Hg] [facility] Body temperature 36.855025 36.245105 [facility] Respiratory rate 18 /min 18 /min [facility] Heart rate 88 /min 88 /min [facility] Diastolic blood 69 mm[Hg] 69 mm[Hg] [facility] Systolic blood 177 mm[Hg] 177 mm[Hg] [facility] Body weight 77.203775 kg 77.689725 kg [facility] Measured [facility] Center Body height 165.560242 165.578194 cm Health system Body mass index 28.43 kg/m2 28.43 kg/m2 [facility] osep (BMI) [Ratio] Medical [facility] ter Body weight 77.862226 kg 77.758466 kg [facility] Measured [facility] Center Body height 165.272767 165.324344 cm Health system Body mass index 28.43 kg/m2 28.43 kg/m2 [facility] osephs (BMI) [Ratio] Medical [facility] ter Body temperature 37.619488 37.540874 [facility] Respiratory rate 18 /min 18 /min [facility] Heart rate 84 /min 84 /min [facility] Diastolic blood 63 mm[Hg] 63 mm[Hg] [facility] pressure Medical Center Systolic blood 112 mm[Hg] 112 mm[Hg] [facility] Heart rate 83 /min 83 /min [facility] Diastolic blood 76 mm[Hg] 76 mm[Hg] [facility] Systolic blood 166 mm[Hg] 166 mm[Hg] [facility] Body weight 77.782740 kg 77.001772 kg [facility] Measured Medical Center Body height 165.699862 165.554846 cm [facility] Body mass index 28.46 kg/m2 28.46 kg/m2 [facility] osephs (BMI) [Ratio] Medical [address] Body temperature 37.013246 37.635431 [facility] Respiratory rate 20 /min 20 /min [facility] Heart rate 88 /min 88 /min [facility] Diastolic blood 86 mm[Hg] 86 mm[Hg] [facility] Center Systolic blood 207 mm[Hg] 207 mm[Hg] [facility] Oxygen saturation 98 % 98 % [facility]ph[facility] in Arterial blood Medical Center by Pulse oximetry Body temperature 37.112568 37.986804 [facility] Respiratory rate 18 /min 18 /min [facility] Heart rate 81 /min 81 /min [facility] Oxygen saturation 100 % 100 % [facility]ph[facility] in Arterial blood Medical Center by Pulse oximetry Body temperature 36.404327 36.261224 [facility] Respiratory rate 17 /min 17 /min [facility] Heart rate 81 /min 81 /min [facility] Diastolic blood 82 mm[Hg] 82 mm[Hg] [facility] Center Systolic blood 165 mm[Hg] 165 mm[Hg] [facility] Center Oxygen saturation 99 % 99 % [facility]ph[facility] in Arterial blood [facility] by Pulse oximetry Body temperature 37.074771 37.005337 [facility] Respiratory rate 20 /min 20 /min [facility] Diastolic blood 86 mm[Hg] 86 mm[Hg] [facility] Center Systolic blood 116 mm[Hg] 116 mm[Hg] [facility] Oxygen saturation 99 % 99 % [facility]ph[facility] in Arterial blood Medical Center by Pulse oximetry Oxygen saturation 100 % 100 % [facility]ph[facility] in Arterial blood Medical Center by Pulse oximetry Body temperature 36.021836 36.646726 [facility] Respiratory rate 20 /min 20 /min [facility] Heart rate 70 /min 70 /min [facility] Diastolic blood 74 mm[Hg] 74 mm[Hg] [facility] pressure Medical Center Systolic blood 145 mm[Hg] 145 mm[Hg] [facility] Body weight 86.765886 kg 86.418844 kg [facility] Body temperature 36.359291 36.928827 [facility] Respiratory rate 18 /min 18 /min [facility] Oxygen saturation 99 % 99 % [facility]ph[facility] in [facility] blood [facility] Center by Pulse oximetry Heart rate 67 /min 67 /min [facility] Body height 165.599392 165.345232 cm [facility] [place] Diastolic blood 60 mm[Hg] 60 mm[Hg] [facility] Center Systolic blood 108 mm[Hg] 108 mm[Hg] [facility] Body mass index 31.6 kg/m2 31.6 kg/m2 [facility] (BMI) [Ratio] Medical [facility] ter Body temperature 36.366396 36.778361 [facility] Respiratory rate 17 /min 17 /min [facility] Oxygen saturation 100 % 100 % [facility]sephs in [facility] blood [facility] by Pulse oximetry Heart rate 61 /min 61 /min [facility] Diastolic blood 64 mm[Hg] 64 mm[Hg] [facility] pressure Medical Center Systolic blood 139 mm[Hg] 139 mm[Hg] [facility] Center Respiratory rate 17 /min 17 /min [facility] Heart rate 61 /min 61 /min [facility] Diastolic blood 89 mm[Hg] 89 mm[Hg] [facility] Medical [place] Systolic blood 207 mm[Hg] 207 mm[Hg] [facility] Body temperature 36.217961 36.036321 [facility] Respiratory rate 17 /min 17 /min [facility] Oxygen saturation 100 % 100 % [facility]ison in Arterial blood Medical Center by Pulse oximetry Heart rate 56 /min 56 /min [facility] Diastolic blood 105 mm[Hg] 105 mm[Hg] [facility] pressure Medical Center Systolic blood 213 mm[Hg] 213 mm[Hg] [facility] pressure Medical Center
[2020-07-22 01:00] LABS: BASO % 0.6 % (0-2.0); EOS % 5.9 % (0-4.5); HEMATOCRIT 26.3 % (32.4-45.2); HEMOGLOBIN 8.6 GM/dL (10.7-15.3); LYMPH % 33.5 % (8-40); MCH 29.1 pg (25.7-33.7); MCHC 32.7 g/dl (32.0-36.0); MEAN CELL VOLUME 88.8 fl (80-96); MEAN PLT VOLUME 8.9 fl (7.5-11.1); MONO % 9.6 % (3.8-10.2); NEUT % 50.4 % (42.8-82.8); PLATELET COUNT 183 K/MM3 (134-434); RBC 2.96 M/mm3 (3.60-5.2); RDW 13.6 % (11.6-15.6); WHITE BLOOD COUNT 9.1 K/mm3 (4.0-10.0)
[2020-07-22] MEDS ORDERED: ACETAMINOPHEN 1000 MG/100 ML VIAL (NON FORMULARY) IVPB ONE (01:11)
[2020-07-22] MEDS ORDERED: FAMOTIDINE 20 MG/50 ML IVPB 20 MG/50 ML MG IVPB ONE ×2 (01:11→04:19)
[2020-07-22 01:26] LABS: ALBUMIN 3.7 g/dl (3.4-5.0); BILIRUBIN,TOTAL 0.4 mg/dL (0.2-1); BLOOD UREA NITROGEN 80.9 mg/dL (7-18); CALCIUM 8.9 mg/dL (8.5-10.1); MAGNESIUM 2.6 mg/dL (1.8-2.4); PHOSPHOROUS 4.8 mg/dL (2.5-4.9); POTASSIUM 5.9 mmol/L (3.5-5.1); TOT PROT 7.8 g/dl (6.4-8.2)
--- NOTE | 2020-07-22 02:54 | HP ---
CHIEF COMPLAINT: presents with congestion,cough, phlegm, myalgias, shortness of breath, nausea without vomiting and abdominal pain PCP:Dr. Blankenship HISTORY OF PRESENT ILLNESS: 70 year old female with a past medical history of hypertension, hyperlipidemia, ESRD (on HD /), diabetes mellitus, s/p appendectomy, s/p hysterectomy who was BIBA c/o 3 days rhinorrhea, congestion, sneezing, cough productive of phlegm, myalgias, fatigue, SOB, nausea without vomiting, intermittent unknown type chest pains, and RUQ abdominal pain.She reported last dialysis Tuesday. She got flu shot on during dialysis. ER course notable for: EKG: sinus rhythm with 1st degree AV block, 78bpm, QTc 451ms, TWI aVL/V1, no ST elevations or depressions CXR: congestion, no significant changes or acute pathology Labs notable for K 5.9, CKD, chronic anemia, troponinemia (lower than baseline). US reviewed: FINDINGS: Right upper quadrant ultrasound:The liver is mildly fatty, without mass or biliary duct dilation. The gallbladder is underdistended and contain stones. There is a positive sonographic Elizalde sign but no wall thickening or pericholecystic fluid burden. Findings are mildly suspicious for cholecystitis. The CBD is not dilated and measures5 millimeters in diameter. Right kidney measures 8.0centimeters in length and is echogenic, suggesting medical renal disease, without stones or hydronephrosis for. The visualized aorta and IVC are normal. Pancreas is partially obscured, but appears normal. IMPRESSION: Mildly fatty liver. Mild suspicion for cholecystitis Atrophic right kidney, with probable medical renal disease but no hydronephrosis. Recent Travel: no PAST MEDICAL HISTORY: hypertension hyperlipidemia ESRD PAST SURGICAL HISTORY: s/p appendectomy sp hysterectomy Social History: Smoking:no Alcohol:no Drugs: no Allergies No Known Allergies Allergy (Verified 07/22/20 00:03) HOME MEDICATIONS: Home Medications Medication Instructions Recorded Folic Acid/Vit B Complex and C 0.8 mg PO DAILY 02/05/19 [Yue-Roberta Tablet] Gabapentin [Neurontin] 100 mg PO HS 02/05/19 Linaclotide [Linzess] 145 mcg PO DAILY 02/05/19 Omeprazole 20 mg PO DAILY 02/05/19 Sevelamer Carbonate [Renvela -] 1,600 mg PO TID 02/05/19 Simvastatin [Zocor -] 20 mg PO HS 02/05/19 Sitagliptin Phosphate [Januvia] 25 mg PO DAILY 02/05/19 oxyCODONE HCL [Oxycodone HCl] 5 mg PO DAILY PRN 02/05/19 Aspirin 81 mg PO DAILY #30 tab.chew 04/02/20 Sucralfate 1 gm PO TID 04/26/20 Carvedilol [Coreg -] 25 mg PO BID #120 tablet 04/30/20 Clonidine HCl [Catapres] 0.2 mg PO Q12H #120 tablet 04/30/20 Nifedipine [Procardia Xl] 90 mg PO DAILY #90 tab.sr 04/30/20 hydrALAZINE HCL [Apresoline -] 50 mg PO TID #180 tablet 04/30/20 REVIEW OF SYSTEMS CONSTITUTIONAL: Absent: fever, chills, diaphoresis, generalized weakness, malaise, loss of appetite, weight change HEENT: Absent: rhinorrhea, nasal congestion, throat pain, throat swelling, difficulty swallowing, mouth swelling, ear pain, eye pain, visual changes CARDIOVASCULAR: Absent: chest pain, syncope, palpitations, irregular heart rate, lightheadedness, peripheral edema RESPIRATORY: Absent: cough, shortness of breath, dyspnea with exertion, orthopnea, wheezing, stridor, hemoptysis GASTROINTESTINAL: Absent: abdominal pain, abdominal distension, nausea, vomiting, diarrhea, constipation, melena, hematochezia GENITOURINARY: Absent: dysuria, frequency, urgency, hesitancy, hematuria, flank pain, genital pain MUSCULOSKELETAL: Absent: myalgia, arthralgia, joint swelling, back pain, neck pain SKIN: Absent: rash, itching, pallor HEMATOLOGIC/IMMUNOLOGIC: Absent: easy bleeding, easy bruising, lymphadenopathy, frequent infections ENDOCRINE: Absent: unexplained weight gain, unexplained weight loss, heat intolerance, cold intolerance NEUROLOGIC: Absent: headache, focal weakness or paresthesias, dizziness, unsteady gait, seizure, mental status changes, bladder or bowel incontinence PSYCHIATRIC: Absent: anxiety, depression, suicidal or homicidal ideation, hallucinations. PHYSICAL EXAMINATION Vital Signs - 24 hr 07/21/20 07/22/20 23:59 02:36 Temperature 98.1 F Pulse Rate 81 Respiratory 20 Rate Blood Pressure 170/69 O2 Sat by Pulse 99 99 Oximetry (%) General no acute distress Vital signs reviewed afebrile Neck no JVD Lungs CTA nonlabored breathing effort no rales no wheezing Heart s1s2 rate regular no murmurs Abdomen soft tender to upper quadrant Extremities warm to touch no pitting edema no cyanosis Skin right forearm AV fistual Mood calm Laboratory Results - last 24 hr 07/22/20 07/22/20 07/22/20 00:43 00:43 00:43 WBC 9.1 RBC 2.96 L Hgb 8.6 L Hct 26.3 L MCV 88.8 MCH 29.1 MCHC 32.7 RDW 13.6 D Plt Count 183 MPV 8.9 Absolute Neuts (auto) 4.6 Neutrophils % 50.4 Lymphocytes % 33.5 Monocytes % 9.6 Eosinophils % 5.9 H Basophils % 0.6 Nucleated RBC % 0 PTT (Actin FS) 33.3 Sodium 138 Potassium 5.9 H Chloride 103 Carbon Dioxide 26 Anion Gap 9 BUN 80.9 H Creatinine 10.0 H* Est GFR (CKD-EPI)AfAm 4.06 Est GFR (CKD-EPI)NonAf 3.50 Random Glucose 112 H Calcium 8.9 Phosphorus 4.8 Magnesium 2.6 H Total Bilirubin 0.4 AST 15 ALT 19 Alkaline Phosphatase 111 Creatine Kinase 123 Troponin I 0.07 H Total Protein 7.8 Albumin 3.7 Lipase 120 Influenza A (Rapid) Influenza B (Rapid) 07/22/20 01:30 WBC RBC Hgb Hct MCV MCH MCHC RDW Plt Count MPV Absolute Neuts (auto) Neutrophils % Lymphocytes % Monocytes % Eosinophils % Basophils % Nucleated RBC % PTT (Actin FS) Sodium Potassium Chloride Carbon Dioxide Anion Gap BUN Creatinine Est GFR (CKD-EPI)AfAm Est GFR (CKD-EPI)NonAf Random Glucose Calcium Phosphorus Magnesium Total Bilirubin AST ALT Alkaline Phosphatase Creatine Kinase Troponin I Total Protein Albumin Lipase Influenza A (Rapid) Negative Influenza B (Rapid) Negative ASSESSMENT/PLAN: 70 year old female with a past medical history of hypertension, hyperlipidemia, ESRD (on HD /), diabetes mellitus, s/p appendectomy, s/p hysterectomy who presented with multiple symptoms of rhinorrhea, congestion, sneezing, cough productive of phlegm, myalgias, fatigue, SOB, nausea without vomiting, intermittent chest pains, and RUQ abdominal pain for the past three days. Admit to Med/Surg 1. Abdominal Pain secondary to mild suspicion for cholecystitis WBC, lipase and LFT's normal currently afebrile will hold giving IV antibiotics and will defer to Surgery keep NPO Surgery- Dr. El consulted 2. Hypertension SBP 170's resume home meds: coreg, hydralazine, clonidine and nefedipine 3. Hyperlipidemia LFT'S normal c/w statin therapy 4. ESRD/Hemodialysis hyperkalemia -due for dialysis today Nephrology consulted-Dr. Watkins monitor on telemetry 5. Anemia of Chronic Disease hgb/hct slightly below baseline repeat CBC in am continue to monitor 6. Elevated Troponin troponin 0.07 currently has no chest pain EKG with no signs of acute ischemia likely demand mediated ischemia repeat troponin in am c/w asa and statin therapy 7. Diabetes Mellitus check hgba1c BGM achs insulin as per sliding scale 8. Rule Out COVID follow up on COVID- PCR maintain strict isolation precautions for droplet and airborne maintain o2 sat >90% FEN no IVF as patient will undergo HD today BMP daily NPO DVT Prophylaxis heparin 5000U sq BID Family Medical History Family History: Unable to Obtain Visit type - Medication Review Med list reviewed for High Risk Meds patients 65 and older: Yes - Emergency Visit Emergency Visit: Yes ED Registration Date: 07/22/20 Care time: The patient presented to the Emergency Department on the above date and was hospitalized for further evaluation of their emergent condition. - New Patient This patient is new to me today: Yes Date on this admission: 07/22/20 - Critical Care Critical Care patient: No
--- OUTSIDE RECORDS SUMMARY | 2020-07-22 03:20 | XMS ---
:1950 Author Organization [facility] Care Team Providers Name Role Phone Emily, Helena Unavailable Unavailable Adore, José Unavailable Unavailable ED STAFF PHYSICIAN, STAFF Unavailable [...] Unavailable Unavailable Evan, Osama Unavailable Unavailable Care, Furniture Refinisher Unavailable Unavailable Myke, Thea Unavailable Unavailable Royer Sharma Unavailable Unavailable Re-disclosure [...] is protected by Article 27-F of the [facility] Public Health law. If you continue you may haveaccess to information: Regarding HIV / AIDS; Provided by facilities licensed or operated by the [facility] Office of Mental Health; or Provided by the [facility] Office for People With Developmental Disabilities. If such information is present, then the following [facility] mandated warning applies: This information has [...] law may result in a fine or fdc sentence or both. A general authorization for the release of medical or other information is NOT sufficient authorization for further disclosure. Allergies and Adverse Reactions Type Description Substance Reaction Status Data Source(s ) 3 NO KNOWN ALLERGIES Clindamycin 150 MG Oral NEXTGEN ([facility] Tablet [Clintabs] Medical - [facility] ) Encounters Encounter Providers Location Date Indications Data Source(s ) Outpatient Attender: Royer 06/06/2020 NEXTGEN ( [facility] BraunReferrer: Royer 01:30:00 [facility]) Outpatient Attender: Francisco 06/02/2020 NEXTGEN ([facility] CharlesReferrer: 02:30:00 PM [facility] [place] Wu [facility] Outpatient Attender: Helena 04/07/2020 NEXTGEN ([facility] BustamanteReferrer: 04:21:00 PM Medi flora - [place] [facility]) Outpatient Attender: Helena 03/11/2020 NEXTGEN ([facility] BustamanteReferrer: 09:49:00 AM Medi flora - [place] [facility]) Outpatient Attender: Francisco 11/05/2019 NEXTGEN ([facility] CharlesReferrer: 11:00:00 AM Medical - [place] [facility] Wu [facility]) Inpatient Attender: Sergo H-HAL5 10/28/2019 [facility] SayeghAttender: 05:29:00 AM Medical Center STAFF ED STAFF EST - PHYSICIANAdmitter: 10/31/2019 Osama 02:09:00 PM SayeghReferrer: EST Osaflavio Gordon Patient discharged. Emergency Attender: EDITH ED STAFF H 10/16/2019 02:08:00 PM [facility] PHYSICIANAttender: STAFF ED EST - 10/16/2019 Medical Center STAFF PHYSICIANAdmitter: EDITH 08:54:00 PM EST ED STAFF PHYSICIAN Patient discharged. Outpatient Attender: Francisco 08/28/2019 10:45:00 NEXTGEN ([facility] WuReferrer: Francisco CHAPMAN [facility]) Emergency H 07/15/2019 11:57:00 [facility] EDT - 07/15/2019 Jakee r 04:39:00 PM EDT Patient discharged. Outpatient Attender: Francisco 07/03/2019 10:30:00 NEXTGEN ([facility] BryceReferrer: Francisco OVIEDO [facility]) Outpatient Attender: Frnacisco 05/25/2019 10:00:00 NEXTGEN ([facility] CharlesReferrer: Francisco OVIEDO [facility]) Outpatient Attender: José 10/08/2018 12:00:00 NEXTGEN ([facility] LissReferrer: José Avitia AM [facility]) Outpatient Attender: José 09/08/2018 12:00:00 NEXTGEN ([facility] LissReferrer: José Avitia AM [facility]) Outpatient Attender: José 09/05/2018 12:00:00 NEXTGEN ([facility] LissReferrer: Thea FOUNTAIN [facility]) Medications Medication Brand Start Product Dose Route Administrative Pharmacy [facility] Indications Reaction Description Data Name Date Form [...] route Me dical - [place] [facility]) evening This may [...] route Me dical - [place] every day [facility]) This may be an active medication. No end date is available. Amlodipine 10 AMLODIPINE 04/25/2014 take 1 RP NEXTGEN MG Oral Tablet BESYLATE 12:00:00 AM tablet by ([facility] 10 mg 10 mg EDT mouth once Me dical - [place] daily for [place] Medi flora high blood Group PC) pressure [...] relationship to [facility] ormation type [facility] MEDICARE [id number] SP [id number] 18 8 MEDICAID [id number] SP [id number] MEDICARE [id number] SP [id number] 18 8 [employer] [id number] 1 [id number] Sciences Shannon [facility] Medicare [id number] 1 [id number] Part B Par 8 Providers M [id number] 01 [id number] 18 8 M [id number] 01 [id number] 18 8 W [id number] 01 [id number] M [id number] 01 [id number] 18 8 W [id number] 01 [id number] [employer] [id number] 1 [id number] Sciences Shannon MCAD Computer [id number] [employer] [facility] Medicare [id number] 1 [id number] Part B Par 8 Providers MEDICARE [id number] SP [id number] 18 8 ADD Medicaid [id number] 1 [id number] Q Only [facility] Medicare [id number] 1 [id number] Part B Par 8 Providers Problems, Conditions, and Diagnoses Code Display Name Description Problem Type Effective Data Dates Source(s) E11.311 Type 2 diabetes Diabetic macular Diagnosis 06/02/2020 NEX TGEN mellitus with edema 02:30:00 PM ([facility] unspecified EDT Medical - [facility] diabetic [facility] retinopathy with Group PC ) macular edema 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/2020 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 02:30:00 PM ([facility] cataract, cataract of both EDT Medical - [facility] bilateral eyes [facility]) E10.3553 Type 1 diabetes Stable Diagnosis 06/02/2020 NEXTGEN mellitus with proliferative 02:30:00 PM ([facility] unt stable diabetic EDT Medical - [facility] proliferative retinopathy of [facility] edical diabetic both eyes Group PC) retinopathy, associated with bilateral type 1 diabetes mellitus E11.22 Type 2 diabetes TYPE 2 DIABETES Diagnosis 10/31/2019 [facility] mellitus with MELLITUS W 02:09:00 PM Medical diabetic chronic DIABETIC CHRONIC EST Ce nter kidney disease KIDNEY DISEASE I12.0 Hypertensive HYP CHR KIDNEY Diagnosis 10/31/2019 [facility] chronic kidney DISEASE W STAGE 5 02:09:00 PM Me dical disease with stage CHR KIDNEY DISEASE EST Center 5 chronic kidney OR ESRD disease or end stage renal disease N18.6 End stage renal END STAGE RENAL Diagnosis 10/31/2019 [facility] disease DISEASE 02:09:00 PM Medical EST Center 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 10/31/2019 [facility] (current) use of (CURRENT) USE OF 02:09:00 PM M edical oral hypoglycemic ORAL HYPOGLYCEMIC EST Center drugs DRUGS 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 02:09:00 PM Medic [...] AM ([facility] with unspecified diabetes EDT [facility] diabetic [facility] retinopathy with Group PC ) macular edema Surgeries/Procedures Procedure Description Date Indications Data Source(s) Injection, Ranibizumab injection 06/02/2020 NEXTGE N ([facility] ranibizumab, 0.1 mg 12:00:00 AM [facility]) INJECTION EYE DRUG INJECTION EYE DRUG 06/02/2020 NEX TGEN ([facility] 12:00:00 AM [facility] EDT Medical Group P C) CPTR OPHTH DX IMG CPTR OPHTH DX IMG 06/02/2020 NEXTG EN ([facility] POST SEGMT POST SEGMT 12:00:00 [facility] DIL RETINA EXAM DIL RETINA EXAM 06/02/2020 NEXTGEN ( [facility] INTERP REV INTERP REV 12:00:00 AM [facility] EYE EXAM&TX ESTAB EYE EXAM&TX ESTAB PT 06/02/2020 NE XTGEN ([facility] PT 1/>VST 1/>VST 12:00:00 AM [facility] EDT Medical Group P C) OFFICE/OUTPATIENT OFFICE/OUTPATIENT 07/03/2019 NEXTG EN ([facility] VISIT EST VISIT EST 12:00:00 AM [facility] Results ID Date Data Source [id number] 04/22/2020 07:20:00 AM EDT [facility] Name Value Range Interpretation Description Data Sup porting Code Source(s) Document(s ) SARS [facility] coronavirus 2 RNA This lab was ordered by [facility] and reported by [facility]. ID Date Data Source [id number] 03/31/2020 04:11:00 PM EDT [facility] Name Value Range Interpretation Description Data Sup porting Code Source(s) Document(s ) SARS [facility] CORONAVIRUS 2 RNA This lab was ordered by [facility] and reported by [facility]. ID Date Data Source [id number] 03/01/2020 03:30:00 PM EDT [facility] Name Value Range Interpretation Description Data Sup porting Code Source(s) Document(s ) SARS [facility] CORONAVIRUS 2 RNA This lab was ordered by [facility] and reported by [facility]. ID Date Data Source Liver 10/31/2019 05:50:00 AM EST [facility] Profile.[id number] Name Value Range Interpretation Description Data Sup [...] s"> (38-126 IU/L)</content> ID Date Data Source HematologyRou.[id number] 10/31/2019 05:50:00 AM [facility] 0500 Name Value Range Interpretation Description Data [...] (0.0 KCUMM)</content > ID Date Data Source GFR(Creatinine).[id number] 10/31/2019 05:50:00 AM EST [facility] 0-0500 Name Value Range Interpretation Code Description Data Cathi rce(s) Supporting Document(s ) UNK > 60 Below low normal <content [facility] styleCode="Bold"> Medical Cent er EGFR </content>6 GFR L<content styleCode="Italic s"> (> 60 GFR)</content> ID Date Data Source ANDREA.[id number] 10/31/2019 05:50:00 AM [facility] -0500 Name Value Range Interpretation Description Data Sup porting Code Source(s) Document(s ) UNK >= 1.0 <content [facility] styleCode="Fabienne Stuart d">AG Ratio Medical </content>1.1 Center <content styleCode="Monika lics"> (>= 1.0 )</content> UNK 2.3-3.5 Above high normal <content [facility] styleCode="Fabienne [facility] d">Globulin Medical </content>3.6 Center G/DL H<content [...] (6.3-8.2 G/DL)</content > ID Date Data Source [facility].[id number] 10/31/2019 05:50:00 AM EST [facility] Name Value Range Interpretation [...] s"> (38-126 IU/L)</content> ID Date Data Source HematologyRou.[id number] 10/30/2019 12:23:00 PM EST [facility] 0500 Name Value Range Interpretation Description Data [...] low normal <content [facility] [Volume 0 styleCode="Bold [facility] Fraction] of ">Hematocrit Medical Blood by </content>27.0 [...] Data Source Liver 10/30/2019 11:00:00 AM EST [facility] Profile.[id number] Name Value Range Interpretation Description Data Sup [...] s"> (3.5-5.0 G/DL)</content> ID Date Data Source GFR(Creatinine).[id number] 10/30/2019 11:00:00 AM [facility] 0-0500 Name Value Range Interpretation Code Description Data Cathi rce(s) Supporting Document(s ) UNK > 60 Below low normal <content [facility] styleCode="Bold"> Medical Cent er EGFR </content>6 GFR L<content styleCode="Italic s"> (> 60 GFR)</content> ID Date Data Source CHMROUTINECCDA.[id number] 10/30/2019 11:00:00 AM [facility] -0500 Name Value Range Interpretation Description [...] t> Lipase 23-300 <content [facility] [Enzymatic styleCode="Fabienne [facility] activity/volu d">Lipase Medical me] in Serum </content>235 Center or Plasma IU/L<content styleCode="Monika lics"> (23-300 IU/L)</content > Magnesium 1.6-2.3 <content Saint [Mass/volume] styleCode="Fabienne [facility] in Serum or d">Magnesium Medical Plasma </content>1.8 Center MG/DL<content styleCode="Monika lics"> (1.6-2.3 MG/DL)</conten t> ID Date Data Source [facility].[id number] 10/30/2019 11:00:00 AM EST [facility] Name Value Range Interpretation Description [...] Data Source Liver 10/29/2019 06:20:00 AM EST [facility] Profile.[id number] Name Value Range Interpretation Description Data Sup [...] s"> (3.5-5.0 G/DL)</content> ID Date Data Source LIPID.[id number] 10/29/2019 06:20:00 AM EST [facility] Name Value Range Interpretation Description Data [...] 60 MG/DL)</conten t> ID Date Data Source HematologySpeci.[id number] 10/29/2019 06:20:00 AM [facility] 0-0500 Name Value Range Interpretation Description Data Sup porting Code Source(s) Document(s ) C reactive < 3.0 Above high normal <content [place] hs protein styleCode="Bold Medical [Mass/volume ">C-Reactive Center ] in Serum Protein or Plasma </content>> 15.00 MG/L H<content styleCode="Ital ics"> (< 3.0 MG/L)</content> ID Date Data Source HematologyRou.[id number] 10/29/2019 06:20:00 AM [facility] 0500 Name Value Range Interpretation Description [...] (< 1 %)</content> ID Date Data Source GFR(Creatinine).[id number] 10/29/2019 06:20:00 AM EST [facility] 0-0500 Name Value Range Interpretation Code Description Data Cathi rce(s) Supporting Document(s ) UNK > 60 Below low normal <content [facility] styleCode="Bold"> Medical Cent er EGFR </content>6 GFR L<content styleCode="Italic s"> (> 60 GFR)</content> ID Date Data Source CHMROUTINECCDA.[id number] 10/29/2019 06:20:00 AM [facility] -[facility]00 Name Value Range Interpretation Description Data [...] > Phosphate 2.5-4.5 <content Saint [Mass/volume] styleCode="Fabienne Patinos in Serum or d">Phosphorus Medical Plasma </content>3.7 Center MG/DL<content styleCode="Monika lics"> (2.5-4.5 MG/DL)</conten t> ID Date Data Source [facility].[id number] 10/29/2019 06:20:00 AM EST [facility] Name Value Range Interpretation Description Data Sup porting Code Source(s) Document(s ) Potassium 3.5-5.3 <content [facility] [Moles/volume] in styleCode="Bold"> Chritsian phs Serum or Plasma Potassium Medical </content>4.5 [...] s"> (3.5-5.0 G/DL)</content> ID Date Data Source Urinalysis.[id number] 10/28/2019 12:33:00 PM EST [facility] 0 Name Value Range Interpretation Description Data [...] by Test d">Urine Medical strip Specific Center [place] </content>1.01 5 <content styleCode="Monika lics"> (1.015-1.025 )</content> [...] lics"> (0-3 HPF)</content> ID Date Data Source Microbiology.[id number] 10/28/2019 12:33:00 PM EST [facility] 500 Name Value Range Interpretation Code Description Data Cathi rce(s) Supporting Document(s ) UNK <item><content [facility] styleCode="Bold"> Medical Cent er Culture Report </content>
<t able><tbody><tr>< td>Specimen Number:</td><td>[id number]</td></tr ><tr><td>Sample Collection Date/Time: </td><td> 0 12:33 PM</td></tr><tr>< td>Specimen Source:</td><td>U RINE BLADDER</td></tr> <tr><td>Urine Culture:</td><td> Collection Plate Date: 10/28/2019 12:41 </td></tr><tr><td >Culture Status:</td><td>F inal </td></tr><tr><td >Culture Report:</td><td>N O GROWTH </td></tr></tbody ></table></item> UNK <item><content [facility] styleCode="Bold"> Medical [facility] Culture Status </content>
<t able><tbody><tr>< td>Specimen Number:</td><td>[id number]</td></tr ><tr><td>Sample Collection Date/Time: </td><td> 0 12:33 PM</td></tr><tr>< td>Specimen Source:</td><td>U RINE BLADDER</td></tr> <tr><td>Culture Status:</td><td>F inal </td></tr><tr><td >Culture Report:</td><td>N O GROWTH </td></tr><tr><td >Urine Culture:</td><td> Collection Plate Date: 10/28/2019 12:41 </td></tr></tbody ></table></item> ID Date Data Source CHMROUTINECCDA.[id number] 10/28/2019 10:43:00 AM EST [facility] -[facility]00 Name Value Range Interpretation Code Description Data Cathi rce(s) Supporting Document(s ) UNK 0.7-2.0 <content [facility] styleCode="Bold" Medical Cente r >Lactic Acid 4hr </content>0.7 MMOLL<content styleCode="Itali cs"> (0.7-2.0 MMOLL)</content> ID Date Data Source GFR(Creatinine).[id number] 10/28/2019 10:15:00 AM EST [facility] 0-0500 Name Value Range Interpretation Code Description Data Cathi rce(s) Supporting Document(s ) UNK > 60 Below low normal <content [facility] styleCode="Bold"> Medical Cent er EGFR </content>9 GFR L<content styleCode="Italic s"> (> 60 GFR)</content> ID Date Data Source BMP.[id number] 10/28/2019 10:15:00 AM EST [facility] Name Value Range Interpretation Description Data Sup [...] t> Potassium 3.5-5.3 <content [facility] [Moles/volume] styleCode="Fabienne [facility] in Serum or d">Potassium Medical Plasma </content>3.9 [...] (74-106 MG/DL)</conten t> ID Date Data Source Microbiology.[id number] 10/28/2019 07:40:00 AM EST [facility] 500 Name Value Range Interpretation Code Description Data Cathi rce(s) Supporting Document(s ) UNK <item><content [facility] styleCode="Bold"> Medical Cent er Culture Report </content>
<t able><tbody><tr>< td>Specimen Number:</td><td>[id number]</td></tr ><tr><td>Sample Collection Date/Time: </td><td> 0 7:40 AM</td></tr><tr>< td>Specimen Source:</td><td>B LOOD</td></tr><tr ><td>Blood Culture:</td><td> Collection Plate Date: 10/28/2019 10:00 </td></tr><tr><td >Culture Status:</td><td>P reliminary </td></tr><tr><td >Culture Report:</td><td>N O GROWTH AFTER 48 HOURS </td></tr></tbody ></table></item> UNK <item><content [facility] styleCode="Bold"> Medical Cent er Culture Status </content>
<t able><tbody><tr>< td>Specimen Number:</td><td>[id number]</td></tr ><tr><td>Sample Collection Date/Time: </td><td> 0 7:40 AM</td></tr><tr>< td>Specimen Source:</td><td>B LOOD</td></tr><tr ><td>Blood Culture:</td><td> Collection Plate Date: 10/28/2019 10:00 </td></tr><tr><td >Culture Report:</td><td>N O GROWTH AFTER 48 HOURS </td></tr><tr><td >Culture Status:</td><td>P reliminary </td></tr></tbody ></table></item> ID Date Data Source Microbiology.[id number] 10/28/2019 07:28:00 AM EST [facility] 500 Name Value Range Interpretation Code Description Data Cathi rce(s) Supporting Document(s ) UNK <item><content [facility] styleCode="Bold"> Medical Cent er Culture Report </content>
<t able><tbody><tr>< td>Specimen Number:</td><td>[id number]</td></tr ><tr><td>Sample Collection Date/Time: </td><td> 0 7:28 AM</td></tr><tr>< td>Specimen Source:</td><td>B LOOD</td></tr><tr ><td>Blood Culture:</td><td> Collection Plate Date: 10/28/2019 07:33 </td></tr><tr><td >Culture Status:</td><td>P reliminary </td></tr><tr><td >Culture Report:</td><td>N O GROWTH AFTER 48 HOURS </td></tr></tbody ></table></item> UNK <item><content [facility] styleCode="Bold"> Medical Cent er Culture Status </content>
<t able><tbody><tr>< td>Specimen Number:</td><td>[id number]</td></tr ><tr><td>Sample Collection Date/Time: </td><td> 0 7:28 AM</td></tr><tr>< td>Specimen Source:</td><td>B LOOD</td></tr><tr ><td>Culture Report:</td><td>N O GROWTH AFTER 48 HOURS </td></tr><tr><td >Culture Status:</td><td>P reliminary </td></tr><tr><td >Blood Culture:</td><td> Collection Plate Date: 10/28/2019 07:33 </td></tr></tbody ></table></item> ID Date Data Source CHMROUTINECCDA.[id number] 10/28/2019 07:28:00 AM EST [facility] -0500 Name Value Range Interpretation Description Data Sup porting Code Source(s) Document(s ) Lactate 0.7-2.0 <content [facility] [Mass/volum styleCode="Bold Medical e] in Serum ">Lactic Acid Center or Plasma </content>0.8 MMOLL<content styleCode="Ital ics"> (0.7-2.0 MMOLL)</content > ID Date Data Source Liver 10/28/2019 07:13:00 AM EST [facility] Profile.[id number] Name Value Range Interpretation Description Data Sup [...] s"> (0.0-0.3 MG/DL)</content> ID Date Data Source HematologyRou.[id number] 10/28/2019 07:13:00 AM [facility] 0500 Name Value Range Interpretation Description Data [...] (< 1 %)</content> ID Date Data Source GFR(Creatinine).[id number] 10/28/2019 07:13:00 AM EST [facility] 0-0500 Name Value Range Interpretation Code Description Data Cathi rce(s) Supporting Document(s ) UNK > 60 Below low normal <content [facility] styleCode="Bold"> Medical Cent er EGFR </content>10 GFR L<content styleCode="Italic s"> (> 60 GFR)</content> ID Date Data Source Coagulation 10/28/2019 07:13:00 AM [facility] ical Center Rout.[id number] EST Name Value Range Interpretation Description Data Sup porting Code Source(s) Document(s ) UNK 9.0-13.0 <content [facility] styleCode="Bold" [facility] >Protime Medical </content>12.3 Center SEC<content styleCode="Itali cs"> (9.0-13.0 SEC)</content> aPTT in 25.1-36. <content [facility] Platelet poor 5 styleCode="Bold" [facility] plasma by >Partial Medical Coagulation Thromboplastin Center assay Time </content>30.4 SEC<content styleCode="Itali cs"> (25.1-36.5 SEC)</content> INR in 0.80-1.2 <content [facility] Platelet poor 0 styleCode="Bold" [place] plasma by >INR Medical Coagulation </content>1.11 Center assay #<content styleCode="Itali cs"> (0.80-1.20 #)</content> ID Date Data Source CardiacMarkers.[id number] 10/28/2019 07:13:00 AM [facility] -[facility]00 Name Value Range Interpretation Description Data [...] 0.034 NG/ML)</content > ID Date Data Source BMP.[id number] 10/28/2019 07:13:00 AM EST [facility] Name Value Range Interpretation Description Data Sup [...] s"> (3.5-5.0 G/DL)</content> ID Date Data Source CHMROUTINECCDA.[id number] 10/28/2019 07:13:00 AM [facility] -0500 Name Value Range Interpretation Description Data Sup porting Code Source(s) Document(s ) Lipase 23-300 Above high normal <content [facility] [Enzymatic styleCode="Bold Medical activity/vo ">Lipase Center lume] in </content>601 Serum or IU/L H<content Plasma styleCode="Ital ics"> (23-300 IU/L)</content> UNK 30-110 Above high normal <content [place] s styleCode="Bold Medical ">Amylase Center </content>193 IU/L H<content styleCode="Ital ics"> (30-110 IU/L)</content> ID Date Data Source Liver 10/16/2019 03:33:00 PM EST [facility] Profile.[id number] Name Value Range Interpretation Description Data Sup [...] s"> (3.5-5.0 G/DL)</content> ID Date Data Source HematologyRou.[id number] 10/16/2019 03:33:00 PM EST [facility] 0500 Name Value Range Interpretation Description Data [...] ics"> (8.0-11.0 FL)</content> ID Date Data Source GFR(Creatinine).[id number] 10/16/2019 03:33:00 PM EST [facility] 0-0500 Name Value Range Interpretation Code Description Data Cathi rce(s) Supporting Document(s ) UNK > 60 Below low normal <content [facility] styleCode="Bold"> Medical Cent er EGFR </content>4 GFR L<content styleCode="Italic s"> (> 60 GFR)</content> ID Date Data Source CHMROUTINECCDA.[id number] 10/16/2019 03:33:00 PM [facility] -0500 Name Value Range Interpretation Description Data Sup porting Code Source(s) Document(s ) Lipase 23-300 <content [facility] [Enzymatic styleCode="Bold Medical activity/vo ">Lipase Center lume] in </content>155 Serum or IU/L<content Plasma styleCode="Ital ics"> (23-300 IU/L)</content> UNK 30-110 Above high normal <content [facility] styleCode="Bold Medical ">Amylase Center </content>156 IU/L H<content styleCode="Ital ics"> (30-110 IU/L)</content> Lactate 0.7-2.0 <content [facility] [Mass/volum styleCode="Bold Medical e] in Serum ">Lactic Acid Center or Plasma </content>0.8 MMOLL<content styleCode="Ital ics"> (0.7-2.0 MMOLL)</content > ID Date Data Source CardiacMarkers.[id number] 10/16/2019 03:33:00 PM EST [facility] Name Value Range Interpretation Description Data Sup porting Code Source(s) Document(s ) Troponin < 0.034 <content [facility] I.cardiac styleCode="Bold [facility] [Mass/volume ">Troponin I Medical ] in Serum </content>< Center or Plasma 0.012 NG/ML<content styleCode="Ital ics"> (< 0.034 NG/ML)</content > ID Date Data Source [facility] [place].[id number] 10/16/2019 03:33:00 PM EST [facility] Name Value Range Interpretation Description Data Sup porting Code Source(s) Document(s ) Sodium 137-145 Below low <content Saint [Moles/volume] in normal styleCode="Bold"> [facility] Serum or Plasma Sodium Medical </content>136 Center MEQ/L L<content styleCode="Italic s"> (137-145 MEQ/L)</content> Chloride 98-107 Below low <content Saint [Moles/volume] in normal styleCode="Bold"> [facility] Serum or Plasma Chloride Medical </content>96 Center MEQ/L L<content styleCode="Italic s"> (98-107 MEQ/L)</content> Potassium 3.5-5.3 <content Saint [Moles/volume] in styleCode="Bold"> [facility] Serum or Plasma Potassium Medical </content>4.8 [...] Data Source Liver 07/15/2019 12:47:00 PM EDT [facility] Profile.[id number] Name Value Range Interpretation Description Data Sup [...] s"> (3.5-5.0 G/DL)</content> ID Date Data Source HematologyRou.[id number] 07/15/2019 12:47:00 PM EDT [facility] 0400 Name Value Range Interpretation Description [...] (0.0 KCUMM)</content > ID Date Data Source GFR(Creatinine).[id number] 07/15/2019 12:47:00 PM EDT [facility] 0-0400 Name Value Range Interpretation Code Description Data Cathi rce(s) Supporting Document(s ) UNK > 60 Below low normal <content [facility] styleCode="Bold"> Medical Cent er EGFR </content>5 GFR L<content styleCode="Italic s"> (> 60 GFR)</content> ID Date Data Source [facility].[id number] 07/15/2019 12:47:00 PM EDT [facility] -0400 Name Value Range Interpretation Description Data Sup porting Code Source(s) Document(s ) UNK 30-110 Above high normal <content [place] s styleCode="Bold Medical ">Amylase Center </content>174 IU/L H<content styleCode="Ital ics"> (30-110 IU/L)</content> Lipase 23-300 <content [facility] [Enzymatic styleCode="Bold Medical activity/vo ">Lipase Center lume] in </content>52 Serum or IU/L<content Plasma styleCode="Ital ics"> (23-300 IU/L)</content> ID Date Data Source [facility]iacMarkers.[id number] 07/15/2019 12:47:00 PM EDT [facility] -0400 Name Value Range Interpretation Description Data Sup porting Code Source(s) Document(s ) Troponin < 0.034 <content [facility] I.cardiac styleCode="[facility] [place] [Mass/volume ">Troponin I Medical ] in Serum </content>< Center or Plasma 0.012 NG/ML<content styleCode="Ital ics"> (< 0.034 NG/ML)</content > ID Date Data Source [facility] [place].[id number] 07/15/2019 12:47:00 PM EDT [facility] Name Value Range Interpretation Description [...] <content Saint [Mass/volume] in panic limits styleCode="Bold"> [facility] Serum or Plasma Creatinine Medical </content><conten Center [...] Interpretation Code Description Data Source(s) Body temperature 36.121092 36.071924 [facility] Respiratory rate 20 /min 20 /min [facility] Heart rate 88 /min 88 /min [facility] Diastolic blood 78 mm[Hg] 78 mm[Hg] [facility] Systolic blood 163 mm[Hg] 163 mm[Hg] [facility] Body temperature 36.605155 36.865525 [facility] Respiratory rate 18 /min 18 /min [facility] Oxygen saturation 96 % 96 % [facility] in Arterial blood Medical Center by Pulse oximetry Heart rate 76 /min 76 /min [facility] Diastolic blood 69 mm[Hg] 69 mm[Hg] [facility] pressure Medical Center Systolic blood 157 mm[Hg] 157 mm[Hg] [facility] Body temperature 36.656378 36.202644 [facility] Respiratory rate 18 /min 18 /min [facility] Heart rate 77 /min 77 /min [facility] Diastolic blood 69 mm[Hg] 69 mm[Hg] [facility] Center Systolic blood 155 mm[Hg] 155 mm[Hg] [facility] Body temperature 36.928546 36.185549 [facility] Respiratory rate 18 /min 18 /min [facility] Heart rate 87 /min 87 /min [facility] Diastolic blood 72 mm[Hg] 72 mm[Hg] [facility] Center Systolic blood 146 mm[Hg] 146 mm[Hg] [facility] Body temperature 36.946010 36.733053 [facility] Respiratory rate 18 /min 18 /min [facility] Heart rate 88 /min 88 /min [facility] Diastolic blood 69 mm[Hg] 69 mm[Hg] [facility] Center Systolic blood 177 mm[Hg] 177 mm[Hg] [facility] Body weight 77.456215 kg 77.128824 kg [facility] Measured [facility] Center Body height 165.427481 165.179550 cm [facility] Body mass index 28.43 kg/m2 28.43 [facility]2 [facility] ([facility] [Ratio[facility] Medical [facility] ter Body weight 77.617393 kg 77.840683 kg [facility] Measured [facility] Center Body height 165.632892 165.615198 cm [facility] Body mass index 28.43 kg/m2 28.43 kg/m2 [facility] (BMI) [Ratio] Medical [facility] ter Body temperature 37.458907 37.975310 [facility] Respiratory rate 18 /min 18 /min [facility] Heart rate 84 /min 84 /min [facility] Diastolic blood 63 mm[Hg] 63 mm[Hg] [facility] pressure Medical Center Systolic blood 112 mm[Hg] 112 mm[Hg] [facility] Heart rate 83 /min 83 /min [facility] Diastolic blood 76 mm[Hg] 76 mm[Hg] [facility] Center Systolic blood 166 mm[Hg] 166 mm[Hg] [facility] Body weight 77.975957 kg 77.663041 kg [facility] Body height 165.065601 165.934638 cm [facility] Medical [place] Body mass index 28.46 kg/m2 28.46 kg/m2 [facility] (BMI) [Ratio] Medical [address] Body temperature 37.517085 37.882939 [facility] Respiratory rate 20 /min 20 /min [facility] Heart rate 88 /min 88 /min [facility] Diastolic blood 86 mm[Hg] 86 mm[Hg] [facility] Center Systolic blood 207 mm[Hg] 207 mm[Hg] [facility] Oxygen saturation 98 % 98 % [facility] in Arterial blood [facility] Center by Pulse oximetry Body temperature 37.360162 37.625470 [facility] Respiratory rate 18 /min 18 /min [facility] Heart rate 81 /min 81 /min [facility] Oxygen saturation 100 % 100 % [facility] in Arterial blood [facility] by Pulse oximetry Body temperature 36.543853 36.291524 [facility] Respiratory rate 17 /min 17 /min [facility] Heart rate 81 /min 81 /min [facility] Diastolic blood 82 mm[Hg] 82 mm[Hg] [facility] Center Systolic blood 165 mm[Hg] 165 mm[Hg] [facility] Oxygen saturation 99 % 99 % [facility] in Arterial blood [facility] by Pulse oximetry Body temperature 37.511011 37.404322 [facility] Respiratory rate 20 /min 20 /min [facility] Diastolic blood 86 mm[Hg] 86 mm[Hg] [facility] Medical Center Systolic blood 116 mm[Hg] 116 mm[Hg] [facility] Oxygen saturation 99 % 99 % [facility] in Arterial blood [facility] Center by Pulse oximetry Oxygen saturation 100 % 100 % [facility] in Arterial blood [facility] by Pulse oximetry Body temperature 36.237857 36.503603 [facility] Respiratory rate 20 /min 20 /min [facility] Heart rate 70 /min 70 /min [facility] Diastolic blood 74 mm[Hg] 74 mm[Hg] [facility] pressure Medical Center Systolic blood 145 mm[Hg] 145 mm[Hg] [facility] Body weight 86.848793 kg 86.769987 kg [facility] Body temperature 36.754984 36.243622 [facility] Respiratory rate 18 /min 18 /min [facility] Oxygen saturation 99 % 99 % [facility] in [facility] blood [facility] Center by Pulse oximetry Heart rate 67 /min 67 /min [facility] Body height 165.803651 165.207445 cm [facility] Medical [place] Diastolic blood 60 mm[Hg] 60 mm[Hg] [facility] Medical Center Systolic blood 108 mm[Hg] 108 mm[Hg] [facility] Body mass index 31.6 kg/m2 31.6 kg/m2 [facility] (BMI) [Ratio] Medical [address] Body temperature 36.611510 36.515329 [facility] Respiratory rate 17 /min 17 /min [facility] Oxygen saturation 100 % 100 % [facility] in [facility] blood [facility] by Pulse oximetry Heart rate 61 /min 61 /min [facility] Diastolic blood 64 mm[Hg] 64 mm[Hg] [facility] pressure Medical Center Systolic blood 139 mm[Hg] 139 mm[Hg] [facility] Respiratory rate 17 /min 17 /min [facility] Heart rate 61 /min 61 /min [facility] Diastolic blood 89 mm[Hg] 89 mm[Hg] [facility] Medical Center Systolic blood 207 mm[Hg] 207 mm[Hg] [facility] Body temperature 36.287125 36.066891 [facility] Respiratory rate 17 /min 17 /min [facility] Oxygen saturation 100 % 100 % [facility] in Arterial blood [facility] Center by Pulse oximetry Heart rate 56 /min 56 /min [facility] Diastolic blood 105 mm[Hg] 105 mm[Hg] [facility] pressure Medical Center Systolic blood 213 mm[Hg] 213 mm[Hg] [facility] pressure Medical Center
[2020-07-22] MEDS ORDERED: oxyCODONE HCL 5 MG TABLET PO PRN (03:43)
[2020-07-22] MEDS ORDERED: hydrALAZINE HCL 50 MG TABLET (FP) PO SCH (06:00)
[2020-07-22] MEDS ORDERED: SUCRALFATE 1 GM TABLET (FP) PO SCH (07:00)
[2020-07-22] MEDS: INSULIN SLIDING SCALE (NOVOLOG) 1 VIAL SQ SCH ×3 (08:21→18:37)
[2020-07-22] MEDS ORDERED: SUCRALFATE 1 GM TABLET (FP) ONE (09:01)
[2020-07-22] MEDS: hydrALAZINE HCL 50 MG TABLET (FP) PO SCH ×2 (09:20→15:40)
[2020-07-22] MEDS: SEVELAMER CARBONATE 800 MG TAB (FP) PO SCH ×3 (09:21→18:37)
[2020-07-22] MEDS ORDERED: NIFEdipine E.R. 90 MG TABLET PO SCH (10:00)
[2020-07-22] MEDS ORDERED: ASPIRIN 81 MG CHEWABLE TABLETS PO SCH (10:00)
[2020-07-22] MEDS ORDERED: PANTOPRAZOLE 20 MG TABLET PO SCH ×2 (10:00→13:24)
[2020-07-22] MEDS ORDERED: CARVEDILOL 25 MG TABLET (FP) PO SCH (10:00)
[2020-07-22] MEDS ORDERED: VITAMIN B COMP W-C 1 EA TABLET (NEPHRO-VITE) PO SCH (10:00)
[2020-07-22] MEDS ORDERED: cloNIDine HCL 0.1 MG TABLET PO SCH (10:00)
--- NOTE | 2020-07-22 10:03 | CONSULT ---
<lucasMatilda - Last Filed: 07/22/20 12:11> - Consultation REQUESTING PROVIDER: CONSULT REQUEST: We have been asked to surgically evaluate this patient for RUQ pain r/o gallstones. Hospitalist:Amira Samuel MD HISTORY OF PRESENT ILLNESS: The patient is a 70 yo female who presented to the Er with complaints of SOB, fevers, cough and chest pain. She is having some upper abd/epigastric pain when she came to ER but is now not having pain and is hungry. She states that her last bm was yesterday. The patien tis on dialysis schedule. last Hd was tuesday. PMHx: ESRD, DM, hyperlipidemia, HTN PSHx: appendectomy, hysterectomy, RUE fistula Home Medications Medication Instructions Recorded Folic Acid/Vit B Complex and C 0.8 mg PO DAILY 02/05/19 [Yue-Roberta Tablet] Gabapentin [Neurontin] 100 mg PO HS 02/05/19 Linaclotide [Linzess] 145 mcg PO DAILY 02/05/19 Omeprazole 20 mg PO DAILY 02/05/19 Sevelamer Carbonate [Renvela -] 1,600 mg PO TID 02/05/19 Simvastatin [Zocor -] 20 mg PO HS 02/05/19 Sitagliptin Phosphate [Januvia] 25 mg PO DAILY 02/05/19 oxyCODONE HCL [Oxycodone HCl] 5 mg PO DAILY PRN 02/05/19 Aspirin 81 mg PO DAILY #30 tab.chew 04/02/20 Sucralfate 1 gm PO TID 04/26/20 Carvedilol [Coreg -] 25 mg PO BID #120 tablet 04/30/20 Clonidine HCl [Catapres] 0.2 mg PO Q12H #120 tablet 04/30/20 Nifedipine [Procardia Xl] 90 mg PO DAILY #90 tab.sr 04/30/20 hydrALAZINE HCL [Apresoline -] 50 mg PO TID #180 tablet 04/30/20 Allergies Allergy/AdvReac Type Severity Reaction Status Date / Time No Known Allergies Allergy Verified 07/22/20 00:03 REVIEW OF SYSTEMS: CONSTITUTIONAL: Present: fever, chills CARDIOVASCULAR: present: chest pain RESPIRATORY: Present: cough, shortness of breath GASTROINTESTINAL: Absent: abdominal pain PHYSICAL EXAM: GENERAL: Awake, alert, and fully oriented, in no acute distress. Heent: sclera non-icteric ABDOMEN: Soft, nontender, not distended, no guarding, no rebound, no masses. PSYCH: Cooperative. Good eye contact. Appropriate mood and affect. Vital Signs Temperature 97.8 F 07/22/20 05:53 Pulse Rate 86 07/22/20 05:53 Respiratory Rate 22 H 07/22/20 05:53 Blood Pressure 158/62 07/22/20 05:53 O2 Sat by Pulse Oximetry (%) 100 07/22/20 05:53 Lab Results WBC 9.1 K/mm3 (4.0-10.0) 07/22/20 00:43 RBC 2.96 M/mm3 (3.60-5.2) L 07/22/20 00:43 Hgb 8.6 GM/dL (10.7-15.3) L 07/22/20 00:43 Hct 26.3 % (32.4-45.2) L 07/22/20 00:43 MCV 88.8 fl (80-96) 07/22/20 00:43 MCHC 32.7 g/dl (32.0-36.0) 07/22/20 00:43 RDW 13.6 % (11.6-15.6) D 07/22/20 00:43 Plt Count 183 K/MM3 (134-434) 07/22/20 00:43 Sodium 138 mmol/L (136-145) 07/22/20 00:43 Potassium 5.9 mmol/L (3.5-5.1) H 07/22/20 00:43 Chloride 103 mmol/L (98-107) 07/22/20 00:43 Carbon Dioxide 26 mmol/L (21-32) 07/22/20 00:43 Anion Gap 9 MMOL/L (8-16) 07/22/20 00:43 BUN 80.9 mg/dL (7-18) H 07/22/20 00:43 Creatinine 10.0 mg/dL (0.55-1.3) H* 07/22/20 00:43 Random Glucose 112 mg/dL (74-106) H 07/22/20 00:43 Calcium 8.9 mg/dL (8.5-10.1) 10/13/20 00:43 US: cholelithiasis, no evidence intra hepatic dilatation CXR: congestive findings, enlarged heart Laboratory Tests 07/22/20 07/22/20 01:30 01:30 COVID-19 (ERNESTINA) Pending Influenza A (Rapid) Negative Influenza B (Rapid) Negative Laboratory Tests 07/22/20 00:43 Total Bilirubin 0.4 AST 15 ALT 19 Alkaline Phosphatase 111 Creatine Kinase 123 Troponin I 0.07 H Lipase 120 Problem List - Problems (1) Gallstones Assessment/Plan: Pt seen today with Dr. El and she remains non-tender. Chart reviewed and she has no recorded fever or elevated WBC or LFTs Recommend trial of clears, if abd pain/nausea and or fevers persist further imaging with HIDA may be beneficial. Problems reviewed: Yes Code(s): K80.20 - CALCULUS OF GALLBLADDER W/O CHOLECYSTITIS W/O OBSTRUCTION <José El - Last Filed: 07/29/20 12:07> - Consultation Attending Surgeon: I personally saw and examined the patient. My examination reveals a patient with abdominal pain. I discussed the case with the surgical PA and agree with their findings and plan of care with any exceptions as noted. ~ José El MD, FACS
--- NOTE | 2020-07-22 10:03 | EKG ---
Test Reason : Blood Pressure : / mmHG Vent. Rate : 078 BPM Atrial Rate : 078 BPM P-R Int : 214 ms QRS Dur : 094 ms QT Int : 396 ms P-R-T Axes : 053 029 073 degrees QTc Int : 451 ms SINUS RHYTHM WITH 1ST DEGREE A-V BLOCK ANTERIOR INFARCT , AGE UNDETERMINED ABNORMAL ECG WHEN COMPARED WITH ECG OF 26-APR-2020 08:22, NO SIGNIFICANT CHANGE WAS FOUND Confirmed by MD David, Leon ([id number]) on 07/22/2020 10:03:12 AM Referred By: Confirmed By:Leon Hernandez MD
[2020-07-22] MEDS ORDERED: ASPIRIN 81 MG CHEWABLE TABLETS ONE (10:35)
[2020-07-22] MEDS ORDERED: CARVEDILOL 12.5 MG TABLET (FP) ONE (10:36)
[2020-07-22] MEDS ORDERED: cloNIDine HCL 0.1 MG TABLET ONE (10:36)
[2020-07-22] MEDS ORDERED: PANTOPRAZOLE 20 MG TABLET PO ONE (10:41)
[2020-07-22] MEDS ORDERED: SODIUM CHLORIDE 250 ML IV PRN (11:10)
[2020-07-22] MEDS ORDERED: EPOETIN ALFA-EPBX 4,000 UNIT/ML VIAL IVPUSH ONE (11:10)
--- NOTE | 2020-07-22 11:11 | CONSULT ---
Consult Consult Specialty:: Nephrology Reason for Consultation:: ESRD - History of Present Illness Chief Complaint: shortness of breath History of Present Illness: PT is a 70 year old female with pmhx of esrd, dm, anemia, and htn who presents with shortness of breath. She also complains of rhinorrhea. She is unable to lay down flat. She was found to be hyperkalemic as well. She was last dialyzed on Sat when they removed 3 liters. She denies chest pain. She does complain of RUQ pain. SHe denies nausea or vomiting. SHe has appetite and is asking for food. - History Source History Provided By: Patient - Past Medical History Cardio/Vascular: Yes: CAD, CHF (diastolic, has 55% EF), HTN, Hyperlipdemia Pulmonary: Yes: Asthma, Bronchitis Gastrointestinal: Yes: GERD, Other (s/p appendectomy on 02/06/2019 - laparoscopic appendectomy for enlarged, inflamed, bulbous-ended appendix) Hepatobiliary: Yes: Cholelithiasis Renal/: Yes: Renal Failure, Hemodialysis Musculoskeletal: Yes: Osteoarthritis Endocrine: Yes: Diabetes Mellitus - Past Surgical History Past Surgical History: Yes: Appendectomy, AV Fistula/Graft (RUE), Hysterectomy - Alcohol/Substance Use Hx Alcohol Use: No History of Substance Use: reports: None - Smoking History Smoking history: Never smoked Have you smoked in the past 12 months: No - Social History Usual Living Arrangement: Assisted Living ADL: Independent 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 History of Recent Travel: No Home Medications - Allergies Allergies/Adverse Reactions: Allergies Allergy/AdvReac Type Severity Reaction Status Date / Time No Known Allergies Allergy Verified 07/22/20 00:03 - Home Medications Home Medications: Ambulatory Orders Folic Acid/Vit B Complex and C [Yue-Roberta Tablet] 0.8 mg PO DAILY 02/05/19 Gabapentin [Neurontin] 100 mg PO HS 02/05/19 Linaclotide [Linzess] 145 mcg PO DAILY 02/05/19 Omeprazole 20 mg PO DAILY 02/05/19 Sevelamer Carbonate [Renvela -] 1,600 mg PO TID 02/05/19 Simvastatin [Zocor -] 20 mg PO HS 02/05/19 Sitagliptin Phosphate [Januvia] 25 mg PO DAILY 02/05/19 oxyCODONE HCL [Oxycodone HCl] 5 mg PO DAILY PRN 02/05/19 Aspirin 81 mg PO DAILY #30 tab.chew 04/02/20 Sucralfate 1 gm PO TID 04/26/20 Carvedilol [Coreg -] 25 mg PO BID #120 tablet 04/30/20 Clonidine HCl [Catapres] 0.2 mg PO Q12H #120 tablet 04/30/20 Nifedipine [Procardia Xl] 90 mg PO DAILY #90 tab.sr 04/30/20 hydrALAZINE HCL [Apresoline -] 50 mg PO TID #180 tablet 04/30/20 Family Medical History Family Hx Cardiac Disorders: Father ( n his 40s) Review of Systems - Review of Systems Constitutional: reports: No Symptoms Eyes: reports: No Symptoms HENT: reports: No Symptoms Neck: reports: No Symptoms Cardiovascular: reports: No Symptoms Respiratory: reports: SOB, SOB on Exertion Gastrointestinal: reports: Abdominal Pain Genitourinary: reports: No Symptoms Musculoskeletal: reports: No Symptoms Integumentary: reports: No Symptoms Neurological: reports: No Symptoms Endocrine: reports: No Symptoms Hematology/Lymphatic: reports: No Symptoms Psychiatric: reports: No Symptoms Physical Exam Vital Signs: Vital Signs Temperature 97.4 F L 07/22/20 11:00 Pulse Rate 78 07/22/20 11:00 Respiratory Rate 22 H 07/22/20 05:53 Blood Pressure 185/80 H 07/22/20 11:00 O2 Sat by Pulse Oximetry (%) 96 07/22/20 11:00 Constitutional: Yes: Calm Eyes: Yes: Conjunctiva Clear HENT: Yes: Atraumatic Neck: Yes: Supple Cardiovascular: Yes: S1, S2 Respiratory: Yes: On Nasal O2, Rhonchi Gastrointestinal: Yes: Tenderness Musculoskeletal: Yes: WNL Edema: Yes Edema: LLE: 1+, RLE: 1+ Neurological: Yes: Oriented Psychiatric: Yes: Oriented Labs: CBC, BMP 07/22/20 00:43 07/22/20 00:43 Selected Entries 04/22/20 04/22/20 04/22/20 05:59 10:00 10:15 Blood Pressure 218/90 H 144/64 144/64 04/22/20 04/22/20 04/22/20 10:25 10:30 11:00 Blood Pressure 144/64 136/66 127/60 Laboratory Tests 1007/22/20 07/22/20 00:43 00:43 01:30 Hgb 8.6 L Potassium 5.9 H BUN 80.9 H Creatinine 10.0 H* COVID-19 (ERNESTINA) Pending 07/22/20 11:50 Hgb 8.0 L Potassium BUN Creatinine COVID-19 (ERNESTINA) Imaging - Results Chest X-ray: Report Reviewed Problem List - Problems (1) Hyperkalemia Code(s): E87.5 - HYPERKALEMIA (2) ESRD on hemodialysis Code(s): N18.6 - END STAGE RENAL DISEASE; Z99.2 - DEPENDENCE ON RENAL DIALYSIS Assessment/Plan Current Medications Generic Name Dose Route Start Last Admin Trade Name Freq PRN Reason Stop Dose Admin Aspirin 81 mg 07/22/20 10:00 07/22/20 10:46 Asa - PO 81 mg DAILY TERRA Administration Atorvastatin Calcium 10 mg 07/22/20 22:00 Lipitor - PO HS TERRA Carvedilol 25 mg 07/22/20 10:00 07/22/20 10:46 Coreg - PO 25 mg BID TERRA Administration Clonidine 0.2 mg 07/22/20 10:00 07/22/20 10:46 Catapres - PO 0.2 mg BID TERRA Administration Gabapentin 100 mg 07/22/20 22:00 Neurontin - PO HS TERRA Hydralazine HCl 50 mg 07/22/20 08:00 07/22/20 09:20 Apresoline - PO 50 mg 0800,1400,2000 TERRA Administration Insulin Aspart 1 vial 07/22/20 07:00 07/22/20 08:21 Novolog Vial Sliding Scale - SQ Not Given [facility] Protocol Multivit/Ca Carb/B Cmplx/FA/Prenat 1 tablet 07/22/20 10:00 07/22/20 10:46 Nephro-Roberta - PO 1 tablet DAILY TERRA Administration Nifedipine 90 mg 07/22/20 10:00 07/22/20 10:46 Procardia Xl - PO 90 mg DAILY TERRA Administration Oxycodone HCl 5 mg 07/22/20 03:43 Roxicodone - PO DAILY PRN PAIN Pantoprazole Sodium 20 mg 07/22/20 10:00 07/22/20 10:46 Protonix - PO 20 mg DAILY TERRA Administration Sevelamer Carbonate 1,600 mg 07/22/20 08:00 07/22/20 09:21 Renvela - PO 1,600 mg TIDCM TERRA Administration Sucralfate 1 gm 07/22/20 07:00 07/22/20 09:20 Carafate - PO 1 gm TIDAC TERRA Administration Impression 1. ESRD 2. non compliance with bp meds 3. dyspnea 4. DM 5. HTN 6. hyperkalemia Plan - will arrange for HD today - d/c sacralfate - increase protonix dose - surgery eval - renal diet once eating - discussed fluids restriction with pt, she was not compliant
[2020-07-22] MEDS ORDERED: EPOETIN ALFA-EPBX 2,000 UNIT, EPOETIN ALFA-EPBX 3,000 UNIT IVPUSH ONE (11:30)
--- NOTE | 2020-07-22 12:47 | PN ---
Teaching Attending Note Name of Resident: Mark Mcintyre ATTENDING PHYSICIAN STATEMENT I saw and evaluated the patient. I reviewed the resident's note and discussed the case with the resident. I agree with the resident's findings and plan as documented. SUBJECTIVE: pt seen and examined at bedside OBJECTIVE: Last Vital Signs Temp Pulse Resp BP Pulse Ox 97.5 F L 70 18 132/59 L 96 07/22/20 11:40 07/22/20 11:45 07/22/20 11:45 07/22/20 11:45 07/22/20 11:00 GENERAL: Awake, alert, and fully oriented, in mild respiratory distress. HEENT: AT/NC, not p/c/j, unable to assess JVD LUNGS: diffuse course rales HEART: Regular rate and rhythm, normal S1 and S2 ABDOMEN: Soft, not distended, RUQ tenderness, BS+ LOWER EXTREMITIES: 2+ pulses, warm, well-perfused. No calf tenderness. No peripheral edema. NEUROLOGICAL: Cranial nerves II-XII intact. Normal speech. CBCD WBC 9.1 K/mm3 (4.0-10.0) 07/22/20 00:43 RBC 2.96 M/mm3 (3.60-5.2) L 07/22/20 00:43 Hgb 8.6 GM/dL (10.7-15.3) L 07/22/20 00:43 Hct 26.3 % (32.4-45.2) L 07/22/20 00:43 MCV 88.8 fl (80-96) 07/22/20 00:43 MCHC 32.7 g/dl (32.0-36.0) 07/22/20 00:43 RDW 13.6 % (11.6-15.6) D 07/22/20 00:43 Plt Count 183 K/MM3 (134-434) 07/22/20 00:43 MPV 8.9 fl (7.5-11.1) 07/22/20 00:43 CMP Sodium 138 mmol/L (136-145) 07/22/20 00:43 Potassium 5.9 mmol/L (3.5-5.1) H 07/22/20 00:43 Chloride 103 mmol/L (98-107) 07/22/20 00:43 Carbon Dioxide 26 mmol/L (21-32) 07/22/20 00:43 Anion Gap 9 MMOL/L (8-16) 07/22/20 00:43 BUN 80.9 mg/dL (7-18) H 07/22/20 00:43 Creatinine 10.0 mg/dL (0.55-1.3) H* 07/22/20 00:43 Calcium 8.9 mg/dL (8.5-10.1) 07/22/20 00:43 Total Bilirubin 0.4 mg/dL (0.2-1) 07/22/20 00:43 AST 15 U/L (15-37) 07/22/20 00:43 ALT 19 U/L (13-61) 07/22/20 00:43 Alkaline Phosphatase 111 U/L (45-117) 07/22/20 00:43 Total Protein 7.8 g/dl (6.4-8.2) 07/22/20 00:43 Albumin 3.7 g/dl (3.4-5.0) 07/22/20 00:43 Active Medications Aspirin (Asa -) 81 mg PO DAILY [facility] Last Admin: 07/22/20 10:46 Dose: 81 mg Documented by: Atorvastatin Calcium (Lipitor -) 10 mg PO [facility] Carvedilol (Coreg -) 25 mg PO BID [facility] Last Admin: 07/22/20 10:46 Dose: 25 mg Documented by: Clonidine (Catapres -) 0.2 mg PO BID [facility] Last Admin: 07/22/20 10:46 Dose: 0.2 mg Documented by: Gabapentin (Neurontin -) 100 mg PO [facility] Hydralazine HCl (Apresoline -) 50 mg PO 0800,1400,2000 [facility] Last Admin: 07/22/20 09:20 Dose: 50 mg Documented by: Sodium Chloride (Normal Saline -) 250 mls @ 3,000 mls/hr IV PRN PRN PRN Reason: Hypotension during Dialysis Stop: 07/23/20 11:10 Insulin Aspart (Novolog Vial Sliding Scale -) 1 vial SQ ACHS [facility]; Protocol Last Admin: 07/22/20 08:21 Dose: Not Given Documented by: Multivit/Ca Carb/B Cmplx/FA/Prenat (Nephro-Roberta -) 1 tablet PO DAILY [facility] Last Admin: 07/22/20 10:46 Dose: 1 tablet Documented by: Nifedipine (Procardia Xl -) 90 mg PO DAILY [facility] Last Admin: 07/22/20 10:46 Dose: 90 mg Documented by: Oxycodone HCl (Roxicodone -) 5 mg PO DAILY PRN PRN Reason: PAIN Pantoprazole Sodium (Protonix -) 20 mg PO DAILY [facility] Last Admin: 07/22/20 10:46 Dose: 20 mg Documented by: Sevelamer Carbonate (Renvela -) 1,600 mg PO TIDCM [facility] Last Admin: 07/22/20 09:21 Dose: 1,600 mg Documented by: Sucralfate (Carafate -) 1 gm PO TIDAC [facility] Last Admin: 07/22/20 09:20 Dose: 1 gm Documented by: ASSESSMENT AND PLAN: 70 year old lady with Mhx of hypertension, hyperlipidemia, ESRD (on HD T//Tue), diabetes mellitus, s/p appendectomy, s/p hysterectomy who was BIBA c/o 3 days rhinorrhea, congestion, sneezing, cough productive of phlegm # Volume Overload vs Acute CHF -obtain ECHO -HD today per schedule, discussed with heating unit mechanic -troponin below baseline, denies CP -no pedal edema -monitor i/o, daily wt # Gallbladder stone with suspected cholecystitis - RUQ pain - US showed: The gallbladder is underdistended and contain stones. There is a positive sonographic Elizalde sign - surgical consult appreciated, case discussed with surgeon - resume feeding, if symptoms continues HIDA scan # Hyperkalemia - potassium 5.9 - HD urgently ESRD on HD HTN HLD (d/c statin as pt is on HD) DM DVT prophylaxis
[2020-07-22 12:51] LABS: HEMATOCRIT 24.8 % (32.4-45.2); MCH 28.8 pg (25.7-33.7); MCHC 32.4 g/dl (32.0-36.0); MEAN CELL VOLUME 88.9 fl (80-96); MEAN PLT VOLUME 9.2 fl (7.5-11.1); PLATELET COUNT 175 K/MM3 (134-434); RBC 2.79 M/mm3 (3.60-5.2); RDW 13.8 % (11.6-15.6); WHITE BLOOD COUNT 8.1 K/mm3 (4.0-10.0)
[2020-07-22 13:17] LABS: BLOOD UREA NITROGEN 71.9 mg/dL (7-18); CALCIUM 8.5 mg/dL (8.5-10.1); MAGNESIUM 2.3 mg/dL (1.8-2.4); POTASSIUM 5.2 mmol/L (3.5-5.1)
[2020-07-22 13:30] LABS: CREATININE 9.1 mg/dL (0.55-1.3)
--- NOTE | 2020-07-22 13:58 | PN ---
Physical Exam: SUBJECTIVE: Patient seen and examined at bedside. No acute events reported overnight. OBJECTIVE: Vital Signs Period Temp Pulse Resp BP Sys/Dietz Pulse Ox Last 24 Hr 97.4 F-98.1 F 70-86 18-22 132-185/59-80 96-100 GENERAL: AAOx3 HEENT: NCAT, PERRLA, EOMI, sclera anicteric, conjunctiva clear NECK: Normal ROM, supple, no lymphadenopathy, JVD, or masses LUNGS: b/l crackles. No distress, speaks in full sentences. No increased work of breathing. HEART: RRR, normal S1 S2, no M/R/G, peripheral pulses 2+ and equal b/l ABDOMEN: Soft, tenderness upon palpation in ULQ, + BS. No guarding or rebound. No hepatomegaly or splenomegaly. MSK: ROM WNL EXTREMITIES: Normal inspection. No peripheral edema. No clubbing or cyanosis NEUROLOGICAL: CN II-XII intact. Normal speech SKIN: no rashes or lesions noted Laboratory Results - last 24 hr CBC, BMP 07/22/20 11:50 07/22/20 11:50 07/22/20 07/22/20 07/22/20 00:43 00:43 00:43 WBC 9.1 RBC 2.96 L Hgb 8.6 L Hct 26.3 L MCV 88.8 MCH 29.1 MCHC 32.7 RDW 13.6 D Plt Count 183 MPV 8.9 Absolute Neuts (auto) 4.6 Neutrophils % 50.4 Lymphocytes % 33.5 Monocytes % 9.6 Eosinophils % 5.9 H Basophils % 0.6 Nucleated RBC % 0 PTT (Actin FS) 33.3 Sodium 138 Potassium 5.9 H Chloride 103 Carbon Dioxide 26 Anion Gap 9 BUN 80.9 H Creatinine 10.0 H* Est GFR (CKD-EPI)AfAm 4.06 Est GFR (CKD-EPI)NonAf 3.50 POC Glucometer Random Glucose 112 H Calcium 8.9 Phosphorus 4.8 Magnesium 2.6 H Total Bilirubin 0.4 AST 15 ALT 19 Alkaline Phosphatase 111 Creatine Kinase 123 Troponin I 0.07 H Total Protein 7.8 Albumin 3.7 Lipase 120 Influenza A (Rapid) Influenza B (Rapid) 07/22/20 07/22/20 07/22/20 01:30 04:29 08:17 WBC RBC Hgb Hct MCV MCH MCHC RDW Plt Count MPV Absolute Neuts (auto) Neutrophils % Lymphocytes % Monocytes % Eosinophils % Basophils % Nucleated RBC % PTT (Actin FS) Sodium Potassium Chloride Carbon Dioxide Anion Gap BUN Creatinine Est GFR (CKD-EPI)AfAm Est GFR (CKD-EPI)NonAf POC Glucometer 120 113 Random Glucose Calcium Phosphorus Magnesium Total Bilirubin AST ALT Alkaline Phosphatase Creatine Kinase Troponin I Total Protein Albumin Lipase Influenza A (Rapid) Negative Influenza B (Rapid) Negative 07/22/20 07/22/20 11:50 11:50 WBC 8.1 RBC 2.79 L Hgb 8.0 L Hct 24.8 L MCV 88.9 MCH 28.8 MCHC 32.4 RDW 13.8 Plt Count 175 MPV 9.2 Absolute Neuts (auto) Neutrophils % Lymphocytes % Monocytes % Eosinophils % Basophils % Nucleated RBC % PTT (Actin FS) Sodium 138 Potassium 5.2 H Chloride 103 Carbon Dioxide 26 Anion Gap 9 BUN 71.9 H Creatinine 9.1 H* Est GFR (CKD-EPI)AfAm 4.55 Est GFR (CKD-EPI)NonAf 3.92 POC Glucometer Random Glucose 131 H Calcium 8.5 Phosphorus Magnesium 2.3 Total Bilirubin AST ALT Alkaline Phosphatase Creatine Kinase Troponin I 0.06 H Total Protein Albumin Lipase Influenza A (Rapid) Influenza B (Rapid) Active Medications Generic Name Dose Route Start Last Admin Trade Name Freq PRN Reason Stop Dose Admin Aspirin 81 mg 07/22/20 10:00 07/22/20 10:46 Asa - PO 81 mg DAILY [facility] Administration Carvedilol 25 mg 07/22/20 10:00 07/22/20 10:46 Coreg - PO 25 mg BID [facility] Administration Clonidine 0.2 mg 07/22/20 10:00 07/22/20 10:46 Catapres - PO 0.2 mg BID [facility] Administration Gabapentin 100 mg 07/22/20 22:00 Neurontin - PO HS [facility] Hydralazine HCl 50 mg 07/22/20 08:00 07/22/20 09:20 Apresoline - PO 50 mg 0800,1400,2000 [facility] Administration Sodium Chloride 250 mls @ 3,000 mls/hr 07/22/20 11:10 Normal Saline - IV 07/23/20 11:10 PRN PRN Hypotension during Dialysis Insulin Aspart 1 vial 07/22/20 07:00 10/13/20 08:21 Novolog Vial Sliding Scale - SQ Not Given ACHS [facility] Protocol Multivit/Ca Carb/B Cmplx/FA/Prenat 1 tablet 07/22/20 10:00 07/22/20 10:46 Nephro-Roberta - PO 1 tablet DAILY [facility] Administration Nifedipine 90 mg 07/22/20 10:00 07/22/20 10:46 Procardia Xl - PO 90 mg DAILY [facility] Administration Oxycodone HCl 5 mg 07/22/20 03:43 Roxicodone - PO DAILY PRN PAIN Pantoprazole Sodium 40 mg 07/22/20 13:24 Protonix - PO DAILY [facility] Sevelamer Carbonate 1,600 mg 07/22/20 08:00 07/22/20 09:21 Renvela - PO 1,600 mg TIDCM [facility] Administration ASSESSMENT/PLAN: 70 year old lady with PMX of hypertension, hyperlipidemia, ESRD (//Tue), diab etes mellitus, s/p appendectomy, s/p hysterectomy presenting with 3 days of rhinorrhea, congestion, sneezing, and a productive cough with phlegm # Volume Overload vs Acute CHF -CXR-congestive changes -HD scheduled today -troponin around baseline -echo ordered; f/u results -monitor I/O -daily weights # Gallbladder stone with suspected cholecystitis - US: gallbladder is underdistended and contain stones. There is a + sonographic Elizalde sign - surgical consult: Dr. El does not recommend any interventions at this time; outpt f/u # Hyperkalemia - potassium 5.9 - HD today -monitor K #ESRD on HD -Dialysis today -f/u renal reccs: Dr. Watkins #HTN -c/w Hydralazine #HLD -d/c statin as pt is on HD #DM -ISS w/ BGM #FEN -no standing fluids -monitor lytes; replete PRN; HD for high K today -clear liquid diet #Prophylaxis DVT: SCDs Visit type - Emergency Visit Emergency Visit: No - New Patient This patient is new to me today: Yes Date on this admission: 07/22/20 - Critical Care Critical Care patient: No - Discharge Referral Referred to [facility] Med P.C.: No - Medication Review Med list reviewed for High Risk Meds patients 65 and older: Yes ATTENDING PHYSICIAN STATEMENT I saw and evaluated the patient. I reviewed the resident's note and discussed the case with the resident. I agree with the resident's findings and plan as documented. SUBJECTIVE: OBJECTIVE: ASSESSMENT AND PLAN:
[2020-07-22 18:20] VITALS: BP 145/60; PULSE 74; TEMP 98.5; BMI 29.8
[2020-07-22] MEDS ORDERED: ATORVASTATIN CA 10 MG TABLET (FP) PO SCH (22:00)
[2020-07-22] MEDS ORDERED: GABAPENTIN 100 MG CAPSULE PO SCH (22:00)
--- NOTE | 2020-07-23 06:28 | DS ---
Physical Exam: SUBJECTIVE: Patient seen and examined at bedside. OBJECTIVE: Vital Signs Period Temp Pulse Resp BP Sys/Dietz Pulse Ox Last 24 Hr 97.4 F-98.9 F 70-78 18-20 115-185/57-80 96-96 PHYSICAL EXAM GENERAL: AAOx3 HEENT: NCAT, PERRLA, EOMI, sclera anicteric, conjunctiva clear NECK: Normal ROM, supple, no lymphadenopathy, JVD, or masses LUNGS: b/l crackles. No distress, speaks in full sentences. No increased work of breathing. HEART: RRR, normal S1 S2, no M/R/G, peripheral pulses 2+ and equal b/l ABDOMEN: Soft, tenderness upon palpation in ULQ, + BS. No guarding or rebound. No hepatomegaly or splenomegaly. MSK: ROM WNL EXTREMITIES: Normal inspection. No peripheral edema. No clubbing or cyanosis NEUROLOGICAL: CN II-XII intact. Normal speech SKIN: no rashes or lesions noted LABS Laboratory Results - last 24 hr CBC, BMP 07/22/20 11:50 07/22/20 11:50 07/22/20 07/22/20 07/22/20 01:30 08:17 11:50 WBC 8.1 RBC 2.79 L Hgb 8.0 L Hct 24.8 L MCV 88.9 MCH 28.8 MCHC 32.4 RDW 13.8 Plt Count 175 MPV 9.2 Sodium Potassium Chloride Carbon Dioxide Anion Gap BUN Creatinine Est GFR (CKD-EPI)AfAm Est GFR (CKD-EPI)NonAf POC Glucometer 113 Random Glucose Hemoglobin A1c % Calcium Magnesium Troponin I COVID-19 (ERNESTINA) Not detected 07/22/20 07/22/20 11:50 12:20 WBC RBC Hgb Hct MCV MCH MCHC RDW Plt Count MPV Sodium 138 Potassium 5.2 H Chloride 103 Carbon Dioxide 26 Anion Gap 9 BUN 71.9 H Creatinine 9.1 H* Est GFR (CKD-EPI)AfAm 4.55 Est GFR (CKD-EPI)NonAf 3.92 POC Glucometer Random Glucose 131 H Hemoglobin A1c % 8.3 H Calcium 8.5 Magnesium 2.3 Troponin I 0.06 H COVID-19 (ERNESTINA) HOSPITAL COURSE: 70 year old lady with Mhx of hypertension, hyperlipidemia, ESRD (on HD T//Sat), diabetes mellitus, s/p appendectomy, s/p hysterectomy who was BIBA c/o 3 days rhinorrhea, congestion, sneezing, cough productive of phlegm. Patient had imaging suggestive of cholelithiasis. Patient received dialysis and left AMA before further medication evaluation could be done. Date of Admission:07/22/20 07/22/20-EKG- NSR with 1st degree AV block. anterior infarct 07/22/20-CXR- large heart. congestive changes. 07/22/20-Abdomen US- cholelithasis, mild diffuse fatty infiltration of liver, atrophic and echogenic right kidney consistent with chronic medical renal disease. Date of Discharge: 07/23/20 Minutes to complete discharge: 36 Discharge Summary Problems reviewed: Yes Reason For Visit: CHOLECYSTITIS, HYPERKALEMIA Condition: Fair - Instructions Disposition: AGAINST MEDICAL ADVICE - Home Medications Comprehensive Discharge Medication List: Ambulatory Orders Folic Acid/Vit B Complex and C [Yue-Roberta Tablet] 0.8 mg PO DAILY 02/05/19 Gabapentin [Neurontin] 100 mg PO HS 02/05/19 Linaclotide [Linzess] 145 mcg PO DAILY 02/05/19 Omeprazole 20 mg PO DAILY 02/05/19 Sevelamer Carbonate [Renvela -] 1,600 mg PO TID 02/05/19 Simvastatin [Zocor -] 20 mg PO HS 02/05/19 Sitagliptin Phosphate [Januvia] 25 mg PO DAILY 02/05/19 oxyCODONE HCL [Oxycodone HCl] 5 mg PO DAILY PRN 02/05/19 Aspirin 81 mg PO DAILY #30 tab.chew 04/02/20 Sucralfate 1 gm PO TID 04/26/20 Carvedilol [Coreg -] 25 mg PO BID #120 tablet 04/30/20 Clonidine HCl [Catapres] 0.2 mg PO Q12H #120 tablet 04/30/20 Nifedipine [Procardia Xl] 90 mg PO DAILY #90 tab.sr 04/30/20 hydrALAZINE HCL [Apresoline -] 50 mg PO TID #180 tablet 04/30/20 This patient is new to me today: No Emergency Visit: No Critical Care patient: No - Discharge Referral Referred to [facility] Med P.C.: No ATTENDING PHYSICIAN STATEMENT I saw and evaluated the patient. I reviewed the resident's note and discussed the case with the resident. I agree with the resident's findings and plan as documented. SUBJECTIVE: OBJECTIVE: ASSESSMENT AND PLAN:
== END 2020-07-22 19:14 | disposition left against medical advice (07) | DRG 444 ==
LOC: JER 23:50 → JERBED 07-22 02:22 → J6S 07-22 17:26
PROVIDERS: ADMIT Internal Medicine; ATTEND Student in an Organized Health Care Education/Training Program
PROC: 5A1D70Z Performance of Urinary Filtration, Intermittent, Less than 6 Hours Per Day (ICD-10-PCS; principal; 2020-07-22)
DX: K80.10 Calculus of gallbladder with chronic cholecystitis without obstruction (principal); N18.6 End stage renal disease; I13.2 Hypertensive heart and chronic kidney disease with heart failure and with stage 5 chronic kidney disease, or end stage renal disease; I50.32 Chronic diastolic (congestive) heart failure; E87.70 Fluid overload, unspecified; E78.00 Pure hypercholesterolemia, unspecified; D50.0 Iron deficiency anemia secondary to blood loss (chronic); E11.9 Type 2 diabetes mellitus without complications; E87.5 Hyperkalemia; I25.10 Atherosclerotic heart disease of native coronary artery without angina pectoris; Z99.2 Dependence on renal dialysis; R06.00 Dyspnea, unspecified; K21.9 Gastro-esophageal reflux disease without esophagitis; R10.11 Right upper quadrant pain; D63.1 Anemia in chronic kidney disease
CPT/HCPCS: 36415; 71045-TC-FY; 76705-TC; 80048; 80053; 82550; 82962; 83036; 83690; 83735; 84100; 84484; 85025; 85027; 85730; 86803; 87340; 87804; 93005; 93010; 99285-25; C9803; J0131; J0735; Q5106; U0003

== ENCOUNTER 2023-12-20 15:19 | Observation (INO) | payer OTHER ==
[2023-12-20 16:27] LABS: BASO % 0.3 % (0-2.0); EOS % 4.1 % (0-4.5); HEMOGLOBIN 11.6 GM/dL (10.7-15.3); LYMPH % 15.6 % (8-40); MCHC 32.4 g/dl (32.0-36.0); MEAN CELL VOLUME 89.5 fl (80-96); MEAN PLT VOLUME 8.4 fl (7.5-11.1); MONO % 8.2 % (3.8-10.2); NEUT % 71.8 % (42.8-82.8); PLATELET COUNT 215 10^3/uL (134-434); RBC 4.02 M/mm3 (3.60-5.2); RDW 17.5 % (11.6-15.6); WHITE BLOOD COUNT 8.1 K/mm3 (4.0-10.0)
[2023-12-20 16:32] LABS: INR 0.99 (0.83-1.09); PROTHROMBIN TIME (PATIENT) 11.5 SEC (9.7-13.0)
[2023-12-20 16:35] LABS: ACTIVATED PTT 27.6 SECONDS (25.2-36.5)
[2023-12-20 16:43] LABS: VENOUS BASE EXCESS 8.3 mmol/L (-2-2); VENOUS O2 SATURATION 77.9 % (70-80); VENOUS PCO2 31.6 mmHg (38-52); VENOUS PH 7.591 (7.310-7.410)
[2023-12-20 16:48] LABS: POTASSIUM 4.1 mmol/L (3.5-5.1)
[2023-12-20 16:51] LABS: ALBUMIN 3.6 g/dl (3.4-5.0); BLOOD UREA NITROGEN 19.8 mg/dL (7-18); CALCIUM 9.1 mg/dL (8.5-10.1); MAGNESIUM 2.1 mg/dL (1.8-2.4)
[2023-12-20 16:54] LABS: CREATININE 4.3 mg/dL (0.55-1.3); PHOSPHOROUS 1.6 mg/dL (2.5-4.9)
[2023-12-20 16:55] LABS: BILIRUBIN,TOTAL 0.8 mg/dL (0.2-1); TOT PROT 8.7 g/dl (6.4-8.2)
[2023-12-20] MEDS ORDERED: ACETAMINOPHEN INJECTION 100 ML IVPB ONE (17:07)
[2023-12-20] MEDS: ACETAMINOPHEN 1000 MG/100 ML BAG IVPB ONE (17:12)
[2023-12-20 18:06] LABS: POTASSIUM 3.8 mmol/L (3.5-5.1)
[2023-12-20 18:08] LABS: BLOOD UREA NITROGEN 20.9 mg/dL (7-18); CALCIUM 8.5 mg/dL (8.5-10.1)
[2023-12-20 18:11] LABS: CREATININE 4.5 mg/dL (0.55-1.3)
[2023-12-20] MEDS ORDERED: NAPH,MB-DB/K PH,MBDB POWDER PACKET ONE (22:45)
[2023-12-20] MEDS: NAPH,MB-DB/K PH,MBDB POWDER PACKET PO SCH (22:53)
[2023-12-20 23:34] LABS: POTASSIUM 4.4 mmol/L (3.5-5.1)
[2023-12-20 23:36] LABS: CALCIUM 8.8 mg/dL (8.5-10.1)
[2023-12-20 23:37] LABS: ALBUMIN 3.4 g/dl (3.4-5.0); BLOOD UREA NITROGEN 23.2 mg/dL (7-18)
[2023-12-20 23:40] LABS: CREATININE 5.2 mg/dL (0.55-1.3)
[2023-12-20 23:41] LABS: BILIRUBIN,TOTAL 0.6 mg/dL (0.2-1)
[2023-12-21] MEDS: TRIMETHOBENZAMIDE HCL 200MG/2ML INJ IM ONE (01:29)
[2023-12-21] MEDS ORDERED: hydrALAZINE HCL 25 MG TABLET (FP) ONE (01:56)
[2023-12-21] MEDS: hydrALAZINE HCL 25 MG TABLET (FP) PO ONE (01:58)
[2023-12-21] MEDS: HEPARIN NA (PORCINE) 5,000 UNITS/ML 1ML VIAL SQ SCH (06:00)
[2023-12-21 11:27] LABS: POTASSIUM 5.1 mmol/L (3.5-5.1)
[2023-12-21] MEDS ORDERED: NAPH,MB-DB/K PH,MBDB POWDER PACKET ONE (11:28)
[2023-12-21 11:29] LABS: CALCIUM 8.9 mg/dL (8.5-10.1)
[2023-12-21 11:30] LABS: ALBUMIN 3.5 g/dl (3.4-5.0); BLOOD UREA NITROGEN 30.1 mg/dL (7-18); MAGNESIUM 2.3 mg/dL (1.8-2.4)
[2023-12-21 11:32] LABS: CREATININE 6.2 mg/dL (0.55-1.3); PHOSPHOROUS 4.5 mg/dL (2.5-4.9)
[2023-12-21 11:34] LABS: BILIRUBIN,TOTAL 0.6 mg/dL (0.2-1); TOT PROT 7.9 g/dl (6.4-8.2)
[2023-12-21] MEDS ORDERED: SODIUM CHLORIDE 250 ML IV PRN (13:20)
[2023-12-21] MEDS ORDERED: HEPARIN NA (PORCINE) 5,000 UNITS/ML 1ML VIAL ONE (15:19)
[2023-12-21 15:35] LABS: HEMATOCRIT 37.2 % (32.4-45.2); HEMOGLOBIN 11.8 GM/dL (10.7-15.3); MCHC 31.7 g/dl (32.0-36.0); MEAN CELL VOLUME 91.4 fl (80-96); MEAN PLT VOLUME 8.8 fl (7.5-11.1); PLATELET COUNT 189 10^3/uL (134-434); RBC 4.07 M/mm3 (3.60-5.2); RDW 18.2 % (11.6-15.6); WHITE BLOOD COUNT 5.8 K/mm3 (4.0-10.0)
[2023-12-21] MEDS ORDERED: CARVEDILOL 25 MG TABLET (FP) ONE (15:38)
[2023-12-21] MEDS ORDERED: hydrALAZINE HCL 20 MG/ML VIAL ONE (15:38)
[2023-12-21] MEDS: hydrALAZINE HCL 20 MG/ML VIAL IVPUSH ONE (15:42)
[2023-12-21] MEDS: CARVEDILOL 25 MG TABLET (FP) PO SCH (15:42)
[2023-12-21 15:56] LABS: POTASSIUM 5.1 mmol/L (3.5-5.1)
[2023-12-21 15:59] LABS: BLOOD UREA NITROGEN 31.1 mg/dL (7-18)
[2023-12-21 16:01] LABS: ALBUMIN 3.6 g/dl (3.4-5.0); CALCIUM 9.2 mg/dL (8.5-10.1)
[2023-12-21 16:05] LABS: CREATININE 6.8 mg/dL (0.55-1.3)
[2023-12-21 16:07] LABS: BILIRUBIN,TOTAL 0.6 mg/dL (0.2-1)
[2023-12-21] MEDS: SEVELAMER CARBONATE 800 MG TAB (FP) PO SCH (18:32)
[2023-12-21] MEDS: NIFEdipine E.R. 90 MG TABLET PO ONE (18:32)
[2023-12-21] MEDS: cloNIDine HCL 0.1 MG TABLET PO SCH (21:19)
[2023-12-21] MEDS: ATORVASTATIN CA 10 MG TABLET (FP) PO SCH (21:20)
[2023-12-21] MEDS: hydrALAZINE HCL 50 MG TABLET (FP) PO SCH (21:20)
[2023-12-21 22:08] LABS: POTASSIUM 4.8 mmol/L (3.5-5.1)
[2023-12-21 22:09] LABS: CALCIUM 8.9 mg/dL (8.5-10.1)
[2023-12-21 22:11] LABS: ALBUMIN 3.5 g/dl (3.4-5.0); BLOOD UREA NITROGEN 33.7 mg/dL (7-18)
[2023-12-21 22:13] LABS: CREATININE 7.1 mg/dL (0.55-1.3)
[2023-12-21 22:15] LABS: BILIRUBIN,TOTAL 0.6 mg/dL (0.2-1); TOT PROT 7.9 g/dl (6.4-8.2)
[2023-12-22] MEDS: ACETAMINOPHEN 1000 MG/100 ML BAG IVPB ONE (07:09)
[2023-12-22 07:24] LABS: BASO % 0.7 % (0-2.0); EOS % 4.5 % (0-4.5); HEMATOCRIT 33.5 % (32.4-45.2); LYMPH % 38.1 % (8-40); MCH 29.8 pg (25.7-33.7); MCHC 32.9 g/dl (32.0-36.0); MEAN CELL VOLUME 90.6 fl (80-96); MEAN PLT VOLUME 9.2 fl (7.5-11.1); MONO % 15.3 % (3.8-10.2); NEUT % 41.4 % (42.8-82.8); PLATELET COUNT 177 10^3/uL (134-434); RDW 17.8 % (11.6-15.6); WHITE BLOOD COUNT 5.5 K/mm3 (4.0-10.0)
[2023-12-22] MEDS: NIFEdipine E.R. 90 MG TABLET PO SCH (14:06)
[2023-12-22] MEDS ORDERED: ACETAMINOPHEN 325 MG TABLET (FP) PO PRN (15:27)
[2023-12-23 11:28] VITALS: BP 118/55; PULSE 75; RESP 22; TEMP 98.1
[2023-12-24 09:59] VITALS: BMI 16.9
== END 2023-12-23 11:38 | disposition home or self-care (01) ==
LOC: JER 15:19 → JERBED 17:10 → J4W 12-21 16:06
PROVIDERS: ADMIT Internal Medicine; ATTEND Nurse Practitioner Family
PROC: 3E033NZ Introduction of Analgesics, Hypnotics, Sedatives into Peripheral Vein, Percutaneous Approach (ICD-10-PCS; principal; 2023-12-20)
PROC: 3E023GC Introduction of Other Therapeutic Substance into Muscle, Percutaneous Approach (ICD-10-PCS; 2023-12-20)
PROC: 3E033GC Introduction of Other Therapeutic Substance into Peripheral Vein, Percutaneous Approach (ICD-10-PCS; 2023-12-20)
PROC: 3E023GC Introduction of Other Therapeutic Substance into Muscle, Percutaneous Approach (ICD-10-PCS; 2023-12-20)
DX: K52.9 Noninfective gastroenteritis and colitis, unspecified (principal); R41.82 Altered mental status, unspecified; G93.41 Metabolic encephalopathy; I12.0 Hypertensive chronic kidney disease with stage 5 chronic kidney disease or end stage renal disease; N18.6 End stage renal disease; E11.22 Type 2 diabetes mellitus with diabetic chronic kidney disease; K21.9 Gastro-esophageal reflux disease without esophagitis; I25.10 Atherosclerotic heart disease of native coronary artery without angina pectoris; I11.0 Hypertensive heart disease with heart failure; Z99.2 Dependence on renal dialysis; J45.909 Unspecified asthma, uncomplicated; Z90.49 Acquired absence of other specified parts of digestive tract; Z90.79 Acquired absence of other genital organ(s); F03.90 Unspecified dementia, unspecified severity, without behavioral disturbance, psychotic disturbance, mood disturbance, and anxiety; I24.89 Other forms of acute ischemic heart disease; Z29.89 Encounter for other specified prophylactic measures
CPT/HCPCS: 0241U-QW; 36415; 70450-TC; 71045-TC-FY; 74176-TC; 80048; 80053; 82010; 82803; 83735; 84100; 84484; 85025; 85027; 85610; 85730; 86704; 86803; 86850; 86900; 86901; 87045; 87046; 87186; 87324; 87340; 87449; 87517; 93005; 93010; 93306-TC; 96372; 96374; 96375; 96376; 99285-25; G0378; J0131; J1644

== ENCOUNTER 2024-04-23 05:39 | Inpatient (IN) | payer OTHER ==
[2024-04-23] MEDS ORDERED: RAPID SEQUENCE INTUBATION KIT NR ONE (05:45)
[2024-04-23] MEDS ORDERED: ROCURONIUM BROMIDE 50 MG/5 ML SYRINGE ONE (05:47)
[2024-04-23] MEDS ORDERED: PROPOFOL 1,000,000 MCG/100 ML VIAL ONE (05:56)
[2024-04-23] MEDS: ROCURONIUM BROMIDE 50 MG/5 ML VIAL IV ONE (06:00)
[2024-04-23] MEDS: ETOMIDATE 40 MG/20 ML VIAL IVPUSH ONE (06:00)
[2024-04-23] MEDS: PROPOFOL 1,000,000 MCG/100 ML VIAL IVPB SCH (06:00)
[2024-04-23 06:17] LABS: BASO % 0.5 % (0-2.0); EOS % 0.1 % (0-4.5); HEMATOCRIT 32.2 % (32.4-45.2); HEMOGLOBIN 10.2 GM/dL (10.7-15.3); LYMPH % 12.5 % (8-40); MCH 28.4 pg (25.7-33.7); MCHC 31.7 g/dl (32.0-36.0); MEAN CELL VOLUME 89.6 fl (80-96); MEAN PLT VOLUME 9.1 fl (7.5-11.1); MONO % 5.4 % (3.8-10.2); NEUT % 81.5 % (42.8-82.8); PLATELET COUNT 177 10^3/uL (134-434); RBC 3.59 M/mm3 (3.60-5.2); RDW 17.5 % (11.6-15.6); VENOUS O2 SATURATION 99.8 % (70-80); VENOUS PCO2 28.9 mmHg (38-52); VENOUS PH 7.505 (7.310-7.410); WHITE BLOOD COUNT 16.1 K/mm3 (4.0-10.0)
[2024-04-23 06:24] LABS: INR 1.06 (0.83-1.09); PROTHROMBIN TIME (PATIENT) 12.2 SEC (9.7-13.0)
[2024-04-23 06:27] LABS: ACTIVATED PTT 27.2 SECONDS (25.2-36.5)
[2024-04-23 06:41] LABS: POTASSIUM 3.5 mmol/L (3.5-5.1)
[2024-04-23 06:43] LABS: CALCIUM 10.2 mg/dL (8.5-10.1)
[2024-04-23 06:44] LABS: ALBUMIN 3.4 g/dl (3.4-5.0); BLOOD UREA NITROGEN 23.6 mg/dL (7-18); MAGNESIUM 2.3 mg/dL (1.8-2.4)
[2024-04-23 06:47] LABS: CREATININE 6.1 mg/dL (0.55-1.3)
[2024-04-23 06:48] LABS: BILIRUBIN,TOTAL 0.7 mg/dL (0.2-1)
[2024-04-23] MEDS ORDERED: NOREPINEPHRINE BITARTRATE 4 MG/4 ML ML IV ONE (07:18)
[2024-04-23] MEDS: NOREPINEPHRINE BITARTRATE 4,000 MCG in DEXTROSE 5%-WATER - 496 ML IV SCH (07:58)
[2024-04-23] MEDS ORDERED: PIPERACILLIN/TAZOB 3.375 GM 3.375 GM/50 ML BAG IVPB ONE (08:01)
[2024-04-23] MEDS: PIPERACILLIN/TAZOB 3.375 GM 3.375 GM in DEXTROSE 5%-WATER - 50 ML IVPB ONE (08:26)
[2024-04-23 08:35] LABS: LACTIC ACID 4.7 mmol/L (0.4-2.0)
[2024-04-23] MEDS: VANCOMYCIN PREMIX 1.5 GM 1,500 MG/300 ML BAG IVPB ONE (09:50)
[2024-04-23] MEDS ORDERED: PIPERACILLIN/TAZOBACTAM 3.375 GM VIAL IVPB ONE (11:39)
[2024-04-23] MEDS: SODIUM CHLORIDE 500 ML IV STA (11:43)
[2024-04-23] MEDS: HYDROCORTISONE SOD SUCCINATE 100 MG/2 ML VIAL IVPUSH ONE (11:43)
[2024-04-23] MEDS: HEPARIN NA (PORCINE) 5,000 UNITS/ML 1ML VIAL SQ SCH (11:43)
[2024-04-23] MEDS: NOREPINEPHRINE BITARTRATE/D5W 8 MG/250 ML BAG IVPB SCH (13:31)
[2024-04-23] MEDS: PIPERACILLIN/TAZOB 2.25 GM 2.25 GM in DEXTROSE 5%-WATER - 50 ML IVPB SCH ×2 (13:31→16:25)
[2024-04-23] MEDS: VANCOMYCIN HCL 1,500 MG in DEXTROSE 5%-WATER - 500 ML IVPB ONE (13:31)
[2024-04-23] MEDS: MUPIROCIN 2% TOPICAL OINTMENT FOR DECOLONIZATION NS SCH (13:33)
[2024-04-23 13:34] LABS: LACTIC ACID 3.5 mmol/L (0.4-2.0)
[2024-04-23 15:00] LABS: LACTIC ACID 2.7 mmol/L (0.4-2.0)
[2024-04-23] MEDS: FLUDROCORTISONE ACETATE 0.1 MG TABLET (FP) PO SCH (16:25)
[2024-04-23] MEDS: VASopressin 40 UNITS/100 ML BAG IV SCH (16:25)
[2024-04-23 17:26] LABS: LACTIC ACID 2.9 mmol/L (0.4-2.0)
[2024-04-23 18:01] LABS: HEMOGLOBIN 10.1 GM/dL (10.7-15.3); MCH 27.8 pg (25.7-33.7); MCHC 30.8 g/dl (32.0-36.0); MEAN CELL VOLUME 90.4 fl (80-96); MEAN PLT VOLUME 9.3 fl (7.5-11.1); PLATELET COUNT 224 10^3/uL (134-434); RBC 3.64 M/mm3 (3.60-5.2); RDW 17.8 % (11.6-15.6)
[2024-04-23 19:03] LABS: POTASSIUM 3.2 mmol/L (3.5-5.1)
[2024-04-23 19:06] LABS: ALBUMIN 3.2 g/dl (3.4-5.0)
[2024-04-23 19:09] LABS: CREATININE 6.7 mg/dL (0.55-1.3)
[2024-04-23 19:10] LABS: BILIRUBIN,TOTAL 0.8 mg/dL (0.2-1)
[2024-04-23 19:11] LABS: TOT PROT 7.4 g/dl (6.4-8.2)
[2024-04-23 19:30] LABS: ANISOCYTOSIS 0; MACROCYTOSIS 0
[2024-04-23] MEDS: HYDROCORTISONE SOD SUCCINATE 100 MG/2 ML VIAL IVPUSH SCH (22:06)
[2024-04-23] MEDS: CHLORHEXIDINE GLUCONATE 4% CLEANSER FOR DECOLONIZATION TP SCH (22:10)
[2024-04-23] MEDS: PANTOPRAZOLE SODIUM 40 MG VIAL IVPUSH SCH (22:11)
[2024-04-23] MEDS: ROSUVASTATIN CA 20 MG TABLET PO SCH (22:11)
[2024-04-23 22:57] LABS: HEMATOCRIT 31.6 % (32.4-45.2); HEMOGLOBIN 9.9 GM/dL (10.7-15.3); MCH 28.2 pg (25.7-33.7); MCHC 31.3 g/dl (32.0-36.0); MEAN PLT VOLUME 9.4 fl (7.5-11.1); PLATELET COUNT 232 10^3/uL (134-434); RDW 17.4 % (11.6-15.6); WHITE BLOOD COUNT 26.7 K/mm3 (4.0-10.0)
[2024-04-23 23:39] LABS: ANISOCYTOSIS 1+; MACROCYTOSIS 0
[2024-04-24 08:10] LABS: HEMATOCRIT 30.1 % (32.4-45.2); HEMOGLOBIN 9.6 GM/dL (10.7-15.3); MCH 28.7 pg (25.7-33.7); MCHC 31.8 g/dl (32.0-36.0); MEAN CELL VOLUME 90.2 fl (80-96); MEAN PLT VOLUME 9.4 fl (7.5-11.1); PLATELET COUNT 221 10^3/uL (134-434); RBC 3.34 M/mm3 (3.60-5.2); RDW 17.7 % (11.6-15.6); WHITE BLOOD COUNT 23.4 K/mm3 (4.0-10.0)
[2024-04-24 08:17] LABS: CHLORIDE 88 mmol/L (98-107); POTASSIUM 3.4 mmol/L (3.5-5.1); SODIUM 131 mmol/L (136-145)
[2024-04-24 08:19] LABS: ANION GAP 21 mmol/L (4-13); BLOOD UREA NITROGEN 31.7 mg/dL (7-18); CO2 22 mmol/L (21-32)
[2024-04-24 08:20] LABS: GLUCOSE,RANDOM 222 mg/dL (74-106); MAGNESIUM 2.2 mg/dL (1.8-2.4)
[2024-04-24 08:21] LABS: ALBUMIN 3.1 g/dl (3.4-5.0)
[2024-04-24 08:22] LABS: SGOT/AST 153 U/L (15-37)
[2024-04-24 08:23] LABS: SGPT/ALT 130 U/L (13-61)
[2024-04-24 08:24] LABS: ALK PHOS 108 U/L (45-117); BILIRUBIN,TOTAL 0.8 mg/dL (0.2-1); TOT PROT 7.3 g/dl (6.4-8.2)
[2024-04-24 08:28] LABS: CREATININE 7.8 mg/dL (0.55-1.3); PHOSPHOROUS 8.9 mg/dL (2.5-4.9)
[2024-04-24] MEDS: ASPIRIN COATED 81 MG TABLET.EC PO SCH (09:02)
[2024-04-24] MEDS: CLOPIDOGREL BISULFATE 75 MG TABLET (FP) PO SCH (09:04)
[2024-04-24] MEDS: SERTRALINE HCL 50 MG TABLET (FP) PO SCH (09:04)
[2024-04-24] MEDS: KCL 20 MEQ PREMIX BAG 20 MEQ/100 ML INFUS.BAG IVPB ONE (09:12)
[2024-04-24] MEDS ORDERED: PANTOPRAZOLE SODIUM 40 MG VIAL IVPUSH SCH (10:00)
[2024-04-24] MEDS: PANTOPRAZOLE SODIUM 40 MG VIAL IVPUSH SCH (10:11)
[2024-04-24 10:40] LABS: IRON SERUM 51 ug/dL (50-175); TOTAL IRON BINDING CAPACITY 165 ug/dL (250-450)
[2024-04-24 13:33] LABS: PLATELET ESTIMATE ADEQUATE
[2024-04-24] MEDS ORDERED: SODIUM CHLORIDE 250 ML IV PRN (13:54)
[2024-04-24 15:18] VITALS: BMI 23.1
[2024-04-24] MEDS: PIPERACILLIN/TAZOB 2.25 GM 2.25 GM in DEXTROSE 5%-WATER - 50 ML IVPB SCH (17:32)
[2024-04-24] MEDS: VANCOMYCIN/WATER FOR INJ (PEG) 1,000 MG/200 ML BAG IVPB ONE (18:05)
[2024-04-24] MEDS ORDERED: HEPARIN NA (PORCINE) 5,000 UNITS/ML 1ML VIAL SQ SCH (22:00)
[2024-04-25] MEDS ORDERED: RAPID SEQUENCE INTUBATION KIT NR ONE (01:26)
[2024-04-25] MEDS ORDERED: FENTANYL NS IVPB 500 MCG/100 ML BAG IVPB ONE (01:27)
[2024-04-25] MEDS ORDERED: MIDAZOLAM IN 0.9 % SOD.CHLORID 0 MG/0 ML PLAST..BAG ONE (01:40)
[2024-04-25 08:11] LABS: HEMOGLOBIN 8.5 GM/dL (10.7-15.3); MCH 28.7 pg (25.7-33.7); MCHC 31.4 g/dl (32.0-36.0); MEAN CELL VOLUME 91.2 fl (80-96); MEAN PLT VOLUME 9.4 fl (7.5-11.1); PLATELET COUNT 246 10^3/uL (134-434); RBC 2.96 M/mm3 (3.60-5.2); RDW 18.2 % (11.6-15.6)
[2024-04-25 08:45] LABS: CHLORIDE 86 mmol/L (98-107); POTASSIUM 3.2 mmol/L (3.5-5.1); SODIUM 130 mmol/L (136-145)
[2024-04-25 08:50] LABS: BLOOD UREA NITROGEN 45.7 mg/dL (7-18); CALCIUM 10.1 mg/dL (8.5-10.1); GLUCOSE,RANDOM 187 mg/dL (74-106)
[2024-04-25 08:52] LABS: ANION GAP 20 mmol/L (4-13); CO2 23 mmol/L (21-32); MAGNESIUM 2.4 mg/dL (1.8-2.4)
[2024-04-25 08:55] LABS: SGOT/AST 82 U/L (15-37); SGPT/ALT 110 U/L (13-61)
[2024-04-25 08:56] LABS: BILIRUBIN,TOTAL 0.6 mg/dL (0.2-1)
[2024-04-25 08:58] LABS: ALK PHOS 117 U/L (45-117)
[2024-04-25] MEDS: FENTANYL CITRATE/PF 50 MCG/ML VIAL IVPUSH ONE (11:52)
[2024-04-25] MEDS: MIDAZOLAM HCL 2 MG/2 ML SINGLE DOSE VIAL IVPUSH ONE (11:52)
[2024-04-25] MEDS: EPOETIN ALFA-EPBX 4,000 UNIT/ML VIAL SQ ONE (14:59)
[2024-04-25] MEDS: MEROPENEM 500 MG in DEXTROSE 5%-WATER 100 ML IVPB SCH (15:47)
[2024-04-26] MEDS ORDERED: SODIUM CHLORIDE 250 ML IV PRN (09:00)
[2024-04-26 10:05] LABS: HEMATOCRIT 28.2 % (32.4-45.2); MCH 28.8 pg (25.7-33.7); MCHC 31.8 g/dl (32.0-36.0); MEAN CELL VOLUME 90.6 fl (80-96); RBC 3.12 M/mm3 (3.60-5.2); RDW 18.5 % (11.6-15.6)
[2024-04-26 10:09] LABS: WHITE BLOOD COUNT 15.2 K/mm3 (4.0-10.0)
[2024-04-26 10:24] LABS: POTASSIUM 3.6 mmol/L (3.5-5.1)
[2024-04-26 10:25] LABS: CALCIUM 10.1 mg/dL (8.5-10.1); MAGNESIUM 2.2 mg/dL (1.8-2.4)
[2024-04-26 10:26] LABS: BLOOD UREA NITROGEN 18.7 mg/dL (7-18)
[2024-04-26 10:28] LABS: CREATININE 4.6 mg/dL (0.55-1.3)
[2024-04-26 10:29] LABS: PHOSPHOROUS 4.8 mg/dL (2.5-4.9)
[2024-04-26 14:07] LABS: MCH 29.3 pg (25.7-33.7); MCHC 32.1 g/dl (32.0-36.0); MEAN CELL VOLUME 91.3 fl (80-96); MEAN PLT VOLUME 9.1 fl (7.5-11.1); PLATELET COUNT 156 10^3/uL (134-434); RBC 3.07 M/mm3 (3.60-5.2); RDW 18.7 % (11.6-15.6); WHITE BLOOD COUNT 15.3 K/mm3 (4.0-10.0)
[2024-04-26] MEDS: HYDROCORTISONE SOD SUCCINATE 100 MG/2 ML VIAL IVPUSH SCH (21:36)
[2024-04-27 08:19] LABS: HEMOGLOBIN 9.1 GM/dL (10.7-15.3); MCH 29.2 pg (25.7-33.7); MCHC 32.4 g/dl (32.0-36.0); MEAN CELL VOLUME 90.1 fl (80-96); MEAN PLT VOLUME 8.8 fl (7.5-11.1); PLATELET COUNT 181 10^3/uL (134-434); RBC 3.11 M/mm3 (3.60-5.2); RDW 18.6 % (11.6-15.6); WHITE BLOOD COUNT 13.6 K/mm3 (4.0-10.0)
[2024-04-27 08:36] LABS: CHLORIDE 96 mmol/L (98-107); SODIUM 136 mmol/L (136-145)
[2024-04-27 08:37] LABS: POTASSIUM 2.8 mmol/L (3.5-5.1)
[2024-04-27 08:40] LABS: CALCIUM 10.5 mg/dL (8.5-10.1)
[2024-04-27 08:41] LABS: ANION GAP 14 mmol/L (4-13); BLOOD UREA NITROGEN 27.8 mg/dL (7-18); CO2 27 mmol/L (21-32); GLUCOSE,RANDOM 90 mg/dL (74-106)
[2024-04-27 08:42] LABS: MAGNESIUM 2.2 mg/dL (1.8-2.4); PHOSPHOROUS 5.2 mg/dL (2.5-4.9); SGPT/ALT 74 U/L (13-61)
[2024-04-27 08:43] LABS: TOT PROT 7.2 g/dl (6.4-8.2)
[2024-04-27 08:44] LABS: BILIRUBIN,TOTAL 0.5 mg/dL (0.2-1); CREATININE 6.1 mg/dL (0.55-1.3); SGOT/AST 40 U/L (15-37)
[2024-04-27 08:45] LABS: ALK PHOS 119 U/L (45-117)
[2024-04-27] MEDS: KCL 20 MEQ PREMIX BAG 20 MEQ/100 ML INFUS.BAG IVPB SCH (12:33)
[2024-04-27] MEDS: EPOETIN ALFA-EPBX 4,000 UNIT/ML VIAL IVPUSH ONE (12:52)
[2024-04-27] MEDS: HYDROCORTISONE SOD SUCCINATE 100 MG/2 ML VIAL IVPUSH SCH (21:34)
[2024-04-28] MEDS: CHLORHEXIDINE GLUCONATE 4% CLEANSER FOR DECOLONIZATION TP SCH (21:55)
[2024-04-29] MEDS: MEROPENEM 500 MG in DEXTROSE 5%-WATER 100 ML IVPB SCH (02:11)
[2024-04-29 09:04] LABS: HEMOGLOBIN 9.3 GM/dL (10.7-15.3); MCH 29.5 pg (25.7-33.7); MCHC 32.1 g/dl (32.0-36.0); MEAN CELL VOLUME 91.9 fl (80-96); MEAN PLT VOLUME 9.1 fl (7.5-11.1); PLATELET COUNT 200 10^3/uL (134-434); RBC 3.15 M/mm3 (3.60-5.2); RDW 19.2 % (11.6-15.6); WHITE BLOOD COUNT 13.4 K/mm3 (4.0-10.0)
[2024-04-29 09:17] LABS: POTASSIUM 3.5 mmol/L (3.5-5.1)
[2024-04-29 09:20] LABS: CALCIUM 10.3 mg/dL (8.5-10.1)
[2024-04-29 09:21] LABS: ALBUMIN 2.8 g/dl (3.4-5.0); BLOOD UREA NITROGEN 29.2 mg/dL (7-18); MAGNESIUM 2.1 mg/dL (1.8-2.4)
[2024-04-29 09:24] LABS: CREATININE 5.4 mg/dL (0.55-1.3)
[2024-04-29 09:25] LABS: TOT PROT 6.9 g/dl (6.4-8.2)
[2024-04-29 09:26] LABS: BILIRUBIN,TOTAL 0.6 mg/dL (0.2-1)
[2024-04-29 09:59] LABS: ANISOCYTOSIS 1+; MACROCYTOSIS 1+; OVALOCYTE 1+; TARGET CELLS 1+
[2024-04-29] MEDS: SERTRALINE HCL 50 MG TABLET (FP) PO SCH (10:58)
[2024-04-29] MEDS: PANTOPRAZOLE SODIUM 40 MG VIAL IVPUSH SCH (10:58)
[2024-04-30 08:08] LABS: HEMATOCRIT 29.1 % (32.4-45.2); HEMOGLOBIN 9.3 GM/dL (10.7-15.3); MCH 29.2 pg (25.7-33.7); MCHC 31.8 g/dl (32.0-36.0); MEAN CELL VOLUME 91.7 fl (80-96); MEAN PLT VOLUME 8.8 fl (7.5-11.1); PLATELET COUNT 176 10^3/uL (134-434); RBC 3.18 M/mm3 (3.60-5.2); RDW 19.4 % (11.6-15.6); WHITE BLOOD COUNT 10.3 K/mm3 (4.0-10.0)
[2024-04-30 08:21] LABS: POTASSIUM 3.5 mmol/L (3.5-5.1)
[2024-04-30 08:30] LABS: ALBUMIN 2.5 g/dl (3.4-5.0); PHOSPHOROUS 4.4 mg/dL (2.5-4.9)
[2024-04-30 08:31] LABS: BILIRUBIN,TOTAL 0.5 mg/dL (0.2-1); CALCIUM 9.7 mg/dL (8.5-10.1); TOT PROT 6.3 g/dl (6.4-8.2)
[2024-04-30 08:32] LABS: MAGNESIUM 2.2 mg/dL (1.8-2.4)
[2024-04-30 08:33] LABS: CREATININE 6.9 mg/dL (0.55-1.3)
[2024-04-30] MEDS: THIAMINE HCL 200 MG/2 ML VIAL IVPB SCH (14:55)
[2024-04-30] MEDS ORDERED: SODIUM CHLORIDE 250 ML IV PRN (19:36)
[2024-05-01] MEDS ORDERED: HALOPERIDOL LACTATE 5 MG/ML IM PRN (09:31)
[2024-05-01] MEDS: QUEtiapine FUMARATE 25 MG TABLET PO SCH (10:40)
[2024-05-01] MEDS: ACETAMINOPHEN 650 MG/20.3 ML ORAL SOLUTION (CUPS) GT PRN (21:10)
[2024-05-02 07:24] LABS: HEMATOCRIT 28.1 % (32.4-45.2); HEMOGLOBIN 8.8 GM/dL (10.7-15.3); MCH 28.6 pg (25.7-33.7); MCHC 31.4 g/dl (32.0-36.0); MEAN CELL VOLUME 91.3 fl (80-96); MEAN PLT VOLUME 9.3 fl (7.5-11.1); PLATELET COUNT 207 10^3/uL (134-434); RBC 3.08 M/mm3 (3.60-5.2); RDW 18.8 % (11.6-15.6); WHITE BLOOD COUNT 11.4 K/mm3 (4.0-10.0)
[2024-05-02 07:25] LABS: CALCIUM 9.4 mg/dL (8.5-10.1)
[2024-05-02 07:26] LABS: BLOOD UREA NITROGEN 43.8 mg/dL (7-18)
[2024-05-02 07:28] LABS: ALBUMIN 2.5 g/dl (3.4-5.0)
[2024-05-02 07:30] LABS: BILIRUBIN,TOTAL 0.4 mg/dL (0.2-1); CREATININE 5.6 mg/dL (0.55-1.3); TOT PROT 6.4 g/dl (6.4-8.2)
[2024-05-02] MEDS: SODIUM CHLORIDE 250 ML IV PRN (14:30)
[2024-05-02] MEDS: EPOETIN ALFA-EPBX 10,000 UNIT/ML VIAL SQ ONE (15:30)
[2024-05-03] MEDS: KCL 10 MEQ IVPB 10 MEQ/100 ML INFUS.BAG IVPB SCH (18:19)
[2024-05-03] MEDS: POTASSIUM CHLORIDE ORAL LIQUID 20 MEQ/15 ML PO SCH (21:36)
[2024-05-04] MEDS ORDERED: SODIUM CHLORIDE 250 ML IV PRN ×2 (08:56→19:38)
[2024-05-04] MEDS: EPOETIN ALFA-EPBX 10,000 UNIT/ML VIAL IVPUSH ONE (14:31)
[2024-05-04] MEDS ORDERED: HALOPERIDOL LACTATE 5 MG/ML IM PRN (19:38)
[2024-05-04] MEDS ORDERED: EPOETIN ALFA-EPBX 10,000 UNIT/ML VIAL IVPUSH ONE ×2 (21:35)
[2024-05-04] MEDS: POTASSIUM CHLORIDE ORAL LIQUID 20 MEQ/15 ML PO SCH (21:42)
[2024-05-04] MEDS: CHLORHEXIDINE GLUCONATE 4% CLEANSER FOR DECOLONIZATION TP SCH (21:42)
[2024-05-05] MEDS: MEROPENEM 500 MG in DEXTROSE 5%-WATER 100 ML IVPB SCH (01:04)
[2024-05-05] MEDS: QUEtiapine FUMARATE 25 MG TABLET PO SCH (09:24)
[2024-05-05] MEDS: FAMOTIDINE 20 MG/2.5 ML ORAL LIQUID PEG SCH (09:26)
[2024-05-05] MEDS: SERTRALINE HCL 50 MG TABLET (FP) PO SCH (09:26)
[2024-05-05] MEDS: ACETAMINOPHEN 650 MG/20.3 ML ORAL SOLUTION (CUPS) GT PRN (09:30)
[2024-05-05 11:00] LABS: BASO % 0.5 % (0-2.0); EOS % 0.5 % (0-4.5); HEMATOCRIT 28.3 % (32.4-45.2); HEMOGLOBIN 9.2 GM/dL (10.7-15.3); LYMPH % 13.9 % (8-40); MCH 29.3 pg (25.7-33.7); MCHC 32.4 g/dl (32.0-36.0); MEAN CELL VOLUME 90.4 fl (80-96); MEAN PLT VOLUME 9.8 fl (7.5-11.1); MONO % 6.6 % (3.8-10.2); NEUT % 78.5 % (42.8-82.8); PLATELET COUNT 182 10^3/uL (134-434); RBC 3.13 M/mm3 (3.60-5.2); RDW 18.7 % (11.6-15.6); WHITE BLOOD COUNT 11.3 K/mm3 (4.0-10.0)
[2024-05-05 11:32] LABS: INR 1.11 (0.83-1.09); PROTHROMBIN TIME (PATIENT) 12.5 SEC (9.7-13.0)
[2024-05-05 12:03] LABS: POTASSIUM 4.3 mmol/L (3.5-5.1)
[2024-05-05 12:05] LABS: CALCIUM 9.4 mg/dL (8.5-10.1)
[2024-05-05 12:06] LABS: ALBUMIN 2.6 g/dl (3.4-5.0); BLOOD UREA NITROGEN 26.7 mg/dL (7-18); MAGNESIUM 1.7 mg/dL (1.8-2.4)
[2024-05-05 12:10] LABS: BILIRUBIN,TOTAL 0.7 mg/dL (0.2-1)
[2024-05-05] MEDS: MAGNESIUM SULFATE IN WATER 2 GM/50 ML IVPB IVPB ONE (12:39)
[2024-05-05] MEDS ORDERED: SODIUM CHLORIDE 250 ML IV PRN (19:32)
[2024-05-05] MEDS ORDERED: EPOETIN ALFA-EPBX 10,000 UNIT/ML VIAL IVPUSH ONE (19:32)
[2024-05-05] MEDS: POTASSIUM CHLORIDE ORAL LIQUID 20 MEQ/15 ML GT SCH (21:53)
[2024-05-06 07:23] LABS: BASO % 0.6 % (0-2.0); EOS % 1.8 % (0-4.5); HEMATOCRIT 26.2 % (32.4-45.2); HEMOGLOBIN 8.3 GM/dL (10.7-15.3); LYMPH % 16.9 % (8-40); MCH 28.9 pg (25.7-33.7); MCHC 31.6 g/dl (32.0-36.0); MEAN CELL VOLUME 91.4 fl (80-96); MEAN PLT VOLUME 9.5 fl (7.5-11.1); MONO % 6.1 % (3.8-10.2); NEUT % 74.6 % (42.8-82.8); PLATELET COUNT 211 10^3/uL (134-434); RBC 2.87 M/mm3 (3.60-5.2); RDW 18.8 % (11.6-15.6); WHITE BLOOD COUNT 11.6 K/mm3 (4.0-10.0)
[2024-05-06 08:22] LABS: POTASSIUM 5.2 mmol/L (3.5-5.1)
[2024-05-06 08:26] LABS: ALBUMIN 2.6 g/dl (3.4-5.0); BLOOD UREA NITROGEN 34.8 mg/dL (7-18); CALCIUM 9.3 mg/dL (8.5-10.1); MAGNESIUM 2.4 mg/dL (1.8-2.4)
[2024-05-06 08:30] LABS: BILIRUBIN,TOTAL 0.8 mg/dL (0.2-1); TOT PROT 6.7 g/dl (6.4-8.2)
[2024-05-06] MEDS: FAMOTIDINE 20 MG/2.5 ML ORAL LIQUID PEG SCH (11:03)
[2024-05-06] MEDS: QUEtiapine FUMARATE 25 MG TABLET GT SCH (11:05)
[2024-05-06] MEDS: SERTRALINE HCL 50 MG TABLET (FP) GT SCH (11:05)
[2024-05-06] MEDS: POTASSIUM CHLORIDE ORAL LIQUID 20 MEQ/15 ML GT SCH (21:03)
[2024-05-06] MEDS: CARVEDILOL 12.5 MG TABLET (FP) NGT SCH (23:57)
[2024-05-06] MEDS: ACETAMINOPHEN 650 MG/20.3 ML ORAL SOLUTION (CUPS) GT PRN (23:57)
[2024-05-07 07:25] LABS: HEMATOCRIT 24.8 % (32.4-45.2); HEMOGLOBIN 8.1 GM/dL (10.7-15.3); LYMPH % 17.3 % (8-40); MCH 29.9 pg (25.7-33.7); MCHC 32.6 g/dl (32.0-36.0); MEAN CELL VOLUME 91.8 fl (80-96); MEAN PLT VOLUME 9.6 fl (7.5-11.1); NEUT % 72.7 % (42.8-82.8); PLATELET COUNT 202 10^3/uL (134-434); RDW 18.9 % (11.6-15.6)
[2024-05-07 07:50] LABS: POTASSIUM 5.7 mmol/L (3.5-5.1)
[2024-05-07 07:56] LABS: CALCIUM 9.5 mg/dL (8.5-10.1)
[2024-05-07 07:57] LABS: ALBUMIN 2.3 g/dl (3.4-5.0); BLOOD UREA NITROGEN 49.6 mg/dL (7-18); MAGNESIUM 2.5 mg/dL (1.8-2.4)
[2024-05-07 08:00] LABS: CREATININE 6.4 mg/dL (0.55-1.3)
[2024-05-07 08:02] LABS: BILIRUBIN,TOTAL 0.7 mg/dL (0.2-1); TOT PROT 6.1 g/dl (6.4-8.2)
[2024-05-07] MEDS ORDERED: SODIUM CHLORIDE 250 ML IV PRN (08:36)
[2024-05-07] MEDS: EPOETIN ALFA-EPBX 10,000 UNIT/ML VIAL IVPUSH ONE (10:08)
[2024-05-08 06:45] LABS: BASO % 1.3 % (0-2.0); HEMOGLOBIN 7.8 GM/dL (10.7-15.3); LYMPH % 17.4 % (8-40); MCH 29.8 pg (25.7-33.7); MCHC 32.5 g/dl (32.0-36.0); MEAN CELL VOLUME 91.5 fl (80-96); MEAN PLT VOLUME 9.2 fl (7.5-11.1); MONO % 6.6 % (3.8-10.2); NEUT % 72.7 % (42.8-82.8); PLATELET COUNT 189 10^3/uL (134-434); RBC 2.62 M/mm3 (3.60-5.2); RDW 19.4 % (11.6-15.6); WHITE BLOOD COUNT 8.6 K/mm3 (4.0-10.0)
[2024-05-08 06:47] LABS: POTASSIUM 4.2 mmol/L (3.5-5.1)
[2024-05-08 06:54] LABS: ALBUMIN 2.3 g/dl (3.4-5.0)
[2024-05-08 06:55] LABS: BLOOD UREA NITROGEN 38.3 mg/dL (7-18); CALCIUM 8.4 mg/dL (8.5-10.1); CREATININE 4.9 mg/dL (0.55-1.3); MAGNESIUM 2.1 mg/dL (1.8-2.4)
[2024-05-08 06:56] LABS: BILIRUBIN,TOTAL 0.4 mg/dL (0.2-1); TOT PROT 6.3 g/dl (6.4-8.2)
[2024-05-08] MEDS: INSULIN ASPART SLIDING SCALE (NOVOLOG) 1 VIAL SQ SCH ×2 (12:43→21:28)
[2024-05-08] MEDS ORDERED: SODIUM CHLORIDE 250 ML IV PRN (12:57)
[2024-05-09] MEDS: HALOPERIDOL LACTATE 5 MG/ML IM PRN (09:05)
[2024-05-09] MEDS: ZINC SULFATE 220 MG CAPSULE (FP) NGT SCH (09:17)
[2024-05-09] MEDS: VITAMIN B COMP W-C 1 EA TABLET (NEPHRO-VITE) GT SCH (09:17)
[2024-05-09] MEDS: EPOETIN ALFA-EPBX 10,000 UNIT/ML VIAL IVPUSH ONE (11:44)
[2024-05-09] MEDS ORDERED: ACETAMINOPHEN 650 MG/20.3 ML ORAL SOLUTION (CUPS) GT PRN (14:34)
[2024-05-09] MEDS ORDERED: HALOPERIDOL LACTATE 5 MG/ML IM PRN (14:34)
[2024-05-09] MEDS: INSULIN ASPART SLIDING SCALE (NOVOLOG) 1 VIAL SQ SCH (17:50)
[2024-05-09] MEDS: CARVEDILOL 12.5 MG TABLET (FP) NGT SCH (21:40)
[2024-05-10] MEDS ORDERED: QUEtiapine FUMARATE 25 MG TABLET NGT SCH (10:00)
[2024-05-10 10:32] LABS: POTASSIUM 3.8 mmol/L (3.5-5.1)
[2024-05-10 10:34] LABS: BLOOD UREA NITROGEN 33.1 mg/dL (7-18)
[2024-05-10 10:35] LABS: ALBUMIN 2.2 g/dl (3.4-5.0)
[2024-05-10 10:38] LABS: CREATININE 4.4 mg/dL (0.55-1.3)
[2024-05-10 10:39] LABS: BILIRUBIN,TOTAL 0.3 mg/dL (0.2-1); TOT PROT 6.1 g/dl (6.4-8.2)
[2024-05-10] MEDS: FAMOTIDINE 20 MG/2.5 ML ORAL LIQUID NGT SCH (11:03)
[2024-05-10] MEDS: QUEtiapine FUMARATE 25 MG TABLET NGT SCH (11:03)
[2024-05-10] MEDS: SERTRALINE HCL 50 MG TABLET (FP) NGT SCH (11:05)
[2024-05-10] MEDS: ACETAMINOPHEN 650 MG/20.3 ML ORAL SOLUTION (CUPS) NGT PRN (11:05)
[2024-05-11] MEDS ORDERED: SODIUM CHLORIDE 250 ML IV PRN (08:51)
[2024-05-11] MEDS ORDERED: EPOETIN ALFA-EPBX 10,000 UNIT/ML VIAL SQ ONE (10:00)
[2024-05-11 12:21] LABS: HEMOGLOBIN 7.8 GM/dL (10.7-15.3); MCH 28.7 pg (25.7-33.7); MCHC 31.4 g/dl (32.0-36.0); MEAN CELL VOLUME 91.5 fl (80-96); MEAN PLT VOLUME 9.5 fl (7.5-11.1); PLATELET COUNT 204 10^3/uL (134-434); RBC 2.73 M/mm3 (3.60-5.2); RDW 19.2 % (11.6-15.6); WHITE BLOOD COUNT 8.9 K/mm3 (4.0-10.0)
[2024-05-11] MEDS ORDERED: GLUCAGON 1 MG KIT ONE (14:13)
[2024-05-11] MEDS ORDERED: FENTANYL CITRATE/PF 50 MCG/ML VIAL ONE (14:13)
[2024-05-11] MEDS ORDERED: MIDAZOLAM HCL 2 MG/2 ML SINGLE DOSE VIAL ONE (14:15)
[2024-05-11] MEDS: GLUCAGON 1 MG KIT IVPUSH ONE (15:15)
[2024-05-11] MEDS: FENTANYL CITRATE/PF 50 MCG/ML VIAL IVPUSH ONE (15:20)
[2024-05-12] MEDS: EPOETIN ALFA-EPBX 10,000 UNIT/ML VIAL SQ ONE (11:09)
[2024-05-12] MEDS ORDERED: SODIUM CHLORIDE 250 ML IV PRN (11:09)
[2024-05-14 11:05] LABS: BASO % 0.6 % (0-2.0); EOS % 2.7 % (0-4.5); HEMATOCRIT 20.1 % (32.4-45.2); LYMPH % 17.3 % (8-40); MCH 28.7 pg (25.7-33.7); MCHC 32.5 g/dl (32.0-36.0); MEAN CELL VOLUME 88.4 fl (80-96); MEAN PLT VOLUME 8.8 fl (7.5-11.1); MONO % 8.8 % (3.8-10.2); NEUT % 70.6 % (42.8-82.8); PLATELET COUNT 216 10^3/uL (134-434); RBC 2.28 M/mm3 (3.60-5.2); WHITE BLOOD COUNT 7.3 K/mm3 (4.0-10.0)
[2024-05-14 11:07] LABS: POTASSIUM 3.6 mmol/L (3.5-5.1)
[2024-05-14 11:13] LABS: CALCIUM 9.3 mg/dL (8.5-10.1)
[2024-05-14 11:14] LABS: BLOOD UREA NITROGEN 39.6 mg/dL (7-18)
[2024-05-14 11:17] LABS: CREATININE 6.3 mg/dL (0.55-1.3)
[2024-05-14 11:19] LABS: BILIRUBIN,TOTAL 0.4 mg/dL (0.2-1); HEMOGLOBIN 6.5 GM/dL (10.7-15.3); TOT PROT 6.4 g/dl (6.4-8.2)
[2024-05-14] MEDS ORDERED: INSULIN ASPART SLIDING SCALE (NOVOLOG) 1 VIAL SQ ONE (18:05)
[2024-05-14] MEDS ORDERED: SODIUM CHLORIDE 250 ML IV PRN (18:48)
[2024-05-15] MEDS: EPOETIN ALFA-EPBX 10,000 UNIT/ML VIAL IVPUSH ONE (09:13)
[2024-05-15 09:53] LABS: HEMATOCRIT 29.7 % (32.4-45.2); HEMOGLOBIN 10.1 GM/dL (10.7-15.3); MCH 29.4 pg (25.7-33.7); MCHC 33.9 g/dl (32.0-36.0); MEAN CELL VOLUME 86.9 fl (80-96); MEAN PLT VOLUME 8.5 fl (7.5-11.1); PLATELET COUNT 221 10^3/uL (134-434); RBC 3.42 M/mm3 (3.60-5.2); RDW 15.8 % (11.6-15.6); WHITE BLOOD COUNT 7.5 K/mm3 (4.0-10.0)
[2024-05-15] MEDS: EPOETIN ALFA-EPBX 10,000 UNIT/ML VIAL SQ NR (12:57)
[2024-05-16] MEDS ORDERED: INSULIN ASPART SLIDING SCALE (NOVOLOG) 1 VIAL SQ ONE (11:40)
[2024-05-17 10:53] LABS: BASO % 0.8 % (0-2.0); EOS % 3.9 % (0-4.5); HEMATOCRIT 32.5 % (32.4-45.2); HEMOGLOBIN 10.8 GM/dL (10.7-15.3); LYMPH % 18.6 % (8-40); MCH 28.9 pg (25.7-33.7); MCHC 33.2 g/dl (32.0-36.0); MEAN CELL VOLUME 86.9 fl (80-96); MEAN PLT VOLUME 8.4 fl (7.5-11.1); MONO % 8.3 % (3.8-10.2); NEUT % 68.4 % (42.8-82.8); PLATELET COUNT 242 10^3/uL (134-434); RBC 3.74 M/mm3 (3.60-5.2); RDW 15.9 % (11.6-15.6); WHITE BLOOD COUNT 8.4 K/mm3 (4.0-10.0)
[2024-05-17 11:17] LABS: POTASSIUM 3.6 mmol/L (3.5-5.1)
[2024-05-17 11:27] LABS: ALBUMIN 2.2 g/dl (3.4-5.0)
[2024-05-17 11:28] LABS: BILIRUBIN,TOTAL 0.4 mg/dL (0.2-1); BLOOD UREA NITROGEN 39.9 mg/dL (7-18); CALCIUM 9.5 mg/dL (8.5-10.1)
[2024-05-17 11:30] LABS: CREATININE 6.3 mg/dL (0.55-1.3)
[2024-05-17] MEDS ORDERED: ceFAZolin SODIUM 1 GM VIAL ONE (19:04)
[2024-05-17] MEDS: ceFAZolin SODIUM 1 GM VIAL IVPB ONE (19:05)
[2024-05-17] MEDS: LIDOCAINE HCL 1%, 10 MG/ML (20ML VIAL) INF ONE (19:15)
[2024-05-17] MEDS: HEPARIN NA (PORCINE) 1,000 UNITS/ML 10ML M-D VIAL SQ ONE (19:20)
[2024-05-17] MEDS ORDERED: HALOPERIDOL LACTATE 5 MG/ML IM PRN (19:54)
[2024-05-17] MEDS ORDERED: EPOETIN ALFA-EPBX 10,000 UNIT/ML VIAL SQ ONE (19:54)
[2024-05-17] MEDS ORDERED: ACETAMINOPHEN 650 MG/20.3 ML ORAL SOLUTION (CUPS) NGT PRN (19:54)
[2024-05-17] MEDS: QUEtiapine FUMARATE 25 MG TABLET NGT SCH (22:54)
[2024-05-17] MEDS: CARVEDILOL 12.5 MG TABLET (FP) NGT SCH (22:54)
[2024-05-17] MEDS: LACTATED RINGERS SOLUTION 1,000 ML IV SCH (23:03)
[2024-05-18] MEDS: INSULIN ASPART SLIDING SCALE (NOVOLOG) 1 VIAL SQ SCH (08:55)
[2024-05-18] MEDS: ZINC SULFATE 220 MG CAPSULE (FP) NGT SCH (09:05)
[2024-05-18] MEDS: VITAMIN B COMP W-C 1 EA TABLET (NEPHRO-VITE) GT SCH (09:05)
[2024-05-18] MEDS: SERTRALINE HCL 50 MG TABLET (FP) NGT SCH (09:05)
[2024-05-18] MEDS: FAMOTIDINE 20 MG/2.5 ML ORAL LIQUID NGT SCH (09:58)
[2024-05-18] MEDS ORDERED: INSULIN ASPART SLIDING SCALE (NOVOLOG) 1 VIAL SQ ONE (11:30)
[2024-05-18 13:19] VITALS: RESP 18
[2024-05-18] MEDS ORDERED: SODIUM CHLORIDE 250 ML IV PRN (14:00)
[2024-05-18] MEDS: EPOETIN ALFA-EPBX 10,000 UNIT/ML VIAL IVPUSH ONE (14:47)
[2024-05-18 15:14] VITALS: TEMP 97.8
[2024-05-18 15:29] VITALS: BP 126/79; PULSE 81
== END 2024-05-18 16:20 | DRG 871 ==
LOC: JER 05:39 → JERBED 07:48 → JICU 10:36 → J2W 04-28 12:59 → J8W 05-09 14:00
PROVIDERS: ADMIT Family Medicine; ATTEND Family Medicine
PROC: 0BH17EZ Insertion of Endotracheal Airway into Trachea, Via Natural or Artificial Opening (ICD-10-PCS; 2024-04-23)
PROC: 5A1945Z Respiratory Ventilation, 24-96 Consecutive Hours (ICD-10-PCS; 2024-04-23)
PROC: 5A1D70Z Performance of Urinary Filtration, Intermittent, Less than 6 Hours Per Day (ICD-10-PCS; 2024-04-25)
PROC: 05HN33Z Insertion of Infusion Device into Left Internal Jugular Vein, Percutaneous Approach (ICD-10-PCS; principal; 2024-04-26)
PROC: B544ZZA Ultrasonography of Left Jugular Veins, Guidance (ICD-10-PCS; 2024-04-26)
PROC: 5A1D70Z Performance of Urinary Filtration, Intermittent, Less than 6 Hours Per Day (ICD-10-PCS; 2024-05-07)
PROC: 0DH63UZ Insertion of Feeding Device into Stomach, Percutaneous Approach (ICD-10-PCS; 2024-05-11)
PROC: BD12ZZZ Fluoroscopy of Stomach (ICD-10-PCS; 2024-05-11)
PROC: 5A1D70Z Performance of Urinary Filtration, Intermittent, Less than 6 Hours Per Day (ICD-10-PCS; 2024-05-12)
PROC: 30233N1 Transfusion of Nonautologous Red Blood Cells into Peripheral Vein, Percutaneous Approach (ICD-10-PCS; 2024-05-14)
PROC: 5A1D70Z Performance of Urinary Filtration, Intermittent, Less than 6 Hours Per Day (ICD-10-PCS; 2024-05-15)
PROC: 0JH63XZ Insertion of Tunneled Vascular Access Device into Chest Subcutaneous Tissue and Fascia, Percutaneous Approach (ICD-10-PCS; 2024-05-17)
PROC: 02H633Z Insertion of Infusion Device into Right Atrium, Percutaneous Approach (ICD-10-PCS; 2024-05-17)
PROC: B518ZZA Fluoroscopy of Superior Vena Cava, Guidance (ICD-10-PCS; 2024-05-17)
PROC: 5A1D70Z Performance of Urinary Filtration, Intermittent, Less than 6 Hours Per Day (ICD-10-PCS; 2024-05-18)
DX: A41.89 Other specified sepsis (principal); G92.8 Other toxic encephalopathy; R65.21 Severe sepsis with septic shock; N18.6 End stage renal disease; J18.9 Pneumonia, unspecified organism; J96.01 Acute respiratory failure with hypoxia; K72.00 Acute and subacute hepatic failure without coma; E87.20 Acidosis, unspecified; I24.89 Other forms of acute ischemic heart disease; I69.354 Hemiplegia and hemiparesis following cerebral infarction affecting left non-dominant side; K92.1 Melena; I50.32 Chronic diastolic (congestive) heart failure; I13.2 Hypertensive heart and chronic kidney disease with heart failure and with stage 5 chronic kidney disease, or end stage renal disease; D63.1 Anemia in chronic kidney disease; R13.10 Dysphagia, unspecified; K76.0 Fatty (change of) liver, not elsewhere classified; I25.10 Atherosclerotic heart disease of native coronary artery without angina pectoris; K57.90 Diverticulosis of intestine, part unspecified, without perforation or abscess without bleeding; E11.22 Type 2 diabetes mellitus with diabetic chronic kidney disease; E78.5 Hyperlipidemia, unspecified; K21.9 Gastro-esophageal reflux disease without esophagitis; Z99.2 Dependence on renal dialysis
CPT/HCPCS: 0241U-QW; 36415; 36430; 49440; 70450-TC; 70496-TC; 71045-TC-FY; 74018-TC-FY; 76000-TC-FY; 76700-TC; 80048; 80053; 82140; 82272; 82550; 82553; 82728; 82803; 82962; 83540; 83550; 83605; 83735; 84100; 84484; 85025; 85027; 85610; 85730; 86140; 86704; 86708; 86803; 86850; 86900; 86901; 86922; 87040; 87070; 87186; 87205; 87340; 87517; 93005; 93010; 94002; 94760; 95816; 99291; C1750; J1644; J3490; P9038; P9058; Q5106; Q9967